=== PATIENT | male | born 1945 | race Caucasian/White ===

== ENCOUNTER → 2018-05-07 18:18 | Outpatient (CLI) | payer OTHER, SELFPAY ==
[2018-05-07 18:54] LABS: CPK Total, Creatine Kinase 282 U/L (39-308); Thyroid Stim Hormone (TSH) 1.67 uIU/mL (0.358-3.74)
[2018-05-09 08:25] LABS: Thyroid Peroxidase AB 68 IU/mL (0-34)
== END ==
PROVIDERS: Referring Provider Nurse Practitioner; Visit Provider Nurse Practitioner
DX: E03.9 Hypothyroidism, unspecified (principal); M79.18 Myalgia, other site
CPT/HCPCS: 82550; 84443; 86376

== ENCOUNTER → 2018-07-02 12:03 | Outpatient (CLI) | payer OTHER, SELFPAY ==
[2018-07-02 11:12] VITALS: BMI 29.7
--- NOTE | 2018-07-02 12:06 | RAD_ITS ---
STUDY: X-RAY - CERVICAL SPINE REASON FOR EXAM: Male, 73 years old. Left-sided pain. TECHNIQUE: 5 view(s) of the cervical spine were obtained. COMPARISON: None FINDINGS: Normal anterior atlantoaxial articulation. Normal odontoid process. There is straightening of the normal cervical lordosis. 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 There is multi-level degenerative disc disease with multilevel disc space narrowing. There is multi-level osseous foraminal stenosis. The soft tissue structures are unremarkable. There is no demonstrated fracture of the cervical spine. RAD/Cerv Spine 4 or 5 Views IMPRESSION: No acute abnormality. Degenerative changes as above. Electronically Signed: Justin Link MD at 12:29 EST , Service support ,
--- NOTE | 2018-07-02 12:25 | RAD_ITS ---
HISTORY: WORSENING LEFT SIDED PAIN, NKI COMPARISON: None FINDINGS: XR left shoulder 3 views No fracture, dislocation, or acute disease. The left glenohumeral relationship appears normal. Left AC joint is preserved. No soft tissue calcifications. RAD/Shoulder min 2 Views IMPRESSION: Negative left shoulder. No suspicious findings. at [id number] Reported and signed by: Justo Hanley MD Electronically Signed: Justo Hanley, at 4:17 EST Tel , Service support ,
--- OUTSIDE RECORDS SUMMARY | 2018-08-18 15:36 | XMS RPT_ITS ---
:1945 Author Organization OHIP Care Team Providers Name Role Phone MAYELIN STAHL Attending Unavailable WILBERT SKAGGS (AUDIEC) Attending Unavailable IRA COREY Referring Unavailable CARLYN GOODE Attending Unavailable IRA COREY Referring Unavailable WILBERT SKAGGS (WILBER-C) Referring Unavailable WILBERT SKAGGS (AUDIEC) Referring Unavailable WILBERT SKAGGS (PA-C) Referring Unavailable MAYELIN STAHL Referring Unavailable MAYELIN STAHL Attending Unavailable COREY, IRA L Referring Unavailable WILBERT SKAGGS (PA-C) Attending Unavailable COREY, IRA L Referring Unavailable FAVIO, ASHLEYESTER Referring Unavailable FAVIO, MAYELIN Admitting Unavailable FAVIO, MAYELIN Attending Unavailable FAVIO, ASHLEYESTER Referring Unavailable FAVIO, ASHLEYESTER Attending Unavailable COREY, IRA L Referring Unavailable Chandana Garcia Attending Unavailable Corey, Ira FOCUS PULLER-C Attending Unavailable Corey, Ira FOCUS PULLER-C Referring Unavailable Corey, Ira FOCUS PULLER-C Primary Care Unavailable Chandana Garcia Attending Unavailable Kristofer Patten Referring Unavailable Tatiana Briceño Attending Unavailable Chandana Garcia Attending Unavailable Corey, Ira FOCUS PULLER-C Referring Unavailable Corey, Ira FOCUS PULLER-C Attending Unavailable Kristofer Patten Primary Care Unavailable Corey, Ira FOCUS PULLER-C Referring Unavailable PROBLEMS PROBLEMS DATE TYPE CONDITION / CODE ATTENDING STATUS SOURCE 05/08/2018 Unknown E03.9 - Corey, Active [facility] Hypothyroidism, Ira FOCUS PULLER-C Community unspecified / Hospital E03.9(ICD-10) Repository 05/08/2018 Unknown M79.18 - Myalgia, Corey, Active [place] other site / Ira FOCUS PULLER-C Community M79.18(ICD-10) Hospital Repository 02/25/2018 Active Radiographic dye WILBERT SKAGGS Active [place] allergy status / (PA-C) [facility] Main Z91.041(ICD-10) [place] Repository 02/25/2018 Active Unspecified disorder NA Active [place] of circulatory system Clinic Main / I99.9(ICD-10) [place] Repository 02/05/2018 Active Aneurysm of other NA Active [place] specified arteries / Clinic Main I72.8(ICD-10) [place] Repository 02/05/2018 Active Atherosclerotic heart NA Active [place] disease of kiana [facility] Main coronary artery [place] without angina Repository pectoris / I25.10(ICD-10) 02/05/2018 Active Encounter for NA Active [place] preprocedural [facility] Main cardiovascular [place] examination / Repository Z01.810(ICD-10) 02/05/2018 Active Encounter for other NA Active [place] preprocedural [facility] Main examination / [place] Z01.818(ICD-10) Repository 01/28/2018 Active Unknown / WILBERT SKAGGS Active [place] UNK(Unknown) (PA-C) Clinic Main [place] Repository 01/21/2018 Active [place] of ureter / NA Active [place] N20.1(ICD-10) Clinic Other [place] Repository 01/21/2018 Active Unspecified abdominal NA Active [place] pain / R10.9(ICD-10) Clinic Other [place] Repository 09/11/2017 Unknown I25.10 - Chandana Garcia Active [facility] Atherosclerotic heart Community disease of [facility] coronary artery Repository without angina pectoris / I25.10(ICD-10) 09/11/2017 Unknown Z95.1 - Presence of Chandana Garcia Active [facility] aortocoronary bypass Community graft / Z95.1(ICD-10) Hospital Repository 09/11/2017 Unknown I20.9 - Angina Chandana Garcia Active [place] pectoris, unspecified Community / I20.9(ICD-10) Hospital Repository PROCEDURES PROCEDURES No Procedure Records FoundRESULTS RESULTS OFFICE VISIT Observed: 07/08/2018 Status: F Source: [place] 8:42 PM [facility] REPOSITORY [facility] [address] [place] [address] OFFICE VISIT Date of Service: 07/08/18 MR#: [id number] Acct: [id number] Name: JORGE GUILLEN Rep #: [id number] : 1945 Provider: MICHAEL Corey Age/Sex: 73/M Location: [facility] Status: Signed Intake Vital Signs07/08/18 Height 6 ft 07/08/18 Weight: 221 lb Intake Visit Reasons: neck muscle pain Allergies iodine Allergy (Verified 07/02/18 11:12) Rash contrast dye Allergy (Unknown, Uncoded 07/02/18 11:12) Unknown Medications Aspirin [Aspirin, Baby] 81 mg PO DAILY@0800 06/13/14 [History Confirmed 07/02/18] Multivitamins,Therapeutic [Multivitamin] 1 tab PO DAILY 06/13/14 [History Confirmed 07/02/18] ascorbic acid (vitamin C) 1,000 mg tablet 1 g PO BID tab 09/09/17 [History Confirmed 07/02/18] calcium citrate-vitamin D3 315 mg-200 unit tablet 1 tab PO BID tab 09/09/17 [History Confirmed 07/02/18] coenzyme Q10 100 mg capsule 100 mg PO QDAY 09/09/17 [History Confirmed 07/02/18] latanoprost 0.005 % eye drops 1 drp OPHTHALMIC QHS ml 09/09/17 [History Confirmed 07/02/18] nitroglycerin 0.4 mg sublingual tablet 0.4 mg SUBLINGUAL Q5M PRN 09/09/17 [History Confirmed 07/02/18] tadalafil 20 mg tablet 20 mg PO .COMPLEX 09/09/17 [History Confirmed 07/02/18] cholecalciferol (vitamin D3) 2,000 unit capsule 2,000 unit PO QDAY cap 09/11/17 [History Confirmed 07/02/18] isosorbide mononitrate ER 30 mg tablet,extended release 24 hr 60 mg PO BID tab 09/11/17 [History Confirmed 07/02/18] levothyroxine 100 mcg capsule 100 mcg PO QDAY cap 09/11/17 [History Confirmed 07/02/18] lutein 20 mg capsule 20 mg PO QDAY 09/11/17 [History Confirmed 07/02/18] omeprazole 20 mg tablet,delayed release 20 mg PO QDAY tab 09/11/17 [History Confirmed 07/02/18] rosuvastatin 10 mg tablet 10 mg PO QDAY 09/11/17 [History Confirmed 07/02/18] turmeric root extract 1,053 mg tablet 1,000 mg PO BID tab 09/11/17 [History Confirmed 07/02/18] atenolol 25 mg tablet 25 mg PO DAILY #90 tab 09/24/17 [Rx Confirmed 07/02/18] omega-3 fatty acids 1,000 mg capsule 1,000 mg PO BID cap 07/02/18 [History Confirmed 07/02/18] cyclobenzaprine 5 mg tablet 5 mg PO TID PRN #60 tab 07/08/18 [Rx Confirmed 07/08/18] doxycycline hyclate 100 mg tablet 100 mg PO BID #20 tab 07/08/18 [Rx Confirmed 07/08/18] PFSH Medical History Angina pectoris (Acute) Hyperlipidemia (Chronic) 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 Does not seem to be the same pain as the neck but the skin is tender more in the lymph nodes ROS Roman/Lymp Hematologic/Lymphatic: Positive for enlarged lymph nodes Exam Const Constitutional: Yes cooperative, Yes healthy appearing Orientation: Yes alert, awake and oriented x3 HENMT Head: Yes normocephalic Ear: Yes hearing grossly normal bilaterally Neck Neck: normal visual inspection Lymphadenopathy: Yes cervical (lateral are tender to touch on the ) Thyroid: thyroid normal Eyes General: Yes appearance normal, both eyes and all related structures Chest Chest palpation AND inspection: Yes normal inspection of the chest Resp Effort AND Inspection: Yes normal respiratory effort Auscultation: Yes clear to auscultation bilaterally Cardio Palpitation: Yes normal PMI Rate: Yes regular rate Rhythm: Yes regular rhythm GI Inspection: Yes normal to inspection Auscultation: Yes normal bowel sounds Musc Cervical Spine: Yes cervical ROM normal Thoracic/Lumbar Spine: Yes thoracic and lumbar spine normal to inspection Skin General: no rashes or lesions noted Lesions: Yes no lesions Extrem General: Yes normal to inspection Neuro General: Yes alert and oriented x3 Psych Appearance: Positive grossly normal Mood: Positive congruent mood Affect: Positive normal affect Assessment AND Plan Problems 1. Lymphadenopathy of head and neck R59.1 2. Neck pain M54.2 Patient Instructions Take the antibiotics till gone Use the cyclobenzaprine as needed up to 3 x a day my take 2 at a time if needed Medications New: Coding Level of Care Code Off vis,est,level 3 Diagnoses Lymphadenopathy of head and neck R59.1 Neck pain M54.2 07/08/182041 <Electronically signed by Ira MORALES> Date Ira MORALES CC: CARDIOLOGY VISIT Observed: 07/02/2018 Status: F Source: [place] REPORT 12:06 PM [facility] REPOSITORY [facility] [address] [place] [address] OFFICE VISIT Date of Service: 07/02/18 MR#: [id number] Acct: [id number] Name: JORGE GUILLEN Rep #: [id number] : 1945 Provider: Chandana Garcia MD Age/Sex: 73/M [place] [facility]: Signed HPI HPI Details: JORGE GUILLEN, is a 73 M who presents to the office today for outpatient cardiovascular follow-up. Overall from a cardiac standpoint he states he has been doing well since his last visit on 09/11/2017. He has had no symptoms of angina pectoris and no episodes of CHF or pulmonary edema. There has been no issues of near syncope or syncope. He states he has weaned himself off his isosorbide therapy without any adverse consequence. He has not had to use nitroglycerin sublingual. He notes he had his lipid labs checked. He believes the results were under reasonably good control. He will attempt to provide a copy of his lipid labs to the office for continuity of care purposes. He notes that during the past year he did have nephrolithiasis. As part of that evaluation he was found to have splenic aneurysm . He states that he underwent further evaluation and care for this at the [facility] Main campus. This included some form of percutaneous intervention. The details are unknown. Intake Vital Signs07/02/18 Height 6 ft 07/02/18 Weight: 219 lb 07/02/18 Body Mass Index (BMI) 29.7 07/02/18 Blood Pressure 126/68 H Intake Visit Reasons: 9 m fu Allergies iodine Allergy (Verified 07/02/18 11:12) Rash contrast dye Allergy (Unknown, Uncoded 07/02/18 11:12) Unknown Medications Aspirin [Aspirin, Baby] 81 mg PO DAILY@0800 06/13/14 [History Confirmed 07/02/18] Multivitamins,Therapeutic [Multivitamin] 1 tab PO DAILY 06/13/14 [History Confirmed 07/02/18] ascorbic acid (vitamin C) 1,000 mg tablet 1 g PO BID tab 09/09/17 [History Confirmed 07/02/18] calcium citrate-vitamin D3 315 mg-200 unit tablet 1 tab PO BID tab 09/09/17 [History Confirmed 07/02/18] coenzyme Q10 100 mg capsule 100 mg PO QDAY 09/09/17 [History Confirmed 07/02/18] latanoprost 0.005 % eye drops 1 drp OPHTHALMIC QHS ml 09/09/17 [History Confirmed 07/02/18] nitroglycerin 0.4 mg sublingual tablet 0.4 mg SUBLINGUAL Q5M PRN 09/09/17 [History Confirmed 07/02/18] tadalafil 20 mg tablet 20 mg PO .COMPLEX 09/09/17 [History Confirmed 07/02/18] cholecalciferol (vitamin D3) 2,000 unit capsule 2,000 unit PO QDAY cap 09/11/17 [History Confirmed 07/02/18] isosorbide mononitrate ER 30 mg tablet,extended release 24 hr 60 mg PO BID tab 09/11/17 [History Confirmed 07/02/18] levothyroxine 100 mcg capsule 100 mcg PO QDAY cap 09/11/17 [History Confirmed 07/02/18] lutein 20 mg capsule 20 mg PO QDAY 09/11/17 [History Confirmed 07/02/18] omeprazole 20 mg tablet,delayed release 20 mg PO QDAY tab 09/11/17 [History Confirmed 07/02/18] rosuvastatin 10 mg tablet 10 mg PO QDAY 09/11/17 [History Confirmed 07/02/18] turmeric root extract 1,053 mg tablet 1,000 mg PO BID tab 09/11/17 [History Confirmed 07/02/18] atenolol 25 mg tablet 25 mg PO DAILY #90 tab 09/24/17 [Rx Confirmed 07/02/18] omega-3 fatty acids 1,000 mg capsule 1,000 mg PO BID cap 07/02/18 [History Confirmed 07/02/18] [facility] Medical History Angina pectoris (Acute) Hyperlipidemia (Chronic) 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) Hypothyroidism (Acute) Kidney stone (Acute) Mononeuritis (Acute) Peptic ulcer disease (Acute) Abnormal stress test (Inactive) Surgical History 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) Splenic artery aneurysm (Acute) History of hernia repair (Chronic) H/O arthroscopy of left knee (Resolved) H/O repair of rotator cuff (Resolved) Family History Father Heart disease Social History Smoking Status: Never smoker alcohol intake: current ROS Const Const: Negative for fatigue, weakness, weight gain, weight loss, frequent falls or excessive sweating Eyes Eyes: Negative for change in vision, blurry vision or transient loss of vision ENT ENT: Negative for dizziness or balance problems Cardio Chest Pain: No Palpitations: No Edema: None Muscle aches with walking: None Resp Respiratory: Negative for SOB with activity or SOB at rest GI GI: Negative vomiting or vomiting blood/hematemesis : Negative for hematuria Musc Musc: Positive for muscle aches/ myalgia (bilat shoulders); negative for balance problems, muscle weakness or joint pain Skin Skin: Negative non-healing lesions or rash Neuro Neuro: Negative for weakness, blurry vision, dizziness, lightheadedness, frequent falls or orthostatic symptoms Roman Hematologic/Lymphatic: Negative for easy bleeding Endo Endo: Negative for fatigue or excessive sweating Psych Psych: Negative for anxiety or depression Allergy Allergy/Immunology: Negative for hives, Negative for rash Cardiology Exam Const Appearance: cooperative, healthy appearing, comfortable, no acute distress, well developed and well groomed Nutritional Appearance: average body habitus, well nourished and overweight Orientation: alert, awake and oriented x3 Head Head: normal to inspection, normocephalic and atraumatic Ears: hearing grossly normal bilaterally Nose: external nose normal Face and Sinus: face symmetric Mouth: oral mucosae normal Teeth and gingiva: dentition normal Eyes General: appearance normal, both eyes and all related structures Eyelids: eyelids normal Conjunctivae: conjunctivae normal Pupils: PERRL EOM: EOM intact bilaterally Neck Neck: normal visual inspection and full ROM Carotids: normal carotid upstroke Chest Chest inspection: normal inspection of the chest and symmetric chest movement Auscultation: Bilateral: Clear to Auscultation Cardio Palpation: normal PMI Rate: regular rate Rhythm: regular rhythm Heart sounds: S1 normal, S2 normal and positive S4 GI GI: normal to inspection, soft and bowel sounds present Neuro General: alert, awake and oriented x3 Skin Skin: no rashes or lesions noted Extremities Pulses: Normal: Right Radial Pulse, Left Radial Pulse Lower Extremity Edema: None: Bilateral Psych Psychological: normal affect Assessment AND Plan 1. Angina pectoris I20.9 Plan At the present time he appears to be without any ongoing symptoms of angina pectoris. He will continue his current medical regimen. He will report any concerns that require further evaluation and care 2. 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 Again he appears to be stable at this time without any acute issues or concerns. He will continue his current medical regimen. 3. Hyperlipidemia, unspecified hyperlipidemia type E78.5 Plan A copy of his most recent lipid labs would be appreciated for continuity of care Plan Detail Additional Comments In the interim a copy of his [facility] medical records will be requested for review for continuity of care purposes regarding his splenic aneurysm Thank you for allowing me to participate in the care of your patient. Please don't hesitate to call if any issues arise. This note was generated using a voice recognition system and there may be incorrect words, spelling or punctuation that were not noted when reviewing the office note prior to saving. Follow Up 1 Month (PFM) 07/02/18 (copy of [facility] anuerysm reports) Coding Level of Care Code Off vis,est,level 3 Diagnoses Angina pectoris I20.9 Postsurgical aortocoronary bypass status Z95.1 Hyperlipidemia, unspecified hyperlipidemia type E78.5 Hyperlipidemia type: unspecified Coding Level of Care Code Off vis,est,level 3 Diagnoses Angina pectoris I20.9 Postsurgical aortocoronary bypass status Z95.1 Hyperlipidemia, unspecified hyperlipidemia type E78.5 Hyperlipidemia type: unspecified 07/02/18 1206 <Electronically signed by Chandana Garcia MD> Date Chandana Garcia MD Cosigner Signature: Date (if applicable) CC: SHOULDER MIN 2 VIEWS Observed: 07/02/2018 Status: F Source: [place] 12:06 PM [facility] REPOSITORY [facility] Imaging Services [address] [place] [address] Shoulder min 2 Views MR#: [id number] Acct: [id number] Name: YOBANIJORGE BENNETT Rep #: [id number] : 1945 M 73 From: Justo Hanley MD PCP: Ira Corey NP Status: REG CLI Study: Shoulder min 2 Views Date of Exam: 07/02/18 Exam# [id number] Ordering Dr: Ira Corey HISTORY: WORSENING LEFT SIDED PAIN, NKI COMPARISON: None FINDINGS: XR left shoulder 3 views No fracture, dislocation, or acute disease. The left glenohumeral relationship appears normal. Left AC joint is preserved. No soft tissue calcifications. RAD/Shoulder min 2 Views IMPRESSION: Negative left shoulder. No suspicious findings. at 0419 Reported and signed by: Justo Hanley MD Electronically Signed: Justo Hanley, at 4:17 EST Tel , Service support , CC: FOCUS PULLER Ira Corey Vascular Ultrasound Technician: Signed CERV SPINE 4 OR 5 Observed: 07/02/2018 Status: F Source: [place] VIEWS 12:06 PM [facility] REPOSITORY [facility] Imaging Services [address] [place] [address] Cerv Spine 4 or 5 Views MR#: [id number] Acct: [id number] Name: DARLENESARANYAJORGE Susy Rep #: [id number] : 1945 M 73 From: Justin Link MD PCP: Ira Corey NP Status: REG CLI Study: Cerv Spine 4 or 5 Views Date of Exam: 07/02/18 Exam# [id number] Ordering Dr: Ira Corey STUDY: X-RAY - CERVICAL SPINE REASON FOR EXAM: Male, 73 years old. Left-sided pain. TECHNIQUE: 5 view(s) of the cervical spine were obtained. COMPARISON: None FINDINGS: Normal anterior atlantoaxial articulation. Normal odontoid process. There is straightening of the normal cervical lordosis. 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 There is multi-level degenerative disc disease with multilevel disc space narrowing. There is multi- level osseous foraminal stenosis. The soft tissue structures are unremarkable. There is no demonstrated fracture of the cervical spine. RAD/Cerv Spine 4 or 5 Views IMPRESSION: No acute abnormality. Degenerative changes as above. Electronically Signed: Justin Link MD at 12:29 EST , Service support , CC: MICHAEL Corey Vascular Ultrasound Technician: Signed OFFICE VISIT Observed: 05/07/2018 Status: F Source: [place] 2:55 PM [facility] REPOSITORY [facility] [address] [place] [address] OFFICE VISIT Date of Service: 05/07/18 MR#: [id number] Acct: [id number] Name: JORGE GUILLEN Rep #: [id number] : 1945 Provider: MICHAEL Corey Age/Sex: 72/M Location: [facility] Status: Signed Intake Vital Signs05/07/18 Height 6 ft 05/07/18 Weight: 217 lb Intake Visit Reasons: BW AND NECK ISSUES Accompanied by: self Is patient in pain?: Yes Allergies iodine Allergy (Verified 07/27/13 17:28) Rash contrast dye Allergy (Unknown, Uncoded 09/11/17 13:04) Unknown Medications Aspirin [Aspirin, Baby] 81 mg PO DAILY@0800 06/13/14 [History Confirmed 09/11/17] Multivitamins,Therapeutic [Multivitamin] 1 tab PO DAILY 06/13/14 [History Confirmed 09/11/17] ascorbic acid (vitamin C) 1,000 mg tablet 1 g PO BID tab 09/09/17 [History Confirmed 09/11/17] calcium citrate-vitamin D3 315 mg-200 unit tablet 1 tab PO BID tab 09/09/17 [History Confirmed 09/11/17] coenzyme Q10 100 mg capsule 100 mg PO QDAY 09/09/17 [History Confirmed 09/11/17] latanoprost 0.005 % eye drops 1 drp OPHTHALMIC QHS ml 09/09/17 [History Confirmed 09/11/17] nitroglycerin 0.4 mg sublingual tablet 0.4 mg SUBLINGUAL Q5M PRN 09/09/17 [History Confirmed 09/11/17] tadalafil 20 mg tablet 20 mg PO .COMPLEX 09/09/17 [History Confirmed 09/11/17] cholecalciferol (vitamin D3) 2,000 unit capsule 2,000 unit PO QDAY cap 09/11/17 [History Confirmed 09/11/17] isosorbide mononitrate ER 30 mg tablet,extended release 24 hr 60 mg PO BID tab 09/11/17 [History Confirmed 09/11/17] levothyroxine 100 mcg capsule 100 mcg PO QDAY cap 09/11/17 [History Confirmed 09/11/17] lutein 20 mg capsule 20 mg PO QDAY 09/11/17 [History Confirmed 09/11/17] omega-3 fatty acids 1,000 mg capsule 1,000 mg PO QDAY 09/11/17 [History Confirmed 09/11/17] omeprazole 20 mg tablet,delayed release 20 mg PO QDAY tab 09/11/17 [History Confirmed 09/11/17] rosuvastatin 10 mg tablet 10 mg PO QDAY 09/11/17 [History Confirmed 09/11/17] turmeric root extract 1,053 mg tablet 1,000 mg PO BID tab 09/11/17 [History Confirmed 09/11/17] atenolol 25 mg tablet 25 mg PO DAILY #90 tab 09/24/17 [Rx] [facility] Medical History Angina pectoris (Acute) Hyperlipidemia (Chronic) 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 L shoulder and his neck bother him like a muscle ache . Hx of elevated muscle enzyme. Will recheck his thyoid and CK and have x-rays of the L shoulder and neck ROS ENT ENT: Positive for neck pain Musc Musculoskeletal: Positive for neck pain and other (L shoulder pain like ache) Exam Const Constitutional: Yes cooperative, Yes healthy appearing Orientation: Yes alert, awake and oriented x3 HENMT Head: Yes normocephalic Ear: Yes hearing grossly normal bilaterally Neck Neck: normal visual inspection Thyroid: thyroid normal Eyes General: Yes appearance normal, both eyes and all related structures Chest Chest palpation AND inspection: Yes normal inspection of the chest Resp Effort AND Inspection: Yes normal respiratory effort Auscultation: Yes clear to auscultation bilaterally Cardio Palpitation: Yes normal PMI Rate: Yes regular rate Rhythm: Yes regular rhythm GI Inspection: Yes normal to inspection Auscultation: Yes normal bowel sounds Musc Cervical Spine: Yes cervical ROM normal Thoracic/Lumbar Spine: Yes thoracic and lumbar spine normal to inspection Skin General: no rashes or lesions noted Lesions: Yes no lesions Extrem General: Yes normal to inspection Neuro General: Yes alert and oriented x3 Psych Appearance: Positive grossly normal Mood: Positive congruent mood Affect: Positive normal affect Assessment AND Plan Problems 1. Chronic left shoulder pain M25.512; G89.29 2. Neck pain M54.2 3. Muscle ache of extremity M79.18 Patient Instructions Will call with the results of the labs drawn Orders Orders: Coding Level of Care Code Off vis,est,level 3 Diagnoses Chronic left shoulder pain M25.512; G89.29 Chronicity: chronic Neck pain M54.2 Muscle ache of extremity M79.18 05/07/18 4635 <Electronically signed by Ira Corey FOCUS PULLER-C> Date Ira Corey FOCUS PULLER-C CC: CPK TOTAL, CREATINE Collected: 05/07/2018 Status: F Source: [place] 2:55 PM [facility] REPOSITORY TYPE CODE TESTS RESULT OUT OF RANGE REFERENCE UNITS LAB L501.3620 39-308 U/L Normal CPK TOTAL 282 Performed By: #### L501.3620, L501.9520 #### [facility] [address] [place] [address]. [place], [address] #### L3300.6900 #### [facility] (refer to report for specific site) refer to report for address and phone number THYROID STIM HORMONE Collected: 05/07/2018 Status: F Source: [place] (TSH) 2:55 PM [facility] REPOSITORY TYPE CODE TESTS RESULT OUT OF RANGE REFERENCE UNITS LAB L501.9520 0.358-3.74 uIU/mL Normal TSH 1.67 Performed By: #### L501.3620, L501.9520 #### [facility] Hospital Laboratory [facility] [place], [address] #### [id number] #### [facility] (refer to report for specific site) refer to report for address and phone number THYROID PEROXIDASE AB Collected: 05/07/2018 Status: F Source: [place] 2:55 PM [facility] REPOSITORY TYPE CODE TESTS RESULT OUT OF RANGE REFERENCE UNITS LAB L3300.6900 0-34 IU/mL High TPO AB [id number] Result Comment: Performed at: - [facility] [address] [id number] [employer] Roboticist: Arthur Castillo PhD, Phone: [phone] Performed By: #### L501.3620, L501.9520 #### [facility] [address] [place] [address]. [place], [address] #### [id number] #### [facility] (refer to report for specific site) refer to report for address and phone number CNCO Observed: 05/02/2018 Status: COMPLETED Source: [place] 12:00 AM [facility] REPOSITORY Letter Text Veto Stahl MD, SAMMY Channel Marketing Coordinator Department of Vascular Surgery [address] [place] [address] / [address] [address] Office: [phone] Appointments: [phone] May 02, 2018 Ira Corey NP [address] [place] [address] NAME: Jorge Guillen [facility] NO.: [id number] : 1945 DATE OF SERVICE: 04/01/2018 Dear Vinod: Your patient, Mr. Guillen, was seen by me in the office for a post-op appointment. The details of his treatment plan are included in my office note, a copy of which is included for your interest and records. I appreciate the opportunity to participate in Mr. Guillen's evaluation and treatment. If I can provide further information, please do not hesitate to contact me. Sincerely yours, Veto Stahl MD (Signed electronically to expedite mailing) LK/tc Enclosure PROGRESS Observed: 04/01/2018 Status: COMPLETED Source: [place] 10:48 AM [facility] REPOSITORY HNO ID: [id number] Author: Veto Stahl Service: (none) Author Type: Physician Type: Progress Notes Filed: 04/01/2018 10:48 AM Note Text: This office note has been dictated. Veto Stahl MD CNOV Observed: 04/01/2018 Status: COMPLETED Source: [place] 9:45 AM [facility] REPOSITORY Office Visit (VASSMN) JORGE GUILLEN ([id number]) 1945 M Date Time Provider Department 04/01/18 9:45 AM VETO STAHL During your visit today, we recorded the following information about you: Temperature Pulse Respiration Blood pressure 97.4 degrees 52/minute 18/minute 136/73 Veto Stalh MD 04/01/2018 10:48 AM Signed This office note has been dictated. 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 FISH OIL-DHA-EPA 1,200 MG-144* Take by mouth twice daily. ROSUVASTATIN 10 MG TABLET Take 10 mg by mouth once drew* ATENOLOL 25 MG TABLET TAKE 1 TABLET BY MOUTH ONCE D* ISOSORBIDE MONONITRATE ER 60 * Take 1 tablet by mouth twice * Patient taking differently: Take 60 mg by mouth once drew* ASCORBIC ACID (VITAMIN C) 1,0* Take 1 tablet by mouth twice * LATANOPROST 0.005 % EYE DROPS Use 1 Drop in both eyes daily* NITROGLYCERIN 0.4 MG SUBLINGU* Dissolve 1 tablet under the t* TADALAFIL 20 MG TABLET Take 1 tablet by mouth as nee* COENZYME K03-MLPLIXZ E 100 MG* Take 1 tablet by mouth once d* CALCIUM CITRATE + 315 MG-200 * Take one(1) tablet two(2) aminah* MULTIVITAMIN TABLET Take one(1) tablet daily. * ASPIRIN 81 MG TABLET Take one (1) tablet daily . Problem List As Of Date 04/01/2018 Noted Resolved CORONARY ATHEROSCLER UNSPEC VESSEL [I25.10] INVALID FOR*08/23/2015 AORTOCORONARY BYPASS STATUS [Z95.1] INVALID FOR*08/23/2015 HYPERLIPIDEMIA NEC/NOS [E78.5] INVALID FOR*08/23/2015 Coronary artery disease involving kiana olmstead*INVALID FOR* S/P CABG x 3 (L-LAD, R-diag, S-OM) 2001 [Z95.1] INVALID FOR* Pure hypercholesterolemia [E78.00] INVALID FOR* Erectile dysfunction [N52.9] INVALID FOR* Diaphoresis [R61] INVALID FOR* Angina effort (HCC) [I20.8] INVALID FOR* Splenic artery aneurysm (HCC) [I72.8] INVALID FOR* More... Preop cardiovascular exam [Z01.810] INVALID FOR* More... Preop testing [Z01.818] INVALID FOR* More... Encounter Status:Closed by VETO STAHL MD on 04/01/18 PROGRESS Observed: 04/01/2018 Status: COMPLETED Source: [place] 12:00 AM [facility] REPOSITORY HNO ID: [id number] Author: Veto Stahl Service: Vascular Surgery Author Type: Physician Type: Progress Notes Filed: 04/25/2018 10:57 AM Note Text: NAME: JORGE GUILLEN [facility] NO: [id number] DATE OF SERVICE: 04/01/2018 Mr. Guillen is seen today. Status post splenic artery aneurysm repair. He is doing well. Denies any abdominal or back pain or access site problems. Preoperative CTA was compared to the postintervention ultrasound. The stent is patent. No filling of the aneurysm. Impression/Plan: He will follow up in 12 months with an ultrasound. Mayelin Stahl M.D. SPL/089 Audio #: [id number] Date Dictated: 04/01/2018 10:26:33 Date Typed: 04/04/2018 09:32:09 Date Revised: ALLIED HEALTH Observed: 03/03/2018 Status: COMPLETED Source: [place] 3:36 PM [facility] REPOSITORY HNO ID: [id number] Author: Chaplain Del Castillo (Chaplain) Service: Spiritual Care Author Type: Industrial Diamond Polisher Type: Allied Health Filed: 03/04/2018 7:04 AM Note Text: SPIRITUALCARE Spiritual Care Visit- Brief Note Name: Jorge Guillen Date: March 04, 2018 Notes: Introduced spiritual care and Healing Services modalities during pre-surgery rounding. Will provide support as needed. Industrial Diamond Polisher Signature: Chaplain Blake M.Div., [facility] To contact the [facility] Care Department: Please call [phone] or Page the On-Call Industrial Diamond Polisher at pager [phone] Thank you for the opportunity to be of service. This is an electronically created document. IF PRINTED, PLEASE DO NOT REMOVE FROM THE CHART OR MODIFY PRINTED COPY. NURSING PROG Observed: 03/03/2018 Status: COMPLETED Source: [place] 3:18 PM [facility] REPOSITORY HNO ID: [id number] Author: Nichole (Rn) MARISABEL Gonzalez Service: Nursing Author Type: Registered Nurse Type: Nursing Progress Note Filed: 03/03/2018 3:27 PM Note Text: Nursing Progress Note Patient Name: Jorge Guillen [address] Daily Note:1515 bedrest complete. Pt ambulated in the christy and to the restroom. Steady gait.No bleeding or hematoma PIV dc'd This note was completed by: Nichole Gonzalez RN ANES POST Observed: 03/03/2018 Status: COMPLETED Source: [place] 3:00 PM [facility] REPOSITORY HNO ID: [id number] Author: Gregory Murphy Service: Anesthesiology Author Type: Physician Type: Anesthesia PostOp Filed: 03/04/2018 6:35 PM Note Text: POST ANESTHESIA EVALUATION NOTE SERVICE DATE: 03/04/2018 SERVICE TIME: 1500 : 1945 Vitals: 03/03/18 0540 03/03/18 0912 03/03/18 1500 Temp: (!) 35.2 ?C (95.4 ?F) 36.4 ?C (97.5 ?F) 36.6 ?C (97.9 ?F) 03/03/18 1213 03/03/18 1314 03/03/18 1411 03/03/18 1455 BP: 113/66 135/68 128/71 131/68 03/03/18 1213 03/03/18 1314 03/03/18 1411 03/03/18 1455 Pulse: (!) 58 62 66 61 03/03/18 1314 03/03/18 1411 03/03/18 1455 03/03/18 1500 Resp: 16 16 16 16 03/03/18 1314 03/03/18 1411 03/03/18 1455 03/03/18 1500 SpO2: 95% 96% 95% 96% Validated Vital Signs: Yes POST ANES STATUS: No apparent anesthetic complications. The patient is appropriately hydrated with stable respiratory and cardiovascular status. Patient has safe and adequate airway control. The patient has appropriate pain relief and no significant post operative nausea or vomiting. The patient has achieved baseline mental status. Further assessment by Anesthesia Service: None Other Remarks: SIGNATURE: Gregory Murphy MD PATIENT NAME: Jorge Guillen DATE: March 04, 2018 TIME: 6:35 PM PAGER/CONTACT #: [phone] ALLIED HEALTH Observed: 03/03/2018 Status: COMPLETED Source: [place] 6:39 AM [facility] REPOSITORY [facility] ID: [id number] Author: Chaplain Del Castillo (Chaplain) Service: Spiritual Care Author Type: Industrial Diamond Polisher Type: Allied Health Filed: 03/03/2018 6:40 AM Note Text: SPIRITUALCARE Spiritual Care Visit- Brief Note Name: Jorge Guillen Date: March 03, 2018 Notes: Introduced spiritual care and Healing Services modalities during pre-surgery rounding. Will provide support as needed. Industrial Diamond Polisher Signature: Chaplain Blake M.Div., [facility] To contact the Spiritual Care Department: Please call [phone] or Page the On-Call Industrial Diamond Polisher at pager [phone] Thank you for the opportunity to be of service. This is an electronically created document. IF PRINTED, PLEASE DO NOT REMOVE FROM THE CHART OR MODIFY PRINTED COPY. CNCO Observed: 03/03/2018 Status: COMPLETED Source: [place] 12:00 AM [facility] REPOSITORY Letter Text Veto Stahl MD, SAMMY Channel Marketing Coordinator Department of Vascular Surgery [address] [place] [address] / [place] [id number] Office: [phone] Appointments: [phone] March 03, 2018 Ira Corey NP [address] [place] [address] NAME: Jorge Guillen [facility] NO.: [id number] : 1945 DATE OF SERVICE: 01/28/18 AND 02/25/2018 Dear Ms. Corey: Your patient, Mr. Guillen, was seen by me in the office for follow-up appointments. The details of his treatment plan are included in my office note, a copy of which is included for your interest and records. I appreciate the opportunity to participate in Mr. Guillen's evaluation and treatment. If I can provide further information, please do not hesitate to contact me. Sincerely yours, Veto Stahl MD (Signed electronically to expedite mailing) LK/tc Enclosure OPERATIVE NO Observed: 03/03/2018 Status: COMPLETED Source: [place] 12:00 AM [facility] REPOSITORY HNO ID: [id number] Author: Veto Stahl Service: Vascular Surgery Author Type: Physician Type: Operative Report Filed: 03/06/2018 4:44 PM Note Text: [place] [address] [place] OPERATIVE REPORT NAME: JORGE GUILLEN [facility] #: [id number] DATE: 03/03/2018 AGE: 72 SURGEON 1: Mayelin Stahl M.D. SURGEON 2: COMPONENT ASSEMBLER 1: Luz Elena Elizabeth M.D. COMPONENT ASSEMBLER 2: OPERATION: Right ultrasound-guided common femoral artery access, selective catheterization of splenic artery aortogram and splenic angiogram, and placement of an 8-mm x 10 cm Viabahn stent splenic artery. ANESTHESIA: Monitored anesthesia care. PREOPERATIVE DIAGNOSIS: Splenic aneurysm. POSTOPERATIVE DIAGNOSIS: Splenic aneurysm. OPERATIVE INDICATIONS: This is a 72-year-old male with incidentally found splenic artery aneurysm, now scheduled for elective repair. We discussed risks, benefits, and alternatives including bleeding, infection, neurovascular injury, or splenic infarct. All questions were answered. He agreed to proceed. OPERATIVE FINDINGS: The aorta is patent with normal takeoff of the celiac. The splenic artery is patent with aneurysm at the distal end of the proximal one-third. OPERATIVE PROCEDURE: The patient was brought to the operating room suite. Identification was confirmed. Informed consent was verified. After adequate sedation was achieved, he was prepared and draped in sterile fashion over the left arm, abdomen and groins. Initially, after time-out was performed, percutaneous access was obtained in right common femoral artery with a single pass with a micropuncture. A 5-Guamanian sheath was inserted. Aortogram was performed at the T12 level. We selected out the celiac artery and the splenic artery, advancing our catheter, guide wire, and subsequently placing a 45 cm 7-Guamanian sheath into the splenic artery where we performed images identifying level of the splenic artery aneurysm. We switched out to a 0.018/1000 wire and then we delivered our 8 mm x 10 cm length Viabahn stent, which was postdilated to 8-mm. Completion angiogram demonstrated brisk emptying of the splenic artery with no filling of the aneurysm sac. Sheath, catheters, and guidewires were removed. Manual pressure was held to effect hemostasis at 20 minutes. No hematoma and his peripheral perfusion was intact with palpable pulses. I was present for entire procedure. I performed the percutaneous access. Dr. Luz Elena Elizabeth performed selective catheterization and stent deployment under my direct supervision. Please refer to the brief operative note for the operative times. Incision/Procedure Start Time: 7:36 AM Incision Close/Procedure End Time: 08:40 AM CONTRAST: Nonionic, 40 mL. ESTIMATED BLOOD LOSS: Minimal. PACKS AND DRAINS: None. SPECIMENS: COMPLICATIONS: None. Mayelin Stahl M.D. LK:[id number] Revised isael 03/04/18 /[id number] cc: PROGRESS Observed: 02/25/2018 Status: COMPLETED Source: [place] 4:33 PM [facility] REPOSITORY HNO ID: [id number] Author: Elsie (Res) Jose Guadalupe Service: (none) Author Type: Resident Type: Progress Notes Filed: 02/25/2018 4:38 PM Note Text: [facility] PREOP EVALUATION CARDIOTHORACIC ANESTHESIA GENERAL SERVICE DATE: 02/25/2018 SERVICE TIME: 4:33 PM Diagnosis: No diagnosis found. Proposed Surgical Procedure: Splenic artery Angiogram Re-do: No ASA Class: 3 Surgeon: Favio Surgery Date: 03/03/2018 Last Wt 02/25/18 : 99.3 kg (219 lb) Last Ht 02/25/18 : 182.9 cm (6') Estimated body mass index is 29.7 kg/m? as calculated from the following: Height as of an earlier encounter on 02/25/18: 182.9 cm (6'). Weight as of an earlier encounter on 02/25/18: 99.3 kg (219 lb). Estimated body surface area is 2.25 meters squared as calculated from the following: Height as of an earlier encounter on 02/25/18: 182.9 cm (6'). Weight as of an earlier encounter on 02/25/18: 99.3 kg (219 lb). ACTIVE PROBLEM LIST Coronary Artery Disease Involving Nikolski Coronary Artery of Nikolski Heart Without Angina Pectoris S/P CABG x 3 (L-LAD, R-diag, S-OM) 2001 Pure Hypercholesterolemia Erectile Dysfunction Diaphoresis Angina Effort (Hcc) Splenic Artery Aneurysm (Hcc) Preop Cardiovascular Exam Preop Testing PAST MEDICAL HISTORY Diagnosis Date - Coronary atherosclerosis of unspecified type of vessel, kiana or graft Coronary Atherosclerosis - Frozen shoulder Right - Mixed hyperlipidemia Hyperlipidemia - Mononeuritis of unspecified site Neuropathy - Peptic ulcer, unspecified site, unspecified as acute or chronic, without mention of hemorrhage, perforation, or obstruction Peptic ulcer disease - Personal history of colonic polyps Colon polyps - Rotator cuff syndrome of shoulder and allied disorders Right Rotator cuff syndrome PAST SURGICAL HISTORY Procedure Laterality Date - CABG (3) VEIN GRAFTS AND ARTERIAL GRAFT(S) 2001 CABG, 3 grafts - COLONOSCOP W/ OR W/O [facility] SPEC 10/26, 06/03 Colonoscopy - HERNIA REPAIR HX Right 2001 R INGUINAL AND UMBILICAL HERNIA LAPAROSCOPIC REPAIR WITH MESH - KNEE SCOPE,DIAGNOSTIC 03/03 Arthroscopy, knee, L. - REPAIR ROTATOR CUFF,ACUTE Right 2001 Rotator cuff repair FAMILY HISTORY Problem Relation Age of Onset - Hypertension Mother age 92 - Aneurysm Father age 86 from CHF. Had SC at age 52 - Diabetes Father - Heart Attack Father Social History Substance Use Topics - Smoking status: Never Smoker - Smokeless tobacco: Never Used - Alcohol use 1.0 oz/week Comment: socially ALLERGIES Allergen Reactions - Contrast Dye [Other] Anaphylaxis REVIEW OF SYSTEMS: Neuro: None Respiratory: No history of current cough or dyspnea, or pneumonia in the past 6 weeks. No history of respiratory/pulmonary symptoms or problems Cardiovascular: Positive for: CAD; s/p CABG 2001 GI: No history of GI symptoms or problems. No history of esophageal varices, recent ascites, or ETOH greater than 2 drinks per day. Endocrine: No history of diabetes. Has not taken steroids within the past 30 days. No history of endocrinological symptoms or problems. Steroids taken before Contrast exposure Hematology: Chronic anti-coagulation / platelet meds (Aspirin) ANESTHETIC HISTORY: History of general anesthesia without complications. AIRWAY ASSESSMENT: Airway History: No abnormal airway history Airway Exam: General: Normal appearance Mallampati Score: CLASS II Temporo-Mandibular Displacement Test: Position A (lower teeth can be advanced beyond upper teeth) Interincisor Distance: 5 cm Thyromental Distance: 5 cm Neck Circumference: 40 cm Overbite: No Cervical Mobility: Normal Facial Hair: No Head/Neck Pathology: No ANTICIPATED DIFFICULT AIRWAY: NO Pre-Existing Diagnosis of Obstructive Sleep Apnea: No, STOP BANG SCORE: Criteria = Criteria: Hypertension Age over 50 (72 year old) Neck circumference > 15.75 inches Male gender Score = 4, Score = 4 PHYSICAL EXAM: CARDIAC: Regular rate and rhythm. LUNGS: Lungs clear to auscultation. Good air entry bilaterally. Lines, Drains, Airway: Patient has no lines, drains or airway LABS: Lab Results Past 6 Months Component Value Date HB 16.5 01/21/2018 HCT 47.0 01/21/2018 PLT 142 (L) 01/21/2018 WBC 9.12 01/21/2018 NA 140 01/21/2018 K 4.4 01/21/2018 CREAT 1.09 01/21/2018 CA 9.0 01/21/2018 Lab Results Past 6 Months Component Value Date GLUC 141 (H) 01/21/2018 K 4.4 01/21/2018 NA 140 01/21/2018 CHLOR 103 01/21/2018 CO2 26 01/21/2018 CREAT 1.09 01/21/2018 BUN 23 01/21/2018 ANION 11 01/21/2018 CA 9.0 01/21/2018 TPROT 6.7 01/21/2018 ALB 4.4 01/21/2018 TBILI 0.7 01/21/2018 ALKPHOS 42 01/21/2018 AST 35 01/21/2018 ALT 51 01/21/2018 ABO/RH(D) (no units) Date Value 02/25/2018 O POSITIVE Anticipated Blood Products Ordered: No blood product orders needed. Will the Patient Accept Blood: Yes IMAGING AND TESTS: CT SCAN: Pending ECG: Diagnosis:NORMAL SINUS RHYTHM NORMAL ECG ? Stress test: RESTING ECG: ? NORMAL SINUS RHYTHM. OBSERVATION: ? 1. THE TEST WAS TERMINATED DUE TO GENERAL FATIGUE. ? 2. ADEQUATE HEART RATE RESPONSE OF ?85% ?PREDICTED MAXIMAL HEART RATE, NORMAL HEART RATE RECOVERY @ 1 MINUTE POST EXERCISE, NORMAL CHRONOTROPIC RESPONSE INDEX (>0.62 ON BETA- DIXIE). ? 3. FUNCTIONAL CAPACITY IS ESTIMATED AT ?8 METS, STAGE ?3 ?STIVEN PROTOCOL. MAXIMAL RATE PRESSURE PRODUCT IS ?67189, ?AVERAGE FUNCTIONAL CAPACITY FOR AGE AND GENDER. ? 4. NORMAL BLOOD PRESSURE RESPONSE TO STRESS. ? 5. ABNORMAL ST SEGMENT DEPRESSION AFTER STRESS, BORDERLINE ST SEGMENT DEPRESSION DURING STRESS. ? 6. ABNORMAL VALENTE TREADMILL SCORE (<5 BUT >/= -10). ?INTERMEDIATE RISK. ? 7. TYPICAL ANGINAL DISCOMFORT DURING STRESS. ? 8. UNIFOCAL PVC'S DURING THE TEST, PAC'S DURING THE TEST. ? 9. THE PREVIOUS TEST IS NOT AVAILABLE FOR COMPARISON. CONCLUSION: ? ABNORMAL DUE TO: TYPICAL ANGINAL DISCOMFORT, ABNORMAL VALENTE TREADMILL SCORE. ADDITIONAL COMMENTS: ? ST DEPRESSIONS DURING STRESS WHICH WERE STILL PRESENT BUT RESOLVING DURING RECOVERY PHASE. DEVICES: None MEDICATIONS: Current Outpatient Prescriptions: [START ON 03/02/2018] predniSONE (DELTASONE) 50 mg tab Take one tablet by mouth13 hrs prior to scan, then 7 hrs prior to scan and then 1 hr prior to scan omeprazole (PRILOSEC) 20 mg capsule Take 20 mg by mouth once daily. levothyroxine (SYNTHROID) 100 mcg tablet TURMERIC ROOT EXTRACT ORAL Take by mouth once daily. Fish Oil-DHA-EPA 1,200-144-216 mg cap Take by mouth twice daily. rosuvastatin (CRESTOR) 10 mg tablet Take 10 mg by mouth once daily. atenolol (TENORMIN) 25 mg tablet TAKE 1 TABLET BY MOUTH ONCE DAILY. isosorbide mononitrate ER (IMDUR) 60 mg 24 hr tablet Take 1 tablet by mouth twice daily. (Patient taking differently: Take 60 mg by mouth once daily. ) Ascorbic Acid (VITAMIN C) 1,000 mg tablet Take 1 tablet by mouth twice daily. latanoprost (XALATAN) 0.005 % ophthalmic solution Use 1 Drop in both eyes daily at bedtime. nitroglycerin sublingual (NITROQUICK) 0.4 mg SL tablet Dissolve 1 tablet under the tongue as needed for Chest Pain. If no pain relief call 911. Tadalafil (CIALIS) 20 mg tablet Take 1 tablet by mouth as needed. 1-2 hours before sexual intercourse Coenzyme L82-Xrtdwuj E 100-150 mg-unit cap Take 1 tablet by mouth once daily. calcium citrate/vitamin d3(CALCIUM CITRATE + 315 MG-200 UNIT TAB) Take one(1) tablet two(2) times daily. multivitamin ORAL Tab Take one(1) tablet daily. ASPIRIN 81 MG TAB Take one (1) tablet daily . No current facility-administered medications for this visit. Is the patient currently on any anticoagulant medications: Yes: Anticoagulant medications the patient is currently on: Aspirin: Last dose: to be continued till DOS This was adequately stopped before surgery: No, primary service aware. PAIN AND ANXIETY EDUCATION AND MANAGEMENT: Patient has no concerns to address at this time. Will the Patient Require an Epidural? No Does the Patient have an Anticoagulation Bridge Plan? No Additional Comments: I have reviewed the Cardiothoracic Surgical Assessment and agree with its findings. During the course of the encounter the patient was prepared for anesthetic care. This conversation included anesthetic options, possible use of invasive monitoring, the risks, benefits, alternatives, and personnel that will be present for the anesthetic encounter. The patient agreed to proceed with the planned anesthetic. Instructed to take Atenolol, Aspirin, Synthroid, Imdur and omeprazole with a small sip of water on the morning of surgery. SIGNATURE: Elsie Shi MD PATIENT NAME: Jorge Guillen DATE: February 25, 2018 TIME: 4:33 PM PAGER/CONTACT #: [phone] PROGRESS Observed: 02/25/2018 Status: COMPLETED Source: [place] 3:37 PM [facility] REPOSITORY HNO ID: [id number] Author: Wilbert Skaggs Service: (none) Author Type: Physician Crane Engineer Type: Progress Notes Filed: 02/25/2018 3:38 PM Note Text: AMBULATORY PATIENT EDUCATION TOPIC: Survival Skills: Visceral angiogram with splenic artery intervention, transfemoral transbrachial with possible brachial artery repair READINESS TO LEARN COGNITIVE ABILITY: Alert and oriented MOTIVATION TO LEARN: Interested FAMILY SUPPORT: High - Very involved in pt care INSTRUCTION PROVIDED TO: Patient and family member PATIENT LEARNS BEST BY: Multiple Methods FACTORS AFFECTING LEARNING: None PHYSICAL LIMITATIONS AFFECTING LEARNING: None LEARNING RESPONSE DIAGNOSIS: Splenic artery aneurysm METHOD OF INSTRUCTION: Individual instruction Written instruction - handouts Verbal instruction PATIENT / FAMILY RESPONSE: Verbalizes understanding of: PRE-OPERATIVE INSTRUCTIONS-Correct action to take to follow pre-operative instructions FOLLOW-UP PLAN: Patient instructed to call with any further issues Contact information given. SUPPLEMENTAL MATERIAL: Patient instructions: vascular surgery preparation, Medication guidelines before vascular surgery REFERRAL (RECOMMENDATION): None Electronically Signed By: WILBERT Skaggs PA-C In Department: VASCULAR SURG DEPT CNOV Observed: 02/25/2018 Status: COMPLETED Source: [place] 3:30 PM [facility] REPOSITORY Office Visit (CARTMN) JORGE GUILLEN ([id number]) 1945 M Date Time Provider Department 02/25/18 3:30 PM ANESTHESIA CLEARANCE CARTMN During your visit today, we recorded the following information about you: Elsie Shi MD 02/25/2018 4:38 PM Signed [facility] PREOP EVALUATION CARDIOTHORACIC ANESTHESIA GENERAL SERVICE DATE: 02/25/2018 SERVICE TIME: 4:33 PM Diagnosis: No diagnosis found. Proposed Surgical Procedure: Splenic artery Angiogram Re-do: No ASA Class: 3 Surgeon: Favio Surgery Date: 03/03/2018 Last Wt 02/25/18 : 99.3 kg (219 lb) Last Ht 02/25/18 : 182.9 cm (6') Estimated body mass index is 29.7 kg/m? as calculated from the following: Height as of an earlier encounter on 02/25/18: 182.9 cm (6'). Weight as of an earlier encounter on 02/25/18: 99.3 kg (219 lb). Estimated body surface area is 2.25 meters squared as calculated from the following: Height as of an earlier encounter on 02/25/18: 182.9 cm (6'). Weight as of an earlier encounter on 02/25/18: 99.3 kg (219 lb). ACTIVE PROBLEM LIST Coronary Artery Disease Involving Nikolski Coronary Artery of [place] Heart Without Angina Pectoris S/P CABG x 3 (L-LAD, R-diag, S-OM) 2001 Pure Hypercholesterolemia Erectile Dysfunction Diaphoresis Angina Effort (Hcc) Splenic Artery Aneurysm (Hcc) Preop Cardiovascular Exam Preop Testing PAST MEDICAL HISTORY Diagnosis Date - Coronary atherosclerosis of unspecified type of vessel, kiana or graft Coronary Atherosclerosis - Frozen shoulder Right - Mixed hyperlipidemia Hyperlipidemia - Mononeuritis of unspecified site Neuropathy - Peptic ulcer, unspecified site, unspecified as acute or chronic, without mention of hemorrhage, perforation, or obstruction Peptic ulcer disease - Personal history of colonic polyps Colon polyps - Rotator cuff syndrome of shoulder and allied disorders Right Rotator cuff syndrome PAST SURGICAL HISTORY Procedure Laterality Date - CABG (3) VEIN GRAFTS AND ARTERIAL GRAFT(S) 2001 CABG, 3 grafts - COLONOSCOP W/ OR W/O [facility] SPEC 10/26, 06/03 Colonoscopy - HERNIA REPAIR HX Right 2001 R INGUINAL AND UMBILICAL HERNIA LAPAROSCOPIC REPAIR WITH MESH - KNEE SCOPE,DIAGNOSTIC 03/03 Arthroscopy, knee, L. - REPAIR ROTATOR CUFF,ACUTE Right 2002 Rotator cuff repair FAMILY HISTORY Problem Relation Age of Onset - Hypertension Mother age 92 - Aneurysm Father age 86 from CHF. Had SC at age 52 - Diabetes Father - Heart Attack Father Social History Substance Use Topics - Smoking status: Never Smoker - Smokeless tobacco: Never Used - Alcohol use 1.0 oz/week Comment: socially ALLERGIES Allergen Reactions - Contrast Dye [Other] Anaphylaxis REVIEW OF SYSTEMS: Neuro: None Respiratory: No history of current cough or dyspnea, or pneumonia in the past 6 weeks. No history of respiratory/pulmonary symptoms or problems Cardiovascular: Positive for: CAD; s/p CABG 2001 GI: No history of GI symptoms or problems. No history of esophageal varices, recent ascites, or ETOH greater than 2 drinks per day. Endocrine: No history of diabetes. Has not taken steroids within the past 30 days. No history of endocrinological symptoms or problems. Steroids taken before Contrast exposure Hematology: Chronic anti-coagulation / platelet meds (Aspirin) ANESTHETIC HISTORY: History of general anesthesia without complications. AIRWAY ASSESSMENT: Airway History: No abnormal airway history Airway Exam: General: Normal appearance Mallampati Score: CLASS II Temporo-Mandibular Displacement Test: Position A (lower teeth can be advanced beyond upper teeth) Interincisor Distance: 5 cm Thyromental Distance: 5 cm Neck Circumference: 40 cm Overbite: No Cervical Mobility: Normal Facial Hair: No Head/Neck Pathology: No ANTICIPATED DIFFICULT AIRWAY: NO Pre-Existing Diagnosis of Obstructive Sleep Apnea: No, STOP BANG SCORE: Criteria = Criteria: Hypertension Age over 50 (72 year old) Neck circumference > 15.75 inches Male gender Score = 4, Score = 4 PHYSICAL EXAM: CARDIAC: Regular rate and rhythm. LUNGS: Lungs clear to auscultation. Good air entry bilaterally. Lines, Drains, Airway: Patient has no lines, drains or airway LABS: Lab Results Past 6 Months Component Value Date HB 16.5 01/21/2018 HCT 47.0 01/21/2018 PLT 142 (L) 01/21/2018 WBC 9.12 01/21/2018 NA 140 01/21/2018 K 4.4 01/21/2018 CREAT 1.09 01/21/2018 CA 9.0 01/21/2018 Lab Results Past 6 Months Component Value Date GLUC 141 (H) 01/21/2018 K 4.4 01/21/2018 NA 140 01/21/2018 CHLOR 103 01/21/2018 CO2 26 01/21/2018 CREAT 1.09 01/21/2018 BUN 23 01/21/2018 ANION 11 01/21/2018 CA 9.0 01/21/2018 TPROT 6.7 01/21/2018 ALB 4.4 01/21/2018 TBILI 0.7 01/21/2018 ALKPHOS 42 01/21/2018 AST 35 01/21/2018 ALT 51 01/21/2018 ABO/RH(D) (no units) Date Value 02/25/2018 O POSITIVE Anticipated Blood Products Ordered: No blood product orders needed. Will the Patient Accept Blood: Yes IMAGING AND TESTS: CT SCAN: Pending ECG: Diagnosis:NORMAL SINUS RHYTHM NORMAL ECG ? Stress test: RESTING ECG: ? NORMAL SINUS RHYTHM. OBSERVATION: ? 1. THE TEST WAS TERMINATED DUE TO GENERAL FATIGUE. ? 2. ADEQUATE HEART RATE RESPONSE OF ?85% ?PREDICTED MAXIMAL HEART RATE, NORMAL HEART RATE RECOVERY @ 1 MINUTE POST EXERCISE, NORMAL CHRONOTROPIC RESPONSE INDEX (>0.62 ON BETA- DIXIE). ? 3. FUNCTIONAL CAPACITY IS ESTIMATED AT ?8 METS, STAGE ?3 ?STIVEN PROTOCOL. MAXIMAL RATE PRESSURE PRODUCT IS ?02953, ?AVERAGE FUNCTIONAL CAPACITY FOR AGE AND GENDER. ? 4. NORMAL BLOOD PRESSURE RESPONSE TO STRESS. ? 5. ABNORMAL ST SEGMENT DEPRESSION AFTER STRESS, BORDERLINE ST SEGMENT DEPRESSION DURING STRESS. ? 6. ABNORMAL VALENTE TREADMILL SCORE (<5 BUT >/= -10). ?INTERMEDIATE RISK. ? 7. TYPICAL ANGINAL DISCOMFORT DURING STRESS. ? 8. UNIFOCAL PVC'S DURING THE TEST, PAC'S DURING THE TEST. ? 9. THE PREVIOUS TEST IS NOT AVAILABLE FOR COMPARISON. CONCLUSION: ? ABNORMAL DUE TO: TYPICAL ANGINAL DISCOMFORT, ABNORMAL VALENTE TREADMILL SCORE. ADDITIONAL COMMENTS: ? ST DEPRESSIONS DURING STRESS WHICH WERE STILL PRESENT BUT RESOLVING DURING RECOVERY PHASE. DEVICES: None MEDICATIONS: Current Outpatient Prescriptions: [START ON 03/02/2018] predniSONE (DELTASONE) 50 mg tab Take one tablet by mouth13 hrs prior to scan, then 7 hrs prior to scan and then 1 hr prior to scan omeprazole (PRILOSEC) 20 mg capsule Take 20 mg by mouth once daily. levothyroxine (SYNTHROID) 100 mcg tablet TURMERIC ROOT EXTRACT ORAL Take by mouth once daily. Fish Oil-DHA-EPA 1,200-144-216 mg cap Take by mouth twice daily. rosuvastatin (CRESTOR) 10 mg tablet Take 10 mg by mouth once daily. atenolol (TENORMIN) 25 mg tablet TAKE 1 TABLET BY MOUTH ONCE DAILY. isosorbide mononitrate ER (IMDUR) 60 mg 24 hr tablet Take 1 tablet by mouth twice daily. (Patient taking differently: Take 60 mg by mouth once daily. ) Ascorbic Acid (VITAMIN C) 1,000 mg tablet Take 1 tablet by mouth twice daily. latanoprost (XALATAN) 0.005 % ophthalmic solution Use 1 Drop in both eyes daily at bedtime. nitroglycerin sublingual (NITROQUICK) 0.4 mg SL tablet Dissolve 1 tablet under the tongue as needed for Chest Pain. If no pain relief call 911. Tadalafil (CIALIS) 20 mg tablet Take 1 tablet by mouth as needed. 1-2 hours before sexual intercourse Coenzyme J95-Hnmrarg E 100-150 mg-unit cap Take 1 tablet by mouth once daily. calcium citrate/vitamin d3(CALCIUM CITRATE + 315 MG-200 UNIT TAB) Take one(1) tablet two(2) times daily. multivitamin ORAL Tab Take one(1) tablet daily. ASPIRIN 81 MG TAB Take one (1) tablet daily . No current facility-administered medications for this visit. Is the patient currently on any anticoagulant medications: Yes: Anticoagulant medications the patient is currently on: Aspirin: Last dose: to be continued till DOS This was adequately stopped before surgery: No, primary service aware. PAIN AND ANXIETY EDUCATION AND MANAGEMENT: Patient has no concerns to address at this time. Will the Patient Require an Epidural? No Does the Patient have an Anticoagulation Bridge Plan? No Additional Comments: I have reviewed the Cardiothoracic Surgical Assessment and agree with its findings. During the course of the encounter the patient was prepared for anesthetic care. This conversation included anesthetic options, possible use of invasive monitoring, the risks, benefits, alternatives, and personnel that will be present for the anesthetic encounter. The patient agreed to proceed with the planned anesthetic. Instructed to take Atenolol, Aspirin, Synthroid, Imdur and omeprazole with a small sip of water on the morning of surgery. SIGNATURE: Elsie Shi MD PATIENT NAME: Jorge Guillen DATE: February 25, 2018 TIME: 4:33 PM PAGER/CONTACT #: [phone] Referring Provider: VETO STAHL [[id number]] Allergies As of Date: 02/25/2018 Noted Allergy Reaction Contrast Dye [Other] 06/14/2003 10 - Anaphylaxis Date Reviewed: 02/25/2018 Reviewed by: Elsie Shi - Fully Assessed Primary Visit Diagnosis:Encounter for preoperative anesthesiology assessment for vascular surgery [Z01.818] Prescriptions as of 02/25/2018 Sig: PREDNISONE 50 MG TABLET Take one tablet by mouth13 hr* OMEPRAZOLE 20 MG CAPSULE,JESSIE* Take 20 mg by mouth once drew* LEVOTHYROXINE 100 MCG TABLET TURMERIC ROOT EXTRACT ORAL Take by mouth once daily. FISH OIL-DHA-EPA 1,200 MG-144* Take by mouth twice daily. ROSUVASTATIN 10 MG TABLET Take 10 mg by mouth once drew* ATENOLOL 25 MG TABLET TAKE 1 TABLET BY MOUTH ONCE D* ISOSORBIDE MONONITRATE ER 60 * Take 1 tablet by mouth twice * Patient taking differently: Take 60 mg by mouth once drew* ASCORBIC ACID (VITAMIN C) 1,0* Take 1 tablet by mouth twice * LATANOPROST 0.005 % EYE DROPS Use 1 Drop in both eyes daily* NITROGLYCERIN 0.4 MG SUBLINGU* Dissolve 1 tablet under the t* TADALAFIL 20 MG TABLET Take 1 tablet by mouth as nee* COENZYME E97-KNMCYDL E 100 MG* Take 1 tablet by mouth once d* CALCIUM CITRATE + 315 MG-200 * Take one(1) tablet two(2) aminah* MULTIVITAMIN TABLET Take one(1) tablet daily. * ASPIRIN 81 MG TABLET Take one (1) tablet daily . 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 Preop cardiovascular exam [Z01.810] INVALID FOR* More... Preop testing [Z01.818] INVALID FOR* More... Encounter Status:Closed by ELSIE SHI MD on 02/25/18 Chart Close Cosign Required by: Michelle Valencia[] PROGRESS Observed: 02/25/2018 Status: COMPLETED Source: [place] 2:41 PM [facility] REPOSITORY HNO ID: [id number] Author: Veto Stahl Service: (none) Author Type: Physician Type: Progress Notes Filed: 02/25/2018 2:48 PM Note Text: This office note has been dictated. Veto Stahl MD CNOV Observed: 02/25/2018 Status: COMPLETED Source: [place] 2:30 PM [facility] REPOSITORY Office Visit (VASSMN) JORGE GUILLEN ([id number]) 1945 M Date Time Provider Department 02/25/18 2:30 PM WILBERT SKAGGS (ANITHA) LONG During your visit today, we recorded the following information about you: Temperature Pulse Respiration Blood pressure 98.1 degrees 78/minute 18/minute 140/67 Weight Height 99.3 kg 1.829 m WILBERT Skaggs PA-C 02/25/2018 3:36 PM Signed VASCULAR SURGERY PREOPERATIVE HANDP SERVICE DATE: 02/24/2018 SERVICE TIME: 2:50 PM PRIMARY CARE PHYSICIAN: Ira Corey NP REFERRING PROVIDER: No referring provider defined for this encounter. Consult requested for an opinion regarding the evaluation and treatment of the above. My final impression and recommendations will be communicated back to the requesting physician by way of the shared medical record or letter via US mail. CHIEF COMPLAINT/HISTORY OF PRESENT ILLNESS: Chief Complaint: Splenic artery aneurysm History of Present Illness: Jorge Guillen is a 72 year old male presenting for preoperative HANDP. Scheduled for splenic artery angio/intervention by Dr. Stahl on 03/03/2018 Continue ASA Stress test 04/26/2017 CTA 02/25/2018 PAST MEDICAL/SURGICAL/FAMILY/SOCIAL HISTORY PAST MEDICAL HISTORY Diagnosis Date - Coronary atherosclerosis of unspecified type of vessel, kiana or graft Coronary Atherosclerosis - Mixed hyperlipidemia Hyperlipidemia - Mononeuritis of unspecified site Neuropathy - Peptic ulcer, unspecified site, unspecified as acute or chronic, without mention of hemorrhage, perforation, or obstruction Peptic ulcer disease - Personal history of colonic polyps Colon polyps - Rotator cuff syndrome of shoulder and allied disorders Rotator cuff syndrome PAST SURGICAL HISTORY Procedure Laterality Date - CABG (3) VEIN GRAFTS AND ARTERIAL GRAFT(S) 2001 CABG, 3 grafts - COLONOSCOPY W/ OR W/O [facility] SPEC 10/26, 06/03 Colonoscopy - HERNIA REPAIR HX Right 2001 R INGUINAL AND UMBILICAL HERNIA LAPAROSCOPIC REPAIR WITH MESH - KNEE SCOPE,DIAGNOSTIC 03/03 Arthroscopy, knee, L. - REPAIR ROTATOR CUFF,ACUTE Rotator cuff repair FAMILY HISTORY Problem Relation Age of Onset - Hypertension Mother age 92 - Aneurysm Father age 86 from CHF. Had SC at age 52 - Diabetes Father - Heart Attack Father Social History Marital status: Spouse name: Years of education: Number of children: Social History Main Topics Smoking status: Never Smoker Smokeless tobacco: Never Used Alcohol use: Yes 1.0 oz/week Comment: socially Drug use: No Sexual activity: Yes Partners with: Female MEDICATIONS/ALLERGIES Current Outpatient Prescriptions: omeprazole (PRILOSEC) 20 mg capsule Take 20 mg by mouth once daily. Disp: Rfl: levothyroxine (SYNTHROID) 100 mcg tablet Disp: Rfl: TURMERIC ROOT EXTRACT ORAL Take by mouth once daily. Disp: Rfl: Fish Oil-DHA-EPA 1,200-144-216 mg cap Take by mouth twice daily. Disp: Rfl: predniSONE (DELTASONE) 50 mg tab Take one tablet by mouth 13 hrs prior to scan, then 7 hrs prior to scan and then 1 hr prior to scan Disp: 3 tablet Rfl: 0 rosuvastatin (CRESTOR) 10 mg tablet Take 10 mg by mouth once daily. Disp: Rfl: atenolol (TENORMIN) 25 mg tablet TAKE 1 TABLET BY MOUTH ONCE DAILY. Disp: 90 tablet Rfl: 3 isosorbide mononitrate ER (IMDUR) 60 mg 24 hr tablet Take 1 tablet by mouth twice daily. (Patient taking differently: Take 60 mg by mouth once daily. ) Disp: 180 tablet Rfl: 3 Ascorbic Acid (VITAMIN C) 1,000 mg tablet Take 1 tablet by mouth twice daily. Disp: Rfl: latanoprost (XALATAN) 0.005 % ophthalmic solution Use 1 Drop in both eyes daily at bedtime. Disp: Rfl: nitroglycerin sublingual (NITROQUICK) 0.4 mg SL tablet Dissolve 1 tablet under the tongue as needed for Chest Pain. If no pain relief call 911. Disp: 1 Bottle of 25 Rfl: 3 Tadalafil (CIALIS) 20 mg tablet Take 1 tablet by mouth as needed. 1-2 hours before sexual intercourse Disp: 15 tablet Rfl: 2 Coenzyme X27-Dpztlzg E 100-150 mg-unit cap Take 1 tablet by mouth once daily. Disp: Rfl: calcium citrate/vitamin d3(CALCIUM CITRATE + 315 MG-200 UNIT TAB) Take one(1) tablet two(2) times daily. Disp: Rfl: 0 multivitamin ORAL Tab Take one(1) tablet daily. Disp: Rfl: 0 ASPIRIN 81 MG TAB Take one (1) tablet daily . Disp: Rfl: 0 No current facility-administered medications for this visit. ALLERGIES Allergen Reactions - Contrast Dye [Other] Anaphylaxis REVIEW OF SYSTEMS Constitutional: No weight loss, malaise or fevers. HEENT: Negative for frequent or significant headaches, No changes in hearing or vision, no nose bleeds or other nasal problems Respiratory: Negative for cough, wheezing, or shortness of breath Cardiovascular: Negative for chest pain, leg swelling or palpitations Gatrointestinal: Negative for abdominal discomfort, nausea, vomiting and problem swallowing and Positive for hx of PUD on omeprazole Genitourinary: No history of dysuria, frequency, or incontinence and Positive for recent R side kidney stone (not seen on CTA 02/25/2018) Musculoskeletal: Positive for T10-T11 degenerated disc, R rotator cuff injury - can't extend/abduct or rotate R UE Endocrine: hypothyroid Hematology/Lymphatic: Negative for prolonged bleeding, bruising easily or swollen nodes Neurologic: No history or headaches, syncope, paralysis, seizures or tremors and positive for Sciatica-right side, R UE neuropathy Integumentary: Negative for lesions, rash, and itching. PHYSICAL EXAM VITALS: BP 140/67 Pulse 78 Temp 36.7 ?C (98.1 ?F) (Temporal Artery) Resp 18 Ht 182.9 cm (6') Wt 99.3 kg (219 lb) SpO2 95% BMI 29.70 kg/m? General: Alert and oriented, No acute distress, Obese Integumentary: Fair skin, caitlyn face HEENT: No carotid bruits Cardiovascular: Normal S1 AND S2, no rubs, murmurs or gallops. No JVD., Pulse regular. Lungs: Normal breath sounds, no wheezes or crackles. Abdomen:Soft, non-tender, no rigidity., small umbilical hernia Extremities: No deformity, no edema or tenderness, no joint swelling or clubbing. Neurological: Normal cognition and motor skills. Vascular: Carotid Pulse Right: Normal - Left: Normal Radial Pulse Right: Normal - Left: Normal Femoral Pulse Right: Normal - Left: Normal Dorsalis Pedal Right: Normal - Left: Normal ASSESSMENT Splenic artery aneurysm PLAN/RECOMMENDATIONS Scheduled for splenic artery angio/intervention by Dr. Stahl on 03/03/2018 SIGNATURE: WILBERT Skaggs PA-C PATIENT NAME: Jorge Guillen DATE: February 24, 2018 TIME: 2:44 PM WILBERT Skaggs PA-C 02/25/2018 3:22 PM Addendum NPO after midnight Continue ASA Take omeprazole, rosuvastatin, atenolol, Imdur, levothyroxine with sips of water day of surgery. Take prednisone and Benadryl as directed Reviewed [place] and [place] instructions Referring Provider: IRA COREY [[id number]] Allergies As of Date: 02/25/2018 Noted Allergy Reaction Contrast Dye [Other] 06/14/2003 10 - Anaphylaxis Date Reviewed: 02/25/2018 Reviewed by: Liz Girard Ma - Fully Assessed Reason for Visit: Pre-Op Exam [87] Primary Visit Diagnosis:Splenic artery aneurysm (HCC) [I72.8] Other Visit Diagnosis:Allergy to intravenous contrast [Z91.041] Order(s):[START ON 03/02/2018] predniSONE (DELTASONE) 50 mg tabTake one tablet by mouth13 hrs prior to scan, then 7 hrs prior to scan and then 1 hr prior to scanDisp: 3 tabletRfl: 0 Prescriptions as of 02/25/2018 Sig: OMEPRAZOLE 20 MG CAPSULE,JESSIE* Take 20 mg by mouth once drew* LEVOTHYROXINE 100 MCG TABLET TURMERIC ROOT EXTRACT ORAL Take by mouth once daily. FISH OIL-DHA-EPA 1,200 MG-144* Take by mouth twice daily. ROSUVASTATIN 10 MG TABLET Take 10 mg by mouth once drew* ATENOLOL 25 MG TABLET TAKE 1 TABLET BY MOUTH ONCE D* ISOSORBIDE MONONITRATE ER 60 * Take 1 tablet by mouth twice * Patient taking differently: Take 60 mg by mouth once drew* ASCORBIC ACID (VITAMIN C) 1,0* Take 1 tablet by mouth twice * LATANOPROST 0.005 % EYE DROPS Use 1 Drop in both eyes daily* NITROGLYCERIN 0.4 MG SUBLINGU* Dissolve 1 tablet under the t* TADALAFIL 20 MG TABLET Take 1 tablet by mouth as nee* COENZYME C20-OMJHAXX E 100 MG* Take 1 tablet by mouth once d* CALCIUM CITRATE + 315 MG-200 * Take one(1) tablet two(2) aminah* MULTIVITAMIN TABLET Take one(1) tablet daily. * ASPIRIN 81 MG TABLET Take one (1) tablet daily . PREDNISONE 50 MG TABLET Take one tablet by mouth13 hr* Problem List As Of Date 02/25/2018 Noted Resolved CORONARY ATHEROSCLER UNSPEC VESSEL [I25.10] INVALID FOR*08/23/2015 AORTOCORONARY BYPASS STATUS [Z95.1] INVALID FOR*08/23/2015 HYPERLIPIDEMIA NEC/NOS [E78.5] INVALID FOR*08/23/2015 Coronary artery disease involving kiana olmstead*INVALID FOR* S/P CABG x 3 (L-LAD, R-diag, S-OM) 2001 [Z95.1] INVALID FOR* Pure hypercholesterolemia [E78.00] INVALID FOR* Erectile dysfunction [N52.9] INVALID FOR* Diaphoresis [R61] INVALID FOR* Angina effort (HCC) [I20.8] INVALID FOR* Splenic artery aneurysm (HCC) [I72.8] INVALID FOR* More... Preop cardiovascular exam [Z01.810] INVALID FOR* More... Preop testing [Z01.818] INVALID FOR* More... Other instructions from your clinician: NPO after midnight Continue ASA Take omeprazole, rosuvastatin, atenolol, Imdur, levothyroxine with sips of water day of surgery. Take prednisone and Benadryl as directed Reviewed [place] instructions Prescriptions ordered this encounter Disp Refills Start End PREDNISONE 50 MG TABLET 3 ta* 0 03/02/2018 02/25/2018 Sig: Take one tablet by mouth13 hrs prior to scan, then 7 hrs prior to scan and then 1 hr prior to scan Disc: Course of therapy completed DIPHENHYDRAMINE 25 MG CAPSULE 2 ca* 0 03/03/2018 02/25/2018 Sig: Take 50 mg by mouth 1 hour before procedure Disc: Course of therapy completed PREDNISONE 50 MG TABLET 3 ta* 0 03/02/2018 03/03/2018 Sig: Take one tablet by mouth13 hrs prior to scan, then 7 hrs prior to scan and then 1 hr prior to scan Medications Discontinued During This Encounter predniSONE (DELTASONE) 50 mg tab 3 ta* 0 01/28/2018 02/25/2018 Sig: Take one tablet by mouth13 hrs prior to scan, then 7 hrs prior to scan and then 1 hr prior to scan Disc: Course of therapy completed predniSONE (DELTASONE) 50 mg tab 3 ta* 0 03/02/2018 02/25/2018 Sig: Take one tablet by mouth13 hrs prior to scan, then 7 hrs prior to scan and then 1 hr prior to scan Disc: Course of therapy completed iv contrast (will be provided with r* 1 Ea* 0 02/25/2018 02/25/2018 Class: In Office Sig: CTA ABD/PEL - No IV access, insert saline lock prior to the sedation, infusion, injection for imaging exam. Discontinue saline lock post exam. If Pt. has a central line or IVAD, may access for administration according to line specific nursing protocol. Once exam is complete flush line and de-access according to line specific nursing protocol in the CT contrast administration guidelines link. Disc: Course of therapy completed diphenhydrAMINE (BENADRYL) 25 mg cap* 2 ca* 0 03/03/2018 02/25/2018 Sig: Take 50 mg by mouth 1 hour before procedure Disc: Course of therapy completed Encounter Status:Closed by COLEMAN VELAZQUEZ JP on 02/25/18 CTA ABD/PELV WO/W Observed: 02/25/2018 Status: F Source: [place] IVCON 2:19 PM [facility] REPOSITORY * * *Final Report* * * DATE OF EXAM: Feb 25 2018 2:19PM [facility] [place] 0467 - CTA ABD/PELV WO/W IVCON / PROCEDURE REASON: multiple diagnoses * * * * Physician Interpretation * * * * CT ANGIOGRAM OF THE ABDOMEN AND PELVIS HISTORY: This 72-year-old gentleman is being evaluated for a splenic artery aneurysm. TECHNIQUE: High-resolution contrast-enhanced helical CT of the abdomen and pelvis was performed, timed to the arterial phase. 3- D processing was performed by the physician on an independent work station, with MIP and volume-rendering techniques. Total of 100 ml of Omnipaque 350 was injected IV during the examination. The study was performed without oral contrast. The patient tolerated the injection without complications. Dose-Length Product (DLP): 712 mGy*cm. CT Dose Reduction Employed: Automated exposure control(AEC) and iterative recon RESULT: COMPARISON: No prior CTA studies are available for comparison. There is a routine noncontrast CT of the abdomen and pelvis dated 01/21/2018. VASCULAR FINDINGS: Images of the aorta demonstrate mild atherosclerotic change without significant focal stenosis or aneurysm. Celiac artery is widely patent and has the typical branching pattern. There is an eccentric, relatively spherical aneurysm projecting anteriorly off the mid segment of the splenic artery. The aneurysm measures 22.5 mm in its greatest diameter, and the mouth of the aneurysm measures 10 mm in its greatest dimension (best appreciated on sagittal reconstruction). There is only a small amount of calcification in the rim of the aneurysm and no mural thrombus is present within it. Superior mesenteric artery is widely patent. Inferior mesenteric artery is widely patent. There is a single right renal artery. Right renal artery has mild proximal calcification but is patent without stenosis. There are two left renal arteries. Left main renal artery has mild proximal ossification with no significant focal stenosis. There is a small left inferior accessory renal artery that is patent. The common iliac, external iliac, and internal iliac arteries are mildly elongated and tortuous but are patent bilaterally. The common femoral arteries and their bifurcations are patent bilaterally NONVASCULAR FINDINGS: The nonvascular findings are unchanged from the routine CT of 01/21/2018, except that the small calculus identified in the mid right ureter on the prior study is no longer present on today's study and there is no evidence for any dilatation of the right collecting system. The 1.4 cm hypodense cystic structure seen in the inferior pole of the right kidney does not enhance on this arterial phase study. IMPRESSION: 1. There is an eccentric, relatively spherical aneurysm projecting anteriorly off the mid segment of the splenic artery. The aneurysm measures 22.5 mm in the greatest diameter, and the mouth of the aneurysm measures 10 mm in its greatest dimension (best appreciated on sagittal reconstruction). There is only a small amount of calcification in the rim of the aneurysm and no mural thrombus is present within it. 2. The small calculus identified in the mid right ureter on the prior study is no longer present on today's study and there is no evidence for any dilatation of the right collecting system. The 1.4 cm hypodense cystic structure seen in the inferior pole of the right kidney does not enhance on this arterial phase study. Vascular Ultrasound Technician: GELY Transcribe Date/Time: Feb 25 2018 5:43P Dictated by : RAGINI LOPEZ MD This examination was interpreted and the report reviewed and electronically signed by: RAGINI LOPEZ MD on Feb 25 2018 6:25PM EST [id number] PROGRESS Observed: 02/25/2018 Status: COMPLETED Source: [place] 2:17 PM [facility] REPOSITORY HNO ID: [id number] Author: TIFFANY Mccann (Ct) Service: Radiology Author Type: Clinical Paper Sales Representative Type: Progress Notes Filed: 02/25/2018 2:18 PM Note Text: Radiology Service Progress Note PATIENT NAME: Jorge Guillen DATE OF SERVICE: February 25, 2018 TIME: 2:17 PM PATIENT IDENTITY VERIFICATION COMPLETED USING TWO (2) METHODS: Patient confirmed name verbally and ID band matches.. PATIENT GENDER DATA: Male PATIENT RELEVANT IMPLANT DATA REVIEWED: Yes RADIOLOGY DEPARTMENT: CT; Exam(s) Completed: CTA Abdomen Pelvis PERIPHERAL IV DATA: Site assessment: Clean,Dry and Intact, Site disposition Discontinued BY RN PER PREMED PROTOCOL SIGNED BY: TIFFANY Mccann February 25, 2018 2:17 PM PROGRESS Observed: 02/25/2018 Status: COMPLETED Source: [place] 2:14 PM [facility] REPOSITORY HNO ID: [id number] Author: Wilbert Skaggs Service: (none) Author Type: Physician Crane Engineer Type: Progress Notes Filed: 02/25/2018 3:36 PM Note Text: VASCULAR SURGERY PREOPERATIVE HANDP SERVICE DATE: 02/24/2018 SERVICE TIME: 2:50 PM PRIMARY CARE PHYSICIAN: Ira Corey NP REFERRING PROVIDER: No referring provider defined for this encounter. Consult requested for an opinion regarding the evaluation and treatment of the above. My final impression and recommendations will be communicated back to the requesting physician by way of the shared medical record or letter via US mail. CHIEF COMPLAINT/HISTORY OF PRESENT ILLNESS: Chief Complaint: Splenic artery aneurysm History of Present Illness: Jorge Guillen is a 72 year old male presenting for preoperative HANDP. Scheduled for splenic artery angio/intervention by Dr. Stahl on 03/03/2018 Continue ASA Stress test 04/26/2017 CTA 02/25/2018 PAST MEDICAL/SURGICAL/FAMILY/SOCIAL HISTORY PAST MEDICAL HISTORY Diagnosis Date - Coronary atherosclerosis of unspecified type of vessel, kiana or graft Coronary Atherosclerosis - Mixed hyperlipidemia Hyperlipidemia - Mononeuritis of unspecified site Neuropathy - Peptic ulcer, unspecified site, unspecified as acute or chronic, without mention of hemorrhage, perforation, or obstruction Peptic ulcer disease - Personal history of colonic polyps Colon polyps - Rotator cuff syndrome of shoulder and allied disorders Rotator cuff syndrome PAST SURGICAL HISTORY Procedure Laterality Date - CABG (3) VEIN GRAFTS AND ARTERIAL GRAFT(S) 2001 CABG, 3 grafts - COLONOSCOPY W/ OR W/O BRSH SPEC 10/26, 06/03 Colonoscopy - HERNIA REPAIR HX Right 2001 R INGUINAL AND UMBILICAL HERNIA LAPAROSCOPIC REPAIR WITH MESH - KNEE SCOPE,DIAGNOSTIC 03/03 Arthroscopy, knee, L. - REPAIR ROTATOR CUFF,ACUTE Rotator cuff repair FAMILY HISTORY Problem Relation Age of Onset - Hypertension Mother age 92 - Aneurysm Father age 86 from CHF. Had SC at age 52 - Diabetes Father - Heart Attack Father Social History Marital status: Spouse name: Years of education: Number of children: Social History Main Topics Smoking status: Never Smoker Smokeless tobacco: Never Used Alcohol use: Yes 1.0 oz/week Comment: socially Drug use: No Sexual activity: Yes Partners with: Female MEDICATIONS/ALLERGIES Current Outpatient Prescriptions: omeprazole (PRILOSEC) 20 mg capsule Take 20 mg by mouth once daily. Disp: Rfl: levothyroxine (SYNTHROID) 100 mcg tablet Disp: Rfl: TURMERIC ROOT EXTRACT ORAL Take by mouth once daily. Disp: Rfl: Fish Oil-DHA-EPA 1,200-144-216 mg cap Take by mouth twice daily. Disp: Rfl: predniSONE (DELTASONE) 50 mg tab Take one tablet by mouth 13 hrs prior to scan, then 7 hrs prior to scan and then 1 hr prior to scan Disp: 3 tablet Rfl: 0 rosuvastatin (CRESTOR) 10 mg tablet Take 10 mg by mouth once daily. Disp: Rfl: atenolol (TENORMIN) 25 mg tablet TAKE 1 TABLET BY MOUTH ONCE DAILY. Disp: 90 tablet Rfl: 3 isosorbide mononitrate ER (IMDUR) 60 mg 24 hr tablet Take 1 tablet by mouth twice daily. (Patient taking differently: Take 60 mg by mouth once daily. ) Disp: 180 tablet Rfl: 3 Ascorbic Acid (VITAMIN C) 1,000 mg tablet Take 1 tablet by mouth twice daily. Disp: Rfl: latanoprost (XALATAN) 0.005 % ophthalmic solution Use 1 Drop in both eyes daily at bedtime. Disp: Rfl: nitroglycerin sublingual (NITROQUICK) 0.4 mg SL tablet Dissolve 1 tablet under the tongue as needed for Chest Pain. If no pain relief call 911. Disp: 1 Bottle of 25 Rfl: 3 Tadalafil (CIALIS) 20 mg tablet Take 1 tablet by mouth as needed. 1-2 hours before sexual intercourse Disp: 15 tablet Rfl: 2 Coenzyme R12-Kmdwbzp E 100-150 mg-unit cap Take 1 tablet by mouth once daily. Disp: Rfl: calcium citrate/vitamin d3(CALCIUM CITRATE + 315 MG-200 UNIT TAB) Take one(1) tablet two(2) times daily. Disp: Rfl: 0 multivitamin ORAL Tab Take one(1) tablet daily. Disp: Rfl: 0 ASPIRIN 81 MG TAB Take one (1) tablet daily . Disp: Rfl: 0 No current facility-administered medications for this visit. ALLERGIES Allergen Reactions - Contrast Dye [Other] Anaphylaxis REVIEW OF SYSTEMS Constitutional: No weight loss, malaise or fevers. HEENT: Negative for frequent or significant headaches, No changes in hearing or vision, no nose bleeds or other nasal problems Respiratory: Negative for cough, wheezing, or shortness of breath Cardiovascular: Negative for chest pain, leg swelling or palpitations Gatrointestinal: Negative for abdominal discomfort, nausea, vomiting and problem swallowing and Positive for hx of PUD on omeprazole Genitourinary: No history of dysuria, frequency, or incontinence and Positive for recent R side kidney stone (not seen on CTA 02/25/2018) Musculoskeletal: Positive for T10-T11 degenerated disc, R rotator cuff injury - can't extend/abduct or rotate R UE Endocrine: hypothyroid Hematology/Lymphatic: Negative for prolonged bleeding, bruising easily or swollen nodes Neurologic: No history or headaches, syncope, paralysis, seizures or tremors and positive for Sciatica-right side, R UE neuropathy Integumentary: Negative for lesions, rash, and itching. PHYSICAL EXAM VITALS: BP 140/67 Pulse 78 Temp 36.7 ?C (98.1 ?F) (Temporal Artery) Resp 18 Ht 182.9 cm (6') Wt 99.3 kg (219 lb) SpO2 95% BMI 29.70 kg/m? General: Alert and oriented, No acute distress, Obese Integumentary: Fair skin, caitlyn face HEENT: No carotid bruits Cardiovascular: Normal S1 AND S2, no rubs, murmurs or gallops. No JVD., Pulse regular. Lungs: Normal breath sounds, no wheezes or crackles. Abdomen:Soft, non-tender, no rigidity., small umbilical hernia Extremities: No deformity, no edema or tenderness, no joint swelling or clubbing. Neurological: Normal cognition and motor skills. Vascular: Carotid Pulse Right: Normal - Left: Normal Radial Pulse Right: Normal - Left: Normal Femoral Pulse Right: Normal - Left: Normal Dorsalis Pedal Right: Normal - Left: Normal ASSESSMENT Splenic artery aneurysm PLAN/RECOMMENDATIONS Scheduled for splenic artery angio/intervention by Dr. Stahl on 03/03/2018 SIGNATURE: WILBERT Skaggs PA-C PATIENT NAME: Jorge Guillen DATE: February 24, 2018 TIME: 2:44 PM CNOV Observed: 02/25/2018 Status: COMPLETED Source: [place] 2:00 PM [facility] REPOSITORY Office Visit (LONG) MINDYJORGE ([id number]) 1945 M Date Time Provider Department 02/25/18 2:00 PM VETO STAHL During your visit today, we recorded the following information about you: Veto Stahl MD 02/25/2018 2:48 PM Signed This office note has been dictated. Veto Stahl MD Referring Provider: IRA COREY [[id number]] Allergies As of Date: 02/25/2018 Noted Allergy Reaction Contrast Dye [Other] 06/14/2003 10 - Anaphylaxis Date Reviewed: 02/25/2018 Reviewed by: Liz Girard Ma - Fully Assessed Reason for Visit: Pre-Op Exam [87] Primary Visit Diagnosis:Splenic artery aneurysm (HCC) [I72.8] Prescriptions as of 02/25/2018 Sig: OMEPRAZOLE 20 MG CAPSULE,JESSIE* Take 20 mg by mouth once drew* LEVOTHYROXINE 100 MCG TABLET TURMERIC ROOT EXTRACT ORAL Take by mouth once daily. FISH OIL-DHA-EPA 1,200 MG-144* Take by mouth twice daily. X PREDNISONE 50 MG TABLET Take one tablet by mouth13 hr* ROSUVASTATIN 10 MG TABLET Take 10 mg by mouth once drew* ATENOLOL 25 MG TABLET TAKE 1 TABLET BY MOUTH ONCE D* ISOSORBIDE MONONITRATE ER 60 * Take 1 tablet by mouth twice * Patient taking differently: Take 60 mg by mouth once drew* ASCORBIC ACID (VITAMIN C) 1,0* Take 1 tablet by mouth twice * LATANOPROST 0.005 % EYE DROPS Use 1 Drop in both eyes daily* NITROGLYCERIN 0.4 MG SUBLINGU* Dissolve 1 tablet under the t* TADALAFIL 20 MG TABLET Take 1 tablet by mouth as nee* COENZYME [id number]-[id number] E 100 MG* Take 1 tablet by mouth once d* CALCIUM CITRATE + 315 MG-200 * Take one(1) tablet two(2) aminah* MULTIVITAMIN TABLET Take one(1) tablet daily. * ASPIRIN 81 MG TABLET Take one (1) tablet daily . 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 Preop cardiovascular exam [Z01.810] INVALID FOR* More... Preop testing [Z01.818] INVALID FOR* More... Encounter Status:Closed by VETO STAHL MD on 02/25/18 PROGRESS Observed: 02/25/2018 Status: COMPLETED Source: [place] 1:11 PM [facility] REPOSITORY HNO ID: [id number] Author: Marti (Rn) MARISABEL Gaytan Service: Nursing Author Type: Registered Nurse Type: Progress Notes Filed: 02/25/2018 1:23 PM Note Text: Radiology Service Progress Note PATIENT NAME: Jorge Guillen DATE OF SERVICE: February 25, 2018 TIME: 1:11 PM PATIENT WEIGHT: 225 LBS PATIENT IDENTITY VERIFICATION COMPLETED USING TWO (2) METHODS: Patient confirmed name verbally and ID band matches.. PATIENT GENDER DATA: Male CONTRAST INDUCED NEPHROPATHY RISK FACTORS: Patient age > 60 years CREATININE: Creatinine Date Value Ref Range Status 01/21/2018 1.09 0.73 - 1.22 mg/dL Final eGFR-All Other Races Date Value Ref Range Status 01/21/2018 >60 . Final Comment: eGFR (Estimated GFR) Units of measure: mL/min/1.73 meters squared eGFR is derived from the reexpressed MDRD Study equation using the following parameters: serum creatinine, age, gender and race. The creatinine assay has been calibrated to be traceable to IDMS. An eGFR <60 mL/min/1.73m2 for >3 months is consistent with chronic kidney disease. Refer to KDOQI guidelines for clinical interpretation. In patients with unstable renal function, e.g. those with acute kidney injury, the eGFR may not accurately reflect actual GFR. eGFR- Date Value Ref Range Status 01/21/2018 >60 Final P.O.C.T. RESULTS: N/A February 25, 2018 TREATMENT: No Hydration needed. ALLERGIES: Reviewed and unchanged CONTRAST ALLERGY: YES patient premedicated with prednisone 50mg at 12:30am and again at 06:30am and the last dose was at 12:30pm , took Benadryl at 06:30am. Patient has premedicated before and has had no breakthrough reaction . IV SITE: Ambulatory: A peripheral IV was started in the Right antecubital site with a Angio cath: 20 gauge diffusic and A Saline lock was inserted per protocol IV SITE APPEARANCE: Clean,Dry and Intact SIGNED BY: Marti Gaytan RN February 25, 2018 1:11 PM CONFIRM BLOOD TYPE Collected: 02/25/2018 Status: F Source: [place] 11:16 AM [facility] REPOSITORY TYPE CODE TESTS RESULT OUT OF REFERENCE UNITS RANGE LAB %ABR O ABO/RH(D) POSITIVE Performed By: #### CONABO #### [facility] [address] [place], [place] [address] CBC AND DIFFERENTIAL Collected: 02/25/2018 Status: F Source: [place] 11:13 AM [facility] REPOSITORY TYPE CODE TESTS RESULT OUT OF REFERENCE UNITS RANGE LAB WBC 3.70-11.00 k/uL WBC 7.36 LAB RBC 4.20-6.00 m/uL RBC 5.63 LAB HGB 13.0-17.0 g/dL Hemoglobin 16.7 LAB HCT 39.0-51.0 % Hematocrit 49.5 LAB MCV 80.0-100.0 fL MCV 87.9 LAB MCH 26.0-34.0 pG MCH 29.7 LAB MCHC 30.5-36.0 g/dL MCHC 33.7 LAB RDWCV 11.5-15.0 % RDW-CV 13.1 LAB PLTCT 150-400 k/uL Platelet Count 172 LAB MPV 9.0-12.7 fL MPV 10.5 LAB ANEUT % Neut% 84.4 LAB AANEUT 1.45-7.50 k/uL Abs Neut 6.22 LAB ALYMP % Lymph% 13.9 LAB AALYMP 1.00-4.00 k/uL Abs Lymph 1.02 LAB AMONO % [place]% 1.4 LAB AAMONO <0.87 k/uL Abs [place] 0.10 LAB AEOS % Eosin% 0.0 LAB AAEOS <0.46 k/uL Abs Eosin <0.03 LAB ABASO % Baso% 0.3 LAB AABASO <0.11 k/uL Abs Baso <0.03 LAB AUNRBC 0 /100 WBC NRBCs 0.0 LAB ABNRBC <0.01 k/uL Absolute nRBC <0.01 LAB DTYP DTYPE Auto Diff Performed By: #### CBCDIF, BMP #### [facility] [address] [place], [place] [address] BASIC METABOLIC PANL Collected: 02/25/2018 Status: F Source: [place] 11:13 [facility] REPOSITORY TYPE CODE TESTS RESULT OUT OF REFERENCE UNITS RANGE LAB GLU 74-99 mg/dL High Glucose 140 Result Comment: The [place] Diabetes Association (ADA) provides guidance for cutoff values for fasting glucose and random glucose. The ADA defines fasting as no caloric intake for at least 8 hours. Fas ting plasma glucose results between 100 to 125 mg/dL indicate increased risk for diabetes (prediabetes). Fasting plasma glucose results greater than or equal to 126 mg/dL meet the criteria for diagnosis of diabetes. In the absence of unequivocal hyperglycemia, results should be confirmed by repeat testing. In a patient with classic symptoms of hyperglycemia or hyperglycemic crisis, random plasma glucose results greater than or equal to 200 mg/dL meet the criteria for diagnosis of diabetes. Reference: Standards of Medical Care in Diabetes 2016, [place] [employer] Association. Diabetes Care. 2016.39(Suppl 1). LAB BUN 9-24 mg/dL BUN 19 LAB CRET 0.73-1.22 mg/dL Creatinine 0.98 LAB NA 136-144 mmol/L Sodium 140 LAB K 3.7-5.1 mmol/L Potassium 4.7 LAB CL 97-105 mmol/L Chloride 100 LAB CO2 22-30 mmol/L CO2 26 LAB AGAP 9-18 mmol/L Anion Gap 14 LAB CA 8.5-10.2 mg/dL Calcium, Total 9.6 LAB GFRAA eGFR- Amer. >60 LAB GFRNAA . eGFR-All Other Races >60 Result Comment: eGFR (Estimated GFR) Units of measure: mL/min/1.73 meters squared eGFR is derived from the reexpressed MDRD Study equation using the following parameters: serum creatinine, age, gender and race. The creatinine assay has been calibrated to be traceable to IDMS. An eGFR <60 mL/min/1.73m2 for >3 months is consistent with chronic kidney disease. Refer to KDOQI guidelines for clinical interpretation. In patients with unstable renal function, e.g. those with acute kidney injury, the eGFR may not accurately reflect actual GFR. Performed By: #### CBCDIF, BMP #### [facility] [address] [place], [place] [address] TYPE AND SCR (30D) Collected: 02/25/2018 Status: F Source: [place] 11:10 AM [facility] REPOSITORY TYPE CODE TESTS RESULT OUT OF REFERENCE UNITS RANGE LAB %ABR O ABO/RH(D) POSITIVE LAB % Antibody NEG Screen Performed By: #### [id number] #### [facility] [address] [place], [place] [address] ECG COMPLETE W Observed: 02/25/2018 Status: F Source: [place] INTERPRETATION 10:54 AM [facility] REPOSITORY NAME : JORGE GUILLEN PID : [id number] : 1945 Gender : Male Race : ORD : [id number] Procedure Date : Feb 25 2018 10:54:37 Edit Date : Feb 27 2018 10:26:02 Diagnosis:NORMAL SINUS RHYTHM NORMAL ECG Confirmed by KATE MOLINA M.D. ([id number]) on 02/27/2018 10:24:37 AM Ventricular Rate : 66 BPM Atrial Rate : 66 BPM P-R Interval : 148 ms QRS Duration : 86 ms Q-T Interval : 362 ms QTC Calculation(Bezet) : 379 ms P Alpine : 44 degrees R Alpine : -9 degrees T Alpine : 55 degrees Test Reason : Location : 314 : J14 Overread By : KATE MOLINA M.D. Edited By : KATE MOLINA M.D. Referred By : WILBERT SKAGGS Acquired by : WON SANDS CNCNPATED Observed: 02/25/2018 Status: COMPLETED Source: [place] 12:00 AM [facility] REPOSITORY Education (LONG) DARLENEJORGE BEAVER ([id number]) 1945 M Date Time Provider Department 02/25/18 WILBERT SKAGGS) LONG Reason for Visit: Patient Education [91] Progress Notes: WILBERT Skaggs PA-C 02/25/2018 3:38 PM Signed AMBULATORY PATIENT EDUCATION TOPIC: Survival Skills: Visceral angiogram with splenic artery intervention, transfemoral transbrachial with possible brachial artery repair READINESS TO LEARN COGNITIVE ABILITY: Alert and oriented MOTIVATION TO LEARN: Interested FAMILY SUPPORT: High - Very involved in pt care INSTRUCTION PROVIDED TO: Patient and family member PATIENT LEARNS BEST BY: Multiple Methods FACTORS AFFECTING LEARNING: None PHYSICAL LIMITATIONS AFFECTING LEARNING: None LEARNING RESPONSE DIAGNOSIS: Splenic artery aneurysm METHOD OF INSTRUCTION: Individual instruction Written instruction - handouts Verbal instruction PATIENT / FAMILY RESPONSE: Verbalizes understanding of: PRE-OPERATIVE INSTRUCTIONS-Correct action to take to follow pre-operative instructions FOLLOW-UP PLAN: Patient instructed to call with any further issues Contact information given. SUPPLEMENTAL MATERIAL: Patient instructions: vascular surgery preparation, Medication guidelines before vascular surgery REFERRAL (RECOMMENDATION): None Electronically Signed By: WILBERT Skaggs PA-C In Department: VASCULAR SURG DEPT During your visit today, we recorded the following information about you: Allergies As of Date: 02/25/2018 Noted Allergy Reaction Contrast Dye [Other] 06/14/2003 10 - Anaphylaxis Date Reviewed: 02/25/2018 Reviewed by: Liz Girard Ma - Fully Assessed Prescriptions as of 02/25/2018 Sig: PREDNISONE 50 MG TABLET Take one tablet by mouth13 hr* OMEPRAZOLE 20 MG CAPSULE,JESSIE* Take 20 mg by mouth once drew* LEVOTHYROXINE 100 MCG TABLET TURMERIC ROOT EXTRACT ORAL Take by mouth once daily. FISH OIL-DHA-EPA 1,200 MG-144* Take by mouth twice daily. ROSUVASTATIN 10 MG TABLET Take 10 mg by mouth once drew* ATENOLOL 25 MG TABLET TAKE 1 TABLET BY MOUTH ONCE D* ISOSORBIDE MONONITRATE ER 60 * Take 1 tablet by mouth twice * Patient taking differently: Take 60 mg by mouth once drew* ASCORBIC ACID (VITAMIN C) 1,0* Take 1 tablet by mouth twice * LATANOPROST 0.005 % EYE DROPS Use 1 Drop in both eyes daily* NITROGLYCERIN 0.4 MG SUBLINGU* Dissolve 1 tablet under the t* TADALAFIL 20 MG TABLET Take 1 tablet by mouth as nee* COENZYME D81-[id number] E 100 MG* Take 1 tablet by mouth once d* CALCIUM CITRATE + 315 MG-200 * Take one(1) tablet two(2) aminah* MULTIVITAMIN TABLET Take one(1) tablet daily. * ASPIRIN 81 MG TABLET Take one (1) tablet daily . Encounter Status:Closed by COLEMAN VELAZQUEZ JP on 02/25/18 PROGRESS Observed: 02/25/2018 Status: COMPLETED Source: [place] 12:00 AM [facility] REPOSITORY HNO ID: [id number] Author: Veto Stahl Service: Vascular Surgery Author Type: Physician Type: Progress Notes Filed: 03/06/2018 4:52 PM Note Text: NAME: JORGE GUILLEN [facility] NO: [id number] DATE OF SERVICE: 02/25/2018 Mr. Guillen is seen today, doing well. CAT scan shows a 2 cm splenic artery aneurysm, asymptomatic. Physical Examination: His abdomen is soft, nontender and nondistended. Impression/Plan: He has a 2 cm splenic artery aneurysm. I reviewed the films with the patient. Treatment will be for a transfemoral/transbrachial approach with attempt at stent grafting to preserve the splenic artery. Failing this, we will consider embolization. I discussed with him the risk of splenic infarct with embolization and need to monitor him. The risks, benefits and alternatives including bleeding, infection, nerve or vessel injury, and nonoperative management were discussed. Given the size of 2 cm, his age and relative good health, I see it prudent to proceed. All questions were answered and he has agreed to proceed. We will schedule this at his earliest convenience. Mayelin Stahl M.D. SPL/089 Audio #: [id number] Date Dictated: 02/25/2018 14:28:54 Date Typed: 02/26/2018 11:02:53 Date Revised: PROGRESS Observed: 02/24/2018 Status: COMPLETED Source: [place] 2:44 PM [facility] REPOSITORY HNO ID: [id number] Author: Wilbert Skaggs Service: (none) Author Type: Physician Crane Engineer Type: Progress Notes Filed: 02/25/2018 2:14 PM Note Text: CNOV Observed: 02/07/2018 Status: COMPLETED Source: [place] 9:00 AM [facility] REPOSITORY Office Visit (UROLMD) JORGE GUILLEN ([id number]) 1945 M Date Time Provider Department 02/07/18 9:00 AM CARLYN GOODE During your visit today, we recorded the following information about you: Referring Provider: IRA COREY [[id number]] Allergies As of Date: 02/07/2018 Noted Allergy Reaction Contrast Dye [Other] 06/14/2003 10 - Anaphylaxis Date Reviewed: 02/07/2018 Reviewed by: Lindsey Russell Ma - Fully Assessed Reason for Visit: right ureteral stone with pain [Other] Cmt: was in ED 2 weeks ago, but has no problem for the past 3 days. Primary Visit Diagnosis:Hydronephrosis with renal and ureteral calculus obstruction [N13.2] Other Visit Diagnosis:BPH with urinary obstruction [N40.1, N13.8] Order(s):UA DIP, URINE (POC) [[id number]] Order #: [id number]. #:[id number] Prescriptions as of 02/07/2018 Sig: OMEPRAZOLE 20 MG CAPSULE,JESSIE* Take 20 mg by mouth once drew* LEVOTHYROXINE 100 MCG TABLET TURMERIC ROOT EXTRACT ORAL Take by mouth once daily. FISH OIL-DHA-EPA 1,200 MG-144* Take by mouth twice daily. PREDNISONE 50 MG TABLET Take one tablet by mouth13 hr* ROSUVASTATIN 10 MG TABLET Take 10 mg by mouth once drew* ATENOLOL 25 MG TABLET TAKE 1 TABLET BY MOUTH ONCE D* ISOSORBIDE MONONITRATE ER 60 * Take 1 tablet by mouth twice * Patient taking differently: Take 60 mg by mouth once drew* ASCORBIC ACID (VITAMIN C) 1,0* Take 1 tablet by mouth twice * LATANOPROST 0.005 % EYE DROPS Use 1 Drop in both eyes daily* NITROGLYCERIN 0.4 MG SUBLINGU* Dissolve 1 tablet under the t* TADALAFIL 20 MG TABLET Take 1 tablet by mouth as nee* COENZYME S89-ZEHJUEF E 100 MG* Take 1 tablet by mouth once d* CALCIUM CITRATE + 315 MG-200 * Take one(1) tablet two(2) aminah* MULTIVITAMIN TABLET Take one(1) tablet daily. * ASPIRIN 81 MG TABLET Take one (1) tablet daily . Problem List As Of Date 02/07/2018 Noted Resolved CORONARY ATHEROSCLER UNSPEC VESSEL [I25.10] INVALID FOR*08/23/2015 AORTOCORONARY BYPASS STATUS [Z95.1] INVALID FOR*08/23/2015 HYPERLIPIDEMIA NEC/NOS [E78.5] INVALID FOR*08/23/2015 Coronary artery disease involving kiana olmstead*INVALID FOR* S/P CABG x 3 (L-LAD, R-diag, S-OM) 2001 [Z95.1] INVALID FOR* Pure hypercholesterolemia [E78.00] INVALID FOR* Erectile dysfunction [N52.9] INVALID FOR* Diaphoresis [R61] INVALID FOR* Angina effort (HCC) [I20.8] INVALID FOR* Splenic artery aneurysm (HCC) [I72.8] INVALID FOR* More... Preop cardiovascular exam [Z01.810] INVALID FOR* More... Preop testing [Z01.818] INVALID FOR* More... Encounter Status:Closed by CARLYN GOODE MD, FACS, V on 02/07/18 PROGRESS Observed: 02/07/2018 Status: COMPLETED Source: [place] 12:00 AM [facility] REPOSITORY O ID: [id number] Author: Carlyn Goode V Service: Urology Author Type: Physician Type: Progress Notes Filed: 02/10/2018 10:52 AM Note Text: [facility] NOTE DEPARTMENT OF UROLOGY [place] NAME: JORGE GUILLEN [place] NO.: [id number] DATE OF SERVICE: 02/07/2018 Patient presents today as a 72-year-old male referred by Dr. Corey with a chief complaint of nephrolithiasis. Patient had recently presented to the emergency room on January 21 at [facility] and this is a followup appointment regarding that. Patient's past history includes a splenic artery aneurysm which is currently going to be evaluated with a CT scan on February 25, remote bypass surgery for his heart, and a PSA through his employer in 2017 that was in the 1.4 range but is not available for me to review. Patient presented to the emergency room with right-sided flank pain. A CT scan demonstrated a 3 mm upper ureteral calculus with mild obstruction. He was placed on oral Flomax. His pain has now subsequently resolved and his urinalysis just demonstrates trace red blood cells. Nothing to be overly concerned about at this point in time. We will not get a followup KUB as we will just wait for the CT scan to be obtained for a splenic artery aneurysm evaluation and he is currently asymptomatic. Erections are stable though not ideal. He is urinating well. Denies incontinence, dysuria, or hematuria. Genital examination is normal. Prostate is plus/minus and nontender. Eyes, ears, nose, and throat; cardiovascular, respiratory, integumentary, neurological, extremities, abdominal systems within normal limits. DIAGNOSES: 1. Right ureteral calculus, 3 mm, most likely passed spontaneously. 2. Erectile dysfunction, evolving. 3. Benign prostatic hypertrophy. 4. Splenic artery aneurysm. Follow up in 1 year. Total time 40 minutes. DICTATED BY: Carlyn Goode M.D. GC/Reinaldo JOB# [id number] HOSP Observed: 02/05/2018 Status: COMPLETED Source: [place] 12:00 AM [facility] REPOSITORY Patient:Jorge Guillen MRN: <[id number]> Height:6' 0(1.829 m) Weight:219 lb (99.338 kg) Outpatient Medications as of 03/03/18: predniSONE (DELTASONE) 50 mg tab omeprazole (PRILOSEC) 20 mg capsule levothyroxine (SYNTHROID) 100 mcg tablet TURMERIC ROOT EXTRACT ORAL Fish Oil-DHA-EPA 1,200-144-216 mg cap rosuvastatin (CRESTOR) 10 mg tablet atenolol (TENORMIN) 25 mg tablet isosorbide mononitrate ER (IMDUR) 60 mg 24 hr tablet Ascorbic Acid (VITAMIN C) 1,000 mg tablet latanoprost (XALATAN) 0.005 % ophthalmic solution nitroglycerin sublingual (NITROQUICK) 0.4 mg SL tablet Tadalafil (CIALIS) 20 mg tablet Coenzyme J56-Sjwnpzf E 100-150 mg-unit cap calcium citrate/vitamin d3(CALCIUM CITRATE + 315 MG-200 UNIT TAB) multivitamin ORAL Tab ASPIRIN 81 MG TAB Admission/Clinic Administered Medications as of 03/03/18: lidocaine 10 mg/mL (1 %) 1-2 mg injection (XYLOCAINE) lactated ringers infusion ceFAZolin iv piggyback 2 g in D5W (iso-osmotic) 100 mL (ANCEF) Problem List: Coronary artery disease involving kiana coronary artery of kiana heart without angina pectoris [I25.10] S/P CABG x 3 (L-LAD, R-diag, S-OM) 2001 [Z95.1] Pure hypercholesterolemia [E78.00] Erectile dysfunction [N52.9] Diaphoresis [R61] Angina effort (HCC) [I20.8] Splenic artery aneurysm (HCC) [I72.8] Preop cardiovascular exam [Z01.810] Preop testing [Z01.818] Allergies: Contrast Dye [Other] Date Verified: 03/03/18 Lab Values Lab Value Units Date High Low POTA* 4.7 mmol/L 02/25/2018 5.1 3.7 ROMAN* 49.5 % 02/25/2018 51.0 39.0 Progress Notes ([facility] MAIN): WILBERT Skaggs PA-C 02/25/2018 3:38 PM Signed AMBULATORY PATIENT EDUCATION TOPIC: Survival Skills: Visceral angiogram with splenic artery intervention, transfemoral transbrachial with possible brachial artery repair READINESS TO LEARN COGNITIVE ABILITY: Alert and oriented MOTIVATION TO LEARN: Interested FAMILY SUPPORT: High - Very involved in pt care INSTRUCTION PROVIDED TO: Patient and family member PATIENT LEARNS BEST BY: Multiple Methods FACTORS AFFECTING LEARNING: None PHYSICAL LIMITATIONS AFFECTING LEARNING: None LEARNING RESPONSE DIAGNOSIS: Splenic artery aneurysm METHOD OF INSTRUCTION: Individual instruction Written instruction - handouts Verbal instruction PATIENT / FAMILY RESPONSE: Verbalizes understanding of: PRE-OPERATIVE INSTRUCTIONS-Correct action to take to follow pre-operative instructions FOLLOW-UP PLAN: Patient instructed to call with any further issues Contact information given. SUPPLEMENTAL MATERIAL: Patient instructions: vascular surgery preparation, Medication guidelines before vascular surgery REFERRAL (RECOMMENDATION): None Electronically Signed By: WILBERT Skaggs PA-C In Department: VASCULAR SURG DEPT Progress Notes ([facility]): WILBERT Skaggs PA-C 02/25/2018 3:36 PM Signed VASCULAR SURGERY PREOPERATIVE HANDP SERVICE DATE: 02/24/2018 SERVICE TIME: 2:50 PM PRIMARY CARE PHYSICIAN: Ira Corey NP REFERRING PROVIDER: No referring provider defined for this encounter. Consult requested for an opinion regarding the evaluation and treatment of the above. My final impression and recommendations will be communicated back to the requesting physician by way of the shared medical record or letter via US mail. CHIEF COMPLAINT/HISTORY OF PRESENT ILLNESS: Chief Complaint: Splenic artery aneurysm History of Present Illness: Jorge Guillen is a 72 year old male presenting for preoperative HANDP. Scheduled for splenic artery angio/intervention by Dr. Stahl on 03/03/2018 Continue ASA Stress test 04/26/2017 CTA 02/25/2018 PAST MEDICAL/SURGICAL/FAMILY/SOCIAL HISTORY PAST MEDICAL HISTORY Diagnosis Date - Coronary atherosclerosis of unspecified type of vessel, kiana or graft Coronary Atherosclerosis - Mixed hyperlipidemia Hyperlipidemia - Mononeuritis of unspecified site Neuropathy - Peptic ulcer, unspecified site, unspecified as acute or chronic, without mention of hemorrhage, perforation, or obstruction Peptic ulcer disease - Personal history of colonic polyps Colon polyps - Rotator cuff syndrome of shoulder and allied disorders Rotator cuff syndrome PAST SURGICAL HISTORY Procedure Laterality Date - CABG (3) VEIN GRAFTS AND ARTERIAL GRAFT(S) 2001 CABG, 3 grafts - COLONOSCOPY W/ OR W/O [facility] SPEC 10/26, 06/03 Colonoscopy - HERNIA REPAIR HX Right 2001 R INGUINAL AND UMBILICAL HERNIA LAPAROSCOPIC REPAIR WITH MESH - KNEE SCOPE,DIAGNOSTIC 03/03 Arthroscopy, knee, L. - REPAIR ROTATOR CUFF,ACUTE Rotator cuff repair FAMILY HISTORY Problem Relation Age of Onset - Hypertension Mother age 92 - Aneurysm Father age 86 from CHF. Had SC at age 52 - Diabetes Father - Heart Attack Father Social History Marital status: Spouse name: Years of education: Number of children: Social History Main Topics Smoking status: Never Smoker Smokeless tobacco: Never Used Alcohol use: Yes 1.0 oz/week Comment: socially Drug use: No Sexual activity: Yes Partners with: Female MEDICATIONS/ALLERGIES Current Outpatient Prescriptions: omeprazole (PRILOSEC) 20 mg capsule Take 20 mg by mouth once daily. Disp: Rfl: levothyroxine (SYNTHROID) 100 mcg tablet Disp: Rfl: TURMERIC ROOT EXTRACT ORAL Take by mouth once daily. Disp: Rfl: Fish Oil-DHA-EPA 1,200-144-216 mg cap Take by mouth twice daily. Disp: Rfl: predniSONE (DELTASONE) 50 mg tab Take one tablet by mouth 13 hrs prior to scan, then 7 hrs prior to scan and then 1 hr prior to scan Disp: 3 tablet Rfl: 0 rosuvastatin (CRESTOR) 10 mg tablet Take 10 mg by mouth once daily. Disp: Rfl: atenolol (TENORMIN) 25 mg tablet TAKE 1 TABLET BY MOUTH ONCE DAILY. Disp: 90 tablet Rfl: 3 isosorbide mononitrate ER (IMDUR) 60 mg 24 hr tablet Take 1 tablet by mouth twice daily. (Patient taking differently: Take 60 mg by mouth once daily. ) Disp: 180 tablet Rfl: 3 Ascorbic Acid (VITAMIN C) 1,000 mg tablet Take 1 tablet by mouth twice daily. Disp: Rfl: latanoprost (XALATAN) 0.005 % ophthalmic solution Use 1 Drop in both eyes daily at bedtime. Disp: Rfl: nitroglycerin sublingual (NITROQUICK) 0.4 mg SL tablet Dissolve 1 tablet under the tongue as needed for Chest Pain. If no pain relief call 911. Disp: 1 Bottle of 25 Rfl: 3 Tadalafil (CIALIS) 20 mg tablet Take 1 tablet by mouth as needed. 1-2 hours before sexual intercourse Disp: 15 tablet Rfl: 2 Coenzyme E38-Sslltwx E 100-150 mg-unit cap Take 1 tablet by mouth once daily. Disp: Rfl: calcium citrate/vitamin d3(CALCIUM CITRATE + 315 MG-200 UNIT TAB) Take one(1) tablet two(2) times daily. Disp: Rfl: 0 multivitamin ORAL Tab Take one(1) tablet daily. Disp: Rfl: 0 ASPIRIN 81 MG TAB Take one (1) tablet daily . Disp: Rfl: 0 No current facility-administered medications for this visit. ALLERGIES Allergen Reactions - Contrast Dye [Other] Anaphylaxis REVIEW OF SYSTEMS Constitutional: No weight loss, malaise or fevers. HEENT: Negative for frequent or significant headaches, No changes in hearing or vision, no nose bleeds or other nasal problems Respiratory: Negative for cough, wheezing, or shortness of breath Cardiovascular: Negative for chest pain, leg swelling or palpitations Gatrointestinal: Negative for abdominal discomfort, nausea, vomiting and problem swallowing and Positive for hx of PUD on omeprazole Genitourinary: No history of dysuria, frequency, or incontinence and Positive for recent R side kidney stone (not seen on CTA 02/25/2018) Musculoskeletal: Positive for T10-T11 degenerated disc, R rotator cuff injury - can't extend/abduct or rotate R UE Endocrine: hypothyroid Hematology/Lymphatic: Negative for prolonged bleeding, bruising easily or swollen nodes Neurologic: No history or headaches, syncope, paralysis, seizures or tremors and positive for Sciatica-right side, R UE neuropathy Integumentary: Negative for lesions, rash, and itching. PHYSICAL EXAM VITALS: BP 140/67 Pulse 78 Temp 36.7 ?C (98.1 ?F) (Temporal Artery) Resp 18 Ht 182.9 cm (6') Wt 99.3 kg (219 lb) SpO2 95% BMI 29.70 kg/m? General: Alert and oriented, No acute distress, Obese Integumentary: Fair skin, caitlyn face HEENT: No carotid bruits Cardiovascular: Normal S1 AND S2, no rubs, murmurs or gallops. No JVD., Pulse regular. Lungs: Normal breath sounds, no wheezes or crackles. Abdomen:Soft, non-tender, no rigidity., small umbilical hernia Extremities: No deformity, no edema or tenderness, no joint swelling or clubbing. Neurological: Normal cognition and motor skills. Vascular: Carotid Pulse Right: Normal - Left: Normal Radial Pulse Right: Normal - Left: Normal Femoral Pulse Right: Normal - Left: Normal Dorsalis Pedal Right: Normal - Left: Normal ASSESSMENT Splenic artery aneurysm PLAN/RECOMMENDATIONS Scheduled for splenic artery angio/intervention by Dr. Stahl on 03/03/2018 SIGNATURE: WILBERT Skaggs PA-C PATIENT NAME: Jorge Guillen DATE: February 24, 2018 TIME: 2:44 PM WILBERT Skaggs PA-C 02/25/2018 3:22 PM Addendum NPO after midnight Continue ASA Take omeprazole, rosuvastatin, atenolol, Imdur, levothyroxine with sips of water day of surgery. Take prednisone and Benadryl as directed Reviewed Hibiclens and Listerine instructions Previous Version PROGRESS Observed: 01/28/2018 Status: COMPLETED Source: [place] 11:04 AM [facility] REPOSITORY HNO ID: [id number] Author: Wilbert Skaggs Service: (none) Author Type: Physician Crane Engineer Type: Progress Notes Filed: 01/28/2018 11:05 AM Note Text: See Dr. Stahl's note of 01/28/2018 PROGRESS Observed: 01/28/2018 Status: COMPLETED Source: [place] 9:33 AM [facility] REPOSITORY HNO ID: [id number] Author: Mayelin Stahl Service: (none) Author Type: Physician Type: Progress Notes Filed: 01/28/2018 9:33 AM Note Text: This office note has been dictated. Mayelin Stahl MD PROGRESS Observed: 01/28/2018 Status: COMPLETED Source: [place] 8:42 AM [facility] [place] REPOSITORY [facility] ID: [id number] Author: Wilbert Skaggs Service: (none) Author Type: Physician Crane Engineer Type: Progress Notes Filed: 01/28/2018 11:04 AM Note Text: VASCULAR SURGERY INITIAL CONSULT SERVICE DATE: 01/28/2018 SERVICE TIME: 8:42 AM PRIMARY CARE PHYSICIAN: Ira Corey NP REFERRING PROVIDER: SELF Consult requested for an opinion regarding the evaluation and treatment of the above. My final impression and recommendations will be communicated back to the requesting physician by way of the shared medical record or letter via US mail. CHIEF COMPLAINT/HISTORY OF PRESENT ILLNESS: Chief Complaint: splenic artery aneurysm History of Present Illness: Jorge Gulilen is a 72 year old male presenting with incidental finding of a splenic artery aneurysm during a work up for R flank pain secondary to a kidney stone. He is asymptomatic from his aneurysm. He hasn't passed his kidney stone, but is having much less pain. He will schedule a urology appointment for follow up.PMHx is remarkable for CABG x 3 in 2001 (age 57), umbilical and R inguinal laparoscopic repair with mesh in 2001, multiple interventions on his R shoulder after a rotator cuff tear. He is a [employer] vet, involved in an [employer] [place] study through the [employer]. Family Hx is remarkable for AAA in his father who had an SC at age 52 (heavy smoker, age 86 from CHF). Patient is a never smoker, no abdominal surgeries other than his hernia repair. His meds include BASA, statin, beta-dixie . PAST MEDICAL/SURGICAL/FAMILY/SOCIAL HISTORY PAST MEDICAL HISTORY Diagnosis Date - Coronary atherosclerosis of unspecified type of vessel, kiana or graft Coronary Atherosclerosis - Mixed hyperlipidemia Hyperlipidemia - Mononeuritis of unspecified site Neuropathy - Peptic ulcer, unspecified site, unspecified as acute or chronic, without mention of hemorrhage, perforation, or obstruction Peptic ulcer disease - Personal history of colonic polyps Colon polyps - Rotator cuff syndrome of shoulder and allied disorders Rotator cuff syndrome PAST SURGICAL HISTORY Procedure Laterality Date - CABG (3) VEIN GRAFTS AND ARTERIAL GRAFT(S) 2001 CABG, 3 grafts - COLONOSCOP W/ OR W/O [facility] SPEC 10/26, 06/03 Colonoscopy - HERNIA REPAIR HX Right 2001 R INGUINAL AND UMBILICAL HERNIA LAPAROSCOPIC REPAIR WITH MESH - KNEE SCOPE,DIAGNOSTIC 03/03 Arthroscopy, knee, L. - REPAIR ROTATOR CUFF,ACUTE Rotator cuff repair FAMILY HISTORY Problem Relation Age of Onset - Hypertension Mother age 92 - Aneurysm Father age 86 from CHF. Had SC at age 52 - Diabetes Father - Heart Attack Father Social History Marital status: Spouse name: Years of education: Number of children: Social History Main Topics Smoking status: Never Smoker Smokeless tobacco: Never Used Alcohol use: Yes 1.0 oz/week Comment: socially Drug use: No Sexual activity: Yes Partners with: Female MEDICATIONS/ALLERGIES Current Outpatient Prescriptions: omeprazole (PRILOSEC) 20 mg capsule Take 20 mg by mouth once daily. Disp: Rfl: levothyroxine (SYNTHROID) 100 mcg tablet Disp: Rfl: TURMERIC ROOT EXTRACT ORAL Take by mouth once daily. Disp: Rfl: Fish Oil-DHA-EPA 1,200-144-216 mg cap Take by mouth twice daily. Disp: Rfl: rosuvastatin (CRESTOR) 10 mg tablet Take 10 mg by mouth once daily. Disp: Rfl: atenolol (TENORMIN) 25 mg tablet TAKE 1 TABLET BY MOUTH ONCE DAILY. Disp: 90 tablet Rfl: 3 isosorbide mononitrate ER (IMDUR) 60 mg 24 hr tablet Take 1 tablet by mouth twice daily. (Patient taking differently: Take 60 mg by mouth once daily. ) Disp: 180 tablet Rfl: 3 Ascorbic Acid (VITAMIN C) 1,000 mg tablet Take 1 tablet by mouth twice daily. Disp: Rfl: latanoprost (XALATAN) 0.005 % ophthalmic solution Use 1 Drop in both eyes daily at bedtime. Disp: Rfl: Tadalafil (CIALIS) 20 mg tablet Take 1 tablet by mouth as needed. 1-2 hours before sexual intercourse Disp: 15 tablet Rfl: 2 Coenzyme H41-Ojbcmka E 100-150 mg-unit cap Take 1 tablet by mouth once daily. Disp: Rfl: calcium citrate/vitamin d3(CALCIUM CITRATE + 315 MG-200 UNIT TAB) Take one(1) tablet two(2) times daily. Disp: Rfl: 0 multivitamin ORAL Tab Take one(1) tablet daily. Disp: Rfl: 0 ASPIRIN 81 MG TAB Take one (1) tablet daily . Disp: Rfl: 0 nitroglycerin sublingual (NITROQUICK) 0.4 mg SL tablet Dissolve 1 tablet under the tongue as needed for Chest Pain. If no pain relief call 911. (Patient not taking: Reported on 01/28/2018 ) Disp: 1 Bottle of 25 Rfl: 3 No current facility-administered medications for this visit. ALLERGIES Allergen Reactions - Contrast Dye [Other] Anaphylaxis REVIEW OF SYSTEMS Constitutional: No weight loss, malaise or fevers. HEENT: Negative for frequent or significant headaches, No changes in hearing or vision, no nose bleeds or other nasal problems Respiratory: Negative for cough, wheezing, or shortness of breath Cardiovascular: Negative for chest pain, leg swelling or palpitations Gatrointestinal: Negative for abdominal discomfort, nausea, vomiting and problem swallowing Genitourinary: No history of dysuria, frequency, or incontinence Musculoskeletal: Positive for low back pain Herniated disc T10 and joint pain R rotator cuff Endocrine: Border line DM, hypothyroid Hematology/Lymphatic: Negative for prolonged bleeding, bruising easily or swollen nodes Neurologic: No history or headaches, syncope, paralysis, seizures or tremors and Positive for disc dz with radiculopathy (sciatica), Neuropathy bilat feet Integumentary: Negative for lesions, rash, and itching. PHYSICAL EXAM VITALS: BP 125/68 Pulse 59 Temp (Src) 97.1 (Temporal Artery) Resp 14 Ht 6' 0 (1.83m) Wt 225 lb (102.1kg) SpO2 97% BMI 30.51 kg/(m2). General: Alert and oriented, No acute distress, Obese Integumentary: Fair skin, caitlyn face HEENT: No carotid bruits Cardiovascular: Normal S1 AND S2, no rubs, murmurs or gallops. No JVD., Pulse regular. Lungs: Normal breath sounds, no wheezes or crackles. Abdomen: Soft, non-tender, no rigidity., No masses or organomegaly. Extremities: No deformity, no edema or tenderness, no joint swelling or clubbing. Neurological: Normal cognition and motor skills. Vascular: Carotid Pulse Right: Normal - Left: Normal Radial Pulse Right: Normal - Left: Normal Femoral Pulse Right: Normal - Left: Normal Popliteal Pulse Right: Normal - Left: Normal Dorsalis Pedal Right: Normal - Left: Normal ASSESSMENT Splenic artery aneurysm Diagnostic tests reviewed for today's visit: Most recent imaging PLAN/RECOMMENDATIONS Per Dr. Stahl SIGNATURE: Mayelin Stahl MD PATIENT NAME: Jorge Guillen DATE: January 28, 2018 TIME: 8:42 AM [facility] Observed: 01/28/2018 Status: COMPLETED Source: [place] 8:30 AM [facility] REPOSITORY Office Visit (LONG) YOBANIJORGE BENNETT ([id number]) 1945 M Date Time Provider Department 01/28/18 8:30 AM WILBERT SKAGGS) LONG During your visit today, we recorded the following information about you: WILBERT Skaggs PA-C 01/28/2018 11:[address] Stahl's note of 01/28/2018 Referring Provider: IRA COREY [[id number]] Allergies As of Date: 01/28/2018 Noted Allergy Reaction Contrast Dye [Other] 06/14/2003 10 - Anaphylaxis Date Reviewed: 01/28/2018 Reviewed by: Princess (Artie) ARTIE Pettit - Fully Assessed Primary Visit Diagnosis:Splenic artery aneurysm (HCC) [I72.8] Prescriptions as of 01/28/2018 Sig: OMEPRAZOLE 20 MG CAPSULE,JESSIE* Take 20 mg by mouth once drew* LEVOTHYROXINE 100 MCG TABLET TURMERIC ROOT EXTRACT ORAL Take by mouth once daily. FISH OIL-DHA-EPA 1,200 MG-144* Take by mouth twice daily. ROSUVASTATIN 10 MG TABLET Take 10 mg by mouth once drew* ATENOLOL 25 MG TABLET TAKE 1 TABLET BY MOUTH ONCE D* ISOSORBIDE MONONITRATE ER 60 * Take 1 tablet by mouth twice * Patient taking differently: Take 60 mg by mouth once drew* ASCORBIC ACID (VITAMIN C) 1,0* Take 1 tablet by mouth twice * LATANOPROST 0.005 % EYE DROPS Use 1 Drop in both eyes daily* NITROGLYCERIN 0.4 MG SUBLINGU* Dissolve 1 tablet under the t* Patient not taking: Reported on 01/28/2018 TADALAFIL 20 MG TABLET Take 1 tablet by mouth as nee* COENZYME Q22-PLAZPZF E 100 MG* Take 1 tablet by mouth once d* CALCIUM CITRATE + 315 MG-200 * Take one(1) tablet two(2) aminah* MULTIVITAMIN TABLET Take one(1) tablet daily. * ASPIRIN 81 MG TABLET Take one (1) tablet daily . Problem List As Of Date 01/28/2018 Noted Resolved CORONARY ATHEROSCLER UNSPEC VESSEL [I25.10] INVALID FOR*08/23/2015 AORTOCORONARY BYPASS STATUS [Z95.1] INVALID FOR*08/23/2015 HYPERLIPIDEMIA NEC/NOS [E78.5] INVALID FOR*08/23/2015 Coronary artery disease involving kiana olmstead*INVALID FOR* S/P CABG x 3 (L-LAD, R-diag, S-OM) 2001 [Z95.1] INVALID FOR* Pure hypercholesterolemia [E78.00] INVALID FOR* Erectile dysfunction [N52.9] INVALID FOR* Diaphoresis [R61] INVALID FOR* Angina effort (HCC) [I20.8] INVALID FOR* Encounter Status:Closed by COLEMAN VELAZQUEZ JP on 01/28/18 CNOV Observed: 01/28/2018 Status: COMPLETED Source: [place] 8:15 AM [facility] REPOSITORY Office Visit (VASSMN) JORGE GUILLEN ([id number]) 1945 M Date Time Provider Department 01/28/18 8:15 AM MAYELIN STAHL During your visit today, we recorded the following information about you: Temperature Pulse Respiration Blood pressure 97.1 degrees 59/minute 14/minute 125/68 Weight Height 102.1 kg 1.829 m WILBERT Skaggs PA-C 01/28/2018 11:04 AM Addendum VASCULAR SURGERY INITIAL CONSULT SERVICE DATE: 01/28/2018 SERVICE TIME: 8:42 AM PRIMARY CARE PHYSICIAN: Ira Corey NP REFERRING PROVIDER: SELF Consult requested for an opinion regarding the evaluation and treatment of the above. My final impression and recommendations will be communicated back to the requesting physician by way of the shared medical record or letter via US mail. CHIEF COMPLAINT/HISTORY OF PRESENT ILLNESS: Chief Complaint: splenic artery aneurysm History of Present Illness: Jorge Guillen is a 72 year old male presenting with incidental finding of a splenic artery aneurysm during a work up for R flank pain secondary to a kidney stone. He is asymptomatic from his aneurysm. He hasn't passed his kidney stone, but is having much less pain. He will schedule a urology appointment for follow up.PMHx is remarkable for CABG x 3 in 2001 (age 57), umbilical and R inguinal laparoscopic repair with mesh in 2001, multiple interventions on his R shoulder after a rotator cuff tear. He is a [employer] vet, involved in an [employer] [place] study through the [employer]. Family Hx is remarkable for AAA in his father who had an SC at age 52 (heavy smoker, age 86 from CHF). Patient is a never smoker, no abdominal surgeries other than his hernia repair. His meds include BASA, statin, beta-dixie . PAST MEDICAL/SURGICAL/FAMILY/SOCIAL HISTORY PAST MEDICAL HISTORY Diagnosis Date - Coronary atherosclerosis of unspecified type of vessel, kiana or graft Coronary Atherosclerosis - Mixed hyperlipidemia Hyperlipidemia - Mononeuritis of unspecified site Neuropathy - Peptic ulcer, unspecified site, unspecified as acute or chronic, without mention of hemorrhage, perforation, or obstruction Peptic ulcer disease - Personal history of colonic polyps Colon polyps - Rotator cuff syndrome of shoulder and allied disorders Rotator cuff syndrome PAST SURGICAL HISTORY Procedure Laterality Date - CABG (3) VEIN GRAFTS AND ARTERIAL GRAFT(S) 2001 CABG, 3 grafts - COLONOSCOP W/ OR W/O [facility] SPEC 10/26, 06/03 Colonoscopy - HERNIA REPAIR HX Right 2001 R INGUINAL AND UMBILICAL HERNIA LAPAROSCOPIC REPAIR WITH MESH - KNEE SCOPE,DIAGNOSTIC 03/03 Arthroscopy, knee, L. - REPAIR ROTATOR CUFF,ACUTE Rotator cuff repair FAMILY HISTORY Problem Relation Age of Onset - Hypertension Mother age 92 - Aneurysm Father age 86 from CHF. Had SC at age 52 - Diabetes Father - Heart Attack Father Social History Marital status: Spouse name: Years of education: Number of children: Social History Main Topics Smoking status: Never Smoker Smokeless tobacco: Never Used Alcohol use: Yes 1.0 oz/week Comment: socially Drug use: No Sexual activity: Yes Partners with: Female MEDICATIONS/ALLERGIES Current Outpatient Prescriptions: omeprazole (PRILOSEC) 20 mg capsule Take 20 mg by mouth once daily. Disp: Rfl: levothyroxine (SYNTHROID) 100 mcg tablet Disp: Rfl: TURMERIC ROOT EXTRACT ORAL Take by mouth once daily. Disp: Rfl: Fish Oil-DHA-EPA 1,200-144-216 mg cap Take by mouth twice daily. Disp: Rfl: rosuvastatin (CRESTOR) 10 mg tablet Take 10 mg by mouth once daily. Disp: Rfl: atenolol (TENORMIN) 25 mg tablet TAKE 1 TABLET BY MOUTH ONCE DAILY. Disp: 90 tablet Rfl: 3 isosorbide mononitrate ER (IMDUR) 60 mg 24 hr tablet Take 1 tablet by mouth twice daily. (Patient taking differently: Take 60 mg by mouth once daily. ) Disp: 180 tablet Rfl: 3 Ascorbic Acid (VITAMIN C) 1,000 mg tablet Take 1 tablet by mouth twice daily. Disp: Rfl: latanoprost (XALATAN) 0.005 % ophthalmic solution Use 1 Drop in both eyes daily at bedtime. Disp: Rfl: Tadalafil (CIALIS) 20 mg tablet Take 1 tablet by mouth as needed. 1-2 hours before sexual intercourse Disp: 15 tablet Rfl: 2 Coenzyme F06-Vqhszna E 100-150 mg-unit cap Take 1 tablet by mouth once daily. Disp: Rfl: calcium citrate/vitamin d3(CALCIUM CITRATE + 315 MG-200 UNIT TAB) Take one(1) tablet two(2) times daily. Disp: Rfl: 0 multivitamin ORAL Tab Take one(1) tablet daily. Disp: Rfl: 0 ASPIRIN 81 MG TAB Take one (1) tablet daily . Disp: Rfl: 0 nitroglycerin sublingual (NITROQUICK) 0.4 mg SL tablet Dissolve 1 tablet under the tongue as needed for Chest Pain. If no pain relief call 911. (Patient not taking: Reported on 01/28/2018 ) Disp: 1 Bottle of 25 Rfl: 3 No current facility-administered medications for this visit. ALLERGIES Allergen Reactions - Contrast Dye [Other] Anaphylaxis REVIEW OF SYSTEMS Constitutional: No weight loss, malaise or fevers. HEENT: Negative for frequent or significant headaches, No changes in hearing or vision, no nose bleeds or other nasal problems Respiratory: Negative for cough, wheezing, or shortness of breath Cardiovascular: Negative for chest pain, leg swelling or palpitations Gatrointestinal: Negative for abdominal discomfort, nausea, vomiting and problem swallowing Genitourinary: No history of dysuria, frequency, or incontinence Musculoskeletal: Positive for low back pain Herniated disc T10 and joint pain R rotator cuff Endocrine: Border line DM, hypothyroid Hematology/Lymphatic: Negative for prolonged bleeding, bruising easily or swollen nodes Neurologic: No history or headaches, syncope, paralysis, seizures or tremors and Positive for disc dz with radiculopathy (sciatica), Neuropathy bilat feet Integumentary: Negative for lesions, rash, and itching. PHYSICAL EXAM VITALS: BP 125/68 Pulse 59 Temp (Src) 97.1 (Temporal Artery) Resp 14 Ht 6' 0 (1.83m) Wt 225 lb (102.1kg) SpO2 97% BMI 30.51 kg/(m2). General: Alert and oriented, No acute distress, Obese Integumentary: Fair skin, caitlyn face HEENT: No carotid bruits Cardiovascular: Normal S1 AND S2, no rubs, murmurs or gallops. No JVD., Pulse regular. Lungs: Normal breath sounds, no wheezes or crackles. Abdomen: Soft, non-tender, no rigidity., No masses or organomegaly. Extremities: No deformity, no edema or tenderness, no joint swelling or clubbing. Neurological: Normal cognition and motor skills. Vascular: Carotid Pulse Right: Normal - Left: Normal Radial Pulse Right: Normal - Left: Normal Femoral Pulse Right: Normal - Left: Normal Popliteal Pulse Right: Normal - Left: Normal Dorsalis Pedal Right: Normal - Left: Normal ASSESSMENT Splenic artery aneurysm Diagnostic tests reviewed for today's visit: Most recent imaging PLAN/RECOMMENDATIONS Per Dr. Stahl SIGNATURE: Mayelin Stahl MD PATIENT NAME: Jorge Guillen DATE: January 28, 2018 TIME: 8:42 AM Mayelin Stahl MD 01/28/2018 9:33 AM Signed This office note has been dictated. Mayelin Stahl MD Referring Provider: SELF [[id number]] Allergies As of Date: 01/28/2018 Noted Allergy Reaction Contrast Dye [Other] 06/14/2003 10 - Anaphylaxis Date Reviewed: 01/28/2018 Reviewed by: Princess (Artie) ARTIE Pettit - Fully Assessed Reason for Visit: New Patient [172] Primary Visit Diagnosis:S/P CABG x 3 (L-LAD, R-diag, S-OM) 2001 [Z95.1] Other Visit Diagnosis:Splenic artery aneurysm (HCC) [I72.8] Order(s):predniSONE (DELTASONE) 50 mg tabTake one tablet by mouth13 hrs prior to scan, then 7 hrs prior to scan and then 1 hr prior to scanDisp: 3 tabletRfl: 0 diphenhydrAMINE 50 mg (BENADRYL)Disp: Rfl: Prescriptions as of 01/28/2018 Sig: OMEPRAZOLE 20 MG CAPSULE,JESSIE* Take 20 mg by mouth once drew* LEVOTHYROXINE 100 MCG TABLET TURMERIC ROOT EXTRACT ORAL Take by mouth once daily. FISH OIL-DHA-EPA 1,200 MG-144* Take by mouth twice daily. ROSUVASTATIN 10 MG TABLET Take 10 mg by mouth once drew* ATENOLOL 25 MG TABLET TAKE 1 TABLET BY MOUTH ONCE D* ISOSORBIDE MONONITRATE ER 60 * Take 1 tablet by mouth twice * Patient taking differently: Take 60 mg by mouth once drew* ASCORBIC ACID (VITAMIN C) 1,0* Take 1 tablet by mouth twice * LATANOPROST 0.005 % EYE DROPS Use 1 Drop in both eyes daily* TADALAFIL 20 MG TABLET Take 1 tablet by mouth as nee* COENZYME I34-CSGKGMA E 100 MG* Take 1 tablet by mouth once d* CALCIUM CITRATE + 315 MG-200 * Take one(1) tablet two(2) aminah* MULTIVITAMIN TABLET Take one(1) tablet daily. * ASPIRIN 81 MG TABLET Take one (1) tablet daily . PREDNISONE 50 MG TABLET Take one tablet by mouth13 hr* NITROGLYCERIN 0.4 MG SUBLINGU* Dissolve 1 tablet under the t* Patient not taking: Reported on 01/28/2018 Medication notes this encounter COENZYME [id number] E 100 MG-150 UNIT CAPSULE >> Princess Pettit LPN, LPN 01/28/2018 8:27 AM >> PRINCESS PETTIT Jan 28, 2018 8:27 AM Takes one time daily Problem List As Of Date 01/28/2018 Noted Resolved CORONARY ATHEROSCLER UNSPEC VESSEL [I25.10] INVALID FOR*08/23/2015 AORTOCORONARY BYPASS STATUS [Z95.1] INVALID FOR*08/23/2015 HYPERLIPIDEMIA NEC/NOS [E78.5] INVALID FOR*08/23/2015 Coronary artery disease involving kiana olmstead*INVALID FOR* S/P CABG x 3 (L-LAD, R-diag, S-OM) 2001 [Z95.1] INVALID FOR* Pure hypercholesterolemia [E78.00] INVALID FOR* Erectile dysfunction [N52.9] INVALID FOR* Diaphoresis [R61] INVALID FOR* Angina effort (HCC) [I20.8] INVALID FOR* Prescriptions ordered this encounter Disp Refills Start End PREDNISONE 50 MG TABLET 3 ta* 0 01/28/2018 Sig: Take one tablet by mouth13 hrs prior to scan, then 7 hrs prior to scan and then 1 hr prior to scan DIPHENHYDRAMINE 50 MG CAPSULE 01/28/2018 01/28/2018 Route: ORAL Medications Discontinued During This Encounter atorvastatin (LIPITOR) 40 mg tablet 90 t* 3 08/28/2016 01/28/2018 Route: ORAL Sig: Take 1 tablet by mouth once daily. Disc: Discontinued by another Health Care Provider esomeprazole (NEXIUM) 20 mg ORAL cap* 0 05/16/2011 01/28/2018 Class: Historical Med Route: ORAL Sig: Take 1 capsule by mouth once daily. Disc: Discontinued by another Health Care Provider pantoprazole DR (PROTONIX) 40 mg tab* 01/28/2018 Class: Historical Med Route: ORAL Sig: Take 1 tablet by mouth once daily. Disc: Discontinued by another Health Care Provider tamsulosin ER (FLOMAX) 0.4 mg cp24 7 ca* 0 01/21/2018 01/28/2018 Class: Print RX Route: ORAL Sig: Take 1 capsule by mouth daily at bedtime for 7 days. Disc: Course of therapy completed Encounter Status:Closed by VETO STAHL MD on 01/28/18 PROGRESS Observed: 01/28/2018 Status: COMPLETED Source: [place] 12:00 AM [facility] [place] REPOSITORY HNO ID: [id number] Author: Veto Stahl Service: Vascular Surgery Author Type: Physician Type: Progress Notes Filed: 02/09/2018 6:33 PM Note Text: NAME: JORGE GUILLEN [facility] NO: [id number] DATE OF SERVICE: 01/28/2018 Mr. Guillen is seen today in initial evaluation for splenic artery aneurysm incidentally found when he was undergoing a noncontrasted abdominal CAT scan for kidney stones. He continues to have intermittent pain from the kidney stones and states that he has not passed the stone. This is right upper quadrant discomfort. His noncontrasted CAT scan demonstrated a 2.4 cm mid splenic artery aneurysm mild calcification. Past Medical History: Remarkable for coronary artery disease with catheter- based intervention, cardiac catheterization with CABG in 2001. He has had no recent stress test. He denies any current history of chest pain or shortness of breath. He has hypercholesterolemia, hypertension. Denies any history of stroke, bleeding, clotting disorder. Past Surgical History: Periumbilical hernia repair. Review of Systems: Complete review of systems unremarkable aside from those complaints described above. Physical Examination: His lungs are clear to auscultation. His abdomen is soft. He has bilaterally palpable femoral, popliteal and pedal pulses with full popliteal artery pulses. Impression/Plan: In summary, splenic artery aneurysm, mid, on noncontrasted CAT. Need contrasted CAT scan to determine the exact therapy and the technical approach. He will premedicated for this. He will also need a popliteal artery ultrasound. Pending my review of these, we will make further recommendations. Mayelin Stahl M.D. SPL/089 Audio #: [id number] Date Dictated: 01/28/2018 09:15:55 Date Typed: 01/31/2018 10:45:59 Date Revised: ED NOTE Observed: 01/21/2018 Status: COMPLETED Source: [place] 5:37 PM [facility] OTHER [facility] REPOSITORY O ID: [id number] Author: Melinda Barajas (Pa) Service: Emergency Medicine Author Type: Physician Crane Engineer Type: ED Notes Filed: 01/23/2018 12:27 PM Note Text: Emergency Services: ED Call Back Questionnaire SERVICE DATE: 01/21/2018 Are you feeling better? Yes. Patient is doing well. He does not believe he has passed his kidney stone but his pain has been controllable. Recommended follow-up with urology. Any questions about discharge instructions and follow-up care? No Were you able to make a follow up appointment? No, referred to appointment hotline Do you have any further questions? No Is there anything that we could have done differently to improve your ED visit? No SIGNATURE: Melinda Barajas PA-C PATIENT NAME: Jorge Daisaranya DATE: January 23, 2018 TIME: 12:26 PM ED NOTE Observed: 01/21/2018 Status: COMPLETED Source: [place] 5:36 PM [facility] OTHER CAMPUS REPOSITORY HNO ID: [id number] Author: Vanessa WorkmanRn) Rachael, RN Service: (none) Author Type: Registered Nurse Type: ED Notes Filed: 01/21/2018 5:36 PM Note Text: Pt provided with strainer for urination. Discharge instructions d/w pt and at bedside. Stated understanding with no further questions for this nurse. Encouraged f/u with PCP and referring doctors given. Stated understanding. Prescription(S) were given X3. ED NOTE Observed: 01/21/2018 Status: COMPLETED Source: [place] 5:15 PM [facility] REPOSITORY HNO ID: [id number] Author: Vanessa Pearl) Rachael, MARISABEL Service: (none) Author Type: Registered Nurse Type: ED Notes Filed: 01/21/2018 5:15 PM Note Text: Melinda Velazquez back in at bedside with update and to discuss plan of care. Advised pt and family of results in ED, they agree and verbalize understanding. CT ABD/PEL WO IVCON Observed: 01/21/2018 Status: F Source: [place] 3:32 PM [facility] OTHER [place] REPOSITORY * * *Final Report* * * DATE OF EXAM: Jan 21 2018 3:32PM [facility] [place] [facility] - CT ABD/PEL WO IVCON / PROCEDURE REASON: Flank pain, stone disease suspected * * * * Physician Interpretation * * * * EXAMINATION: CT ABDOMEN AND PELVIS WITHOUT IV CONTRAST CLINICAL HISTORY: Flank pain TECHNIQUE: Non-IV contrast imaging of the abdomen and pelvis was performed using standard technique, scanning from just above the dome of the diaphragm to the symphysis pubis. Unenhanced imaging is limited for the evaluation of some intra-abdominal and pelvic pathology. MQ: [id number] Contrast: None CT Radiation dose: Integrated Dose-length product (DLP) for this visit = 758 mGy*cm. CT Dose Reduction Employed: Automated exposure control (AEC) COMPARISON: None. RESULT: Abdomen / Pelvis: Liver: There is diffuse low-attenuation of the hepatic parenchyma compatible with hepatic steatosis and limiting evaluation for hepatic lesion. Biliary: Cholelithiasis. Spleen: No splenomegaly. Pancreas: Unremarkable. Adrenals: No mass. Kidneys: There is a 3 mm calculus in the mid to proximal right ureter (2:106). No additional ureteral or renal calculus is identified. Right pelvocaliectasis. There is also a 1.4 cm hypodense cystic structure in the inferior pole the right kidney, not fully characterized on this noncontrast exam. GI Tract: No bowel dilation. Colonic diverticulosis without convincing findings of diverticulitis. The appendix is normal. Lymph Nodes: No lymphadenopathy. Mesentery/peritoneum: No ascites. Retroperitoneum: No mass. Vasculature: There is a 1.8 x 2.4 cm splenic artery aneurysm (2:63). Calcific atherosclerotic disease is present in the abdominal aorta which is nonaneurysmal. Pelvis: No mass or ascites. The urinary bladder is unremarkable. Bones/Soft Tissues: No acute osseous abnormality. Degenerative changes are present in the spine. Lower thorax: No focal consolidation or pleural effusion. IMPRESSION: 3 mm calculus in the proximal to mid right ureter with right pelvocaliectasis. Hypodense cystic structure in the right kidney is not well characterized by this noncontrast exam. Hepatic steatosis. Cholelithiasis. 2.4 cm splenic artery aneurysm. Colonic diverticulosis. Vascular Ultrasound Technician: PSCB Transcribe Date/Time: Jan 21 2018 3:34P Dictated by : LILIANA ANG MD This examination was interpreted and the report reviewed and electronically signed by: LILIANA ANG MD on Jan 21 2018 3:48PM EST [id number] ED NOTE Observed: 01/21/2018 Status: COMPLETED Source: [place] 3:27 PM [facility] OTHER CAMPUS REPOSITORY HNO ID: [id number] Author: Vanessa (Rn) MARISABEL Cano Service: (none) Author Type: Registered Nurse Type: ED Notes Filed: 01/21/2018 3:27 PM Note Text: Patient transported to [place] with Tech. CBC AND DIFFERENTIAL Collected: 01/21/2018 Status: F Source: [place] 3:20 PM [facility] OTHER CAMPUS REPOSITORY TYPE CODE TESTS RESULT OUT OF REFERENCE UNITS RANGE LAB WBC 3.70-11.00 k/uL WBC 9.12 LAB RBC 4.20-6.00 m/uL RBC 5.52 LAB HGB 13.0-17.0 g/dL Hemoglobin 16.5 LAB HCT 39.0-51.0 % Hematocrit 47.0 LAB MCV 80.0-100.0 fL MCV 85.1 LAB MCH 26.0-34.0 pG MCH 29.9 LAB MCHC 30.5-36.0 g/dL MCHC 35.1 LAB RDWCV 11.5-15.0 % RDW-CV 13.5 LAB PLTCT 150-400 k/uL Low Platelet Count 142 LAB MPV 9.0-12.7 fL MPV 10.3 LAB ANEUT % Neut% 78.7 LAB AANEUT 1.45-7.50 k/uL Abs Neut 7.18 LAB ALYMP % Lymph% 14.5 LAB AALYMP 1.00-4.00 k/uL Abs Lymph 1.32 LAB AMONO % [place]% 5.3 LAB AAMONO <0.87 k/uL Abs [place] 0.48 LAB AEOS % Eosin% 1.1 LAB AAEOS <0.46 k/uL Abs Eosin 0.10 LAB ABASO % Baso% 0.4 LAB AABASO <0.11 k/uL Abs Baso 0.04 Performed By: #### CBCDIF, CMP, LIPA #### [facility] [address] [place] [address] COMP METABOLIC PANEL Collected: 01/21/2018 Status: F Source: [place] 3:20 PM [facility] OTHER CAMPUS REPOSITORY TYPE CODE TESTS RESULT OUT OF REFERENCE UNITS RANGE LAB TP 6.3-8.0 g/dL Protein, Total 6.7 LAB ALB 3.9-4.9 g/dL Albumin 4.4 LAB CA 8.5-10.2 mg/dL Calcium, Total 9.0 LAB TBIL 0.2-1.3 mg/dL Bilirubin, Total 0.7 LAB ALKP 36-108 U/L Alkaline Phosphatase 42 LAB AST 14-40 U/L AST 35 LAB GLU 74-99 mg/dL Glucose High 141 Result Comment: The [place] Diabetes Association (ADA) provides guidance for cutoff values for fasting glucose and random glucose. The ADA defines fasting as no caloric intake for at least 8 hours. Fas ting plasma glucose results between 100 to 125 mg/dL indicate increased risk for diabetes (prediabetes). Fasting plasma glucose results greater than or equal to 126 mg/dL meet the criteria for diagnosis of diabetes. In the absence of unequivocal hyperglycemia, results should be confirmed by repeat testing. In a patient with classic symptoms of hyperglycemia or hyperglycemic crisis, random plasma glucose results greater than or equal to 200 mg/dL meet the criteria for diagnosis of diabetes. Reference: Standards of Medical Care in Diabetes 2016, [place] [employer] Association. Diabetes Care. 2016.39(Suppl 1). LAB BUN 9-24 mg/dL BUN 23 LAB CRET 0.73-1.22 mg/dL Creatinine 1.09 LAB NA 136-144 mmol/L Sodium 140 LAB K 3.7-5.1 mmol/L Potassium 4.4 LAB CL 97-105 mmol/L Chloride 103 LAB CO2 22-30 mmol/L CO2 26 LAB AGAP 9-18 mmol/L Anion Gap 11 LAB ALT 10-54 U/L ALT 51 LAB GFRAA eGFR- Amer. >60 LAB GFRNAA . eGFR-All Other Races >60 Result Comment: eGFR (Estimated GFR) Units of measure: mL/min/1.73 meters squared eGFR is derived from the reexpressed MDRD Study equation using the following parameters: serum creatinine, age, gender and race. The creatinine assay has been calibrated to be traceable to IDMS. An eGFR <60 mL/min/1.73m2 for >3 months is consistent with chronic kidney disease. Refer to KDOQI guidelines for clinical interpretation. In patients with unstable renal function, e.g. those with acute kidney injury, the eGFR may not accurately reflect actual GFR. Performed By: #### CBCDIF, CMP, LIPA #### [facility] [address] [place] [address] LIPASE Collected: 01/21/2018 Status: F Source: [place] 3:20 PM [facility] OTHER [place] REPOSITORY TYPE CODE TESTS RESULT OUT OF REFERENCE UNITS RANGE LAB LIPA 16-61 U/L Lipase 23 Performed By: #### CBCDIF, CMP, LIPA #### [facility] [address] [place], [place] [id number] URINALYSIS Collected: 01/21/2018 Status: F Source: [place] 3:20 PM [facility] OTHER [place] REPOSITORY TYPE CODE TESTS RESULT OUT OF RANGE REFERENCE UNITS LAB UCOL Yellow Color Yellow LAB [facility] Clear Clarity Abnormal Slightly Hazy Alert LAB UGLUC Negative mg/dL Glucose, Urine Negative LAB UBIL Negative Bilirubin, Urine Negative LAB UKET Negative Ketones, Urine Negative LAB USPG 1.001-1.029 High Specific [place], Ur >1.029 LAB UHGB Negative Abnormal Hemoglobin/Blood, Large Alert Ur LAB UPH 5.0-8.0 pH 5.5 LAB UPROT Negative mg/dL Protein, Abnormal Urine 100 Alert LAB UUROB 0.2-1.0 Urobilinogen 1.0 LAB UNITR Negative Nitrites Negative LAB ULKEST Negative Leukest Negative Performed By: #### UA, UAMIC #### [facility] [address] [facility] [phone] URINE MICROSCOPIC Collected: 01/21/2018 Status: F Source: [place] (FOR LAB USE ONLY) 3:20 PM CLINIC OTHER [place] REPOSITORY TYPE CODE TESTS RESULT OUT OF RANGE REFERENCE UNITS LAB UWBC 0-5 /HPF WBC 0-5 LAB URBC 0-3 /HPF Abnormal Alert RBC >50 LAB UCAST 0 /LPF Cast SEE COMMENT Result Comment: 0 LAB UBACT 0 /HPF Abnormal Bacteria Alert Few Performed By: #### UA, UAMIC #### [facility] [address] [facility] [phone] ED PROV NOTE Observed: 01/21/2018 Status: COMPLETED Source: [place] 3:00 PM [facility] OTHER [place] REPOSITORY HNO ID: [id number] Author: Melinda Barajas (Pa) Service: Emergency Medicine Author Type: Physician Crane Engineer Type: ED Provider Notes Filed: 01/21/2018 6:08 PM Note Text: ED Provider Note Patient Name: Jorge Guillen SERVICE DATE: 01/21/18 History Patient presents with: Flank Pain: right 72 year old male with past medical history of CAD, hyperlipidemia, peptic ulcer disease, and rotator cuff syndrome presents with right flank pain. This came on suddenly today. Radiate to groin. It was worse at noon. He became nauseous and felt clammy. No emesis. No diarrhea. His urine was darker. No dysuria, increased urinary urgency, or increased urinary frequency. He's never had symptoms like this in the past. He's had a history of hernia repair in the past but no other abdominal surgeries. No known history of kidney stones. No chest pain or shortness of breath. All other review systems unremarkable. PAST MEDICAL HISTORY Diagnosis Date - Coronary atherosclerosis of unspecified type of vessel, kiana or graft Coronary Atherosclerosis - Mixed hyperlipidemia Hyperlipidemia - Mononeuritis of unspecified site Neuropathy - Peptic ulcer, unspecified site, unspecified as acute or chronic, without mention of hemorrhage, perforation, or obstruction Peptic ulcer disease - Personal history of colonic polyps Colon polyps - Rotator cuff syndrome of shoulder and allied disorders Rotator cuff syndrome PAST SURGICAL HISTORY Procedure Laterality Date - CABG, ARTERY-VEIN, TWO CABG, 3 grafts - COLONOSCOP W/ OR W/O [facility] SPEC 10/26, 06/03 Colonoscopy - KNEE SCOPE,DIAGNOSTIC 03/03 Arthroscopy, knee, L. - REPAIR ROTATOR CUFF,ACUTE Rotator cuff repair No family history on file. Social History Social History Main Topics - Smoking status: Never Smoker - Smokeless tobacco: Never Used - Alcohol use 1.0 oz/week Comment: socially - Drug use: No - Sexual activity: Yes Partners: Female ALLERGIES Allergen Reactions - Contrast Dye [Other] Anaphylaxis Review of Systems Constitutional: Negative for chills, fatigue and fever. HENT: Negative for congestion, ear pain and sore throat. Eyes: Negative for pain and visual disturbance. Respiratory: Negative for cough, choking and shortness of breath. Cardiovascular: Negative for chest pain and palpitations. Gastrointestinal: Positive for nausea. Negative for abdominal pain, blood in stool, constipation, diarrhea and vomiting. Genitourinary: Positive for flank pain. Negative for dysuria, frequency and urgency. Musculoskeletal: Negative for back pain and neck pain. Skin: Negative for rash. Neurological: Negative for weakness and numbness. Physical Exam BP 141/77 Pulse 61 Temp (Src) 97.7 (Oral) Resp 18 Ht 6' 0 (1.83m) Wt 215 lb (97.5kg) SpO2 99% BMI 29.15 kg/(m2). Physical Exam Constitutional: He is oriented to person, place, and time. He appears well-developed and well-nourished. No distress. HENT: Head: Normocephalic and atraumatic. Mouth/Throat: Oropharynx is clear and moist. Eyes: Conjunctivae and EOM are normal. Pupils are equal, round, and reactive to light. Neck: Normal range of motion. Neck supple. Cardiovascular: Normal rate and regular rhythm. Pulmonary/Chest: Effort normal and breath sounds normal. No respiratory distress. He has no wheezes. He has no rales. Abdominal: Soft. Bowel sounds are normal. He exhibits no distension, no pulsatile midline mass and no mass. There is no tenderness. There is no rigidity, no rebound, no guarding and negative Rai's sign. No hernia. Musculoskeletal: Normal range of motion. He exhibits no edema or tenderness. Neurological: He is alert and oriented to person, place, and time. No cranial nerve deficit or sensory deficit. He exhibits normal muscle tone. Coordination normal. Skin: Skin is warm and dry. Capillary refill takes less than 2 seconds. No rash noted. He is not diaphoretic. Psychiatric: He has a normal mood and affect. Nursing note and vitals reviewed. Diagnostic Testing ED Labs Ordered and Reviewed - No data to display Procedures Medical Decision Making MDM Patient presents with right flank pain. On evaluation in ED symptoms had improved. He reports it was worse earlier. On exam he is nontoxic. No acute distress. Declined need for analgesics and symptoms did improve. I do recommend a workup in his history of present illness. I have concern for Kidney stone given the right flank pain that was sharp and radiated groin. His urine appeared darker. CT was ordered as well as labs. Patient was hydrated with 500 cc of IV fluid. CBC shows a platelet count 142 otherwise unremarkable. CMP revealed glucose 141. Urinalysis showed hemoglobin and protein. No white blood cells. Culture pending. Lipase within normal limits. CT Flank showed a 3 mm calculus in the proximal to mid right ureter with right pelvocaliectasis. Hyypodense cystic structure in the right kidney. Hepatic steatosis. Cholelithiasis sinuses. 2.4cm splenic artery aneurysm. Results reviewed with patient. Patient had incidental finding of 2.4 cm splenic artery aneurysm. I reviewed finding with both, ED physician, Dr. Louis and vascular surgeon, Dr. Washburn. Dr. Washburn suggested follow-up. No further evaluation is needed at this time. Patient's symptoms are on the right. He has a nonsurgical abdomen. He is feeling well. Vitals are stable. Given this I gave patient follow-up with either Dr. Washburn for on-call for vascular surgery came to us. Given finding of kidney stone in the proximal to mid ureter findings were discussed with patient. He was given prescriptions for Flomax, Keflex, and Capron. Referred to on-call urology. Return precautions were given. Patient was comfortable with plan. Discharged home stable condition. ED Course / Clinical Impression Clinical Impressions as of Jan 21 1755 Right ureteral stone Right flank pain Splenic artery aneurysm (HCC) Plan The patient was DISCHARGED: Counseled patient and spouse regarding lab results AND radiology results AND suspected diagnosis AND need for follow-up. Discharged home with verbal and written instructions. They were instructed to return as needed for persistent or worsening symptoms or any new concerns. Condition at time of disposition: stable SIGNATURE: ANITHA Fletcher (Pa) 01/21/18 1808 ED NOTE Observed: 01/21/2018 Status: COMPLETED Source: [place] 2:19 PM [facility] OTHER CAMPUS REPOSITORY HNO ID: [id number] Author: Wendy Dumont) Lee Moncada Service: Emergency Medicine Author Type: Sheet Manufacturing Supervisor and Paper Sales Representative Type: ED Notes Filed: 01/21/2018 2:21 PM Note Text: Pt comes to er c/o right flank pain since this morning. States pain has increased throughout the day, nothing makes pain better or worse. Pt denies changes in urination. Denies nausea, vomiting, or diarrhea. CARDIOLOGY VISIT Observed: 09/11/2017 Status: F Source: [place] REPORT 2:26 PM [facility] REPOSITORY [facility] [address] [place] [address]. [address] [place] [address] OFFICE VISIT Date of Service: 09/11/17 MR#: [id number] Acct: [id number] Name: JORGE GUILLEN Rep #: [id number] : 1945 Provider: Chandana Garcia MD Age/Sex: 72/M [place] [facility] [place]: Signed HPI HPI Details: JORGE GUILLEN, is a 72 M who presents to the office today for for outpatient cardiovascular consultation and establishment of outpatient cardiovascular care. He states that in 2001 he underwent evaluation for concerns of cardiovascular disease related symptoms. This led to a diagnostic cardiac catheterization. This subsequently led to, according to his recollection, 20 minutes later, undergoing open heart surgery with coronary artery bypass grafting surgery. This was performed at [facility]. This occurred on 07/01/2002. At that time he received a WEISS to the LAD, NELSON to the first diagonal branch, and an SVG to the lateral posterior lateral circumflex. He states he has not had to return to cardiac catheterization laboratory since that time. He has undergone a variety of noninvasive studies with transthoracic echocardiograms many of which have been performed through the [facility] as he states he is part of the agent orange program. He has also had exercise tolerance test/imaging studies performed. His last stress nuclear imaging study was performed through the [facility] system on 04/26/2017. According to the report it stated that he had abnormal ST segment depression noted during recovery. And also noted he reported his clinical symptoms during treadmill testing. His nuclear images were reported as normal. His left ventricular systolic function was reported as normal. He was treated medically with the addition of nitrates. He was told if this did not work then he would need to be considered for diagnostic cardiac catheterization. He states since his medication adjustment he has had no concerning chest discomfort. He has had no evidence of shortness of breath or dyspnea. There has been no orthopnea, PND, or peripheral pitting edema. There has been no near syncope or syncope. He has also had Holter monitors in the past. It appeared he had one in April 2016. At that time he was in sinus rhythm with an average heart rate of 63 bpm. He had a rare PACs and rare PVCs. He had one 6 beat narrow complex tachycardia. He had no pauses. There were no symptoms reported. He states overall he has been doing well. He has been up and active. He continues to work. He states he is considering fpc within approximately 1 year. He had an ECG today. He was noted to be in sinus rhythm. He had no acute ECG changes. Intake Vital Signs09/11/17 Height 6 ft 09/11/17 Weight: 223 lb 1 oz 09/11/17 Body Mass Index (BMI) 30.2 09/11/17 Blood Pressure 128/60 Intake Visit Reasons: CP/Ref. Freida Allergies iodine Allergy (Verified 07/27/13 17:28) Rash contrast dye Allergy (Unknown, Uncoded 09/11/17 13:04) Unknown Medications Aspirin [Aspirin, Baby] 81 mg PO DAILY@0800 06/13/14 [History Confirmed 09/11/17] Atenolol [Tenormin (beta dixie)] 25 mg PO DAILY 06/13/14 [History Confirmed 09/11/17] Multivitamins,Therapeutic [Multivitamin] 1 tab PO DAILY 06/13/14 [History Confirmed 09/11/17] ascorbic acid (vitamin C) 1,000 mg tablet 1 g PO BID tab 09/09/17 [History Confirmed 09/11/17] calcium citrate-vitamin D3 315 mg-200 unit tablet 1 tab PO BID tab 09/09/17 [History Confirmed 09/11/17] coenzyme Q10 100 mg capsule 100 mg PO QDAY 09/09/17 [History Confirmed 09/11/17] latanoprost 0.005 % eye drops 1 drp OPHTHALMIC QHS ml 09/09/17 [History Confirmed 09/11/17] nitroglycerin 0.4 mg sublingual tablet 0.4 mg SUBLINGUAL Q5M PRN 09/09/17 [History Confirmed 09/11/17] tadalafil 20 mg tablet 20 mg PO .COMPLEX 09/09/17 [History Confirmed 09/11/17] cholecalciferol (vitamin D3) 2,000 unit capsule 2,000 unit PO QDAY cap 09/11/17 [History Confirmed 09/11/17] isosorbide mononitrate ER 30 mg tablet,extended release 24 hr 60 mg PO BID tab 09/11/17 [History Confirmed 09/11/17] levothyroxine 100 mcg capsule 100 mcg PO QDAY cap 09/11/17 [History Confirmed 09/11/17] lutein 20 mg capsule 20 mg PO QDAY 09/11/17 [History Confirmed 09/11/17] omega-3 fatty acids 1,000 mg capsule 1,000 mg PO QDAY 09/11/17 [History Confirmed 09/11/17] omeprazole 20 mg tablet,delayed release 20 mg PO QDAY tab 09/11/17 [History Confirmed 09/11/17] rosuvastatin 10 mg tablet 10 mg PO QDAY 09/11/17 [History Confirmed 09/11/17] turmeric root extract 1,053 mg tablet 1,000 mg PO BID tab 09/11/17 [History Confirmed 09/11/17] [facility] Medical History Angina pectoris (Acute) Hyperlipidemia (Chronic) 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) Hypothyroidism (Acute) Mononeuritis (Acute) Peptic ulcer disease (Acute) Abnormal stress test (Inactive) Surgical History 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) History of hernia repair (Chronic) H/O arthroscopy of left knee (Resolved) H/O repair of rotator cuff (Resolved) Family History Father Heart disease Social History Smoking Status: Never smoker alcohol intake: current ROS Const Const: Positive for fatigue (HX hypothyroidism, synthroid recently increased); negative for weakness, weight gain, weight loss, frequent falls or excessive sweating Eyes Eyes: Negative for change in vision, blurry vision or transient loss of vision ENT ENT: Negative for dizziness, Negative for balance problems Cardio Chest Pain: Yes Character: other (poke) Location: right chest Duration: brief Exacerbation: rest Palpitations: Positive for No Edema: None Muscle aches with walking: None Additional Details: Patient states that he hasnt experienced angina since April 2017. Patient underwent stress test in April, and was started on Imdur. Resp Respiratory: Negative for SOB with activity or SOB at rest GI GI: Negative vomiting or vomiting blood/hematemesis : Negative for hematuria Musc Musc: Negative for balance problems, muscle aches/ myalgia, muscle weakness or joint pain Skin Skin: Negative non-healing lesions or rash Neuro Neuro: Negative for weakness, Negative for blurry vision, Negative for dizziness, Negative for lightheadedness, Negative for frequent falls, Negative for orthostatic symptoms, Positive for other (HX Sciatica, sees Dr. Mariano for pain management) Roman Hematologic/Lymphatic: Negative for easy bleeding Endo Endo: Positive for fatigue (HX hypothyroidism, synthroid recently increased); negative for excessive sweating Psych Psych: Negative for anxiety or depression Allergy Allergy/Immunology: Negative for hives, Negative for rash Cardiology Exam Const Appearance: cooperative, healthy appearing, comfortable, no acute distress, well developed and well groomed Nutritional Appearance: average body habitus, well nourished and overweight Orientation: alert, awake and oriented x3 Head Head: normal to inspection, normocephalic and atraumatic Ears: hearing grossly normal bilaterally Nose: external nose normal Face and Sinus: face symmetric Mouth: oral mucosae normal Teeth and gingiva: dentition normal Eyes General: appearance normal, both eyes and all related structures Eyelids: eyelids normal Conjunctivae: conjunctivae normal Pupils: PERRL EOM: EOM intact bilaterally Neck Neck: normal visual inspection and full ROM Carotids: normal carotid upstroke Chest Chest inspection: normal inspection of the chest and symmetric chest movement Auscultation: Bilateral: Clear to Auscultation Cardio Palpation: normal PMI Rate: regular rate Rhythm: regular rhythm Heart sounds: S1 normal, S2 normal and positive S4 GI GI: normal to inspection, soft, no hepatosplenomegaly and bowel sounds present Neuro General: alert, awake and oriented x3 Skin Skin: no rashes or lesions noted Extremities Pulses: Normal: Right Radial Pulse, Left Radial Pulse Lower Extremity Edema: None: Bilateral Psych Psychological: normal affect Assessment AND Plan 1. Angina pectoris I20.9 Plan At the present time he does not appear to have ongoing angina pectoris. He does want to continue medical management. He would like to decrease his isosorbide therapy. Thus he will change this from twice daily to daily. If he has recurrent symptoms he needs to notify his physicians regarding this for further evaluation and care. If not then perhaps he will continue this medical regimen and follow his clinical course. If he does have any concerning symptoms then he will need to be considered for future evaluation with diagnostic cardiac catheterization. Orders Orders: 2. CAD (coronary artery disease) I25.10 Plan He does have a history of CAD. His previous cardiac catheterization report is unavailable at this time for review. He will continue medical management as noted above. Orders Orders: 3. 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 He has been followed noninvasively. He will be reassessed as needed over time. Orders Orders: 4. Hyperlipidemia, unspecified hyperlipidemia type E78.5 Plan He continues lipid-lowering therapy. He states he is following up with his primary care physician for his lipid profile. Plan Detail Additional Comments He will be scheduled for future outpatient cardiovascular visit in approximately 6-9 months unless needed sooner. Thank you for allowing me to participate in the care of your patient. Please don't hesitate to call if any issues arise. This note was generated using a voice recognition system and there may be incorrect words, spelling or punctuation that were not noted when reviewing the office note prior to saving. Follow Up 9 Months (PFM) Coding Level of Care Code Off vis,new,level 4 Diagnoses Angina pectoris I20.9 CAD (coronary artery disease) I25.10 Coronary Disease-Associated Artery/Lesion type: kiana artery [place] vs. 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 Hyperlipidemia, unspecified hyperlipidemia type E78.5 Hyperlipidemia type: unspecified 09/11/17 1426 <Electronically signed by Chandana Garcia MD> Date Chandana Garcia MD Cosigner Signature: Date (if applicable) CC: MICHAEL Corey 12 LEAD EKG PERFORMED Observed: 09/11/2017 Status: F [place] [facility] 1:03 PM [facility] REPOSITORY [facility] [address] [place] [address] 12 Lead EKG performed by [facility] 09/11/17 1302 MR#: [id number] Acct: [id number] Name: JORGE GUILLEN Rep #: [id number] : 1945 72 From: Chandana Garcia MD Attending Dr: Chandana Garcia MD Status: DEP AMB Ordering Dr: Chandana Garcia MD Date: 09/11/17 [place] [facility] Sex: M C Admitted: [facility]12 Lead EKG performed by [facility] ECG Report Interpretation Sinus Rhythm Electronically signed on 09/11/2017 at 18:04 by Chandana Garcia 09/11/17 1809 Date Chandana Garcia MD CC: MICHAEL Corey Date Dictated: 09/11/171301 Date Transcribed: 09/11/171301 Vascular Ultrasound Technician: PM Signed ALLERGIES ALLERGIES DATE TYPE / CODE NAME / CODE REACTION SEVERITY SOURCE 07/02/2018 Drug iodine/C59209 Rash Unknown [place] Allergy/[id number]( 0852(RXNORM) [facility] Repository 07/02/2018 Miscellaneous contrast dye Unknown Unknown [place] Allergy/267159337( [facility] Repository 06/14/2003 Miscellaneous OTHER ANAPHYLAXIS [place] Allergy/908994937( [facility] SNOMED CT) [place] Repository ENCOUNTERS ENCOUNTERS ADMIT/DISCHARGE ACCOUNT ADMITTING ENCOUNTER LOCATION SOURCE NUMBER CLASS 07/02/2018 [id number] Ambulatory [facility] ing:RAD Repository 07/02/2018/07/02/20 [id number] Ambulatory BMSBuilding:B [place] [facility] Repository 05/07/2018 [id number] Ambulatory [facility] ing:LABSPEC Repository 04/01/2018/05/04/20 [id number] Ambulatory [address] Repository 04/01/2018/04/03/20 [id number] Ambulatory [address] Repository 03/03/2018/03/03/20 [id number] FAVIO Ambulatory [address] Repository 02/25/2018/02/26/20 [id number] Ambulatory [address] Repository 02/25/2018/02/27/20 [id number] Ambulatory [address] Repository 02/25/2018/03/07/20 [id number] Ambulatory [address] Repository 02/25/2018/02/26/20 [id number] Ambulatory [address] Repository 02/25/2018/02/26/20 [id number] Ambulatory [address] Repository 02/25/2018/02/26/20 [id number] Ambulatory [address] Repository 02/25/2018/08/07 [id number] Ambulatory [address] [place] Repository 02/07/2018/02/08/20 [id number] Ambulatory [address] Repository 01/28/2018/01/30/20 [id number] Ambulatory [address] Repository 01/28/2018/02/11/20 [id number] Ambulatory [address] [place] Repository 01/21/2018/01/22/20 [id number] Emergency [address] Other [place] Repository 10/03/2017 [id number] Ambulatory BMSBuilding:B [place] Repository 09/11/2017/09/11/19 [id number] Ambulatory BMSBuilding:B [place] [facility] Repository 09/09/2017 [id number] Ambulatory BMSBuilding:B [place] Repository PAYERS PAYERS ENCOUNTER GUARANTOR PAYER SUBSCRIBER SOURCE 07/02/2018 JORGE A Primary JORGE Murillo [id number] ESTUARDO Insurance:AETNAPolicy CLEKETANERDOB: [place], [place] Number: [id number] [facility] [address]Htw: 419 [id number] Repository [phone] () Date:9950-18-52DN [id number] [place] [address]KN: 07/02/2018 Secondary NOT GIVENUNK [place] Insurance:SELF PAY [facility] Number: Effective Repository Date:2018-07-02 07/02/2018 JORGE A Primary JORGE Murillo [id number] ESTUARDO Insurance:AETNAPolicy CLETZERDOB: [place], [place] Number: [id number] Hospital [address]Krc: (412) [id number] Repository [phone] () Date:3785-18-57KD [facility] [id number] [place] [address]ET: 07/02/2018 Secondary NOT GIVENUNK [place] Insurance:SELF PAY [facility] Number: Effective Repository Date:2018-07-02 05/07/2018 JORGE A Primary JORGE Murillo [id number] RUFF Insurance:AETNAPolicy CLETZERDOB: [facility], [place] Number: [id number] [facility] [address]Awd: (419) [id number] Repository [phone] (HP) Date:7032-42-92WP [address] [place] [address]FL: 05/07/2018 Secondary NOT GIVENUNK [place] Insurance:SELF PAY [facility] Number: Effective Repository Date:2018-05-07 10/03/2017 Jorge A Primary Jorge Murillo [id number] [place] Insurance:AETNAPolicy CletzerDOB: [facility] [place] Number: [id number] Hospital [address]Gqn: (419) [id number] Repository [phone] (HP) Date:6303-62-28YI [address] [place] [address]TS: 10/03/2017 Secondary NOT GIVENUNK [place] Insurance:SELF PAY [facility] Number: Effective Repository Date:2017-08-14 09/11/2017 JORGE A Primary JORGE Murillo [id number] RUFF Insurance:AETNAPolicy CLETZERDOB: [facility], [place] Number: [id number] Hospital [address]Occ: (419) [id number] Repository [phone] (HP) Date:7358-54-06DP [address] [address]UY: 09/11/2017 Secondary NOT GIVENUNK Ch[place] Insurance:SELF PAY [facility] Number: Effective Repository Date:2017-08-19 09/09/2017 Jorge A Primary Jorge Murillo [id number] [place] Insurance:AETNAPolicy CletzerDOB: [facility] [place] Number: [id number] Hospital [address]Yji: (419) [id number] Repository [phone] (HP) Date:5466-28-94OL [address] [address]GK: 09/09/2017 Secondary NOT GIVENUNK [place] Insurance:SELF PAY [facility] Number: Effective Repository Date:2017-09-09
== END ==
PROVIDERS: Family Provider Nurse Practitioner; PCP Nurse Practitioner; Referring Provider Nurse Practitioner; Visit Provider Nurse Practitioner
DX: M54.2 Cervicalgia (principal); M25.512 Pain in left shoulder
CPT/HCPCS: 72050; 73030

== ENCOUNTER → 2018-12-24 | Outpatient (CLI) | payer OTHER, SELFPAY ==
[2018-12-10 18:09] VITALS: BMI 30.4
[2018-12-24 23:24] LABS: Absolute Lymphocyte Count 2.63 X10^3/ul (0.83-4.51); Absolute Neutrophil Count 4.9 X10^3/uL (2.0-7.7); Basophil# 0.04 X10^3/uL; Basophil% 0.5 % (0-1); Eosinophil# 0.14 X10^3/uL; Eosinophils% 1.6 % (0-5); Hematocrit 49.9 % (40-54); Hemoglobin 17.2 g/dl (13.0-16.5); Lymphocyte # 2.63 X10^3/ul (4.0); Lymphocyte % 30.8 % (19-41); Mean Corp Hgb Conc 34.5 g/gl (32-36); Mean Corpuscular Hgb 30.7 pg (27.0-32.0); Mean Corpuscular Volume 88.9 fL (80-94); Mean Platelet Vol. 10.6 fl (6.2-12.0); Monocyte# 0.85 X10^3/uL; Neutrophil # 4.85 X10^3/uL (2.7-7.7); Neutrophil % 56.7 % (47-70); Platelet Count 143 K/mm3 (150-450); RBC Distribution Width CV 14.3 % (11.6-14.6); RBC Distribution Width SD 45.9 fl (35.1-43.9); Red Blood Count 5.61 M/mm3 (4.6-6.2); White Blood Count 8.5 K/mm3 (4.4-11.0)
[2018-12-24 23:25] LABS: POSITIVE COUNT NO; POSITIVE DIFFERENTIAL NO; POSITIVE MORPHOLOGY NO
[2018-12-24 23:57] LABS: PSA,Total- Diagnostic 3.57 ng/mL (0.0-4.0)
[2018-12-29 08:49] LABS: Testosterone Free 35.7 pg/mL (6.6-18.1)
== END | disposition home or self-care (01) ==
PROVIDERS: Family Provider Nurse Practitioner; PCP Nurse Practitioner; Referring Provider Nurse Practitioner; Visit Provider Nurse Practitioner
DX: E29.0 Testicular hyperfunction (principal); E29.1 Testicular hypofunction
CPT/HCPCS: 84153; 84402; 85025

== ENCOUNTER → 2019-12-03 20:21 | Outpatient (CLI) | payer OTHER, SELFPAY ==
[2019-12-03 18:02] VITALS: BMI 28.8
[2019-12-03 20:43] LABS: Absolute Neutrophil Count 4.6 X10^3/uL (2.0-7.7); Basophil# 0.05 X10^3/uL; Basophil% 0.6 % (0-1); Eosinophil# 0.16 X10^3/uL; Eosinophils% 1.9 % (0-5); Hematocrit 48.7 % (40-54); Hemoglobin 16.9 g/dL (13.0-16.5); Lymphocyte % 34.6 % (19-41); Mean Corp Hgb Conc 34.7 g/dL (32-36); Mean Corpuscular Hgb 31.1 pg (27.0-32.0); Mean Corpuscular Volume 89.5 fL (80-94); Mean Platelet Vol. 10.7 fl (6.2-12.0); Monocyte# 0.68 X10^3/uL; Monocyte% 8.1 % (0-10); NRBC Flagged by Analyzer 0 % (0-5); Neutrophil # 4.55 X10^3/uL (2.7-7.7); Neutrophil % 54.4 % (47-70); Platelet Count 156 K/mm3 (150-450); RBC Distribution Width CV 13.2 % (11.6-14.6); RBC Distribution Width SD 42.3 fl (35.1-43.9); Red Blood Count 5.44 M/mm3 (4.6-6.2); White Blood Count 8.4 K/mm3 (4.4-11.0)
[2019-12-03 21:06] LABS: ALB/GLOB Ratio 1.4 RATIO (0.9-2.4); AST(SGOT) 37 U/L (15-37); Alanine Aminotransfer ALT/SGPT 69 U/L (16-61); Albumin, Serum 4.4 g/dL (3.2-5.0); Alkaline Phosphatase 63 U/L (45-117); Anion Gap 4 (5-15); BUN 19 mg/dL (7-18); BUN/Creat Ratio 19.2 RATIO (10-20); Calcium,Total 9.3 mg/dL (8.5-10.1); Chloride 105 mmol/L (98-107); Cholesterol 139 mg/dL (200); Creatinine, Serum 0.99 mg/dL (0.70-1.30); EST Glomerular Filtration Rate 79 mL/min (>60); Est Glom Filt Rate - Afr Amer 95 mL/min (>60); Globulin 3.1 g/dL (2.2-4.2); Glucose 91 mg/dL (74-106); High Density Lipoprotein 26 mg/dL; PSA,Total - Annual Screen 2.05 ng/mL (0.00-4.00); Potassium 4.3 mmol/L (3.5-5.1); Protein, Total 7.5 g/dL (6.4-8.2); Sodium Level 140 mmol/L (136-145); Triglycerides 525 mg/dL
== END ==
PROVIDERS: Visit Provider Nurse Practitioner
DX: R35.0 Frequency of micturition (principal); E78.5 Hyperlipidemia, unspecified
CPT/HCPCS: 80053; 80061; 84153; 84443; 85025; G0103

== ENCOUNTER → 2020-01-07 20:20 | Outpatient (CLI) | payer OTHER, SELFPAY ==
[2020-01-07 18:52] VITALS: BMI 28.8
== END ==
PROVIDERS: Visit Provider Nurse Practitioner
DX: E03.9 Hypothyroidism, unspecified (principal)
CPT/HCPCS: 84443

== ENCOUNTER → 2021-01-17 23:01 | Outpatient (CLI) | payer OTHER, SELFPAY ==
[2020-12-02 20:04] VITALS: BMI 29.0
[2021-01-17 23:31] LABS: Thyroid Stim Hormone (TSH) 1.32 uIU/mL (0.358-3.74)
== END ==
PROVIDERS: Visit Provider Nurse Practitioner
DX: E03.9 Hypothyroidism, unspecified (principal)
CPT/HCPCS: 84443

== ENCOUNTER → 2021-04-24 22:09 | Outpatient (CLI) | payer OTHER, SELFPAY ==
[2021-04-24 22:33] LABS: Absolute Lymphocyte Count 2.49 X10^3/uL (0.83-4.51); Absolute Neutrophil Count 4.2 X10^3/uL (2.0-7.7); Basophil# 0.06 X10^3/uL; Basophil% 0.8 % (0-1); Eosinophil# 0.18 X10^3/uL; Eosinophils% 2.4 % (0-5); Hematocrit 48.2 % (40-54); Hemoglobin 15.9 g/dL (13.0-16.5); Lymphocyte # 2.49 X10^3/ul (0.83-4.51); Lymphocyte % 32.8 % (19-41); Mean Corpuscular Hgb 29.1 pg (27.0-32.0); Mean Corpuscular Volume 88.1 fL (80-94); Mean Platelet Vol. 10.4 fl (6.2-12.0); Monocyte% 7.9 % (0-10); NRBC Flagged by Analyzer 0 % (0-5); Neutrophil # 4.23 X10^3/uL (2.7-7.7); Neutrophil % 55.6 % (47-70); Platelet Count 192 K/mm3 (150-450); RBC Distribution Width CV 12.6 % (11.6-14.6); RBC Distribution Width SD 41.1 fl (35.1-43.9); Red Blood Count 5.47 M/mm3 (4.6-6.2); White Blood Count 7.6 K/mm3 (4.4-11.0)
[2021-04-24 22:35] LABS: POSITIVE COUNT NO; POSITIVE DIFFERENTIAL NO; POSITIVE MORPHOLOGY NO
[2021-04-24 22:53] LABS: ALB/GLOB Ratio 1.1 RATIO (0.9-2.4); AST(SGOT) 39 U/L (15-37); Alanine Aminotransfer ALT/SGPT 75 U/L (16-61); Albumin, Serum 3.9 g/dL (3.2-5.0); Alkaline Phosphatase 66 U/L (45-117); Anion Gap 9 (5-15); BUN 25 mg/dL (7-18); BUN/Creat Ratio 25.1 RATIO (10-20); CRP, High Sensitivity Cardiac 2.89 mg/L; Calcium,Total 9.4 mg/dL (8.5-10.1); Chloride 104 mmol/L (98-107); EST Glomerular Filtration Rate 78 mL/min (>60); Est Glom Filt Rate - Afr Amer 94 mL/min (>60); Globulin 3.4 g/dL (2.2-4.2); Glucose 99 mg/dL (74-106); Potassium 4.5 mmol/L (3.5-5.1); Protein, Total 7.3 g/dL (6.4-8.2); Sodium Level 140 mmol/L (136-145); Thyroid Stim Hormone (TSH) 1.85 uIU/mL (0.358-3.74)
== END ==
PROVIDERS: PCP Nurse Practitioner; Referring Provider Nurse Practitioner; Visit Provider Nurse Practitioner
DX: R53.83 Other fatigue (principal); R23.2 Flushing; R61 Generalized hyperhidrosis; E03.9 Hypothyroidism, unspecified; I20.9 Angina pectoris, unspecified
CPT/HCPCS: 80053; 84443; 85025; 86141

== ENCOUNTER 2021-09-01 11:04 | Outpatient (CLI) | payer OTHER, SELFPAY ==
--- NOTE | 2021-09-01 11:09 | VDLE_ITS ---
Reason For Study: Edema RIGHT LEFT CFV is compressible, spontaneous, phasic, CFV is compressible, spontaneous, phasic, competent and demonstrates normal competent, and demonstrates normal augmentation. augmentation. FV is compressible, spontaneous, phasic, FV is compressible, spontaneous, phasic, competent and demonstrates normal competent and demonstrates normal augmentation. augmentation. POP V is compressible, spontaneous, phasic, POP V is compressible, spontaneous, phasic, competent and demonstrates normal competent and demonstrates normal augmentation. augmentation. T/P Trunk is compressible. T/P Trunk is compressible. PTV is compressible. PTV is compressible. RT PerV is compressible. LT PerV is compressible. Acute deep vein thrombosis is noted in the SFJ is competent and measures 0.75 x 0.81 cm. right SoleusV. GSV proximal thigh measures 0.23 x 0.22 cm. SFJ is competent and measures 0.49 x 0.56 cm. GSV at knee measures 0.18 x 0.17 cm. GSV proximal thigh measures 0.17 x 0.17 cm. GSV above knee is competent. GSV at knee measures 0.13 x 0.13 cm. GSV harvested below knee. GSV is competent throughout. SSV at junction is competent and measures SSV proximal calf is INCOMPETENT for greater 0.30 x 0.35 cm. than 0.5 seconds and measures 0.69 x 0.78 cm. Procedure This is a venous duplex using B-mode, color flow and spectral Doppler. Exam performed in department. A preliminary report was called and/or faxed to [facility]. Left message on [phone], released patiet home to follow up on saturday with office. Patient is asymptomatic and instructed patient to go to the emergency room if they become symptomatic or becomes SOB. VL/Venous Duplex US - Cory Extrem Interpretation Summary Acute deep vein thrombosis is noted in the right soleus vein. The remainder of the right lower extremity deep venous system is patent and compressible. Deep veins of the left lower extremity are patent and compressible segmentally. There is no evidence of left lower extremi ty deep vein thrombosis. Valvular competence appears intact within the proximal deep venous systems bilaterally. Sapheno-femoral junctions are bilaterally competent . The right great saphenous vein appears segmentally competent. The left great saphenous vein is patent and competent ab ove the knee, and has been previously harvested below the knee. The right small saphenous vein is pat ent and incompetent. The left small saphenous vein is patent and competent. Ordering Physician: Beckie Brock Referring Physician: Beckie Brock Performed By: Vanessa Mayo RVT
== END 2021-09-01 23:59 | disposition home or self-care (01) ==
PROVIDERS: PCP Nurse Practitioner; Referring Provider Nurse Practitioner; Visit Provider Nurse Practitioner
DX: R60.9 Edema, unspecified (principal); I73.9 Peripheral vascular disease, unspecified; I82.461 Acute embolism and thrombosis of right calf muscular vein; G62.9 Polyneuropathy, unspecified
CPT/HCPCS: 93970

== ENCOUNTER 2021-09-01 15:44 | Emergency (ER) | payer OTHER, SELFPAY ==
[2021-09-01 15:45] VITALS: BP 134/77; PULSE 64; RESP 18; TEMP 36.4; O2SAT 98; BMI 28.0
--- NOTE | 2021-09-01 17:59 | EDS_ITS ---
HPI History of Present Illness Chief Complaint: Lower Extremity Injury Narrative Narrative: 76-year-old male presenting with concern for blood clot. He states he had vascular studies done because he has peripheral neuropathy and peripheral arterial disease and these were done today. These were done as an outpatient. He was told he had a blood clot in his leg below the calf. He does not know if it superficial or deep. He does not know what location is in. He does not have a focal area of any pain. He has no chest pain palpitations, shortness of breath. Patient was initially told by the injection molding technician of this and told him he could go to the ER if he wanted to. Initially he did not want to come to the ER however he is unable to get a hold of his primary care doctor so he came into the ER for a prescription for blood thinners. [facility] Medical History Abnormal stress test Angina pectoris Atherosclerotic heart disease of [place] coronary artery without angina pectoris BPH (benign prostatic hyperplasia) Hyperlipidemia Hypothyroidism Hypothyroidism Kidney stone Lymphadenopathy of head and neck Mononeuritis Muscle ache of extremity Muscular abdominal pain in right flank Neck pain Peptic ulcer disease Pneumonia Right flank pain Shoulder pain, left Home Medications aspirin 81 mg PO DAILY@0800 06/13/14 [History Last Taken Unknown] multivitamin with folic acid 1 tab PO DAILY 06/13/14 [History Last Taken Unknown] latanoprost 0.005 % eye drops 1 drp OPHTHALMIC QHS ml 09/09/17 [History Last Taken Unknown] cholecalciferol (vitamin D3) 50 mcg (2,000 unit) capsule 2,000 unit PO QDAY cap 09/11/17 [History Last Taken Unknown] lutein 20 mg capsule 20 mg PO QDAY 09/11/17 [History Last Taken Unknown] omeprazole 20 mg tablet,delayed release 20 mg PO QDAY tab 09/11/17 [History Last Taken Unknown] tadalafil 20 mg tablet 20 mg PO .COMPLEX #30 tab 08/06/18 [Rx Last Taken Unknown] coenzyme Q10 100 mg capsule 300 mg PO QDAY cap 07/08/19 [History Last Taken Unknown] turmeric root extract 1,053 mg tablet 1,500 mg PO DAILY tab 07/08/19 [History Last Taken Unknown] ascorbic acid (vitamin C) 1,000 mg tablet 1 g PO DAILY tab 07/06/20 [History Last Taken Unknown] psyllium husk 0.4 gram capsule 0.4 g PO BID cap 07/06/20 [History Last Taken Unknown] rosuvastatin 10 mg tablet 10 mg PO QDAY #90 tab 09/09/20 [Rx Last Taken Unknown] atenolol 25 mg tablet 25 mg PO DAILY #90 tab 11/30/20 [Rx Last Taken Unknown] nitroglycerin 0.4 mg sublingual tablet See Rx Instructions .ROUTE .COMPLEX #75 tab 12/26/20 [Rx Last Taken Unknown] levothyroxine 125 mcg tablet 125 mcg PO DAILY #90 tab 06/28/21 [Rx Last Taken Unknown] omega-3 fatty acids 1,000 mg capsule 1,000 mg PO DAILY 07/05/21 [History Last T aken Unknown] clarithromycin 500 mg tablet 500 mg PO BID #20 tab 08/11/21 [Rx Last Taken Unknown] prednisone 20 mg tablet 40 mg PO DAILY #20 tab 08/11/21 [Rx Last Taken Unknown] benzonatate 200 mg capsule 200 mg PO TID PRN #60 cap 08/16/21 [Rx Last Taken Unknown] apixaban [Eliquis DVT-PE Treat 30D Start] 5 mg PO BID #74 tab 09/01/21 [Rx Last Taken Unknown] Allergy/AdvReac Type Severity Reaction Status Date / Time iodine Allergy Rash Verified 09/01/21 15:47 contrast dye Allergy Unknown Unknown Uncoded 09/01/21 15:47 Family History Father Heart disease Surgical History H/O arthroscopy of left knee H/O repair of rotator cuff History of coronary artery bypass surgery (~07/01/02) History of hernia repair Splenic artery aneurysm Social History Smoking Status: Never smoker alcohol intake: current ROS ROS ED Constitutional Constitutional ED: Denies chills or fever(s) Eyes Eyes: Denies blurry vision or diplopia ENT ENT ED: Denies rhinorrhea or sore throat Cardiovascular Cardiovascular: Denies chest pain or palpitations Respiratory/Chest Respiratory/Chest: Denies cough or dyspnea Gastrointestinal Gastrointestinal: Denies abdominal pain, nausea or vomiting Genitourinary Genitourinary ED: Denies dysuria or hematuria Musculoskeletal Musculoskeletal: Reports other Details: Left calf pain ; Denies arthralgias or myalgias Integumentary Denies abscess or rash Neurologic Neurologic: Denies headache(s) or weakness EXAM Physical Exam Const Vital Signs: 09/01/21 15:45 Temperature 97.5 F L Temperature Source Temporal Pulse Rate 64 Respiratory Rate 18 Blood Pressure 134/77 H Blood Pressure Mean 96 Pulse Ox 98 Oxygen Delivery Method Room Air Positive well nourished General Appearance ED: NAD HEENT atraumatic Eyes PERRL Resp normal respiratory effort and clear to auscultation bilaterally Cardio regular rate and regular rhythm Extremity normal to inspection and full ROM Extremity Narrative: No cords palpated General Extremety ED: Negative for cyanosis or edema General Extremity: Negative for cyanosis or edema Neuro oriented x3 Sensorium / Orientation: alert Psych mental status grossly normal Skin Lesions: no lesions Rashes: no rashes MDM MDM MDM Narrative Medical decision making narrative: I obtained the DVT study from earlier today and there is an acute DVT in the soleus on the right. I attempted to call his nurse practitioner who manages his care but she is out of town. We did talk at length about follow-up ultrasound however the patient expressed concerns over the cost of the ultrasounds. He does not want to wait for his primary care provider to come back from out of town and is concerned about the blood clot and wants to be anticoagulated. Patient will give the first dose of Eliquis in the ED. All risks and benefits were discussed. Patient was given a starter pack. Discharged home in stable condition. Impression: 1. DVT Discharge Plan Triage Chief Complaint: Lower Extremity Injury ED Provider: Aki Reyes Dx/Rx/DC Orders Clinical Impression: DVT (deep venous thrombosis) Instructions: ED Deep Vein Thrombosis (DVT) Prescriptions: New Eliquis DVT-PE Treat 30D Start 5 mg (74 tabs) tablets,dose pack 5 mg PO BID Qty: 74 RF: 0 No Action omeprazole 20 mg tablet,delayed release (DR/EC) 20 mg PO QDAY RF: 0 lutein 20 mg capsule 20 mg PO QDAY RF: 0 cholecalciferol (vitamin D3) 2,000 unit capsule 2,000 unit PO QDAY RF: 0 turmeric root extract 1,053 mg tablet 1,500 mg PO DAILY RF: 0 latanoprost 0.005 % drops 1 drp OPHTHALMIC QHS RF: 0 coenzyme Q10 100 mg capsule 300 mg PO QDAY RF: 0 ascorbic acid (vitamin C) 1,000 mg tablet 1 g PO DAILY RF: 0 psyllium husk [Daily Fiber] 0.4 gram capsule 0.4 g PO BID RF: 0 omega-3 fatty acids [Fish Oil Concentrate] 1,000 mg capsule 1,000 mg PO DAILY RF: 0 levothyroxine 125 mcg tablet 125 mcg PO DAILY Qty: 90 RF: 3 clarithromycin 500 mg tablet 500 mg PO BID Qty: 20 RF: 0 prednisone 20 mg tablet 40 mg PO DAILY Qty: 20 RF: 0 aspirin 81 MG tablet,chewable 81 mg PO DAILY@0800 RF: 0 multivitamin with folic acid 1 TABLET tablet 1 tab PO DAILY RF: 0 tadalafil 20 mg tablet 20 mg PO .COMPLEX Qty: 30 RF: 3 rosuvastatin 10 mg tablet 10 mg PO QDAY Qty: 90 RF: 3 atenolol 25 mg tablet 25 mg PO DAILY Qty: 90 RF: 3 nitroglycerin 0.4 mg tablet, sublingual See Rx Instructions .ROUTE .COMPLEX Qty: 75 RF: 4 benzonatate 200 mg capsule 200 mg PO TID PRN (Reason: cough) Qty: 60 RF: 1 Primary Care Provider: Beckie Brock NP Referrals: Beckie Brock NP, [facility] [Primary Care Provider] - Disposition Disposition: Home, Self Care
[2021-09-01 19:18] VITALS: O2SAT 98
[2021-09-01] MEDS: APIXABAN 5 MG TABLET 10 MG PO (19:26)
[2021-09-01 19:27] VITALS: BP 122/74; RESP 17
== END 2021-09-01 19:27 | disposition home or self-care (01) ==
PROVIDERS: Emergency Provider Student in an Organized Health Care Education/Training Program; PCP Nurse Practitioner; Visit Provider Student in an Organized Health Care Education/Training Program
DX: I82.461 Acute embolism and thrombosis of right calf muscular vein (principal); I73.9 Peripheral vascular disease, unspecified; G62.9 Polyneuropathy, unspecified; E78.5 Hyperlipidemia, unspecified; I25.10 Atherosclerotic heart disease of native coronary artery without angina pectoris
CPT/HCPCS: 99284; A4216

== ENCOUNTER 2021-10-20 21:44 | Outpatient (CLI) | payer OTHER, SELFPAY ==
[2021-10-23 14:09] LABS: Anti-Centromere B Ab <0.2 AI (0.0-0.9); Anti-Chromatin <0.2 AI (0.0-0.9); Anti-Jo <0.2 AI (0.0-0.9); Anti-Scleroderma-70 AB <0.2 AI (0.0-0.9); RNP Ab <0.2 AI (0.0-0.9); SJOGREN'S Anti-SS-A test < 0.2 AI (0.0-0.9); SJOGREN'S Anti-SS-B test < 0.2 AI (0.0-0.9); Smith Ab <0.2 AI (0.0-0.9)
[2021-10-23 14:29] LABS: Anti-dsDNA Ab <1 IU/mL (0-9)
== END 2021-10-20 23:59 | disposition home or self-care (01) ==
PROVIDERS: PCP Nurse Practitioner; Visit Provider Nurse Practitioner
DX: M25.50 Pain in unspecified joint (principal)
CPT/HCPCS: 86225; 86235

== ENCOUNTER 2021-10-27 09:37 | Outpatient (CLI) | payer OTHER, SELFPAY ==
--- NOTE | 2021-10-27 09:43 | RAD_ITS ---
STUDY: X-RAY - LUMBAR SPINE REASON FOR EXAM: Male, 76 years old. Back pain increase neuropthy of the feet and unabale to walk TECHNIQUE: XR Spine Lumbar Comp W/ Bending Min 6 Views COMPARISON: None FINDINGS: Normal lumbar lordosis. There is no substantial scoliosis. There is a normal alignment of the vertebrae. There is multilevel endplate spondylosis of the lumbar vertebrae. There is multi-level degenerative disc disease with multi-level disc space narrowing. There are atherosclerotic vascular calcifications. The soft tissue structures are unremarkable. RAD/L/S Spine Comp/w Bending Views IMPRESSION: Degenerative changes of the spine, as detailed above. Electronically Signed: Lawson Lcaey MD at 18:58 EDT ,
== END 2021-10-27 23:59 | disposition home or self-care (01) ==
LOC: RAD 09:39
PROVIDERS: PCP Nurse Practitioner; Referring Provider Nurse Practitioner; Visit Provider Nurse Practitioner
DX: G57.93 Unspecified mononeuropathy of bilateral lower limbs (principal); M54.50 Low back pain, unspecified; G89.29 Other chronic pain
CPT/HCPCS: 72114

== ENCOUNTER → 2021-11-28 | Outpatient (CLI) | payer OTHER, SELFPAY ==
--- NOTE | 2021-11-28 08:06 | MRI_ITS ---
STUDY: MRI LUMBAR SPINE WITHOUT CONTRAST REASON FOR EXAM: Male, 76 years old. Spinal stenosis Low back and right leg pain TECHNIQUE: Standardized fat and water weighted pulse sequences were obtained in the sagittal and axial planes. COMPARISON: X-ray the lumbar spine dated OCTOBER 27, 2021. CT of abdomen and pelvis dated July 27, 2013 FINDINGS: Normal lumbar lordosis. There is no substantial scoliosis. Normal conus medullaris that terminates at the T12-L1: Mild to moderate disc space narrowing with a diffuse disc spur complex. Normal bilateral facet joints. Normal central canal and bilateral lateral recesses. Normal bilateral intervertebral neural foramina. L1-2: Diffuse disc desiccation and mild disc space narrowing with minimal annular bulging. Small posterior Schmorl''s node. Normal bilateral facet joints. Normal central canal and bilateral lateral recesses. Normal bilateral intervertebral neural foramina. L2-3: Moderate disc space narrowing with a diffuse disc spur complex combined with moderate facet joint and ligament of flava hypertrophy results in moderate central canal stenosis. Bilateral lateral recess stenosis without nerve root compression. Normal bilateral intervertebral neural foramina. L3-4: Mild to moderate disc space narrowing with a diffuse disc spur complex combined with mild to moderate facet joint and ligament of flava hypertrophy results and moderate central canal stenosis. Bilateral lateral recess stenosis is also present with nerve root compression. Normal bilateral intervertebral neural foramina. Small left foraminal disc protrusion. L4-5: Diffuse disc desiccation with mild posterior disc space narrowing and shallow midline disc protrusion. Normal bilateral facet joints. Normal central canal and bilateral lateral recesses. Normal bilateral intervertebral neural foramina. Benign fatty hemangioma of the L4 vertebral body. L5-S1: Moderate disc space narrowing with a diffuse disc osteophyte complex. Moderate size right anterior bridging osteophyte. Normal bilateral facet joints. Normal central canal and bilateral lateral recesses. Normal bilateral intervertebral neural foramina. Normal visualized sacral ala. Normal visualized paraspinous soft tissue structures. MRI/Spine Lumbar (Routine) IMPRESSION: 1. Multilevel degenerative changes, as described above. 2. Moderate central canal stenosis at L2-L3 and L3-L4 Electronically Signed: Jose Miguel Wadsworth MD at 14:13 EDT ,
== END | disposition home or self-care (01) ==
PROVIDERS: PCP Nurse Practitioner; Referring Provider Orthopaedic Surgery; Visit Provider Orthopaedic Surgery
DX: M48.061 Spinal stenosis, lumbar region without neurogenic claudication (principal)
CPT/HCPCS: 72148

== ENCOUNTER → 2022-06-11 | Outpatient (CLI) | payer OTHER, SELFPAY ==
--- NOTE | 2022-06-11 15:02 | NEURO ---
NCS and/or EMG Patient Report Ordering Doctor: Luz Elena Mariano DATE OF SERVICE: 06/11/22 Indication: Intermittent bilateral leg discomfort and paresthesias in both feet. Symptoms are exacerbated by prolonged standing and walking. Findings: Nerve conduction studies were performed in the right and left lower extremities. The right peroneal motor study recording the extensor digitorum brevis showed a normal amplitude, normal distal latency and mildly slowed conduction velocity. No conduction block or focal slowing was present across the fibular neck. The right tibial motor study recording the abductor hallucis brevis showed a normal amplitude, normal distal latency and normal conduction velocity. The right sural sensory response showed a normal amplitude and mildly slowed conduction velocity. The right superficial peroneal sensory response showed a normal amplitude and conduction velocity. The right medial plantar sensory response was absent. The left peroneal motor study recording the extensor digitorum brevis showed a normal amplitude, borderline distal latency and mildly slowed conduction velocity. No conduction block or focal slowing was present across the fibular neck. The left tibial motor study recording the abductor hallucis brevis showed a normal amplitude, normal distal latency and normal conduction velocity. The left sural sensory response showed a normal amplitude and mildly slowed conduction velocity. The left superficial peroneal sensory response showed a normal amplitude and and mildly slowed conduction velocity. The left medial plantar sensory response was absent. Needle EMG of the right lower extremity and lumbar paraspinal muscles was performed. Sparse fibrillations were seen in the vastus medialis. No denervation was in any other muscle. Motor units in the tibialis anterior, extensor hallucis longus, vastus medialis and tensor fascia stef. Needle EMG of the left lower extremity and lumbar paraspinal muscles was performed. Sparse fibrillations were seen in the vastus medialis. No denervation was in any other muscle. Motor units in the vastus medialis and adductor hal were slightly long duration and polyphasic. All other motor unit morphology, activation and recruitment patterns were normal. Impression: This is an abnormal study. There is electrophysiologic evidence of mild active and chronic L3/4 radiculopathies in the bilateral lower extremities. In addition, there is electrophysiologic evidence of mild chronic right L5 radiculopathy. Correlation with recent imaging is recommended. The generalized slowing of motor and sensory nerves in both lower extremities are suggestive, but not diagnostic, of a mild underlying peripheral neuropathy. If symptoms persist, a repeat study in 6 months could be considered. Rustam Benitez D.O. Multi Select Codes Neurology Neurology Interp Codes: 49650-11 Musc test done w/n test comp (interp) (Qty:2) and 05029-26 [facility] cnd test 9-10 studies (interp)
== END | disposition home or self-care (01) ==
LOC: PSN 12:46
PROVIDERS: PCP Nurse Practitioner; Visit Provider Anesthesiology Pain Medicine
DX: M79.604 Pain in right leg (principal); M79.605 Pain in left leg
CPT/HCPCS: 95886; 95911

== ENCOUNTER → 2022-09-03 | Outpatient (CLI) | payer OTHER, SELFPAY ==
[2022-09-03 22:56] LABS: Thyroid Stim Hormone (TSH) 2.73 uIU/mL (0.358-3.74)
== END | disposition home or self-care (01) ==
PROVIDERS: PCP Nurse Practitioner; Visit Provider Nurse Practitioner
DX: E03.9 Hypothyroidism, unspecified (principal)
CPT/HCPCS: 84443

== ENCOUNTER → 2022-10-02 | Outpatient (CLI) | payer OTHER, SELFPAY ==
--- NOTE | 2022-10-02 09:05 | ART_ITS ---
Reason For Study: PVD Procedure A bilateral lower extremity continuous wave Doppler with analog waveform analysis,segmental pressures,and ankle brachial indexes without exercise. Left Segmental Pressures Left brachial= 146mmHg. Left posterior tibial artery = 162mmHg. Left dorsalis pedis artery = 187mmHg. The left posterior tibial artery waveforms are triphasic. The left dorsalis pedis waveforms are triphasic. Right Segmental Pressures Right brachial= 155mmHg. Right posterior tibial artery = 168mmHg. Right dorsalis pedis artery = 163mmHg. The right posterior tibial artery waveforms are triphasic. The right dorsalis pedis waveforms are triphasic. Indices The right ankle brachial index by the posterior tibial artery is 1.08. The right ankle brachial index by the dorsalis pedis is 1.05. The left ankle brachial index by the posterior tibial artery is 1.05. The left ankle brachial index by the dorsalis pedis is 1.21. VL/Lower Ext Art Exam w/o Exercis Interpretation Summary Triphasic Doppler waveforms are noted at ankle level bilaterally. Pulse-volume recordings appear diminished at digital level bilaterally, but satisfactory at all other levels b ilaterally. Resting ankle-brachial indices are normal bilaterally. Arterial flow appears normal at ankle level bilaterally. Ordering Physician: ARRON MCCARTHY Referring Physician: Arron Mccarthy Dr. Performed By: Donn Velasco, RVT
== END | disposition home or self-care (01) ==
LOC: CVS 09:04
PROVIDERS: PCP Nurse Practitioner
DX: I73.9 Peripheral vascular disease, unspecified (principal)
CPT/HCPCS: 93923

== ENCOUNTER → 2022-11-08 | Outpatient (CLI) | payer OTHER, SELFPAY ==
[2022-11-08 21:36] LABS: Cholesterol 111 mg/dL (200); High Density Lipoprotein 30 mg/dL; Thyroid Stim Hormone (TSH) 0.48 uIU/mL (0.358-3.74); Triglycerides 273 mg/dL; Very Low Density Lipoprotein 55 mg/dL (5-40)
== END | disposition home or self-care (01) ==
PROVIDERS: PCP Nurse Practitioner; Visit Provider Nurse Practitioner
DX: E03.9 Hypothyroidism, unspecified (principal); E78.5 Hyperlipidemia, unspecified
CPT/HCPCS: 80061; 84443

== ENCOUNTER 2022-11-27 10:30 | Outpatient (RCR) | payer OTHER, SELFPAY ==
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
--- NOTE | 2022-11-27 12:18 | HP.PTDCSUM ---
It has been my pleasure to treat ERIC GUILLEN referred by Dr. Luz Elena Mariano MD, with the diagnosis of BACK PAIN for a total of 10 visit(s). Discharge Date: Please see the following information for a summary of their discharge status. Subjective: PATIENT REPORTS HE IS ABOUT THE SAME. HE REPORTS HE HAS GOT USE TO HIS PAIN AND WILL CONTINUE THE EX'S. PATIENT REPORTS HE REALLY JUST CAN'T BE ON HIS FEET MORE THAN AN HOUR WITHOUT GETTING A LOT OF PAIN. PATIENT IS EXPRESSING APPRECIATION FOR HIS EXPERIENCE HERE IN PT. LOW BACK Pain Intensity (Out of 10): 4 LE'S Pain Intensity (Out of 10): 3 % Improvement: 10 Objective/Function: PATIENT WAS SEEN TODAY FOR RE-ASSESSMENT OF PROGRESS TOWARD THE SET PT GOALS AND THE NEED FOR FURTHER PHYSICAL THERAPY VS READINESS FOR DISCHARGE. UPON EXAM TODAY THERE ARE NO SIGNIFICANT OBJECTIVE CHANGES SINCE INITIAL EVAL BUT HE IS INDEP WITH A HEP NOW THAT IS DOING AND HE FEELS IS HELPFUL. ENCOURAGED PATIENT TO CONTINUE HIS WALKING PROGRAM TOO. Goal 1:: DECREASE C/O BACK PAIN Goal Progress: Not Progressing Goal 2:: IMPROVE LIFTING, WALKING, SITTING, STANDING, SLEEP, SOCIAL LIFE, TRAVEL AND HOMEMAKING FUNCTION. Goal Progress: Not Progressing Goal 3:: INSTRUCT IN PROPHYLAXIS Goal Progress: INDEP WITH HEP Plan: D/C. PATIENT AGREEABLE. If there are questions or concerns regarding this patient's physical therapy, please feel free to call me at [phone]. Thank you for the referral of this patient. Sincerely, Marti Mae, PT, Cert MDT Balance/Gait/Functional tests - Balance/Special Test Scores Oswestry Low Back Score: 12
== END 2022-11-27 19:00 | disposition home or self-care (01) ==
LOC: PT 10:30
PROVIDERS: PCP Nurse Practitioner; Referring Provider Anesthesiology Pain Medicine; Visit Provider Anesthesiology Pain Medicine
DX: M54.9 Dorsalgia, unspecified (principal)
CPT/HCPCS: 97110; 97162; 97164; 97530

== ENCOUNTER → 2023-09-12 | Outpatient (CLI) | payer OTHER, SELFPAY ==
--- OUTSIDE RECORDS SUMMARY | 2023-09-12 22:55 | XMS RPT_ITS | CCD ---
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 explained to Mr. Hinds that he may return to normal activity with no lifting, pulling, pushing over 50 pounds, no core exercises and no lifting and twisting for a total of 4 weeks. I have encouraged him to contact me at any time with any questions or concerns that may arise. Follow up: seamus Alarcon MD 05/27/2023 1:12 PM [facility] documented as of this encounter (statuses as of 06/25/2023) [facility]09-14-2023 NoteHNO ID: [id number] Author: Jeaneth Alarcon MD Service: ? Author Type: Physician Type: Progress Notes Filed: 04/18/2023 11:19 AM Note Text: Assessment IMPRESSION AND PLAN: 77 year old wm with epigastric hernia, Risks, benefits and alternatives of proceeding with open hernia repair with/without mesh were discussed with risks to include but not limited to hemorrhage, infection, possibility of mesh complications,possibility of recurrence,possibility of intraabdominal organ injury.Patient expressed understanding and wishes to proceed HPI: Eric Hinds is a 77 year old male,He presents for the evaluation of of years (>20) of periumbilical lump, increasing in size, not painful, annoying, no obstructive sx PAST MEDICAL HISTORY Diagnosis Date Coronary atherosclerosis of unspecified type of vessel, port heiden or graft Coronary Atherosclerosis Frozen shoulder Right Mixed hyperlipidemia Hyperlipidemia Mononeuritis of unspecified site Neuropathy Peptic ulcer, unspecified site, unspecified as acute or chronic, without mention of hemorrhage, perforation, or obstruction Peptic ulcer disease Personal history of colonic polyps Colon polyps Rotator cuff syndrome of shoulder and allied disorders Right Rotator cuff syndrome PAST SURGICAL HISTORY Procedure Laterality Date ARTHROSCOPY KNEE DIAGNOSTIC W/WO SYNOVIAL BX SPX 03/03 Arthroscopy, knee, L. CABG (3) VEIN GRAFTS AND ARTERIAL GRAFT(S) 2001 CABG, 3 grafts COLONOSCOPY FLX DX W/COLLJ SPEC WHEN PFRMD 10/26, 06/03 Colonoscopy HERNIA REPAIR HX Right 2001 R INGUINAL AND UMBILICAL HERNIA LAPAROSCOPIC REPAIR WITH MESH OPEN REPAIR OF ROTATOR CUFF ACUTE Right 2001 Rotator cuff repair FAMILY HISTORY Problem Relation Age of Onset Hypertension Mother age 92 Aneurysm Father age 86 from CHF. Had MO at age 52 Diabetes Father Heart Attack Father CURRENT MEDICATIONS: Cholecalciferol, Vitamin D3, (VITAMIN D) 25 mcg (1,000 unit) cap Take 1,000 Units by mouth once daily. lutein 20 mg cap Take 20 mg by mouth. omeprazole (PRILOSEC) 20 mg capsule Take 20 mg by mouth once daily. levothyroxine (SYNTHROID) 100 mcg tablet TURMERIC ROOT EXTRACT ORAL Take by mouth once daily. Fish Oil-DHA-EPA 1,200-144-216 mg cap Take by mouth twice daily. rosuvastatin (CRESTOR) 10 mg tablet Take 10 mg by mouth once daily. atenolol (TENORMIN) 25 mg tablet TAKE 1 TABLET BY MOUTH ONCE DAILY. Ascorbic Acid 1,000 mg tablet Take 1 tablet by [...] needed. 1-2 hours before sexual intercourse Coenzyme F05-Mfnjtnv E 100-150 mg-unit cap Take 1 tablet by mouth once daily. multivitamin ORAL Tab Take one(1) tablet daily. ASPIRIN 81 MG TAB Take one (1) tablet daily . CURRENT ALLERGIES: ALLERGIES Allergen Reactions Contrast Dye [Other] Anaphylaxis Social History Tobacco Use Smoking status: Never Smokeless tobacco: Never Substance Use Topics Alcohol use: Yes Alcohol/week: 1.7 standard drinks of alcohol Comment: socially Drug use: No Ros: As above EXAM: BP 128/72 Pulse 63 Ht 182.9 cm (6' 0.01 ) Wt 93.8 kg (206 lb 11.2 oz) SpO2 98% BMI 28.03 kg/m? BP 128/72 Pulse 63 Ht 182.9 cm (6' 0.01 ) Wt 93.8 kg (206 lb 11.2 oz) SpO2 98% BMI 28.03 kg/m? Body mass index is 28.03 kg/m?. General appearance: Well appearing, alert, in no acute distress Head: Normocephalic, atraumatic Eyes: Anicteric sclera , Pupils are equally round and reactive Neck: No JVD, Trachea midline Lungs:Clear to auscultation, no wheezing or rhonchi Heart: RRR without murmur, gallop, or rubs. No ectopy Abdomen: Abdomen soft, non-tender. Non distended. No masses, organomegaly, reducible subcm supraumbilical/epigastric hernia Extremities:No clubbing, cyanosis, or edema. Neuro: Alert and oriented times three, No apparent distress RADIOLOGY: none Jeaneth Alarcon MD 04/04/2023 1:42 [facility]09-21-2022 History of Present illness Narrative * Mayelin Stahl MD - 04/11/2022 1:49 PM EDT Images from the original note were not included. [facility] [place] DEPARTMENT OF VASCULAR SURGERY OUTPATIENT VISIT DATE April 11, 2022 OUTPATIENT VISIT TYPE ESTABLISHED SERVICE DATE: 04/11/2022 SERVICE TIME: 1:49 PM PRIMARY CARE PHYSICIAN: Ira Corey APRN.HOUSEKEEPING DEPARTMENT WORKER HISTORY OF PRESENT ILLNESS: Mr. Hinds is a 76 year old male who presents today for a vascular surgery follow-up visit of a splenic artery aneurysm that was repaired in 2018 with [id number] Viabahn stent placement. He currently is doing well. Denies abdominal pain, unintended weight loss, and frequent. Patient returns today with mesenteric ultrasound. It shows patent splenic artery with stent in place, residual sac measuring 1.12x1.16cm from 2.77x2.93cm. PAST MEDICAL HISTORY Diagnosis Date Coronary atherosclerosis of unspecified type of vessel, port heiden or graft Coronary Atherosclerosis Frozen shoulder Right Mixed hyperlipidemia Hyperlipidemia Mononeuritis of unspecified site Neuropathy Peptic ulcer, unspecified site, unspecified as acute or chronic, without mention of hemorrhage, perforation, or obstruction Peptic ulcer disease Personal history of colonic polyps Colon polyps Rotator cuff syndrome of shoulder and allied disorders Right Rotator cuff syndrome PAST SURGICAL HISTORY Procedure Laterality Date ARTHROSCOPY KNEE DIAGNOSTIC W/WO SYNOVIAL BX SPX 03/03 Arthroscopy, knee, L. CABG (3) VEIN GRAFTS & ARTERIAL GRAFT(S) 2001 CABG, 3 grafts COLONOSCOPY FLX DX W/COLLJ SPEC WHEN PFRMD 10/26, 06/03 Colonoscopy HERNIA REPAIR HX Right 2001 R INGUINAL AND UMBILICAL HERNIA LAPAROSCOPIC REPAIR WITH MESH OPEN REPAIR OF ROTATOR CUFF ACUTE Right 2001 Rotator cuff repair SOCIAL HISTORY Social History Tobacco Use Smoking status: Never Smokeless tobacco: Never Substance Use Topics Alcohol use: Yes Alcohol/week: 1.7 standard drinks Comment: socially Drug use: No MEDICATIONS: omeprazole (PRILOSEC) 20 mg capsule Take 20 mg by mouth once daily. levothyroxine (SYNTHROID) 100 mcg tablet TURMERIC ROOT EXTRACT ORAL Take by mouth once daily. Fish Oil-DHA-EPA 1,200-144-216 mg cap Take by mouth twice daily. rosuvastatin (CRESTOR) 10 mg tablet Take 10 mg by mouth once daily. atenolol (TENORMIN) 25 mg tablet TAKE 1 TABLET BY MOUTH ONCE DAILY. Ascorbic Acid 1,000 mg tablet Take 1 tablet by mouth twice daily. latanoprost (XALATAN) 0.005 % ophthalmic solution Use 1 Drop in both eyes daily at bedtime. nitroglycerin sublingual (NITROQUICK) 0.4 mg SL tablet Dissolve 1 tablet under the tongue as neededfor Chest Pain. If no pain relief call 911. Tadalafil (CIALIS) 20 mg tablet Take 1 tablet by mouth as needed. 1-2 hours before sexual intercourse Coenzyme J91-Hjlkrqk E 100-150 mg-unit cap Take 1 tablet by mouth once daily. multivitamin ORAL Tab Take one(1) tablet daily. ASPIRIN 81 MG TAB Take one (1) tablet daily . calcium citrate/vitamin d3(CALCIUM CITRATE + 315 MG-200 UNIT TAB) Take one(1) tablet two(2) times daily. ALLERGIES: ALLERGIES Allergen Reactions Contrast Dye [Other] Anaphylaxis PHYSICAL EXAM: BP 142/84 Pulse 63 General: Alert and oriented Integumentary: Normal color, no rash, no lesions. HEENT: EOM, pupils equal, round and reactive. Cardiovascular: Pulse regular. Lungs: Normal breath sounds, no wheezes or crackles. Abdomen: Soft, non-tender, no rigidity. Extremities: No deformity, no edema or tenderness, no joint swelling or clubbing. Neurological: Normal cognition and motor skills. Vascular: Diagnostic tests reviewed for today's visit: Most recent imaging IMPRESSION: Mr. Hinds is a 76 year old male splenic artery aneurysm . PLAN and RECOMMENDATIONS: 3 year follow up US Medical Decision Making: Medical Decision Making Level: 1 - N/A SIGNATURE: Mayelin Stahl MD PATIENT NAME: Eric Hinds DATE: April 11, 2022 TIME: 1:49 PM [facility] STAFF PHYSICIAN NOTE OF PERSONAL INVOLVEMENT IN CARE IMPRESSION: Patient is a 76 year old male patient seen today. Doing well. Has status post splenic artery aneurysm treatment percutaneously on examination abdomen soft nondistended bilateral palpable femoral popliteal pedal pulses. Duplex ultrasound demonstrates an excluded splenic aneurysm no additional aneurysms. Plan for follow-up ultrasound in 3 years. Primary CAT scan demonstrated no evidence of additional splanchnic aneurysms. He may need another study in the future CAT scan PLAN: as above I have reviewed the documentation obtained and documented by the Fellow. I have personally performed a face to face assessment of the patient and have personally participated on the mullins components ofthe history, exam and medical decision making. I have discussed the case and management of the patient's care. (Outpatient): I personally spent 25 total minutes total time involved in the management and care ofthis patient. STAFF PHYSICIAN: Mayelin Stahl MD DATE OF SERVICE: April 11, 2022 TIME OF SERVICE: 2:22 PM [facility] Miscellaneous Notes* Telephone Encounter - Riky Meneses [employer] Rep - 11/22/2021 1:28 PM EDT Reason for call: Mr. Eric Hinds called, and he would like to schedule an appointment with DR. Mayelin Stahl, for a follow up. The patient would like to schedule for any Saturday, Saturday, in December 2021, and also as a mid morning appointment if possible please. Home and cell number: [phone] Diagnosis: Splenic artery aneurysm (HCC) Riky Tena. [facility] History of Past illness Narrative* Problem Noted Date Resolved Date CORONARY ATHEROSCLER UNSPEC VESSEL 04/25/2005 08/23/2015 AORTOCORONARY BYPASS STATUS 04/25/200508/2015 HYPERLIPIDEMIA NEC/NOS 04/25/2005 6 documented as of this encounter (statuses as of 11/22/2021) [facility] History of Past illness Narrative* Problem Noted Date Resolved Date CORONARY ATHEROSCLER UNSPEC VESSEL 04/25/2005 08/23/2015 AORTOCORONARY BYPASS STATUS 04/25/200508/2015 HYPERLIPIDEMIA NEC/NOS 04/25/2005 6 documented as of this encounter (statuses as of 04/11/2022) [facility] History of Past illness Narrative* Problem Noted Date Diagnosed Date Resolved Date CORONARY ATHEROSCLER UNSPEC VESSEL 04/25/2005 08/23/2015 AORTOCORONARY BYPASS STATUS 04/25/2005 08/23/2015 HYPERLIPIDEMIA NEC/NOS 04/25/200508/23 documented as of this encounter (statuses as of 04/01/2023) [facility] Diagnosis PAD (peripheral artery disease) (HCC)- Primary Peripheral vascular disease, unspecified [facility] Diagnosis Epigastric hernia- Primary Other ventral hernia without mention of obstruction or gangrene Epigastric hernia Other ventral hernia without mention of obstruction or gangrene [facility] Diagnosis Pre-op evaluation- Primary Preoperative examination, unspecified S/P CABG x 3 (L-LAD, R-diag, S-OM) 2001 Postsurgical aortocoronary bypass status Hypertension, unspecified type Pure hypercholesterolemia Acute deep vein thrombosis (DVT) of proximal vein of lower extremity, unspecified laterality (HCC) Splenic artery aneurysm (HCC) Aneurysm of splenic artery Gastroesophageal reflux disease without esophagitis Esophageal reflux Other specified hypothyroidism Hammer toe of left foot documented in this encounter [facility] Summary Purpose Family History No Family History Records FoundNo Family History Records FoundNo Family History Records FoundNo Family History Records Found Advance Directives No Advanced Directives Records FoundDocuments on File Type Date Recorded 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 Advance Directive(s) 02/25/2018 12:12 PM Advance Directive(s) 01/21/2018 2:41 PM Additional Source Comments (unrecognized sect ion and content) No Status Records FoundNo Status Records FoundNo Status Records FoundNo Status Records Found INFORMATION SOURCE (unrecogn ized section and content) DATE CREATED AUTHOR AUTHOR'S ORGANIZ ATION 05/24/2023 [facility] DATE CREATED AUTHOR AUTHOR'S ORGANIZ ATION 06/26/2023 [facility] DATE CREATED AUTHOR AUTHOR'S ORGANIZ ATION 06/29/2023 [facility] Source Comments (unrecognize d section and content) In the event this informatio n is protected by the Federal Confidentiality of Alcohol and Drug Abuse Patient Records regulations: The Federal rules restrict any use of the information to criminally investigate or prosecute any alcohol or drug abuse patient.[facility] the event this information is protected by the Federal Confidentiality of Alcohol and Drug Abuse Patient Records regulations: The Federal rules restrict any use of the information to criminally investigate or prosecute any alcohol or drug abuse patient.[facility] the event this information is protected by the Federal Confidentiality of Alcohol and Drug Abuse Patient Records regulations: The Federal rules restrict any use of the information to criminally investigate or prosecute any alcohol or drug abuse patient.[facility] the event this information is protected by the Federal Confidentiality of Alcohol and Drug Abuse Patient Records regulations: The Federal rules restrict any use of the information to criminally investigate or prosecute any alcohol or drug abuse patient.[facility] Reason for Visit (unrecogniz ed section and content) Reason Comments Established Patient Reason Comments Anesthesia Consult Care Teams (unrecognized sec tion and content) Insurance Service Representative Relationship Specialty Start Date End Date Ira Corey, DIRECTOR OF BUSINESS DEVELOPMENT.HOUSEKEEPING DEPARTMENT WORKER [address] [place], [place] [phone] PCP - General Family Medicine 01/21/18 Justo Ariza MD [address] [place] [address] Primary Staff Physician Cardiology 10/07/18 Chandana Garcia [address] [phone] Cardiology 04/11/22 Insurance Service Representative Relationship Specialty Start Date End Date Ira Corey DIRECTOR OF BUSINESS DEVELOPMENT.HOUSEKEEPING DEPARTMENT WORKER [address] [place], [place] [phone] PCP - General Family Medicine 01/21/18 Justo Ariza MD [address] [place] [address] Primary Staff Physician Cardiology 10/07/18 Chandana Garcia [address] [facility] [address] [place] [phone] Cardiology 04/11/22 Insurance Service Representative Relationship Specialty Start Date End Date Ira Corey, DIRECTOR OF BUSINESS DEVELOPMENT.HOUSEKEEPING DEPARTMENT WORKER [address] [place], [place] [phone] PCP - General Family Medicine 01/21/18 Justo Ariza MD [address] [place], [place] [phone] Primary Staff Physician Cardiology 10/07/18 Chandana Garcia MD [address] [facility] [address] [place], [place] [phone] Cardiology 04/11/22 FOR RECORDS PERTAINING TO PATIENTS WHO ARE OR HAVE BEEN ENROLLED IN A CHEMICAL DEPENDENCY/SUBSTANCEABUSE PROGRAM, SOME INFORMATION MAY BE OMITTED. This clinical summary was aggregated from multiple sources. Caution should be exercised in using it in the provision of clinical care. This summary normalizes information from multiple sources, and as a consequence, information in this document may materially change the coding, format and clinical context of patient data. In addition, data may be omitted in some cases. CLINICAL DECISIONS SHOULD BE BASED ON THE PRIMARY CLINICAL RECORDS. [facility] [employer] [facility]. provides no warranty or guarantee of the accuracy or completeness of information in this document.
[2023-09-12 23:17] LABS: Absolute Lymphocyte Count 2.22 X10^3/uL (0.83-4.51); Absolute Neutrophil Count 5.7 X10^3/uL (2.0-7.7); Basophil# 0.08 X10^3/uL; Basophil% 0.9 % (0-1); Eosinophil# 0.18 X10^3/uL; Hematocrit 48.2 % (40-54); Hemoglobin 15.9 g/dL (13.0-16.5); Lymphocyte # 2.22 X10^3/ul (0.83-4.51); Lymphocyte % 24.3 % (19-41); Mean Corpuscular Hgb 29.4 pg (27.0-32.0); Mean Corpuscular Volume 89.3 fL (80-94); Mean Platelet Vol. 10.6 fl (6.2-12.0); Monocyte# 0.88 X10^3/uL; Monocyte% 9.6 % (0-10); NRBC Flagged by Analyzer 0 % (0-5); Neutrophil # 5.71 X10^3/uL (2.7-7.7); Neutrophil % 62.7 % (47-70); Platelet Count 189 K/mm3 (150-450); RBC Distribution Width CV 13.2 % (11.6-14.6); RBC Distribution Width SD 42.8 fl (35.1-43.9); White Blood Count 9.1 K/mm3 (4.4-11.0)
[2023-09-12 23:34] LABS: ALB/GLOB Ratio 1.2 RATIO (0.9-2.4); AST(SGOT) 31 U/L (15-37); Alanine Aminotransfer ALT/SGPT 48 U/L (16-61); Alkaline Phosphatase 61 U/L (45-117); Anion Gap 5 (5-15); BUN 18 mg/dL (7-18); BUN/Creat Ratio 18.8 RATIO (10-20); Chloride 104 mmol/L (98-107); Cholesterol 114 mg/dL (200); Creatinine, Serum 0.96 mg/dL (0.70-1.30); EST Glomerular Filtration Rate 81 mL/min (>60); Est Glom Filt Rate - Afr Amer 98 mL/min (>60); Globulin 3.3 g/dL (2.2-4.2); Glucose 105 mg/dL (74-106); High Density Lipoprotein 29 mg/dL; PSA,Total - Annual Screen 4.85 ng/mL (0.00-4.00); Potassium 4.3 mmol/L (3.5-5.1); Protein, Total 7.3 g/dL (6.4-8.2); Sodium Level 139 mmol/L (136-145); Thyroid Stim Hormone (TSH) 1.24 uIU/mL (0.358-3.74); Triglycerides 256 mg/dL; Very Low Density Lipoprotein 51 mg/dL (5-40)
== END | disposition home or self-care (01) ==
PROVIDERS: PCP Nurse Practitioner; Visit Provider Nurse Practitioner
DX: I25.10 Atherosclerotic heart disease of native coronary artery without angina pectoris (principal); E78.5 Hyperlipidemia, unspecified; E03.9 Hypothyroidism, unspecified; R35.0 Frequency of micturition; Z95.1 Presence of aortocoronary bypass graft
CPT/HCPCS: 80053; 80061; 84153; 84443; 85025; G0103

== ENCOUNTER → 2024-03-03 | Outpatient (CLI) | payer OTHER, SELFPAY ==
--- NOTE | 2024-03-03 08:17 | MRI_ITS ---
STUDY: MRI LUMBAR SPINE WITHOUT CONTRAST REASON FOR EXAM: Male, 78 years old. Pain TECHNIQUE: Standardized fat and water weighted pulse sequences were obtained in the sagittal and axial planes. COMPARISON: 11/28/2021, x-ray 01/30/2024 FINDINGS: T12-L1: Enlarging bilobed disc protrusion with a right foraminal protrusion produces moderate spinal stenosis and moderate neural foraminal stenosis. Interval development of severe Modic type I endplate changes. Normal lumbar lordosis. Mild levoscoliosis centered at L1. Normal conus medullaris that terminates at the T12/L1. L1-2: Normal endplates. Normal disc height, hydration and morphology. Normal bilateral facet joints. Normal central canal and bilateral lateral recesses. Normal bilateral intervertebral neural foramina. L2-3: Mild bilateral facet hypertrophy and moderately minimal endplate hypertrophy. No change in a moderate broad disc protrusion asymmetric left which produces severe spinal stenosis with moderate bilateral neural foraminal stenosis L3-4: Mild bilateral facet hypertrophy and moderate ligament flavum hypertrophy. No change in the moderate broad disc osteophyte complex which produces severe spinal stenosis with moderate bilateral lateral recess stenosis and moderate bilateral neural foraminal stenosis. L4-5: Mild bilateral facet operatively with endplate hypertrophy. No change in the mild broad disc protrusion with mild central stenosis and mild bilateral neural foraminal stenosis. L5-S1: No change in the mild broad disc osteophyte complex produces mild spinal stenosis and mild bilateral neural foraminal stenosis. Normal visualized sacral ala. Normal visualized paraspinous soft tissue structures. MRI/Spine Lumbar (Routine) IMPRESSION: Worsening degenerative disc disease at T12/L1 as described above. Electronically Signed: Jonh Henson MD at 14:46 EDT ,
== END | disposition home or self-care (01) ==
PROVIDERS: PCP Nurse Practitioner; Referring Provider Orthopaedic Surgery Orthopaedic Surgery of the Spine; Visit Provider Orthopaedic Surgery Orthopaedic Surgery of the Spine
DX: M51.36 Other intervertebral disc degeneration, lumbar region (principal); M48.062 Spinal stenosis, lumbar region with neurogenic claudication
CPT/HCPCS: 72148

== ENCOUNTER 2024-08-05 15:00 | Outpatient (RCR) | payer OTHER, SELFPAY ==
--- NOTE | 2024-07-28 11:31 | HP.PTEVAL_ITS ---
Patient's Visit Information Visit Information Visit Information: ERIC GUILLEN is a 79 year old M referred to Physical Therapy by Dr. 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 Date of Evaluation: 07/28/24 Physical Therapist: Diego Mata DPT Visit Plan Frequency: 2x /Week Duration: 6 Weeks Plan: 1) manual to B lower lumbar erector spinae. Will have be done in seated or SL, Pt. un able to lie prone well. 2) Neutral spine core stability, RLE strengthening 3) Ease into lumbar ROM, this is very limited and painful. Pt. goes back and forth to [place]. Progress HEP daily/weekly to increase carry over. Pt. will have ~3 week priod where he is out of town. Progress HEP for this period. Subjective Subjective: Pt. 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 Pt. reports having increased low back pain, patient believes this stemmed from a back injury while he was in the [place]. Pt. reports his pain has been progressively worsening for the past 20 years or so, but recently even more so. Increases pain: prolonged positions, bending, twisting, lifting, prolonged walking. Decreases symptoms: ibuprofen. Mornings are stiff and painful. He has done PT, chiro, injections, previously without much success. He is having an injection later this week. Pt. is hopeful to reduce symptoms in order to get back to all recreational activities without limitations. Pain Lumbar spine: Pain Intensity (Out of 10): 4 Pain Intensity Range: 3 and 8 Objective Objective: POSTURE: Pt. has fairly normal posture in stance. No major sway back posture, normal iliac crest heights noted PALPATION: Pt. has some lower lumbar soreness L3-S1 region. Pt. has tenderness along bilateral paraspinals of lumbar spine. NEURO: Pt. has some marked chagnes in sensation with less at medial R calf, R distal medial LE. Rest is the same. ROM: LUMBAR SPINE: Flexion: mod loss increase NW, EXT mas loss increase NW, SB mod/max loss bilat increase NW, rotation mod loss bilat increase NW. Pt. has tightness in B HS. pt. has fairly normal B hip ROM, but does have increased lumbar spine with R hip flexion motions. MMT: RLE: knee: ext 25.7#, flexion 22.7#, ankle DF 39.2#, PF 35.9#; hip: flexion: 17.8#, abd 12.9# LLE: knee: ext 50.1#, flexion 39.3#; ankle DF 42.9#, PF 43.7#; hip: flexion 23.3#, abd 19.8#. GAIT: Pt. has fairly normal gait pattern, but marked loss of B arm swing indicating rigid posture, STAIRS: Step to pattern loading LLE only with use of BUEs. Pt. reports no increase in symptoms. Balance/Special Test Scores Oswestry Low Back Score: 25 Goals Goal 1:: LTG: Pt. to be I with HEP. Goal Time Frame: 4-6 Weeks Goal 2:: STG: Pt. to have decreased pain/stiffness in AMs to 2/10 allowing for increased quality of life. Goal Time Frame: 2-4 Weeks Goal 3:: LTG: Pt. to have increased RLE strength increased to symmetrical between BLEs. Goal Time Frame: 4-6 Weeks Goal 4:: LTG: Pt. to be able to drive for 2+ hours without increase in symptoms. Goal Time Frame: 4-6 Weeks Goal 5:: LTG: Pt. to have increased lumbar ROM by 25% in all directions without increase in symptoms. Goal Time Frame: 4-6 Weeks Rehabilitation Potential Physical Therapy Diagnosis: Pt. 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 Pt. has marked lumbar ROM loss, R sided weakness, increased pain with most mobility. Pt. would benefit from PT to address the above issues progressing back to all recreational activities without limitations. Rehabilitation Potential: Good Anticipated Interventions Patient/Client Instruction: Educate patient on: Condition, Plan of Care, Risk Factors and Benefits of Fitness Program For the Purpose of:: To facilitate caregiver knowledge, To improve self management, To prevent re-injury, To improve ability to perform tasks related to life management and To improve tolerance to ADL's Therapeutic Exercise to Include: Strength training, Power training, Endurance training, Flexibilty training, Gait and locomotor training, Passive ROM, Active ROM and Dynamic Lumbar Stabilization For the Purpose of:: To decrease pain, To increase ROM, To improve nutrient delivery to tissue, To increase oxygenation perfusion, To improve muscle performance and motor function, To improve ability to perform ADL's, To improve ability of physical actions for home/community/work/leisure, To improve gait and locomotor functions, To improve health of tissue and To decrease soft tissue restriction Manual Therapy Techniques to Include: Soft tissue mobilization For the Purpose of:: To decrease pain, To decrease swelling/inflammation and To increase ROM Cryotherapy (ice pack, ice massage): Yes Thermo therapy (hot pack): Yes Ultrasound (thermal/non thermal): Yes For the Purpose of:: To decrease pain, To decrease swelling/inflammation and To increase ROM Text: Thank you for the opportunity to evaluate your patient. For Medicare and Medicare HMO plans, please review the plan of care and approve it. It will need to be FAXED BACK to us at [phone] for Medicare purposes. For Medicare only, by signing this I certify the plan of care. Please let me know if there are questions or concerns regarding this plan of care. Physician Signature: Date:
== END 2024-08-05 19:00 | disposition home or self-care (01) ==
LOC: PT 15:00
PROVIDERS: PCP Nurse Practitioner; Visit Provider Orthopaedic Surgery Orthopaedic Surgery of the Spine
DX: M48.062 Spinal stenosis, lumbar region with neurogenic claudication (principal); M54.16 Radiculopathy, lumbar region
CPT/HCPCS: 97035; 97110; 97140; 97161

== ENCOUNTER → 2024-08-31 | Outpatient (CLI) | payer OTHER, SELFPAY ==
[2024-08-31 23:59] LABS: Absolute Lymphocyte Count 2.39 X10^3/uL (0.83-4.51); Absolute Neutrophil Count 5.2 X10^3/uL (2.0-7.7); Basophil# 0.08 X10^3/uL; Basophil% 0.9 % (0-1); Eosinophils% 2.3 % (0-5); Hematocrit 45.5 % (40-54); Hemoglobin 15.6 g/dL (13.0-16.5); Lymphocyte # 2.39 X10^3/ul (0.83-4.51); Lymphocyte % 27.5 % (19-41); Mean Corp Hgb Conc 34.3 g/dL (32-36); Mean Corpuscular Hgb 29.5 pg (27.0-32.0); Mean Corpuscular Volume 86.2 fL (80-94); Mean Platelet Vol. 10.4 fl (6.2-12.0); Monocyte# 0.72 X10^3/uL; Monocyte% 8.3 % (0-10); NRBC Flagged by Analyzer 0 % (0-5); Neutrophil # 5.22 X10^3/uL (2.7-7.7); Neutrophil % 60.1 % (47-70); Platelet Count 242 K/mm3 (150-450); RBC Distribution Width CV 13.4 % (11.6-14.6); RBC Distribution Width SD 41.8 fl (35.1-43.9); Red Blood Count 5.28 M/mm3 (4.6-6.2); White Blood Count 8.7 K/mm3 (4.4-11.0)
[2024-09-01 00:27] LABS: ALB/GLOB Ratio 1.1 RATIO (0.9-2.4); AST(SGOT) 32 U/L (15-37); Alanine Aminotransfer ALT/SGPT 40 U/L (16-61); Albumin, Serum 3.9 g/dL (3.2-5.0); Alkaline Phosphatase 68 U/L (45-117); Anion Gap 7 (5-15); BUN 17 mg/dL (7-18); BUN/Creat Ratio 18.8 RATIO (10-20); Calcium,Total 9.1 mg/dL (8.5-10.1); Chloride 104 mmol/L (98-107); Cholesterol 126 mg/dL (200); EST Glomerular Filtration Rate 87 mL/min (>60); Est Glom Filt Rate - Afr Amer 105 mL/min (>60); Globulin 3.4 g/dL (2.2-4.2); Glucose 113 mg/dL (74-106); High Density Lipoprotein 31 mg/dL; PSA,Total- Diagnostic 5.98 ng/mL (0.0-4.0); Potassium 4.3 mmol/L (3.5-5.1); Protein, Total 7.3 g/dL (6.4-8.2); Sodium Level 138 mmol/L (136-145); Triglycerides 290 mg/dL; Very Low Density Lipoprotein 58 mg/dL (5-40)
== END | disposition home or self-care (01) ==
PROVIDERS: PCP Nurse Practitioner; Visit Provider Nurse Practitioner
DX: E03.9 Hypothyroidism, unspecified (principal); R35.0 Frequency of micturition; R97.20 Elevated prostate specific antigen [PSA]; R74.8 Abnormal levels of other serum enzymes; E78.5 Hyperlipidemia, unspecified; R53.83 Other fatigue
CPT/HCPCS: 80053; 80061; 84153; 84443; 85025

== ENCOUNTER → 2024-12-29 | Outpatient (CLI) | payer OTHER, SELFPAY ==
[2024-12-29 23:29] LABS: CORTISOL PM 5.22 ug/dL (2.68-10.50)
== END | disposition home or self-care (01) ==
PROVIDERS: PCP Nurse Practitioner; Visit Provider Nurse Practitioner
DX: R61 Generalized hyperhidrosis (principal); R97.20 Elevated prostate specific antigen [PSA]; E03.9 Hypothyroidism, unspecified; R53.83 Other fatigue
CPT/HCPCS: 82533; 84153; 84403; 84443

== ENCOUNTER → 2025-02-04 | Outpatient (CLI) | payer OTHER, SELFPAY ==
--- OUTSIDE RECORDS SUMMARY | 2025-02-04 06:30 | XMS RPT_ITS | CCD ---
Author Organization [facility] Care Team Providers Care Furniture Crater Name Role Phone Dr. Chandana Garcia Attending Provider Vinod MARINE WATER TENDER, MARINE WATER TENDER-C Ira Primary Care Provider Vinod MARINE WATER TENDER, MARINE WATER TENDER-C Ira Referring Provider [phone] Vinod GRAIN SACKER.[facility], Ira L Primary Care Provide r Justo Ariza MD Unavailable Vinod MARINE WATER TENDER, MARINE WATER TENDER-C Ira Primary Care Provider Vinod MARINE WATER TENDER, MARINE WATER TENDER-C Ira Referring Provider Dr. Justin Pereira Attending Provider [phone] Vinod GRAIN SACKER.JAILER/TRAINING OFFICER, Ira L Primary Care Provide r Justo Ariza MD Unavailable Chandana Garcia Unavailable Vinod MARINE WATER TENDER, MARINE WATER TENDER-C Ira Primary Care Provider Dr. Luz Elena Mariano Referring Provider Dr. Luz Elena Mariano Other Provider Dr. Deonte Benitez Attending Provider Vinod RODRIGUEZ, MARINE WATER TENDER-C Ira Referring Provider [phone] Dr. Chandana Garcia Attending Provider [phone] Vinod MARINE WATER TENDER, MARINE WATER TENDER-C Ira Primary Care Provider Corey MARINE WATER TENDER, MARINE WATER TENDER-C Ira Referring Provider Dr. Chandana Garcia Attending Provider Corey GRAIN SACKER.JAILER/TRAINING OFFICER, Ira L Primary Care Provide r To VU, Justo Jain Unavailable Chandana Garcia Unavailable To VU, Justo Jain Unavailable Chandana Garcia MD Unavailable [phone] COREY, IRA L Primary Care Unavailable LAVERNE ALARCON Attending Unavailable COREY, IRA L Primary Care Unavailable GRANDINETERRI JALEEL Referring Unavailable COREY, IRA L Primary Care Unavailable LAVERNE ALARCON Referring Unavailable COREY, IRA L Primary Care Unavailable LAVERNE ALARCON Attending Unavailable COREY, IRA L Primary Care Unavailable COREY, IRA L Primary Care Unavailable SHARI JALEEL Referring Unavailable LAVERNE ALARCON Attending Unavailable LAVERNE ALARCON Admitting Unavailable COREY, IRA L Primary Care Unavailable COREY, IRA L Primary Care Unavailable GRANDINETTI, JALEEL Attending Unavailable GRANDINETTI, JALEEL Admitting Unavailable Corey MARINE WATER TENDER-C, Ira Primary Care Provider [phone] Corey MARINE WATER TENDER-C, Ira Attending Provider [phone] Corey MARINE WATER TENDER-C, Ira Referring Provider Arely MARINE WATER TENDER-CKristofer Attending Provider RICARDO OCHOA MD Referring Unavailable Brian Doran Attending Unavailable Corey MARINE WATER TENDER, Ira Primary Care Unavailable Corey MARINE WATER TENDER, Ira Primary Care Unavailable Ovidio Oneil Attending Unavailable Corey MARINE WATER TENDER, Ira Referring Unavailable Corey MARINE WATER TENDER, Ira Primary Care Unavailable Corey MARINE WATER TENDER, Ira Referring Unavailable Geraldo Chowdhury Attending Unavailable Kristofer Mcgee NP Attending Unavailable Corey MARINE WATER TENDER, Ira Referring Unavailable Corey MARINE WATER TENDER, Ira Primary Care Unavailable Geraldo Chowdhury Attending Unavailable Geraldo Chowdhury Referring Unavailable Corey MARINE WATER TENDER, Ira Primary Care Unavailable Corey MARINE WATER TENDER, Ira Attending Unavailable Corey MARINE WATER TENDER, Ira Primary Care Unavailable Corey MARINE WATER TENDER, Ira Attending Unavailable Corey MARINE WATER TENDER, Ira Primary Care Unavailable Corey MARINE WATER TENDER, Ira Primary Care Unavailable Ira Corey NP Attending Unavailable Kristofer Mcgee NP Attending Unavailable Arely MARINE WATER TENDER, Kristofer Barboza Referring Unavailable Vinod RODRIGUEZ, Ira Primary Care Unavailable Allergies Allergy Classification Reported Allergen(s) Allergy Type Date of Onset Reaction(s) Facility (5 sources) Contrast media Allergy to substance 09-01-19 Unknown [facility] (10 sources) Iodine Drug Allergy 09-01-19 Rash [facility] Comment on above: OK with premedicatio n (4 sources) Contrast Dye [Other] Propensity to adverse reactions 06-14-20 03 Anaphylaxis [facility] Work Phone: (5 sources) Triiodobenzoic Acids Allergy to substance 11-07-19 23 NEEDS FOLLOW-UP, PT UNSURE OF REACTION [facility] Comment on above: Has used contract dy e without reaction (2 sources) OTHER; Translations: [OTHER] Propensity to adverse reactions (disorder) 06-14-20 [facility] (1 source) Iodine Drug Allergy 01-08-20 [facility] Repository (1 source) Iodinated Contrast Media Drug allergy (disorder) 01-08-20 [facility] Repository Medications Current Medications Medication Drug Class(es) Dates Sig (Normalized) Sig (Original) ascorbic acid 1000 mg oral tablet (20 sources) Vitamin C Start: 07-06-2020 take 1 g by mouth once daily Ascorbic Acid (Vitamin C) 1,000 mg tablet Active 1 g PO DAILY July 06, 2020 5:26pm Start: 07-06-2020 take 1 g by mouth once daily A scorbic Acid (Vitamin C) Active 1 GM PO DAILY July 06, 2020 4:26pm Start: 09-09-2017 End: 07-06-2020 take 1 g by mouth twice daily Ascorbic Acid (Vitamin C ) 1,000 mg tablet Discontinued 1 g PO TWICE A DAY September 09, 2017 1:00am July 06, 2020 5:27pm Start: 09-09-2017 End: 07-06-2020 take 1 g by mouth twice daily Ascorbic Acid (Vitamin C ) Discontinued 1 GM PO TWICE A DAY September 09, 2017 12:00am July 06, 2020 4:27pm Comment on above: Take 1 tablet by maryanne twice daily. aspirin 81 mg chewable tablet (14 sources) Platelet Aggregation Inhibitor, Nonsteroidal Anti-inflammatory Drug Start: 06-13-2014 take 1 tablet by mouth once daily Aspirin 81 MG tablet,chewable Active 81 mg PO DAILY@0800 June 13, 2014 1:00am Start: 04-25-2005 ASPIRIN 81 MG TAB Take one (1) tablet daily . 0 04/25/2005 Active Comment on above: Take one (1) tablet daily . Biotin (12 sources) Start: 05-07-2024 Biotin 5,000 m cg tablet,chewable Active ug PO TWICE A DAY May 07, 2024 12:00am Start: 07-08-2019 End: 07-06-2020 take 2 tablets by mouth once daily Biotin 5,000 mcg tablet,disintegrating Discontinued 60104 ug PO DAILY July 08, 2019 1:00am July 06, 2020 5:26pm Start: 07-08-2019 End: 07-06-2020 take 67939 ug by mouth once daily Biotin Discontinued 92963 MCG PO DAILY July 08, 2019 12:00am July 06, 2020 4:26pm cholecalciferol 0.05 mg oral capsule (12 sources) Vitamin D Start: 09-11-2017 take 1 capsule by mouth once daily Cholecalciferol (Vitamin D3) 2,000 unit capsule Active 2000 U PO daily September 11, 2017 1:00am Cholecalciferol, Vitamin D3, (VITAMIN D) 25 mcg (1,000 unit) cap Take 1,000 Units by mouth once daily. 0 Active Comment on above: Take 1,000 Units by mouth once daily. latanoprost 0.05 mg/ml ophthalmic solution (14 sources) Prostaglandin Analog Start: 09-09-2017 Latanoprost 0.005 % drops Active 1 NMA OPHTHALMIC AT BEDTIME September 09, 2017 1:00am Start: 09-09-2017 Latanoprost Ac tive 1 DRP OPHTHALMIC AT BEDTIME September 09, 2017 12:00am take 1 drop(s) into the eye(s) once daily at bedtime latanoprost (XALATAN) 0.005 % ophthalmic solution Use 1 Drop in both eyes daily at bedtime. 0 Active Comment on above: Use 1 Drop in both e yes daily at bedtime. lutein 20 mg oral capsule (12 sources) Start: 8 take 1 capsule by mouth once daily Lutein 20 mg capsule Active 20 mg PO daily September 11, 2017 1:00am Comment on above: Take 20 mg by mouth. Multivitamin With Folic Acid (8 sources) Start: 4 take 1 tablet by mouth once daily Multivitamin With Folic Acid Active 1 TABLET PO DAILY June 13, 2014 6:30pm Start: 06-13-2014 take 1 tablet by maryanne th once daily Multivitamin With Folic Acid Active 1 TABLET PO DAILY June 13, 2014 1:00am Start: 06-13-2014 take 1 tablet by maryanne th once daily Multivitamin With Folic Acid Active 1 TABLET PO DAILY June 13, 2014 12:00am Multivitamin With Folic Acid 1 TABLET tablet (2 sources) Start: 06-13-2014 take 1 tablet by mouth once daily Multivitamin With Folic Acid 1 TABLET tablet Active 1 {tbl} PO DAILY June 13, 2014 1:00am York-3 Fatty Acids (Fish Oil Concentrate) 1,000 mg capsule (20 sources) Start: 07-05-2021 take 1 capsule by mouth once daily York-3 Fatty Acids (Fish Oil Concentrate) 1,000 mg capsule Active 1000 MG PO DAILY July 05, 2021 4:19pm Start: 07-05-2021 End: 09-03-2022 take 1 capsule by mouth once daily York-3 Fatty Acids (Fish Oil Concentrate) 1,000 mg capsule Discontinued 1000 mg PO DAILY July 05, 2021 1:00am September 03, 2022 6:54pm Start: 07-05-2021 End: 09-03-2022 take 1 capsule by mouth once daily York-3 Fatty Acids (Fish Oil Concentrate) 1,000 mg capsule Discontinued 1000 MG PO DAILY July 05, 2021 1:00am September 03, 2022 6:54pm Start: 07-05-2021 End: 09-03-2022 take 1 capsule by mouth once daily York-3 Fatty Acids (Fish Oil Concentrate) 1,000 mg capsule Discontinued 1000 MG PO DAILY July 05, 2021 12:00am September 03, 2022 5:54pm Start: 07-05-2021 take 1 capsule by mo uth once daily York-3 Fatty Acids (Fish Oil Concentrate) 1,000 mg capsule Active 1000 MG PO DAILY July 05, 2021 12:00am Start: 07-02-2018 End: 07-08-2019 take 1 capsule by mouth twice daily York-3 Fatty Acids (Fish Oil Concentrate) 1,000 mg capsule Discontinued 1000 mg PO TWICE A DAY July 02, 2018 12:11pm July 08, 2019 5:17pm Start: 07-02-2018 End: 07-08-2019 take 1 capsule by mouth twice daily York-3 Fatty Acids (Fish Oil Concentrate) 1,000 mg capsule Discontinued 1000 MG PO TWICE A DAY July 02, 2018 11:11am July 08, 2019 4:17pm Start: 07-02-2018 End: 07-08-2019 take 1 capsule by mouth twice daily York-3 Fatty Acids (Fish Oil Concentrate) 1,000 mg capsule Discontinued 1000 MG PO TWICE A DAY July 02, 2018 12:11pm July 08, 2019 5:17pm Start: 09-11-2017 End: 07-02-2018 take 1 capsule by mouth once daily York-3 Fatty Acids (Fish Oil Concentrate) 1,000 mg capsule Discontinued 1000 MG PO daily September 11, 2017 2:09pm July 02, 2018 12:12pm Start: 09-11-2017 End: 07-02-2018 take 1 capsule by mouth once daily York-3 Fatty Acids (Fish Oil Concentrate) 1,000 mg capsule Discontinued 1000 mg PO daily September 11, 2017 1:00am July 02, 2018 12:12pm Start: 09-11-2017 End: 07-02-2018 take 1 capsule by mouth once daily York-3 Fatty Acids (Fish Oil Concentrate) 1,000 mg capsule Discontinued 1000 MG PO daily September 11, 2017 1:00am July 02, 2018 12:12pm Start: 09-11-2017 End: 07-02-2018 take 1 capsule by mouth once daily York-3 Fatty Acids (Fish Oil Concentrate) 1,000 mg capsule Discontinued 1000 MG PO daily September 11, 2017 12:00am July 02, 2018 11:12am psyllium 400 mg oral capsule (10 sources) Start: 07-06-2020 Psyllium Husk (Daily Fiber) 0.4 gram capsule Active 0.4 g PO TWICE A DAY July 06, 2020 1:00am Turmeric Root Extract (16 sources) Start: 07-08-2019 take 1500 mg by mouth once daily Turmeric Root Extract Active 1500 MG PO DAILY July 08, 2019 4:14pm Start: 07-08-2019 take 1500 mg by mout h once daily Turmeric Root Extract Active 1500 MG PO DAILY July 08, 2019 5:14pm Start: 09-11-2017 End: 07-08-2019 take 1000 mg by mouth twice daily Turmeric Root Extract Discontinued 1000 MG PO TWICE A DAY September 11, 2017 2:08pm July 08, 2019 5:17pm Start: 09-11-2017 End: 07-08-2019 take 1000 mg by mouth twice daily Turmeric Root Extract Discontinued 1000 MG PO TWICE A DAY September 11, 2017 1:00am July 08, 2019 5:17pm Start: 09-11-2017 End: 07-08-2019 take 1000 mg by mouth twice daily Turmeric Root Extract Discontinued 1000 MG PO TWICE A DAY September 11, 2017 12:00am July 08, 2019 4:17pm Turmeric Root Extract 1,053 mg tablet (4 sources) Start: 07-08-2019 take 1 tablet by mouth once daily Turmeric Root Extract 1,053 mg tablet Active 1500 mg PO DAILY July 08, 2019 5:14pm Start: 09-11-2017 End: 07-08-2019 take 1 tablet by mouth twice daily Turmeric Root Extract 1,053 mg tablet Discontinued 1000 mg PO TWICE A DAY September 11, 2017 1:00am July 08, 2019 5:17pm ubidecarenone 100 mg oral capsule (20 sources) Start: 07-08-2019 take 10 capsules by mouth once daily Coenzyme Q10 100 mg capsule Active 300 mg PO daily July 08, 2019 5:14pm Start: 09-09-2017 End: 07-08-2019 take 10 capsules by mouth once daily Coenzyme Q10 100 mg capsule Discontinued 100 mg PO daily September 09, 2017 1:00am July 08, 2019 5:17pm Completed/Discontinued Medications Medication Drug Class(es) Dates Sig (Normalized) Sig (Original) Acetaminophen / HYDROcodone (2 sources) Opioid Agonist Start: 08-31-2024 End: 09-10-2024 take 1 mL by mouth every four to six hours as needed for pain Hydrocodone-Acetam inophen 10-325 mg/15 mL solution Discontinued 5 mL PO EVERY 4-6 HOURS as needed for pain 240 10 August 31, 2024 September 09, 2024 1:00am September 10, 2024 1:09am apixaban 5 mg oral tablet (10 sources) Factor Xa Inhibitor Start: 09-01-2021 End: 09-04-2021 take 2 tablets by mouth twice daily, then take 1 tablet by mouth twice daily Apixaban (Eliquis Dvt-Pe Treat 30d Start) 5 mg (74 tabs) tablets,dose pack Discontinued 5 mg PO TWICE A DAY 74 September 01, 2021 1:00am September 04, 2021 12:24pm 10 mg p.o. twice daily x1 week then 5 mg p.o. twice daily atenolol 25 mg oral tablet (20 sources) beta-Adrenergic Klarissa Start: 06-13-2014 End: 01-07-2025 take 1 tablet by mouth once daily Atenolol 25 mg tablet Discontinued 25 mg PO DAILY September 04, 2022 12:40pm September 13, 2023 1:48pm Comment on above: TAKE 1 TABLET BY MARYANNE TH ONCE DAILY. atorvastatin 40 mg oral tablet (20 sources) HMG-CoA Reductase Inhibitor Start: 09-09-2017 End: 09-11-2017 take 1 tablet by mouth once daily Atorvastatin 40 mg tablet Discontinued 40 mg PO daily September 09, 2017 1:00am September 11, 2017 2:05pm Start: 06-13-2014 End: 09-09-2017 take 1 tablet by mouth at bedtime Atorvastatin 20 MG tablet Discontinued 20 mg PO AT BEDTIME June 13, 2014 1:00am September 09, 2017 9:31am azithromycin 250 mg oral tablet (2 sources) Macrolide Antimicrobial Start: 08-31-2024 End: 09-05-2024 take 2 tablets by mouth once daily, then take 1 tablet by mouth once daily at mealtime Azithromycin 250 mg tablet Discontinued 250 mg PO daily 6 5 August 31, 2024 1:00am September 04, 2024 1:00am September 05, 2024 1:18am 2 po qd for 1 day then 1 po qd for 4 days with food or after eating baclofen 10 mg oral tablet (10 sources) gamma-Aminobutyric Acid-ergic Agonist Start: 12-02-2020 End: 07-05-2021 take 1 tablet by mouth three times daily Baclofen 10 mg tablet Discontinued 10 mg PO THREE TIMES A DAY December 02, 2020 12:00am July 05, 2021 4:18pm benzonatate 200 mg oral capsule (10 sources) Non-narcotic Antitussive Start: 08-16-2021 End: 11-15-2021 take 1 capsule by mouth three times daily as needed for cough Benzonatate 200 mg capsule Discontinued 200 mg PO THREE TIMES A DAY as needed for cough 60 August 16, 2021 1:00am November 15, 2021 10:05am calcium carbonate 1500 mg oral tablet (2 sources) Start: 05-07-2024 End: 01-07-2025 take 1 tablet by mouth once daily Calcium Carbonate 600 mg calcium (1,500 mg) tablet Discontinued 600 mg PO daily May 07, 2024 12:00am January 07, 2025 9:03am calcium citrate 1500 mg / cholecalciferol 200 unt oral tablet (12 sources) Vitamin D Start: 09-09-2017 End: 12-03-2019 Calcium Citrate-Vitamin D3 (Calcium Citrate + D) 315-200 mg-unit tablet Discontinued 1 {tbl} PO TWICE A DAY September 09, 2017 1:00am December 03, 2019 6:08pm Start: 05-05-2008 End: 04-11-2022 calcium citrate/vitamin d3(C ALCIUM CITRATE + 315 MG-200 UNIT TAB) Take one(1) tablet two(2) times daily. 0 05/05/2008 04/11/2022 Discontinued Comment on above: Take one(1) tablet t wo(2) times daily. cilostazol 100 mg oral tablet (2 sources) Phosphodiesterase 3 Inhibitor Start: End: take 1 tablet by mouth twice daily Cilostazol 100 mg tablet Discontinued 100 mg PO TWICE A DAY 180 April 08, 2024 12:00am May 07, 2024 10:03am ciprofloxacin 500 mg oral tablet (3 sources) Quinolone Antimicrobial Start: 024 End: take 1 tablet by mouth twice daily Ciprofloxacin Hcl 500 mg tablet Discontinued 500 mg PO TWICE A DAY 60 September 13, 2023 1:00am October 03, 2023 3:03pm clarithromycin 500 mg oral tablet (16 sources) Macrolide Antimicrobial Start: 023 End: take 1 tablet by mouth twice daily Clarithromycin 500 mg tablet Discontinued 500 mg PO TWICE A DAY September 03, 2022 6:50pm November 08, 2022 7:32pm Start: 08-11-2021 End: 09-04-2021 take 1 tablet by mouth twice daily Clarithromycin 500 mg tablet Discontinued 500 mg PO TWICE A DAY August 11, 2021 1:00am September 04, 2021 12:24pm cyclobenzaprine hydrochloride 10 mg oral tablet (13 sources) Muscle Relaxant Start: 09-12-2023 End: 01-30-2024 take 1 tablet by mouth three times daily as needed for muscle spasms Cyclobenzaprine 10 mg tablet Discontinued 10 mg PO THREE TIMES A DAY as needed for muscle spasm 270 90 September 12, 2023 1:00am January 30, 2024 10:21am Start: 07-08-2018 End: 12-03-2019 take 1 tablet by mouth three times daily as needed for muscle spasms Cyclobenzaprine 5 mg tablet Discontinued 5 mg PO THREE TIMES A DAY as needed for muscle spasm 60 July 08, 2018 1:00am December 03, 2019 6:08pm doxycycline hyclate 100 mg oral tablet (10 sources) Tetracycline-class Drug Start: 07-08-2018 End: 07-08-2019 take 1 tablet by mouth twice daily Doxycycline Hyclate 100 mg tablet Discontinued 100 mg PO TWICE A DAY July 08, 2018 1:00am July 08, 2019 5:17pm Fish Oil-DHA-EPA 1,200-144-216 mg cap (3 sources) Fish Oil-DHA-EPA 1,200-144-216 mg cap Take by mouth twice daily. 0 Active Comment on above: Take by mouth twice daily. 24 hr isosorbide mononitrate 30 mg extended release oral tablet (20 sources) Nitrate Vasodilator Start: 09-11-2017 End: 08-06-2018 Isosorbide Mononitrate 30 mg tablet extended release 24 hr Discontinued 60 mg PO TWICE A DAY September 11, 2017 2:04pm August 06, 2018 10:16am Start: 09-09-2017 End: 09-11-2017 take 1 tablet by mouth twice daily, then take 1 tablet by mouth every twenty-four hours Isosorbide Mononitrate 30 mg tablet extended release 24 hr Discontinued 30 mg PO TWICE A DAY September 09, 2017 1:00am September 11, 2017 2:09pm levothyroxine sodium 0.137 mg oral tablet (20 sources) l-Thyroxine Start: 09-04-2022 End: 09-01-2024 take 1 tablet by mouth once daily Levothyroxine 137 mcg tablet Discontinued 137 ug PO DAILY September 13, 2023 1:47pm September 01, 2024 1:53pm Start: 12-04-2019 End: 09-04-2022 take 1 tablet by mouth once daily Levothyroxine 125 mcg tablet Discontinued 125 ug PO DAILY June 30, 2021 1:00am July 05, 2021 4:18pm Start: 09-30-2018 End: 12-04-2019 take 1 tablet by mouth once daily Levothyroxine 112 mcg tablet Discontinued 112 ug PO DAILY November 27, 2019 12:00am December 03, 2019 6:09pm Start: 12-07-2017 levothyroxine (SYNTHROID) 100 mcg tablet Take 137 mcg by mouth daily before breakfast. 0 12/07/2017 Active Start: 12-07-2017 levothyroxine (SYNTHROID) 100 mcg tablet Start: 09-11-2017 End: 09-30-2018 take 1 capsule by mouth once daily Levothyroxine 100 mcg capsule Discontinued 100 ug PO daily September 11, 2017 1:00am September 30, 2018 4:04pm Comment on above: Take 137 mcg by mout h daily before breakfast. meloxicam 15 mg oral tablet (13 sources) Nonsteroidal Anti-inflammatory Drug Start: 2 End: 4 take 1 tablet by mouth once daily as needed Meloxicam 15 mg tablet Discontinued 15 mg PO daily as needed August 08, 2022 3:27pm January 30, 2024 10:22am multivitamin ORAL Tab (4 sources) Start: 7 take 1 tablet by mouth once daily multivitamin ORAL Tab Take one(1) tablet daily. 0 04/30/2007 Active Comment on above: Take one(1) tablet d aily. Naltrexone (2 sources) Opioid Antagonist Start: 5 End: 5 Naltrexone 1.5 mg capsule Discontinued mg PO September 01, 2024 1:00am January 07, 2025 9:03am Start: 09-01-2024 Naltrexone 1.5 mg capsule Active mg PO September 01, 2024 1:00am nitroglycerin 0.4 mg sublingual tablet (20 sources) Nitrate Vasodilator Start: 09-09-2017 End: 03-18-2023 Nitroglycerin 0.4 mg tablet, sublingual Discontinued 0 .ROUTE .COMPLEX 75 December 26, 2020 1:24pm March 18, 2023 9:10pm DISSOLVE 1 TAB EVERY 5 MINUTES NEEDED FOR CHEST PAIN Start: 04-25-2017 End: 12-26-2020 Nitroglycerin 0.4 mg tablet, sublingual Discontinued 0.4 mg SL Q5M as needed for chest pain October 19, 2019 2:54pm December 03, 2019 6:16pm Comment on above: Dissolve 1 tablet un elva the tongue as needed for Chest Pain. If no pain relief call 911. omeprazole 20 mg delayed release oral tablet (14 sources) Proton Pump Inhibitor Start: 09-11-2017 End: 04-08-2024 take 1 tablet by mouth once daily Omeprazole 20 mg tablet,delayed release (DR/EC) Discontinued 20 mg PO daily September 11, 2017 1:00am April 08, 2024 5:00pm take 1 capsule by mouth once roc ly omeprazole (PRILOSEC) 20 mg capsule Take 20 mg by mouth once daily. 0 Active Comment on above: Take 20 mg by mouth once daily. pantoprazole 40 mg delayed release oral tablet (10 sources) Proton Pump Inhibitor Start: 8 End: 8 take 1 tablet by mouth once daily Pantoprazole 40 mg tablet,delayed release (DR/EC) Discontinued 40 mg PO daily September 09, 2017 1:00am September 11, 2017 2:06pm predniSONE 20 mg oral tablet (12 sources) Start: 5 End: take 2 tablets by mouth once daily Prednisone 20 mg tablet Discontinued 40 mg PO DAILY August 31, 2024 1:00am January 07, 2025 9:03am Start: 08-11-2021 End: 09-04-2021 take 2 tablets by mouth once daily Prednisone 20 mg tablet Discontinued 40 mg PO DAILY August 11, 2021 1:00am September 04, 2021 12:24pm Start: 08-11-2021 End: 09-04-2021 take 40 mg by mouth once daily Prednisone Discontinued 40 MG PO DAILY August 11, 2021 12:00am September 04, 2021 11:24am rivaroxaban 20 mg oral tablet (10 sources) Factor Xa Inhibitor Start: 09-04-2021 End: 12-06-2021 take 1 tablet by mouth once daily at dinner Rivaroxaban (Xarelto) 20 mg tablet Discontinued 20 mg PO DAILY September 04, 2021 1:00am December 06, 2021 1:30pm must administer with evening meal rosuvastatin calcium 10 mg oral tablet (20 sources) HMG-CoA Reductase Inhibitor Start: 09-11-2017 End: 08-31-2024 take 1 tablet by mouth once daily Rosuvastatin 10 mg tablet Discontinued 10 mg PO daily September 09, 2020 8:30pm October 20, 2021 4:02pm Comment on above: Take 10 mg by mouth once daily. tadalafil 20 mg oral tablet (20 sources) Phosphodiesterase 5 Inhibitor Start: 08-25-2015 End: 08-06-2018 Tadalafil 20 mg tablet Discontinued 20 mg PO .COMPLEX August 04, 2018 10:31pm August 06, 2018 5:06pm 20 mg PO 1 tablet by mouth as needed 1-2hours before sexual activity Comment on above: Take 1 tablet by mouth as needed. 1-2 ho urs before sexual intercourse testosterone cypionate 200 mg/ml injectable solution (20 sources) Androgen Start: 03-11-2019 End: 03-11-2019 inject 200 mg by intramuscular injection once testosterone cypionate 200 mg/mL intramuscular kit Discontinued 100 MG IM ONCE March 11, 2019 6:00pm March 11, 2019 6:20pm Start: 02-18-2019 End: 02-18-2019 inject 200 mg by intramuscular injection once testosterone cypionate 200 mg/mL intramuscular kit Discontinued 100 MG IM ONCE February 18, 2019 5:30pm February 18, 2019 6:03pm Start: 01-28-2019 End: 01-28-2019 inject 200 mg by intramuscular injection once testosterone cypionate 200 mg/mL intramuscular kit Discontinued 100 MG IM ONCE January 28, 2019 3:00pm January 28, 2019 5:50pm Start: 01-07-2019 End: 01-07-2019 inject 200 mg by intramuscular injection once testosterone cypionate 200 mg/mL intramuscular kit Discontinued 100 MG IM ONCE January 07, 2019 3:00pm January 07, 2019 4:54pm Start: 12-17-2018 End: 12-17-2018 inject 200 mg by intramuscular injection once testosterone cypionate 200 mg/mL intramuscular kit Discontinued 100 MG IM ONCE December 17, 2018 5:30pm December 17, 2018 4:54pm Start: 12-17-2018 End: 12-17-2018 inject 200 mg by intramuscular injection once testosterone cypionate 200 mg/mL intramuscular kit Discontinued 100 MG IM ONCE December 17, 2018 5:30pm December 17, 2018 4:54pm Start: 12-17-2018 End: 12-17-2018 inject 200 mg by intramuscular injection once testosterone cypionate 200 mg/mL intramuscular kit Discontinued 100 MG IM ONCE December 17, 2018 5:30pm December 17, 2018 4:54pm Start: 12-10-2018 End: 12-10-2018 inject 200 mg by intramuscular injection once testosterone cypionate 200 mg/mL intramuscular kit Discontinued 100 MG IM ONCE December 10, 2018 5:30pm December 10, 2018 6:09pm Start: 12-03-2018 End: 12-03-2018 inject 200 mg by intramuscular injection once testosterone cypionate 200 mg/mL intramuscular kit Discontinued 100 MG IM ONCE December 03, 2018 5:00pm December 03, 2018 7:18pm TURMERIC ROOT EXTRACT ORAL (4 sources) TURMERIC ROOT EX TRACT ORAL Take by mouth once daily. 0 Active Comment on above: Take by mouth once d aily. ubidecarenone 100 mg / vitamin e 150 unt oral capsule (4 sources) Start: 02-04-2013 take 1 tablet by mouth once daily Coenzyme R99-Uhmxmti E 100-150 mg-unit cap Take 1 tablet by mouth once daily. 0 02/04/2013 Active Comment on above: Take 1 tablet by maryanne once daily. Vitamin B Complex-Folic Acid (Super B Maxi Complex) 0.4 mg tablet (2 sources) Start: 03-06-2024 End: 01-07-2025 take 1 tablet by mouth once daily Vitamin B Complex-Folic Acid (Super B Maxi Complex) 0.4 mg tablet Discontinued 1 {tbl} PO DAILY March 06, 2024 12:00am January 07, 2025 9:04am Start: 03-06-2024 take 1 tablet by maryanne once daily Vitamin B Complex-Folic Acid (Super B Maxi Complex) 0.4 mg tablet Active 1 {tbl} PO DAILY March 06, 2024 12:00am Problems Active Problems Problem Classification Problem Date Documented Da te Episodic/Chronic Abdominal hernia (2 sources) Epigastric hernia; Translations: [Ventral hernia without obstruction or gangrene] Onset: 3 04-01-2023 Episodic Abdominal pain (10 sources) Right flank pain; Translations: [Unspecified abdominal pain] 12-02-2020 Episodic Acquired foot deformities (1 source) Other hammer toe(s) (acquired), left foot; Translations: [Hammertoe of left foot] Onset: 3 Chronic Aortic; peripheral; and visceral artery aneurysms (6 sources) Aneurysm of splenic artery; Translations: [Aneurysm of other specified arteries] Onset: 8 02-05-2018 Chronic Cancer of prostate (2 sources) Malignant tumor of prostate; Translations: [Malignant neoplasm of prostate] 12-29-2024 Chronic Comment on above: MRI Pirads 4 Cardiac dysrhythmias (5 sources) Bradycardia; Translations: [Bradycardia, unspecified] Onset: 5 05-07-2024 Episodic Chronic obstructive pulmonary disease and bronchiectasis (10 sources) Bronchitis; Translations: [Bronchitis, not specified as acute or chronic] 08-07-2022 Episodic Coronary atherosclerosis and other heart disease (20 sources) Coronary atherosclerosis; Translations: [Atherosclerotic heart disease of mi'kmaq coronary artery without angina pectoris] Onset: 6 Chronic Comment on above: CABG x3- WEISS to LAD , NELSON to 1st diagonal, and SVG to posterolateral CX 07/01/02 patient denies any recurrence of his upper back discomfort with exertion. The patient's had no real change in his exercise tolerance. I went over with him the reasoning behind avoiding surveillance yearly stress testing. We discussed developing a routine aerobic exercise program to monitor his cardiovascular status in his home environment. Coronary atherosclerosis and other heart disease (7 sources) Presence of aortocoronary bypass graft; Translations: [Aortocoronary bypass status] Onset: 2 Episodic Disorders of lipid metabolism (20 sources) Hyperlipidemia; Translations: [Hyperlipidemia, unspecified] Onset: 6 Chronic Comment on above: Other than is diffic ult to control triglycerides his lipids are at goal. Esophageal disorders (3 sources) Gastroesophageal reflux disease without esophagitis; Translations: [Gastro-esophageal reflux disease without esophagitis] Onset: 3 06-24-2023 Chronic Essential hypertension (3 sources) Hypertensive disorder; Translations: [Essential (primary) hypertension] Onset: 3 06-24-2023 Chronic Genitourinary symptoms and ill-defined conditions (3 sources) Increased frequency of urination; Translations: [Frequency of micturition] 09-12-2023 Episodic Malaise and fatigue (10 sources) Fatigue; Translations: [Other fatigue] 01-18-2021 Episodic Other and unspecified benign neoplasm (3 sources) Lipoma of abdominal wall; Translations: [Benign lipomatous neoplasm of skin and subcutaneous tissue of trunk] 02-27-2023 Episodic Other connective tissue disease (7 sources) Pain in left lower limb; Translations: [Pain in left leg] 01-09-2022 Episodic Other liver diseases (2 sources) Increased creatine kinase level; Translations: [Abnormal levels of other serum enzymes] 04-08-2024 Episodic Other lower respiratory disease (2 sources) Cough; Translations: [Cough] 09-01-2024 Episodic Other male genital disorders (4 sources) Male erectile dysfunction, unspecified; Translations: [Impotence of organic origin] Onset: 6 08-23-2015 Chronic Other nervous system disorders (7 sources) Neuropathy of lower limb; Translations: [Unspecified mononeuropathy of bilateral lower limbs] 08-15-2021 Chronic Other nervous system disorders (3 sources) Bilateral peripheral neuropathy of lower limbs; Translations: [Unspecified mononeuropathy of bilateral lower limbs] 08-15-2021 Chronic Other non-traumatic joint disorders (10 sources) Joint pain; Translations: [Pain in unspecified joint] 10-20-2021 Episodic Other non-traumatic joint disorders (7 sources) Pain in lower limb; Translations: [Pain in unspecified knee] 01-09-2022 Episodic Other screening for suspected conditions (not mental disorders or infectious disease) (12 sources) Cardiovascular stress test abnormal; Translations: [Abnormal result of other cardiovascular function study] 09-11-2017 Episodic Other skin disorders (6 sources) Excessive sweating; Translations: [Generalized hyperhidrosis] Onset: 6 03-28-2016 Episodic Other skin disorders (1 source) Generalized hyperhidrosis; Translations: [Generalized hyperhidrosis] Onset: 5 Episodic Other upper respiratory infections (6 sources) Maxillary sinusitis; Translations: [Chronic maxillary sinusitis] 09-03-2022 Chronic Otitis media and related conditions (16 sources) Otitis media; Translations: [Otitis media, unspecified, left ear] 09-03-2022 Episodic Peripheral and visceral atherosclerosis (11 sources) Peripheral vascular disease, unspecified; Translations: [Peripheral arterial disease] Chronic Phlebitis; thrombophlebitis and thromboembolism (20 sources) Deep venous thrombosis; Translations: [Acute embolism and thrombosis of unspecified deep veins of unspecified lower extremity] Onset: 3 09-09-2021 Episodic Residual codes; unclassified (10 sources) Flushing; Translations: [Flushing] 08-07-2022 Episodic Residual codes; unclassified (10 sources) Abnormal flushing and sweating; Translations: [Flushing] 08-07-2022 Episodic Spondylosis; intervertebral disc disorders; other back problems (3 sources) Degeneration of lumbar intervertebral disc; Translations: [Other intervertebral disc degeneration of lumbar region] Onset: 4 01-30-2024 Chronic Thyroid disorders (16 sources) Hypothyroidism; Translations: [Hypothyroidism, unspecified] Onset: 3 07-03-2019 Chronic Past or Other Problems Problem Classification Problem Date Documented Da te Episodic/Chronic Other liver diseases (1 source) Abnormal levels of other serum enzymes; Translations: [Abnormal levels of other serum enzymes] Onset: 05-07-2024 Episodic Spondylosis; intervertebral disc disorders; other back problems (20 sources) Chronic low back pain; Translations: [Chronic low back pain] Onset: 08-05-2024 Episodic Comment on above: L2-L3 and L3-L4 Results Test Name Value Interpretation Reference Range Facility SURGICAL PATH REPORTon 01-11 SURGICAL PATH REPORT [facility] Department of Pathology [address] [place] [address] Name: JORGE GUILLEN : 1945 [facility] [id number] Number: Gender Male Locatio ASC : n: Admit 79 years Attending RICARDO OCHOA MD Age: Provider: Ordering RICARDO OCHOA MD Provider: Alexandriai Surgical Pathology Report ng: ACCESSION: COLLECTED DATE/TIME: RECEIVED DATE/TIME: PATHOLOGIST: [id number] 01/05/2025 12:36 EDT 01/05/2025 13:22 EDT ANGELI MCGRATH MD Final Diagnosis Report Type: C-1100 A. PROSTATE TISSUE, REGION OF INTEREST #1, CORE NEEDLE BIOPSY: --ADENOCARCINOMA, DELORES PATTERN 3 + 3 = 6, GRADE GROUP 1, INVOLVING 1 OF 3 CORES, AND APPROXIMATELY 10% OF THE SPECIMEN. SEE NOTE. Note: Immunostains for basal cell-specific markers PIN4 confirm the absence of basal cells in the malignant acini. B. PROSTATE TISSUE, LEFT LATERAL BASE, NEEDLE CORE BIOPSY: --PROSTATE TISSUE, NO EVIDENCE OF MALIGNANCY, SEE NOTE Note: Immunohistochemical stain for basal cell specific markers PIN 4 highlights basal cells, supporting above diagnosis. C. PROSTATE, LEFT LATERAL MID, NEEDLE CORE BIOPSY: --PROSTATE TISSUE, NO EVIDENCE OF MALIGNANCY D. PROSTATE TISSUE, LEFT LATERAL APEX, NEEDLE CORE BIOPSY: --ADENOCARCINOMA, DELORES PATTERN 3 + 3 = 6, GRADE GROUP 1, INVOLVING 1 OF 1 CORE, AND APPROXIMATELY 40% OF THE SPECIMEN. SEE NOTE. Note: Immunostains for basal cell-specific markers PIN4 confirm the absence of basal cells in the malignant acini. E. PROSTATE TISSUE, LEFT MEDIAL BASE, NEEDLE CORE BIOPSY: --PROSTATE TISSUE, NO EVIDENCE OF MALIGNANCY ____ Print 01/11/2025 09:46 EDT Number: Date/Time: [facility] Department of Pathology [address] [place] [address] Name: JORGE GUILLEN : 1945 [facility] [id number] Number: Gender Male Locatio SW ASC : n: Admit 79 years Attending RICARDO OCHOA MD Age: Provider: Ordering RICARDO OCHOA MD Provider: Consulti Surgical Pathology Report ng: ACCESSION: COLLECTED DATE/TIME: RECEIVED DATE/TIME: PATHOLOGIST: [id number] 01/05/2025 12:36 EDT 01/05/2025 13:22 EDT ANGELI MCGRATH MD Final Diagnosis F. PROSTATE TISSUE, LEFT MEDIAL MID, NEEDLE CORE BIOPSY: --PROSTATE TISSUE, NO EVIDENCE OF MALIGNANCY G. PROSTATE TISSUE, LEFT MEDIAL APEX, NEEDLE CORE BIOPSY: --PROSTATE TISSUE, NO EVIDENCE OF MALIGNANCY H. PROSTATE TISSUE, RIGHT LATERAL BASE, NEEDLE CORE BIOPSY: --PROSTATE TISSUE, NO EVIDENCE OF MALIGNANCY I. PROSTATE TISSUE, RIGHT LATERAL MID, NEEDLE CORE BIOPSY: --PROSTATE TISSUE, NO EVIDENCE OF MALIGNANCY J. PROSTATE, RIGHT LATERAL APEX, NEEDLE CORE BIOPSY: --PROSTATE TISSUE WITH FOCAL HIGH-GRADE PROSTATIC INTRAEPITHELIAL NEOPLASM K. PROSTATE TISSUE, RIGHT MEDIAL BASE, NEEDLE CORE BIOPSY: --PROSTATE TISSUE, NO EVIDENCE OF MALIGNANCY L. PROSTATE TISSUE, RIGHT MEDIAL MID, NEEDLE CORE BIOPSY: --PROSTATE TISSUE, NO EVIDENCE OF MALIGNANCY M. PROSTATE TISSUE, RIGHT MEDIAL APEX, NEEDLE CORE BIOPSY: --PROSTATE TISSUE, NO EVIDENCE OF MALIGNANCY ANGELI MCGRATH PATHOLOGIST (Electronic Signature) Date Verified 01/11/2025 SS ____ Print 01/11/2025 09:46 EDT Number: Date/Time: [facility] Department of Pathology [address] [place] [id number] [phone] Name: JORGE GUILLEN : 1945 [facility] [id number] Number: Gender Male Locatio ASC : n: Admit 79 years Attending RICARDO OCHOA MD Age: Provider: RICARDO Machado MD Provider: Willem Surgical Pathology Report ng: ACCESSION: COLLECTED DATE/TIME: RECEIVED DATE/TIME: PATHOLOGIST: [id number] 01/05/2025 12:36 EDT 01/05/2025 13:22 EDT ANGELI MCGRATH MD Clinical Data PREOP DIAGNOSIS: ELEVATED PSA POSTOP DIAGNOSIS: SAME PROCEDURE: URONAV FUSION BIOPSY SPECIMEN: A REGION OF INTEREST #1 B LEFT LATERAL BASE C LEFT LATERAL MID D LEFT LATERAL APEX E LEFT MEDIAL BASE F LEFT MEDIAL MID G LEFT MEDIAL APEX H RIGHT LATERAL BASE I RIGHT LATERAL MID J RIGHT LATERAL APEX K RIGHT MEDIAL BASE L RIGHT MEDIAL MID M RIGHT MEDIAL APEX Gross Description A. Labeled LATA #1. Received in formalin are 3 similar cylindrical segments of kahn-white soft tissue. These measure 0.9-1.1 cm in length. Each has a cross diameter of 0.1 cm. The specimen is entirely submitted in one cassette. B. Labeled LLB. Received in formalin is a single cylindrical segment of kahn-white soft tissue measuring 1.5 cm in length with a cross diameter of 0.1 cm. The specimen is entirely submitted in one casset (more content not included)... Normal [facility] Comment on above: Performed By: #### [id number] #### [facility] Laboratory Services [address] [place] [address] Stopper Setter: Deepak Chavez MD Cardiology Visit Reporton Cardiology Visit Report [facility] [address] [place], [place] [address] OFFICE VISIT Date of Service: 01/07/25 MR#: [id number] Acct: [id number] Name: JORGE GUILLEN Rep #: [id number] : 1945 Provider: ANDREW martell Age/Sex: 79/M Location: [facility] Status: Signed HPI HPI History of Present Illness Details: This is a 79-year-old white male who presents today for outpatient cardiovascular follow-up for newly identified bradycardia. The patient's prior anginal equivalent prior to his bypass graft surgery in 2001 at [facility] was upper back discomfort that occurred with activity and resolves with rest. He denies chest, arm, jaw, or neck discomfort. He denies upper back pain between shoulder blades. He denies palpitations. He denies bilateral lower extremity edema. He denies claudication. He states shortness of breath with activity such as walking more than 100 feet. He denies shortness of breath walking to our office. He denies shortness of breath at rest, orthopnea, or PND. He denies chronic cough. He denies significant, sudden weight gain. He denies lightheadedness, dizziness, near- syncope, or syncope. He denies blood in urine, blood in stool, or epistaxis. He denies fever with chills. He denies myalgia. He denies fatigue. His exercise level has remained stable, but limited due to back pain. Intake Vital Signs 05/07/24 09:58 12/29/24 16:03 01/07/25 08:58 Height 6 ft 6 ft 6 ft Weight: 205 lb BMI 27.8 BP 117/77 Blood Pressure Location Lt brachial Position Sitting Respiration 16 Pulse 57 L Pulse Source NIBP Intake Visit Reasons: 6 M FU Beef Specialist Required: No Is patient in pain?: No Allergies Iodinated Contrast Media Allergy (Verified 01/07/25 09:02) PT UNSURE OF REACTION iodine Allergy (Verified 01/07/25 09:02) Rash Medications ???Medication ???Instructions ???Recorded ???Confirmed ???Type aspirin 81 mg chewable tablet 81 mg PO DAILY@0800 06/13/1401/07 History multivitamin with folic acid 400 1 tab PO DAILY 06/13/14 01/07/25 H istory mcg tablet latanoprost 0.005 % eye drops 1 drp ophthalmic (eye) QHS 8 01/07/25 History cholecalciferol (vitamin D3) 50 2,000 unit PO QDAY 09/11/17 History mcg (2,000 unit) capsule lutein 20 mg capsule 20 mg PO QDAY 09/11/17 01/07/25 Hi story tadalafil 20 mg tablet 20 mg PO .COMPLEX #30 tabs 9 01/07/25 Rx coenzyme Q10 100 mg capsule 300 mg PO QDAY 07/08/19 01/07/25 H istory turmeric root extract 1,053 mg 1,500 mg PO DAILY 07/08/19 5 History tablet ascorbic acid (vitamin C) 1,000 mg 1 g PO DAILY 07/06/20 01/07/25 H istory tablet psyllium husk 0.4 gram capsule 0.4 g PO BID 07/06/20 01/07/25 His tory (Daily Fiber) nitroglycerin 0.4 mg sublingual See Rx Instructions .Route 3 01/07/25 Rx tablet .COMPLEX #75 tabs biotin 5,000 mcg chewable tablet mcg PO BID 05/07/24 01/07/25 Histo ry rosuvastatin 10 mg tablet 10 mg PO QDAY #90 tabs 08/31/24 Rx levothyroxine 137 mcg tablet 137 mcg PO DAILY #90 tabs 09/01/24 01/07/25 Rx atenolol 25 mg tablet 25 mg PO DAILY #90 tabs 01/07/25 0 01/07/25 Rx Have you fallen in the past year?: Yes (Trip and fall) Nurse's Note: Needs refill on atenolol. [facility] Medical History Prostate cancer Bronchitis Right leg DVT Left otitis media Flushing reaction Abnormal flushing and sweating Pneumonia Right flank pain Muscular abdominal pain in right flank Hypothyroidism BPH (benign prostatic hyperplasia) Lymphadenopathy of head and neck Kidney stone Muscle ache of extremity Shoulder pain, left Neck pain Hypothyroidism Abnormal stress test Angina pectoris Peptic ulcer disease Mononeuritis Hyperlipidemia Atherosclerotic heart disease of mi'kmaq coronary artery without angina pectoris Surgical History History of foot surgery History of coronary artery bypass surgery ( 07/01/02) Splenic artery aneurysm History of hernia repair H/O repair of rotator cuff H/O arthroscopy of left knee Family History Father Heart disease Social History Smoking Status: Never smoker alcohol intake: current alcohol intake frequency: a few times a week Alcohol type: wine substance use type: does not use caffeine: Yes Type: coffee Number of servings: 1 ROS Const Const: Positive for other (Cold sweats easily ); Negative for fatigue or weakness Eyes Eyes: Negative for change in vision ENT ENT: Negative for dizziness or balance problems Cardio Chest Pain: No Palpitations: No Edema: None Muscle aches with walking: (more content not included)... Normal [facility] Discharge Educationon 2024 Discharge Education Patient Education Material Normal [facility] Inpatient Patient Summaryon 01-05-2025 Inpatient Patient Summary [facility] Discharge Instructions [address] [place] [address] (Patient Copy) Name: JORGE GUILLEN : 1945 Diagnosis: Allergies: contrast media (iodine-based) Registration Date: 01/05/25 Current Date Time: 01/05/2025 13:03:34 Address: [address] [place] [address] Phone: [phone] Primary Care Provider: Name: Phone: Thank you for choosing [facility] for your care. You are very important to us. Our goal is to demonstrate our high quality medical care and provide you with a very good patient experience. You may receive a survey about our service. Please take the time to complete the survey and return it so we can continue to enhance our service. Thank you again for allowing [facility] to care for your medical needs. If you have any questions about your care or follow up information please contact your doctor. Follow-up Instructions The following Appointments have been made for you: Please Note: the first letters listed in the order is the location code, followed by the appointment date, and scheduled provider Future Appointments No Future Appointments Scheduled Provider Follow Ups: With: Address: When: RICARDO OCHOA, Urology [address] [facility] [place] [address] Business (1) Within 1 to 2 weeks If you have had an intravenous catheter (IV) during your stay, keep the dressing dry and do not remove it from the site for at least 24 hours or as instructed by your provider to prevent problems. Medication Information Only Take The Medicines On This List. Keep This List and Bring It To Your Next Appointment. Medicines To Take At Home: Medicine Name (Generic Name) Amount to Take How to Take it How Often to Take it Additional Instructions Next Dose Due ascorbic acid 1000 mg oral tablet (ascorbic acid) 1,000 mg By Mouth DAILY aspirin 81 mg oral capsule (aspirin) 81 mg By Mouth DAILY atenolol 25 mg oral tablet (atenolol) 25 mg By Mouth DAILY biotin 5000 mcg oral capsule (biotin) 1 caps By Mouth TWICE A DAY cholecalciferol 50 mcg (2000 intl units) oral capsule (cholecalciferol) 50 mcg By Mouth DAILY latanoprost 0.005% ophthalmic solution (latanoprost ophthalmic) 1 drops Both Eyes AT BEDTIME levoFLOXacin 750 mg oral tablet (levofloxacin = levaquin) 750 mg By Mouth ONCE levothyroxine 137 mcg (0.137 mg) oral tablet (levothyroxine) 137 mcg By Mouth DAILY BEFORE BREAKFAST lutein 20 mg oral capsule (lutein) 20 mg By Mouth DAILY multivitamin (multivitamin) 1 tabs By Mouth DAILY nitroglycerin 0.4 mg sublingual tablet (nitroglycerin) 0.4 mg Sublingual EVERY FIVE MINUTES Take as needed for chest pain psyllium (psyllium) 0.4 g By Mouth TWICE A DAY rosuvastatin 10 mg oral tablet (rosuvastatin) 10 mg By Mouth DAILY Tadalafil (Eqv-Cialis) 20 mg oral tablet (tadalafil) 20 mg By Mouth DAILY Take as needed for Erectile Dysfunction Turmeric (turmeric) 1,500 mg By Mouth DAILY Coenzyme Q10 (ubiquinone) 300 mg By Mouth DAILY Understanding your home medicine is important to keeping you healthy. If you are taking medications that are not on the preceding list, please call your doctor to see if you are to continue taking that medication. It is important that you do not skip or make up doses. If you are ordered an antibiotic, finish taking all the medicine unless your doctor tells you otherwise. Call your doctor if you have any questions or problems. Take the medicine list with you to all follow up appointments. Patient education materials, if any, will display below Prescription leaflets, if any, will display below Guidelines for a Healthy Lifestyle: ACTIVITY Follow your doctors instructions regarding staying active Balance rest and activity. Continue to do the activities you enjoy if okay with your doctor. Both activity and rest are important to the health of your heart. Avoid people with colds / flu. SMOKING Do not smoke or use other nicotine products. Nicotine is in all tobacco products. Nicotine causes damage to the heart, brain, and lungs. It is never too late to quit. Even if you have smoked for years, you can benefit from quitting or smoking less. If you or a loved one is interested in more information on smoking cessation, contact [facility] [phone] DIET Eat a variety of nutritious foods from all the food groups. To get the nutrients you need, choose foods like vegetables, fruits, whole-grain products and fat-free or low-fat dairy products most often. Your food choices each day affect your health. Here are some tips for a healthy diet for most people. ? Go Lean with Protein---Meats and Dairy products ? Choose a variety of Fruits and Vegetables daily ? Choose whole grains ? Limit Processed and packaged prepared foods To schedule an outpati (more content not included)... Normal [facility] Operative Reporton Operative Report JORGE GUILLEN :1945 Registration Date:01/05/2025 Date of Operation 01/05/2025 13:00 Indication for Surgery PSA of 5.98 MRI shows 1 lesion of interest PI-RADS 4 *Preoperative Diagnosis Elevated PSA 5.98 MRI reveals 1 lesion of interest PI-RADS 4 *Postoperative Diagnosis Same Operative Procedure Uronavigated fusion biopsy of prostate Surgeon(s) RICARDO OCHOA MD (Surgeon Primary) Indication for Teleservices Representative Given the inherent complexity of this surgery, a second surgeon or a surgically skilled Physician Shuttleless Loom Weaver was necessary for the successful completion of this entire operative procedure. The insurance claims assistant was essential for safe and proper positioning of the patient, initial tissue dissection, complex manipulation and retraction of soft tissue, achieving hemostasis, maintaining exposure, and complex multilayer wound closure. Anesthesia MAC JOSIE VILCHIS MD (Players [employer] Representative) LILA GEIGER CRNA (Provider) *Specimen(s) Prostate tissue *Complications None Description of Procedure Patient received IV and oral antibiotics preoperatively after adequate MAC anesthesia was placed in the left lateral decubitus position ultrasound probe was used to perform a transrectal ultrasound the prostate in the transverse and longitudinal modes 3 core biopsies were taken from the 1 lesion of interest in 12 systemic core biopsies were taken in the usual fashion there are no complications patient left the operating room in good condition. Normal [facility] L509.3001on 12-31-2024 Testosterone [Mass/Vol] 318.00 ng/dL Normal 300-720 [facility] Comment on above: Performed By: #### L 509.3001 #### [facility] Laboratory [address] [place], [address] Laboratory - Chemistry and C hemistry - challengeOrdered By: Ira Corey on 12-30-2024 Testosterone [Mass/Vol] 318.00 ng/dL 300-720 [facility] [id number] 12-29-2024 CORTISOL 5.22 ug/dL Normal 2.68-10.50 [facility] Comment on above: Performed By: #### L [id number], L509.6002, L501.9940 ####[facility] [address] [place], [address] PSA,Total- [employer] 12-20 PSA, DIAGNOSTIC 4.50 ng/mL High 0.00-4.00 [facility] Comment on above: Result Comment: This test was performed using the [employer] tPSA method. Measured values of a patient??sample can vary depending on the testing procedure used. PSA values determined on patient samples by different testing procedures cannot be used interchangeably. If there is a change in PSA assays while monitoring therapy, sequential testing should be performed to confirm baseline values. Performed By: #### L 501.9520, L509.6002, L501.9940 ####[facility] [address] [place], [address] Serum or plasma cortisol jose m surement (mass/volume)Ordered By: Ira Corey on 12-29-2024 Cortisol [Mass/Vol] 5.22 ug/dL 2.68-10.50 [facility] TSH DL <= 0.005 mIU/L QnOrde red By: rIa Corey on 12-29-2024 TSH Qn 2.260 uIU/mL 0.300-4.200 [facility] Thyroid Stim Hormone (TSH)on 12-29-2024 TSH 2.260 uIU/mL Normal 0.300-4.200 [facility] Comment on above: Performed By: #### L 501.9520, L509.6002, L501.9940 ####[facility] [id number] [place], [address] UAon 12-29-2024 U MICRO Indicated Normal [facility] Comment on above: Performed By: #### 1 23555 #### [facility] Services [address] [place] [address] Stopper Setter: Deepak Chavez MD Appearance, U Clear Normal Clear [facility] Comment on above: Performed By: #### 1 90058 #### [facility] Services [address] [address] Stopper Setter: Deepak Chavez MD Bilirubin, U Negative Normal Negative [facility] Comment on above: Result Comment: Bili hernandez, U: Initial positive urine bilirubin results are not confirmed. Interfering substances may include elevated urobilinogen. Trace = 0.5-1.0 mg/dL Small = 2.0-4.0 mg/dL Moderate = 6.0-8.0 mg/dL Large = 10 mg/dl and greater Performed By: #### 1 32421 #### [facility] Services [address] [place] [address] [id number] Stopper Setter: Deepak Chavez MD Blood, U Negative Normal Negative [facility] Comment on above: Result Comment: Bloo d, U: Trace = 0.03-0.05 mg/dL Small = 0.06-0.1 mg/dL Moderate = 0.2-0.5 mg/dL Large = 1.0 mg/dL and greater Performed By: #### 1 68670 #### [facility] Services [address] [place] [address] Stopper Setter: Deepak Chavez MD Color, U Yellow Normal Yellow [facility] Comment on above: Performed By: #### 1 14772 #### [facility] Services [address] [address]138 Stopper Setter: Deepak Chavez MD Glucose Qual, U Negative Normal Negative [facility] Comment on above: Performed By: #### 1 55116 #### [facility] Services [address] [place] [address]148 Stopper Setter: Deepak Chavez MD Ketones, U Negative Normal Negative [facility] Comment on above: Performed By: #### 1 51198 #### [facility] Services [address] [place] [address] Stopper Setter: Deepak Chavez MD Leukocyte Esterase, U Negative Normal Negative [facility] Comment on above: Result Comment: Leuk ocyte Esterase, U: Trace = 25 Davon/uL Small = 75 Davon/uL Moderate = 250 Davon/uL Large = 500 Davon/uL and greater Performed By: #### 1 75311 #### [facility] Services [address] [place] [address]77 Stopper Setter: Deeapk Chavez MD Nitrite, U Negative Normal Negative [facility] Comment on above: Performed By: #### 1 06134 #### [facility] Services [address] [place] [address] 29140 Stopper Setter: Deepak Chavez MD pH, U 6.5 Normal 4.5-8.0 [facility] Comment on above: Performed By: #### 1 41953 #### [facility] Services [address] [place] [address] 47[address] Stopper Setter: Deepak Chavez MD Protein, U 20 mg/dl Abnormal Negative [facility] Comment on above: Performed By: #### 1 62830 #### [facility] Services [address] [place] [address] 879[address] Stopper Setter: Deepak Chavez MD RBC/HPF, U 2 #/HPF Normal 0-3 [facility] Comment on above: Performed By: #### 1 63390 #### [facility] Services [address] [place] [address] Stopper Setter: Deepak Chavez MD Specific Blair, U 1.023 Normal 1.001-1.035 [facility] Comment on above: Performed By: #### 1 44881 #### [facility] Services [address] [place] [address] 28368 Stopper Setter: Deepak Chavez MD Urobilinogen Qual, U 2 mg/dl Abnormal < 2 mg/dl [facility] Comment on above: Result Comment: Urob ilinogen, U: EU/dl and mg/dl are equivalent units. Performed By: #### 1 32818 #### [facility] Services [address] [place] [address] 111[address] Stopper Setter: Deepak Chavez MD WBC/HPF, U <1 Normal 0-5 [facility] Comment on above: Performed By: #### 1 63689 #### [facility] Laboratory [place] [id number] Stopper Setter: Deepak Chavez MD MR PROSTATE W and WO CONTon 12-15-2024 MR PROSTATE W and WO CONT MR PROSTATE WITHOUT THEN WITH IV CONTRAST CLINICAL STATEMENT: R97.20;OTHER REASON. TECHNOLOGIST NOTES: WHAT SYMPTOMS ARE YOU EXPERIENCING?; 9cc VUEWAY. Sporaqtic PSA levels, up and down, over 2 yr period. No complaints, per pt. Technique: MRI of the prostate with and without contrast including 3-D postprocessing on an independent [employer] workstation with active physician supervision and interpretation. Precontrast T1 and T2 weighted images were obtained from the superior iliac crest to the inferior pubic ramus. Subsequently, 3 planes of high resolution T2 weighted imaging, diffusion weighted imaging, and dynamic contrast enhanced imaging was performed. This test is designed to evaluate for clinically significant prostate cancer defined as [place] 7 or greater including either [place] 4 + 3, or [place] 3 + 4 with a significant [place] 4 component. Patients with [place] 7 (3 + 4) cancer without significant [place] 4 component, and [place] 6 or less prostate cancer are not expected to have significant abnormal imaging findings. Findings: There are diffusely scattered peripheral zone linear regions of T2 hypointensity and diffuse scattered regions of linear associated restricted diffusion, inflammatory changes. RIGHT PERIPHERAL ZONE: Right base: No evidence of clinically significant neoplasm. Right mid: No evidence of clinically significant neoplasm. Right apex: LATA 1: Within the right posterior lateral peripheral zone of the gland apex is 1.2 x 0.5 x 0.6 cm region of T2 hypointensity and restricted diffusion, with early contrast enhancement, PIRADS 4. (7:22). LEFT PERIPHERAL ZONE: Left base: No evidence of clinically significant neoplasm. Left mid: No evidence of clinically significant neoplasm. Left apex: No evidence of clinically significant neoplasm. Central gland: Multiple circumscribed heterogenous nodules are seen within the central gland most compatible with BPH change (PI-RADS 2 - clinically significant cancer is unlikely to be present). Seminal vesicles: Unremarkable. Adjacent structures/Neurovascular Bundle: Unremarkable. Lymph nodes: No lymphadenopathy. Bones: No suspicious osseus lesion. Prostate volume: The prostate measures 4.7 x 3.4 x 3.5 cm. This corresponds to a volume of 30.3 mL. Other: Colonic diverticulosis. Impression: 1. A 1.2 cm PI-RADS 4 lesion in the right posterior lateral peripheral zone of the gland apex Electronically signed by: Nasreen Olmos MD 12/15/2024 09:46 AM EDT RP Technologist: SARI LEVIN Dictated By: NASREEN OLMOS MD Signed By: NASREEN OLMOS MD Signed Out: 12/15/24 09:46:50 Normal [facility] Comprehensive Metabolic Prof ilon 09-01-2024 Albumin [Mass/Vol] 3.9 g/dL Normal 3.2-5.0 [facility] Comment on above: Performed By: #### L 500.4100, L500.4050, L501.9520, L501.9940, L100.0100 #### [facility] [address] [place], [address] Albumin/Globulin [Mass ratio] 1.1 {ratio} Normal 0.9-2.4 [facility] Comment on above: Performed By: #### L 500.4100, L500.4050, L501.9520, L501.9940, L100.0100 #### [facility] Laboratory [address] [place], [address] ALK P 68 U/L Normal 45-117 [facility] Comment on above: Performed By: #### L 500.4100, L500.4050, L501.9520, L501.9940, L100.0100 #### [facility] Laboratory [address] [place], [address] ALT [Catalytic activity/Vol] 40 U/L Normal 16-61 [facility] Comment on above: Performed By: #### L 500.4100, L500.4050, L501.9520, L501.9940, L100.0100 #### [facility] [address] [place], [address] AST [Catalytic activity/Vol] 32 U/L Normal 15-37 [facility] Comment on above: Performed By: #### L 500.4100, L500.4050, L501.9520, L501.9940, L100.0100 #### [facility] [address] [place], [address] Bilirubin [Mass/Vol] 0.50 mg/dL Normal 0.20-1.00 [facility] Comment on above: Result Comment: For patients on eltrombopag therapy, use of Dimension [place] TBIL is not recommended. Performed By: #### L 500.4100, L500.4050, L501.9520, L501.9940, L100.0100 #### [facility] [address] [place], [address] BUN/CRE 18.8 RATIO Normal 10-20 [facility] Comment on above: Performed By: #### L 500.4100, L500.4050, L501.9520, L501.9940, L100.0100 #### [facility] [address] [place], [address] CA,Total 9.1 mg/dL Normal 8.5-10.1 [facility] Comment on above: Performed By: #### L 500.4100, L500.4050, L501.9520, L501.9940, L100.0100 #### [facility] [address] [place], [address] Chloride [Moles/Vol] 104 mmol/L Normal 98-107 [facility] Comment on above: Performed By: #### L 500.4100, L500.4050, L501.9520, L501.9940, L100.0100 #### [facility] [address] [place], [address] CO2 [Moles/Vol] 27.0 mmol/L Normal 21.0-32.0 [facility] Comment on above: Performed By: #### L 500.4100, L500.4050, L501.9520, L501.9940, L100.0100 #### [facility] [address] [place], [address] Creatinine [Mass/Vol] 0.90 mg/dL Normal 0.70-1.30 [facility] Comment on above: Result Comment: The validity of the calculated GFR GFRAA in patients over 70 years has not been determined. Clinical correlation is essential. Performed By: #### L 500.4100, L500.4050, L501.9520, L501.9940, L100.0100 #### [facility] [address] [place], [address] EST GFR - AA 105 mL/min Normal >60 [facility] Comment on above: Result Comment: Afri can [place] GFR Calc Performed By: #### L 500.4100, L500.4050, L501.9520, L501.9940, L100.0100 #### [facility] [address] [place], [address] GAP 7 Normal 5-15 [facility] Comment on above: Performed By: #### L 500.4100, L500.4050, L501.9520, L501.9940, L100.0100 #### [facility] [address] [place], [address] GFR/1.73 sq M.predicted among non-blacks MDRD (S/P/Bld) [Vol rate/Area] 87 mL/min/{1.73_m2} Normal >60 [facility] Comment on above: Result Comment: Non- GFR Calc Performed By: #### L 500.4100, L500.4050, L501.9520, L501.9940, L100.0100 #### [facility] [address] [place], [address] Globulin (S) [Mass/Vol] 3.4 g/dL Normal 2.2-4.2 [facility] Comment on above: Performed By: #### L 500.4100, L500.4050, L501.9520, L501.9940, L100.0100 #### [facility] [address] [place], [address] Glucose [Mass/Vol] 113 mg/dL High 74-106 [facility] Comment on above: Result Comment: Fast ing Glucose result from 100 to 125 mg/dL suggests IMPAIRED HOMEOSTASIS per A.D.A. criteria. Performed By: #### L 500.4100, L500.4050, L501.9520, L501.9940, L100.0100 #### [facility] [address] [place], [address] Potassium [Moles/Vol] 4.3 mmol/L Normal 3.5-5.1 [facility] Comment on above: Performed By: #### L 500.4100, L500.4050, L501.9520, L501.9940, L100.0100 #### [facility] [address] [place], [address] Sodium [Moles/Vol] 138 mmol/L Normal 136-145 [facility] Comment on above: Performed By: #### L 500.4100, L500.4050, L501.9520, L501.9940, L100.0100 #### [facility] [address] [place], [address] T PROT 7.3 g/dL Normal 6.4-8.2 [facility] Comment on above: Performed By: #### L 500.4100, L500.4050, L501.9520, L501.9940, L100.0100 #### [facility] [address] [place], [address] Urea nitrogen [Mass/Vol] 17 mg/dL Normal 7-18 [facility] Comment on above: Performed By: #### L 500.4100, L500.4050, L501.9520, L501.9940, L100.0100 #### [facility] [address] [place], [address] Lipid Profileon 09-01-2024 Cholesterol [Mass/Vol] 126 mg/dL Normal [address] [facility] Comment on above: Result Comment: <200 mg/dL Desirable 200-240 mg/dL Borderline >240 mg/dL High Risk Performed By: #### L 500.4100, L500.4050, L501.9520, L501.9940, L100.0100 #### [facility] [address] [place], [address] Cholesterol in HDL [Mass/Vol] 31 mg/dL Low [facility] Comment on above: Result Comment: The drugs N-Acetylcysteine and Metamizole may falsely depress this assay. Reference Range HDL <40 mg/dL Low HDL Cholesterol HDL >or= 60 mg/dL High HDL Cholesterol Performed By: #### L 500.4100, L500.4050, L501.9520, L501.9940, L100.0100 #### [facility] [address] [place], [address] Cholesterol in LDL [Mass/Vol] 37 mg/dL Normal 0-130 [facility] Comment on above: Performed By: #### L 500.4100, L500.4050, L501.9520, L501.9940, L100.0100 #### [facility] [address] [place], [address] Cholesterol in VLDL [Mass/Vol] 58 mg/dL High 5-40 [facility] Comment on above: Performed By: #### L 500.4100, L500.4050, L501.9520, L501.9940, L100.0100 #### [facility] [address] [place], [address] Triglyceride [Mass/Vol] 290 mg/dL High [facility] Comment on above: Result Comment: The drugs N-Acetylcysteine and Metamizole may falsely depress this assay. Serum Triglycerides Reference Interval Normal <150 mg/dL Borderline high 150 - 199 mg/dL High 200 - 499 mg/dL Very High > or = 500 mg/dL Performed By: #### L 500.4100, L500.4050, L501.9520, L501.9940, L100.0100 #### [facility] [address] [place], [address] PSA,Total- Diagnosticon 08-22 PSA, DIAGNOSTIC 5.98 ng/mL High 0.0-4.0 [facility] Comment on above: Result Comment: This test was performed using the TPSA assay method for the [employer] chemistry system. Values obtained with different assay methods cannot be used interchangably. When changing PSA assays in the course of monitoring a patient, additional sequential testing should be carried out to confirm baseline values. Performed By: #### L 500.4100, L500.4050, L501.9520, L501.9940, L100.0100 #### [facility] [address] [place], [address] Thyroid Stim Hormone (TSH)on 09-01-2024 TSH 2.450 uIU/mL Normal 0.358-3.740 [facility] Comment on above: Performed By: #### L 500.4100, L500.4050, L501.9520, L501.9940, L100.0100 #### [facility] [address] [place], [address] CBC W/Diff, Automatedon 08-22 Absolute Lymph 2.39 X10 3/uL Normal 0.83-4.51 [facility] Comment on above: Performed By: #### L 500.4100, L500.4050, L501.9520, L501.9940, L100.0100 #### [facility] [address] [place], [address] Absolute Neut 5.2 X10 3/uL Normal 2.0-7.7 [facility] Comment on above: Performed By: #### L 500.4100, L500.4050, L501.9520, L501.9940, L100.0100 #### [facility] [address] [place], [address] Basophils/100 WBC (Bld) 0.9 % Normal 0-1 [facility] Comment on above: Performed By: #### L 500.4100, L500.4050, L501.9520, L501.9940, L100.0100 #### [facility] [address] [place], [address] Eosinophils/100 WBC (Bld) 2.3 % Normal 0-5 [facility] Comment on above: Performed By: #### L 500.4100, L500.4050, L501.9520, L501.9940, L100.0100 #### [facility] [address] [place], [address] Erythrocyte distribution width (RBC) [Ratio] 13.4 % Normal 11.6-14.6 [facility] Comment on above: Performed By: #### L 500.4100, L500.4050, L501.9520, L501.9940, L100.0100 #### [facility] [address] [place], [address] Hematocrit (Bld) [Volume fraction] 45.5 % Normal 40-54 [facility] Comment on above: Performed By: #### L 500.4100, L500.4050, L501.9520, L501.9940, L100.0100 #### [facility] [address] [place], [address] Hemoglobin (Bld) [Mass/Vol] 15.6 g/dL Normal 13.0-16.5 [facility] Comment on above: Performed By: #### L 500.4100, L500.4050, L501.9520, L501.9940, L100.0100 #### [facility] [address] [place], [address] IG% 0.900 Normal 0.0-0.9 [facility] Comment on above: Result Comment: IG% - Immature Granulocytes (promyelocytes, myelocytes and metamyelocytes) > 1% indicates that a LEFT SHIFT is Present. Performed By: #### L 500.4100, L500.4050, L501.9520, L501.9940, L100.0100 #### [facility] [address] [place], [address] Lymphocytes/100 WBC (Bld) 27.5 % Normal 19-41 [facility] Comment on above: Performed By: #### L 500.4100, L500.4050, L501.9520, L501.9940, L100.0100 #### [facility] [address] [place], [address] MCH (RBC) [Entitic mass] 29.5 pg Normal 27.0-32.0 [facility] Comment on above: Performed By: #### L 500.4100, L500.4050, L501.9520, L501.9940, L100.0100 #### [facility] [address] [place], [address] MCHC (RBC) [Mass/Vol] 34.3 g/dL Normal 32-36 [facility] Comment on above: Performed By: #### L 500.4100, L500.4050, L501.9520, L501.9940, L100.0100 #### [facility] [address] [place], [address] MCV (RBC) [Entitic vol] 86.2 fL Normal 80-94 [facility] Comment on above: Performed By: #### L 500.4100, L500.4050, L501.9520, L501.9940, L100.0100 #### [facility] [address] [place], [address] Monocytes/100 WBC (Bld) 8.3 % Normal 0-10 [facility] Comment on above: Performed By: #### L 500.4100, L500.4050, L501.9520, L501.9940, L100.0100 #### [facility] [address] [place], [address] Neutrophils/100 WBC (Bld) 60.1 % Normal 47-70 [facility] Comment on above: Performed By: #### L 500.4100, L500.4050, L501.9520, L501.9940, L100.0100 #### [facility] [address] [place], [address] Nucleated RBC (Bld) [#/Vol] 0 10*3/uL Normal 0-5 [facility] Comment on above: Performed By: #### L 500.4100, L500.4050, L501.9520, L501.9940, L100.0100 #### [facility] [address] [place], [address] Platelet mean volume (Bld) [Entitic vol] 10.4 fL Normal 6.2-12.0 [facility] Comment on above: Performed By: #### L 500.4100, L500.4050, L501.9520, L501.9940, L100.0100 #### [facility] [address] [place], [address] Platelets (Bld) [#/Vol] 242 10*3/uL Normal 150-450 [facility] Comment on above: Performed By: #### L 500.4100, L500.4050, L501.9520, L501.9940, L100.0100 #### [facility] [address] [place], [address] RBC (Bld) [#/Vol] 5.28 10*6/uL Normal 4.6-6.2 [facility] Comment on above: Performed By: #### L 500.4100, L500.4050, L501.9520, L501.9940, L100.0100 #### [facility] [address] [place], [address] RDW SD 41.8 fl Normal 35.1-43.9 [facility] Comment on above: Performed By: #### L 500.4100, L500.4050, L501.9520, L501.9940, L100.0100 #### [facility] [address] [place], [address] WBC (Bld) [#/Vol] 8.7 10*3/uL Normal 4.4-11.0 [facility] Comment on above: Performed By: #### L 500.4100, L500.4050, L501.9520, L501.9940, L100.0100 #### [facility] [address] [place], [address] Inital Evaluation (1) - PTon 07-28-2024 Inital Evaluation (1) - PT [facility] Physical Therapy [address] [place] [address] / REHABILITATION SERVICES INITIAL EVALUATION MR#: [id number] Acct: [id number] Name: JORGE GUILLEN Rep #: [id number] : 1945 79 From: Diego Mata DPT Referring Dr.: Dr. Brian Doran MD Status: R EG RCR Insurance: [employer] SELF PAY INSURANCE Patient's Visit Information Visit Information Visit Information: JORGE GUILLEN is a 79 year old M referred to Physical Therapy by Dr. 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 Date of Evaluation: 07/28/24 Physical Therapist: Diego Mata DPT Visit Plan Frequency: 2x /Week Duration: 6 Weeks Plan: 1) manual to B lower lumbar erector spinae. Will have be done in seated or SL, Pt. un able to lie prone well. 2) Neutral spine core stability, RLE strengthening 3) Ease into lumbar ROM, this is very limited and painful. Pt. goes back and forth to [place]. Progress HEP daily/weekly to increase carry over. Pt. will have 3 week priod where he is out of town. Progress HEP for this period. Subjective Subjective: Pt. 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 Pt. reports having increased low back pain, patient believes this stemmed from a back injury while he was in the [place]. Pt. reports his pain has been progressively worsening for the past 20 years or so, but recently even more so. Increases pain: prolonged positions, bending, twisting, lifting, prolonged walking. Decreases symptoms: ibuprofen. Mornings are stiff and painful. He has done PT, chiro, injections, previously without much success. He is having an injection later this week. Pt. is hopeful to reduce symptoms in order to get back to all recreational activities without limitations. Pain Lumbar spine: Pain Intensity (Out of 10): 4 Pain Intensity Range: 3 and 8 Objective Objective: POSTURE: Pt. has fairly normal posture in stance. No major sway back posture, normal iliac crest heights noted PALPATION: Pt. has some lower lumbar soreness L3-S1 region. Pt. has tenderness along bilateral paraspinals of lumbar spine. NEURO: Pt. has some marked chagnes in sensation with less at medial R calf, R distal medial LE. Rest is the same. ROM: LUMBAR SPINE: Flexion: mod loss increase NW, EXT mas loss increase NW, SB mod/max loss bilat increase NW, rotation mod loss bilat increase NW. Pt. has tightness in B HS. pt. has fairly normal B hip ROM, but does have increased lumbar spine with R hip flexion motions. MMT: RLE: knee: ext 25.7#, flexion 22.7#, ankle DF 39.2#, PF 35.9#; hip: flexion: 17.8#, abd 12.9# LLE: knee: ext 50.1#, flexion 39.3#; ankle DF 42.9#, PF 43.7#; hip: flexion 23.3#, abd 19.8#. GAIT: Pt. has fairly normal gait pattern, but marked loss of B arm swing indicating rigid posture, STAIRS: Step to pattern loading LLE only with use of BUEs. Pt. reports no increase in symptoms. Balance/Special Test Scores Oswestry Low Back Score: 25 Goals Goal 1:: LTG: Pt. to be I with HEP. Goal Time Frame: 4-6 Weeks Goal 2:: STG: Pt. to have decreased pain/stiffness in AMs to 2/10 allowing for increased quality of life. Goal Time Frame: 2-4 Weeks Goal 3:: LTG: Pt. to have increased RLE strength increased to symmetrical between BLEs. Goal Time Frame: 4-6 Weeks Goal 4:: LTG: Pt. to be able to drive for 2+ hours without increase in symptoms. Goal Time Frame: 4-6 Weeks Goal 5:: LTG: Pt. to have increased lumbar ROM by 25% in all directions without increase in symptoms. Goal Time Frame: 4-6 Weeks Rehabilitation Potential Physical Therapy Diagnosis: Pt. 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 Pt. has marked lumbar ROM loss, R sided weakness, increased pain with most mobility. Pt. would benefit from PT to address the above issues progressing back to all recreational activities without limitations. Rehabilitation Potential: Good Anticipated Interventions Patient/Client Instruction: Educate patient on: Condition, Plan of Care, Risk Factors and Benefits of Fitness Program For the Purpose of:: To facilitate caregiver knowledge, To improve self management, To prevent re- injury, To improve ability to perform tasks related to life management and To improve tolerance to ADL's Therapeutic Exercise to Include: Strength training, Power training, Endurance training, Flexibilty training, Gait and locomotor training, Passive ROM, Active ROM and Dynamic Lumbar Stabilization For the Purpose of:: To decrease pain, To increase ROM, To improve nutrient delivery to tissue, To increase oxygenation perfusion, To improve muscle performance and motor function, (more content not included)... Normal [facility] Cardiology Visit Reporton Cardiology Visit Report [facility] [address] [place] [address] OFFICE VISIT Date of Service: 05/07/24 MR#: [id number] Acct: [id number] Name: JORGE GUILLEN Rep #: [id number] : 1945 Provider: Dr. Ovidio dexter MD Age/Sex: 78/M Location: [facility] [place] Status: Signed HPI [facility] History of Present Illness Details: This is a 78-year-old white male who presents today for outpatient cardiovascular follow-up for newly identified bradycardia. The patient has an Apple Watch which identified his heart rate is 41 beats minute when he was sitting doing nothing. He was not lightheaded or dizzy his did check his pulse and she could easily feel his pulse but did not count it. The patient also had an episode where his watch identified a high heart rate of 118 when he was seated not exercising and had not been recently exercising. Neither time did the watch identify atrial fibrillation and in fact when the heart rate was 118 it said no atrial fibrillation identified. The patient brought his phone with him and showed me 3 different recordings all of normal sinus rhythm in the 60-70 bpm range. However he was not able to capture an EKG on his watch at the time of the either the bradycardia or tachycardia noted above. The patient is exercising on a routine basis he rides a bike 2 miles at a time and he and his walk. They go to an exercise facility in [place]. The patient's prior anginal equivalent prior to his bypass graft surgery in 2001 at [facility] was upper back discomfort that occurred with activity and resolves with rest. He has had no recurrence of this. The patient specifically denies any lightheadedness dizziness syncope or near syncope. Patient's only complaint is primarily of orthopedic issues with his lower back and some neuropathic type changes in his lower extremities specifically his feet. Intake Vital Signs 04/08/24 16:35 05/07/24 09:58 Height 6 ft 6 ft Weight: 205 lb BMI 27.8 BP 123/81 H Blood Pressure Location Lt brachial Position Sitting Respiration 18 Pulse 64 Pulse Source Monitor Pulse Oximetry (%) 94 Oxygen Delivery Method room air Intake Visit Reasons: Bradycardia Beef Specialist Required: No Accompanied by: Is patient in pain?: No Allergies Iodinated Contrast Media Allergy (Verified 05/07/24 09:58) PT UNSURE OF REACTION iodine Allergy (Verified 05/07/24 09:58) Rash Medications ???Medication ???Instructions ???Recorded ???Confirmed ???Type aspirin 81 mg chewable tablet 81 mg PO DAILY@0800 06/13/14 05/07/24 History multivitamin with folic acid 400 1 tab PO DAILY 06/13/14 05/07/24 History mcg tablet latanoprost 0.005 % eye drops 1 drp ophthalmic (eye) QHS 09/09/17 05/07/24 History cholecalciferol (vitamin D3) 50 2,000 unit PO QDAY 09/11/17 05/07/24 History mcg (2,000 unit) capsule lutein 20 mg capsule 20 mg PO QDAY 09/11/17 05/07/24 History tadalafil 20 mg tablet 20 mg PO .COMPLEX #30 tabs 08/06/18 05/07/24 Rx coenzyme Q10 100 mg capsule 300 mg PO QDAY 07/08/19 05/07/24 History turmeric root extract 1,053 mg 1,500 mg PO DAILY 07/08/19 05/07/24 History tablet ascorbic acid (vitamin C) 1,000 mg 1 g PO DAILY 07/06/20 05/07/24 History tablet psyllium husk 0.4 gram capsule 0.4 g PO BID 07/06/20 05/07/24 History (Daily Fiber) nitroglycerin 0.4 mg sublingual See Rx Instructions .Route 03/18/23 05/07/24 Rx tablet .COMPLEX #75 tabs rosuvastatin 10 mg tablet 10 mg PO QDAY #90 tabs 09/12/23 05/07/24 Rx atenolol 25 mg tablet 25 mg PO DAILY #90 tabs 09/13/23 05/07/24 Rx levothyroxine 137 mcg tablet 137 mcg PO DAILY #90 tabs 09/13/23 05/07/24 Rx vitamin B complex-folic acid 0.4 1 tab PO DAILY 03/06/24 05/07/24 History mg tablet (Super B Maxi Complex) biotin 5,000 mcg chewable tablet mcg PO BID 05/07/24 05/07/24 History calcium carbonate 600 mg PO QDAY 05/07/24 05/07/24 History Have you fallen in the past year?: No PFSH Medical History Right leg DVT Left otitis media Bronchitis Flushing reaction Abnormal flushing and sweating Pneumonia Right flank pain Muscular abdominal pain in right flank Hypothyroidism BPH (benign prostatic hyperplasia) Lymphadenopathy of head and neck Kidney stone Muscle ache of extremity Shoulder pain, left Neck pain Hypothyroidism Abnormal stress test Angina pectoris Peptic ulcer disease Mononeuritis Hyperlipidemia 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 Normal [facility] Orthopedic Visit Reporton Orthopedic Visit Report [facility] [address] [place] [address] OFFICE VISIT Date of Service: 03/06/24 MR#: [id number] Acct: [id number] Name: JORGE GUILLEN Rep #: [id number] : 1945 Provider: Dr. Geraldo Chowdhury MD Age/Sex: 78/M Location: [facility] [place] Status: Signed Intake Vital Signs 01/30/24 10:17 Height 6 ft Weight: 206 lb BMI 27.9 Intake Visit Reasons: LUMBAR SPINE Chief Complaint: MRI Lumbar FU Accompanied by: Self Is patient in pain?: Yes (Low back) Pain scale (1-10): 4 Allergies Iodinated Contrast Media Allergy (Verified 03/06/24 11:46) PT UNSURE OF REACTION iodine Allergy (Verified 03/06/24 11:45) Rash Medications ???Medication ???Instructions ???Recorded ???Confirmed ???Type aspirin 81 mg chewable tablet 81 mg PO DAILY@0800 06/13/14 01/30/24 History multivitamin with folic acid 400 1 tab PO DAILY 06/13/14 01/30/24 History mcg tablet latanoprost 0.005 % eye drops 1 drp ophthalmic (eye) QHS 09/09/17 01/30/24 History cholecalciferol (vitamin D3) 50 2,000 unit PO QDAY 09/11/17 01/30/24 History mcg (2,000 unit) capsule lutein 20 mg capsule 20 mg PO QDAY 09/11/17 01/30/24 History omeprazole 20 mg tablet,delayed 20 mg PO QDAY 09/11/17 01/30/24 History release tadalafil 20 mg tablet 20 mg PO .COMPLEX #30 tabs 08/06/18 01/30/24 Rx coenzyme Q10 100 mg capsule 300 mg PO QDAY 07/08/19 01/30/24 History turmeric root extract 1,053 mg 1,500 mg PO DAILY 07/08/19 01/30/24 History tablet ascorbic acid (vitamin C) 1,000 mg 1 g PO DAILY 07/06/20 01/30/24 History tablet psyllium husk 0.4 gram capsule 0.4 g PO BID 07/06/20 01/30/24 History (Daily Fiber) nitroglycerin 0.4 mg sublingual See Rx Instructions .Route 03/18/23 01/30/24 Rx tablet .COMPLEX #75 tabs rosuvastatin 10 mg tablet 10 mg PO QDAY #90 tabs 09/12/23 01/30/24 Rx atenolol 25 mg tablet 25 mg PO DAILY #90 tabs 09/13/23 01/30/24 Rx levothyroxine 137 mcg tablet 137 mcg PO DAILY #90 tabs 09/13/23 01/30/24 Rx vitamin B complex-folic acid 0.4 1 tab PO DAILY 03/06/24 03/06/24 History mg tablet (Super B Maxi Complex) Have you fallen in the past year?: No PFSH Medical History Right leg DVT Left otitis media Bronchitis Flushing reaction Abnormal flushing and sweating Pneumonia Right flank pain Muscular abdominal pain in right flank Hypothyroidism BPH (benign prostatic hyperplasia) Lymphadenopathy of head and neck Kidney stone Muscle ache of extremity Shoulder pain, left Neck pain Hypothyroidism Abnormal stress test Angina pectoris Peptic ulcer disease Mononeuritis Hyperlipidemia 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 Geraldo Chowdhury MD 03/06/24 1143. Part of today???s visit was documented by [ ], acting as scribe. JORGE GUILLEN is a 78 year old M here today for lumbar pain. Patient states his back has bothered him since [id number]. Patient had a injury to his back. Patient was in the when he has a injury to his back. Patient does have a history for Sciatic issues. Patient does have pain that radiates down his legs stops to the knee. Patient states its mostly the right leg. Patient states the bottom of his feet are numb. Patient sates the pain does come across his back but the right side most then left. Patient has seen Chiropractors, Patient has been in Pain Management with Dr Mariano and he has had injections. Patient states the injection didn't help him. Patient has also seen [facility] and they did injection and they didn't help either. Patient has had a nerve conductin test done. Patient takes Ibuprofen. Patient has done 6 weeks at [facility] point and 5-6 weeks at [facility]. Patient states Physical therapy didn't help. Patient has tried ice and heat and the heat keeps it from tightening up. Patient states if he sits for a long time his back tightens up. Patient states laying down helps but in the morning getting out of bed his back is very tight. Jorge has had low back pain for many years and attributes it to some service related injuries while he was in [place] in 1960s. He has tri (more content not included)... Normal [facility] Spine Lumbar (Routine)on Spine Lumbar (Routine) [facility] [address] [place], [place] [address] Spine Lumbar (Routine) MR#: [id number] Acct: [id number] Name: JORGE GUILLEN Rep #: [id number] : 1945 M 78 From: Jonh Henson MD PCP: rIa Corey, [employer] Status: REG CLI Study: Spine Lumbar (Routine) Date of Exam: 03/03/24 Exam# [id number] Ordering Dr: Geraldo Chowdhury MD [id number] STUDY: MRI LUMBAR SPINE WITHOUT CONTRAST REASON FOR EXAM: Male, 78 years old. Pain TECHNIQUE: Standardized fat and water weighted pulse sequences were obtained in the sagittal and axial planes. COMPARISON: 11/28/2021, x-ray 01/30/2024 FINDINGS: T12-L1: Enlarging bilobed disc protrusion with a right foraminal protrusion produces moderate spinal stenosis and moderate neural foraminal stenosis. Interval development of severe Modic type I endplate changes. Normal lumbar lordosis. Mild levoscoliosis centered at L1. Normal conus medullaris that terminates at the T12/L1. L1-2: Normal endplates. Normal disc height, hydration and morphology. Normal bilateral facet joints. Normal central canal and bilateral lateral recesses. Normal bilateral intervertebral neural foramina. L2-3: Mild bilateral facet hypertrophy and moderately minimal endplate hypertrophy. No change in a moderate broad disc protrusion asymmetric left which produces severe spinal stenosis with moderate bilateral neural foraminal stenosis L3-4: Mild bilateral facet hypertrophy and moderate ligament flavum hypertrophy. No change in the moderate broad disc osteophyte complex which produces severe spinal stenosis with moderate bilateral lateral recess stenosis and moderate bilateral neural foraminal stenosis. L4-5: Mild bilateral facet operatively with endplate hypertrophy. No change in the mild broad disc protrusion with mild central stenosis and mild bilateral neural foraminal stenosis. L5-S1: No change in the mild broad disc osteophyte complex produces mild spinal stenosis and mild bilateral neural foraminal stenosis. Normal visualized sacral ala. Normal visualized paraspinous soft tissue structures. MRI/Spine Lumbar (Routine) IMPRESSION: Worsening degenerative disc disease at T12/L1 as described above. Electronically Signed: Jonh Henson MD at 14:46 EDT , CC: ANDREW Corey; Dr. Geraldo Chowdhury MD Geospatial Analyst: Signed Normal [facility] Absolute lymphocyte countOrd ered By: Ira Corey on 09-12-2023 Lymphocytes Auto (Unsp spec) [#/Vol] 2.22 10*3/uL 0.83-4.51 [facility] Automated lymphocyte count a s percentage of total leukocytesOrdered By: Ira Corey on 09-12-2023 Lymphocytes/100 WBC Auto (Unsp spec) 24.3 % 19-41 [facility] Basophil percentageOrdered B y: Ira Corey on 09-12-2023 Basophils/100 WBC (Bld) 0.9 % 0-1 [facility] Bilirubin [Mass/Vol] 0.40 mg/dL 0.20-1.00 [facility] Comment on above: For patients on eltr ombopag therapy, use of Dimension [place] TBIL is not recommended. Chloride [Moles/Vol] 104 mmol/L 98-107 [facility] Cholesterol [Mass/Vol] 114 mg/dL <[address] [facility] Comment on above: <200 mg/dL Desirable 200-240 mg/dL Borderline >240 mg/dL High Risk Eosinophils/100 WBC (Bld) 2.0 % 0-5 [facility] Glucose [Mass/Vol] 105 mg/dL 74-106 [facility] Comment on above: Fasting Glucose resu lt from 100 to 125 mg/dL suggests IMPAIRED HOMEOSTASIS per A.D.A. criteria. Hemoglobin (Bld) [Mass/Vol] 15.9 g/dL 13.0-16.5 [facility] Monocytes/100 WBC (Bld) 9.6 % 0-10 [facility] Neutrophils (Bld) [#/Vol] 5.7 10*3/uL 2.0-7.7 [facility] Neutrophils/100 WBC (Bld) 62.7 % 47-70 [facility] Potassium [Moles/Vol] 4.3 mmol/L 3.5-5.1 [facility] Protein [Mass/Vol] 7.3 g/dL 6.4-8.2 [facility] Sodium [Moles/Vol] 139 mmol/L 136-145 [facility] Triglyceride [Mass/Vol] 256 mg/dL <199 [facility] Comment on above: The drugs N-Acetylcy steine and Metamizole may falsely depress this assay.Serum Triglycerides Reference Interval Normal <150 mg/dL Borderline high 150 - 199 mg/dL High 200 - 499 mg/dL Very High > or = 500 mg/dL WBC (Bld) [#/Vol] 9.1 10*3/uL 4.4-11.0 [facility] Determination of erythrocyte mean corpuscular volume (MCV)Ordered By: Ira Corey on 09-12-2023 MCV (RBC) [Entitic vol] 89.3 fL 80-94 [facility] Erythrocyte distribution wid th ratioOrdered By: Irasusy Corey on 09-12-2023 Erythrocyte distribution width (RBC) [Ratio] 13.2 % 11.6-14.6 [facility] Erythrocyte distribution wid th standard deviationOrdered By: Ira Corey on 09-12-2023 Erythrocyte distribution width (RBC) [Entitic vol] 42.8 fL 35.1-43.9 [facility] Hematocrit Auto (Bld) [Volum e fraction]Ordered By: Ira Corey on 09-12-2023 Hematocrit (Bld) [Volume fraction] 48.2 % 40-54 [facility] Immature granulocytes/100 WB C Auto (Bld)Ordered By: Ira Corey on 09-12-2023 Immature granulocytes/100 WBC (Bld) 0.500 % 0.0-0.9 [facility] Comment on above: IG% - Immature Granu locytes (promyelocytes, myelocytes and metamyelocytes) > 1% indicates that a LEFT SHIFT is Present. Laboratory - Chemistry and C hemistry - challengeOrdered By: Ira Corey on 09-12-2023 Albumin/Globulin [Mass ratio] 1.2 {ratio} 0.9-2.4 [facility] ALP [Catalytic activity/Vol] 61 U/L 45-117 [facility] ALT [Catalytic activity/Vol] 48 U/L 16-61 [facility] Cholesterol in HDL [Mass/Vol] 29 mg/dL >40 [facility] Comment on above: The drugs N-Acetylcy steine and Metamizole may falsely depress this assay. Reference Range HDL <40 mg/dL Low HDL Cholesterol HDL >or= 60 mg/dL High HDL Cholesterol Cholesterol in LDL [Mass/Vol] 34 mg/dL 0-130 [facility] CO2 [Moles/Vol] 30.0 mmol/L 21.0-32.0 [facility] Globulin (S) [Mass/Vol] 3.3 g/dL 2.2-4.2 [facility] Urea nitrogen/Creatinine [Mass ratio] 18.8 mg/mg 10-20 [facility] Laboratory - Hematology and Cell countsOrdered By: Ira Corey on 09-12-2023 MCH (RBC) [Entitic mass] 29.4 pg 27.0-32.0 [facility] MCHC (RBC) [Mass/Vol] 33.0 g/dL 32-36 [facility] Nucleated RBC/100 WBC (Bld) [Ratio] 0 % 0-5 [facility] Platelet mean volume (Bld) [Entitic vol] 10.6 fL 6.2-12.0 [facility] Platelets (Bld) [#/Vol] 189 10*3/uL 150-450 [facility] No Panel InformationOrdered By: Ira Corey on 09-12-2023 Estimated GFR (MDRD) Amer 98 mL/min >60 [facility] Comment on above: GFR Calc Estimated GFR (MDRD) Non-Af Amer 81 mL/min >60 [facility] Comment on above: Non- GFR Calc Prostate Specific Antigen Screen 4.85 ng/mL 0.00-4.00 [facility] Comment on above: This test was perfor med using the TPSA assay method for [employer] chemistry system. Values obtained with differentassay methods cannot be used interchangably.When changing PSA assays in the course of monitoring apatient, additional sequential testing should be carriedout to confirm baseline values. VLDL Cholesterol 51 mg/dL 5-40 [facility] RBC Auto (Bld) [#/Vol]Ordere d By: Ira Corey on 09-12-2023 RBC (Bld) [#/Vol] 5.40 10*6/uL 4.6-6.2 [facility] Serum or plasma calcium anaya urement (mass/volume)Ordered By: Ira Corey on 09-12-2023 Calcium [Mass/Vol] 9.0 mg/dL 8.5-10.1 [facility] Serum or plasma creatinine m easurement (mass/volume)Ordered By: Ira Corey on 09-12-2023 Creatinine [Mass/Vol] 0.96 mg/dL 0.70-1.30 [facility] Comment on above: The validity of the calculated GFR & GFRAA in patients over 70 years has not been determined. Clinical correlation is essential. Serum or plasma thyroid stim ulating hormone (TSH) measurement (units/volume)Ordered By: Ira Corey on 09-12-2023 TSH Qn 1.24 uIU/mL 0.358-3.74 [facility] Serum or plasma urea nitroge n measurement (mass/volume)Ordered By: Ira Corey on 09-12-2023 Urea nitrogen [Mass/Vol] 18 mg/dL 7-18 [facility] Thin prep Papanicolaou smear with manual screeningOrdered By: Ira Corey on 09-12-2023 Thin prep Papanicolaou smear with manual screening 4.0 g/dL 3.2-5.0 [facility] Thin prep Papanicolaou smear with manual screening 31 U/L 15-37 [facility] Thin prep Papanicolaou smear with manual screening 5 5-15 [facility] ANES POSTPROC EVALon 023 ANES POSTPROC EVAL HNO ID: [id number] Author: Tessa Connor MD Service: Anesthesiology Author Type: Anesthesiologist Type: Anesthesia Postprocedure Evaluation Filed: 06/27/2023 4:42 PM Note Text: POST ANESTHESIA EVALUATION NOTE : 1945 Procedure Summary Date: 06/27/23 Room / Location: [facility] OR01 / [facility] OR Anesthesia Start: 1241 Anesthesia Stop: 1326 Procedure: RECONSTRUCTION TOE HAMMER (Left: Toe fifth ) Diagnosis: Hammer toe of left foot (Hammer toe of left foot [M20.42]) Surgeons: Jaleel Barragan DPM Responsible Provider: Tessa Connor MD Anesthesia Type: MAC ASA Status: 3 Anesthesia Type: MAC Last Vitals Vitals Value Taken Time BP 115/65 06/27/23 1400 Temp 36.5 ?C (97.7 ?F) 06/27/23 1320 HR SpO2 65 06/27/23 1400 Resp 20 06/27/23 1400 SpO2 96 % 06/27/23 1400 Post Anesthesia Patient Status Patient Evaluation: PACU. PACU/ICU Patient Condition: stable. Anticipated Disposition: phase 2 then home. Neurological Status: aware and responsive. Pulmonary Status: breathing comfortably on room air Airway Control: returned to baseline unsupported. Cardiovascular Status: stable. Pain Management: clinically adequate - multimodal analgesia pain management approach Postoperative Hydration: acceptable. Intraoperative Events: no significant anesthesia events Post Operative Nausea/Vomiting Status: no significant post operative nausea or vomiting Recommendation: continue current plan of care. Anesthesia Observations No Documentation SIGNATURE: Tessa Connor MD PATIENT NAME: Jorge Guillen DATE: June 27, 2023 TIME: 4:42 PM CSN: [id number] [facility] ANES PRE-OPon 06-27-2023 ANES PRE-OP HNO ID: [id number] Author: Pk Foley MD Service: ? Author Type: Anesthesiologist Type: Anesthesia Preprocedure Evaluation Filed: 06/27/2023 12:00 PM Note Text: ANESTHESIOLOGY DAY OF SURGERY NOTE : 1945 Procedure Information Date/Time: 06/27/23 1200 Procedure: RECONSTRUCTION TOE HAMMER (Left) Location: [facility] OR01 / [facility] OR Surgeons: Jaleel Barragan DPM Estimated body mass index is 27.12 kg/m? as calculated from the following: Height as of this encounter: 182.9 cm (6'). Weight as of this encounter: 90.7 kg (200 lb). Most recent hematocrit and potassium results: Hematocrit 49.5 02/25/2018 Potassium 4.7 02/25/2018 Relevant Problems ANESTHESIA (-) Sleep apnea CARDIO (+) Acute deep vein thrombosis (DVT) of proximal vein of lower extremity (HCC) (+) Angina effort (Resolved) (+) Coronary artery disease involving mi'kmaq coronary artery of mi'kmaq heart without angina pectoris (+) HTN (hypertension) (+) S/P CABG x 3 (L-LAD, R-diag, S-OM) 2001 (+) Splenic artery aneurysm (HCC) (-) Angina at rest (-) Angina of effort ENDO (+) Other specified hypothyroidism GI (+) Gastroesophageal reflux disease without esophagitis PULMONARY (-) Asthma (-) Sleep apnea I - PHYSICAL EVALUATION AIRWAY Patient intubated: No. Tracheostomy tube not present Mallampati: III. TM distance: >3 FB. Neck ROM: full ROM without neurological symptoms. Mouth opening: adequate. Short neck: yes. Thick neck: yes DENTAL Dental findings: teeth intact. Additional exam findings: yes. CARDIOVASCULAR Rhythm: regular Rate: normal PULMONARY Breath sounds clear to auscultation. II - ANESTHESIA PLAN ASA Score: 3 Anesthetic Plan: MAC The patient is not a current smoker. NPO Status: adequate Beta [place] Monitoring Plan Monitoring plan: standard ASA. Post Procedure Analgesic Plan Postoperative analgesic plan: multimodal analgesia. Informed Consent Anesthetic risks, benefits, alternatives, personnel and consent discussed: yes. Patient / Responsible Constitution Party agrees to proceed: yes Patient / Surrogate agrees to blood products: Yes DNR status not reviewed with patient and/or family prior to surgery. Significant changes in the patient condition since the History and Physical, not otherwise documented in primary service progress note: no. Potential Anesthesia issues that may suggest increased risk of complications or contraindication to planned procedure: none. Vitals Value Taken Time BP 157/80 06/27/23 1104 Pulse 73 06/27/23 1104 Resp 16 06/27/23 1104 Temp 36.7 ?C (98.1 ?F) 06/27/23 1104 SpO2 98 % 06/27/23 1104 Facility-Administered Medications as of 06/27/2023 Medication Dose Route Frequency - lidocaine (PF) 10 mg/mL (1 %) 1-2 mg injection (XYLOCAINE) 0.1-0.2 mL INTRADERMAL PRN - lactated ringers iv infusion 5-30 mL/hr INTRAVENOUS CONTINUOUS - NaCl 0.9% iv flush bag 20 mL INTRAVENOUS PRN - ceFAZolin iv piggyback 2 g in D5W (iso-osmotic) 100 mL (ANCEF) 2 g INTRAVENOUS Pre-Op Once - [COMPLETED] acetaminophen 650 mg tab(s) (TYLENOL) 650 mg ORAL Pre-Op Once Outpatient Medications as of 06/27/2023 Medication Sig - Cholecalciferol, Vitamin D3, (VITAMIN D) 25 mcg (1,000 unit) cap Take 1,000 Units by mouth once daily. - lutein 20 mg cap Take 20 mg by mouth. - omeprazole (PRILOSEC) 20 mg capsule Take 20 mg by mouth once daily. - levothyroxine (SYNTHROID) 100 mcg tablet Take 137 mcg by mouth daily before breakfast. - TURMERIC ROOT EXTRACT ORAL Take by mouth once daily. - rosuvastatin (CRESTOR) 10 mg tablet Take 10 mg by mouth once daily. - atenolol (TENORMIN) 25 mg tablet TAKE 1 TABLET BY MOUTH ONCE DAILY. - Ascorbic Acid 1,000 mg tablet Take 1 tablet by mouth twice daily. - latanoprost (XALATAN) 0.005 % ophthalmic solution Use 1 Drop in both eyes daily at bedtime. - nitroglycerin sublingual (NITROQUICK) 0.4 mg SL tablet Dissolve 1 tablet under the tongue as needed for Chest Pain. If no pain relief call 911. - Tadalafil (CIALIS) 20 mg tablet Take 1 tablet by mouth as needed. 1-2 hours before sexual intercourse - Coenzyme M37-Tjklmdo E 100-150 mg-unit cap Take 1 tablet by mouth once daily. - multivitamin ORAL Tab Take one(1) tablet daily. - ASPIRIN 81 MG TAB Take one (1) tablet daily . I have interviewed and examined the patient. I have reviewed the medical record and/or the pre-anesthesia evaluation, pertinent labs, and test results. This contains updated information obtained within 48 hours of Surgery/Procedure. SIGNATURE: Pk Foley MD PATIENT NAME: Jorge Guillen DATE: June 27, 2023 TIME: 11:59 AM CSN: [id number] [facility] BRIEF OP NOTon 06-27-2023 BRIEF OP NOT HNO ID: [id number] Author: Jaleel Barragan DPM Service: Podiatry Author Type: Physician Type: Brief Op Note Filed: 06/27/2023 1:29 PM Note Text: BRIEF OPERATIVE / PROCEDURE NOTE LOG ID: [id number] SURGERY/PROCEDURE DATE: 06/27/2023 INCISION/PROCEDURE START TIME: 1:02 PM INCISION CLOSE/PROCEDURE END TIME: 1:13 PM SURGEON(S)/PROCEDURALIST (S) AND SALES AND MARKETING ASSOCIATE(S): Surgeon(s) and Role: * Jaleel Barragan DPM - Primary Registered Nurse Copywriting Intern: Laverne Nicole RN SURGERY/PROCEDURE(S): Derotational arthroplasty LEFT 5th toe, flexor tenotomy LEFT 5th toe ANESTHESIA: General FINDINGS: NA ESTIMATED BLOOD LOSS: 0 ml SPECIMENS: None COMPLICATIONS: None CLOSURE TECHNIQUE: Primary PRE-OP/PRE-PROCEDURE DIAGNOSIS: Hammertoe LEFT foot, pain in LET foot POST-OP/POST-PROCEDURE DIAGNOSIS: Same as Preop SIGNATURE: Jaleel Barragan DPM PATIENT NAME: Jorge Guillen DATE: June 27, 2023 TIME: 1:28 PM Normal [facility] OPERATIVE NOon 06-27-2023 OPERATIVE NO HNO ID: [id number] Author: Jaleel Barragan DPM Service: Podiatry Author Type: Physician Type: Operative Report Filed: 06/28/2023 10:59 AM Note Text: - Operative Report JORGE GUILLEN : 1945 AGE: 78. SEX: M PATIENT TYPE: A HOSP TRIPP: IMCHAELLE LOCATION: [facility] [place] ATTENDING PHYSICIAN: RAMOS NUMBER: [id number] DATE OF SURGERY/PROCEDURE: 06/27/2023 INCISION/PROCEDURE START TIME: 1:02 p.m. INCISION CLOSE/PROCEDURE END TIME: 1:13 p.m. PREOPERATIVE DIAGNOSIS: Hammertoe of the left foot, pain in the left foot. POSTOPERATIVE DIAGNOSIS: Hammertoe of the left foot, pain in the left foot. SURGEON: Jaleel Barragan DPM SALES AND MARKETING ASSOCIATE: Matthew Ann SURGERY/PROCEDURE: Derotational arthroplasty left 5th toe, flexor tenotomy left 5th toe. ANESTHESIA: MAC with local, 10 mL of 0.25% Marcaine plain. FINDINGS: None. ESTIMATED BLOOD LOSS: 0. SPECIMENS: None. COMPLICATIONS: None. CLOSURE TECHNIQUE: Primary. INDICATIONS FOR PROCEDURE: This patient was seen in the clinical setting of [facility] [place] with pain and deformity of the left 5th toe. After x- ray evaluation, he was determined to have a hammertoe with adductovarus rotation of the 5th toe. After conservative measures failed to alleviate the patient's pain including wearing toe spacers and wider shoe gear, he elected to undergo surgical procedure to correct the deformity of the toe. All risks and benefits of the procedure were discussed with the patient in full detail. Risks of the procedure included postoperative pain, numbness, swelling, chance of postoperative infection, chance of return of the deformity, he acknowledged understanding of the risks of procedure and consented at that time, no guarantees were given or implied as to the outcome of the procedure. DESCRIPTION OF PROCEDURE: Under mild sedation, the patient was brought in the operating room, placed on the table in the supine position. A tourniquet was placed around the patient's left ankle and inflated at this time and after monitored anesthesia care was obtained, the left 5th toe was anesthetized with 10 mL of 0.25% Marcaine plain. The foot was then scrubbed, prepped, and draped in usual sterile manner. Attention was then directed to the left foot where an Esmarch bandage was used to exsanguinate the foot of all blood and tourniquet was then inflated to 250 mmHg. Tourniquet began leaking intraoperatively and we switched to a manual stockinette tourniquet. At this point in time, a semi-elliptical incision was drawn directly over the proximal interphalangeal joint using fluoroscopy as a guide. The semi-elliptical skin wedge was taken using a 15 blade. This wedge of skin was removed from surgical field. The dissection was carried through to the PIPJ of the left 5th toe where a 15 blade was used to make an incision through the joint capsule releasing the medial, lateral, collateral ligaments, fully exposing the head of the proximal phalanx in the surgical field. A sagittal bone saw was then used to remove the head of the proximal phalanx in the surgical field. The surgical site was then flushed with copious amounts of normal sterile saline and the long flexor tendon overlying the PIPJ was reapproximated using 4-0 Vicryl. The skin incision was reapproximated using 4-0 nylon in interrupted technique. While closing the skin, the toe was derotated into straightened position for complete the surgery. At this point in time, surgical site was cleansed with a wet and dry Ray-Adrian. Attention was then directed to the plantar aspect of the toe with a slight contracture at the PIPJ. An 18-gauge needle was used to make a stab incision on the plantar aspect of the PIPJ severing the long flexor tendon, straightening the toe out into a rectus position. This incision was then dressed with Steri-Strips. Dorsal incision at the PIPJ was dressed with Xeroform, sterile 4x4s, Kerlix, and Brian. The patient was transported to PACU with vital signs stable and vascular status intact to the digits of the left foot. POSTOPERATIVE INSTRUCTIONS: As follows. 1. Ice and elevate the left foot. 2. The patient may weightbear as tolerated in surgical shoe. 3. Take oral pain medication as prescribed. 4. Follow up in office in 1 week. Jaleel Barragan DPM LG:[id number] /[id number] [facility] XR FLUOROSCOPYon 06-27-2023 XR FLUOROSCOPY * * *Final Report* * * DATE OF EXAM: Jun 27 2023 3:19PM MDR [id number] - XR FLUOROSCOPY / PROCEDURE REASON: RECONSTRUCTION LEFT HAMMER TOE * * * * Physician Interpretation * * * * EXAMINATION: XR FLUOROSCOPY CLINICAL INFORMATION: 78 years old Male with RECONSTRUCTION LEFT HAMMER TOE COMPARISON: None Fluoroscopic Radiation Summary: Plane A, Air Kerma: 4.3 mGy Dose Area Product (DAP): Fluoro time: 0:23 min:sec RESULT: Initial fluoroscopic intraoperative image of the LEFT foot demonstrates localizing instrument projecting over the 5th PIP joint. The 2nd image demonstrates 5th toe PIP resection arthroplasty. IMPRESSION: Intraoperative examination for surgical planning and documentation. Geospatial Analyst: PSCB Transcribe Date/Time: Jun 27 2023 4:27P Dictated by : SHARITA VALDIVIA DO This examination was interpreted and the report reviewed and electronically signed by: SHARITA VALDIVIA DO on Jun 27 2023 4:30PM EST [id number] [facility] HISTORY PHYSICALon HISTORY PHYSICAL HNO ID: [id number] Author: Regina Humphreys APRN.JAILER/TRAINING OFFICER Service: ? Author Type: Nurse Practitioner Type: HANDP Filed: 06/24/2023 2:50 PM Note Text: PREANESTHESIA CONSULT CLINIC TELEHEALTH VISIT This is a virtual visit using Virtual Visit (Audio/Visual)I have discussed the nature of this visit with the patient which will occur via Distance Health (Phone, Virtual Visit) and he agrees to proceed with this interaction. It required patient-provider interaction for the medical decision making as documented below. I have communicated my name and active licensure. The patient's identity and physical location were verified at the time of this visit. Either the patient or their legal contact representative has been informed of the risks and benefits of and alternatives to treatment through a remote evaluation and consents to proceed with the evaluation remotely. Patient has been identified by name and date of : Yes This is a virtual visit using MyChart Zoom Video Visit. It require patient-provider interaction [...] ACTIVE PROBLEM LIST Coronary Artery Disease Involving [place] Coronary Artery of [place] Heart Without Angina Pectoris S/P CABG x 3 (L-LAD, R-diag, S-OM) 2001 Pure Hypercholesterolemia Erectile Dysfunction Diaphoresis Angina Effort Splenic Artery Aneurysm (Hcc) Preop Cardiovascular Exam Preop Testing Gastroesophageal Reflux Disease Without Esophagitis Htn (Hypertension) Other Specified Hypothyroidism Acute Deep Vein Thrombosis (Dvt) of Proximal Vein of Lower Extremity (Hcc) PAST MEDICAL HISTORY Diagnosis Date Coronary atherosclerosis of unspecified type of vessel, mi'kmaq or graft Coronary Atherosclerosis Frozen shoulder Right [...] CUFF ACUTE Right 2001 Rotator cuff repair PAST SURGICAL HISTORY OF 04/18/2023 epigastric hernia repair- Dr. Alarcon REPAIR EPIGASTRIC HERNIA,REDUC FAMILY HISTORY Problem Relation Age of Onset Hypertension Mother age 92 Aneurysm Father age 86 from CHF. Had [place] at age 52 Diabetes Father Heart Attack [...] needed. 1-2 hours before sexual intercourse Coenzyme F33-Ymaqskv E 100-150 mg-unit cap Take 1 tablet by mouth once daily. multivitamin ORAL Tab Take one(1) tablet daily. No current facility-administered medications for this visit. COVID VACCINATION STATUS: Fully vaccinated REVIEW OF SYSTEMS: Pain Assessment: General: No weight loss, malaise or fevers. Neuro: No history of TIA's, s (more content not included)... Normal [facility] CNOVon 05-27-2023 [facility] Office Visit ([facility] ) -------- JORGE GUILLEN ([id number]) 1945 M Date Time Provider Department 05/27/23 10:00 AM LAVERNE ALARCON During your visit today, we recorded the following information about you: Laverne Alarcon MD 05/27/2023 1:14 PM Signed POST OP Patient presents with: Post-Op Visit: [...] needed. 1-2 hours before sexual intercourse Coenzyme U62-Rdznvgf E 100-150 mg-unit cap Take 1 tablet [...] course: expected I have explained to Mr. Guillen that he may return to normal activity with no lifting, pulling, pushing over 50 pounds, no core exercises and no lifting and twisting for a total of 4 weeks. I have encouraged him to contact me at any time with any questions or concerns that may arise. Follow up: seamus Alarcon MD 05/27/2023 1:12 PM Allergies As of Date: 05/27/2023 Noted Allergy Reaction Contrast Dye [Other] 06/14/2003 10 - Anaphylaxis Date Reviewed: 05/27/2023 Reviewed by: Dhara Baumann Ma - Fully Assessed Reason for Visit: Post-Op Visit [1236] Cmt: 04/18 epigastric hernia Primary Visit Diagnosis:Epigastric hernia [K43.9] Prescriptions as of 05/27/2023 - Cholecalciferol, Vitamin D3, (VITAMIN D) 25 mcg (1,000 unit) cap Take 1,000 Units by mouth once daily. - lutein 20 mg cap Take 20 mg by mouth. - omeprazole (PRILOSEC) 20 mg capsule Take 20 mg by mouth once daily. - levothyroxine (SYNTHROID) 100 mcg tablet Take 137 mcg by mouth daily before breakfast. - TURMERIC ROOT EXTRACT ORAL Take by mouth once daily. - rosuvastatin (CRESTOR) 10 mg tablet Take 10 mg by mouth once daily. - atenolol (TENORMIN) 25 mg tablet TAKE 1 TABLET BY MOUTH ONCE DAILY. - Ascorbic Acid 1,000 mg tablet Take 1 tablet by mouth twice daily. - latanoprost (XALATAN) 0.005 % ophthalmic solution Use 1 Drop in both eyes daily at bedtime. - nitroglycerin sublingual (NITROQUICK) 0.4 mg SL tablet Dissolve 1 tablet under the tongue as needed for Chest Pain. If no pain relief call 911. - Tadalafil (CIALIS) 20 mg tablet Take 1 tablet by mouth as needed. 1-2 hours before sexual intercourse - Coenzyme V68-Erheiky E 100-150 mg-unit cap Take 1 tablet by mouth once daily. - multivitamin ORAL Tab Take one(1) tablet daily. - ASPIRIN 81 MG TAB Take one (1) tablet daily . Problem List As Of Date 05/27/2023 Noted Resolved CORONARY ATHEROSCLER UNSPEC VESSEL [I25.10] 04/25/2005 08/23/2015 AORTOCORONARY BYPASS STATUS [Z95.1] 04/25/2005 08/23/2015 HYPERLIPIDEMIA NEC/NOS [E78.5] 04/25/2005 08/23/2015 Coronary artery disease involving mi'kmaq olmstead*08/23/2015 S/P CABG x 3 (L-LAD, R-diag, S-OM) 2001 [Z95.1] 08/23/2015 Pure hypercholesterolemia [E78.00] 08/23/2015 Erectile dysfunction [N52.9] 08/23/2015 Diaphoresis [R61] 03/28/2016 Angina effort (HCC) [I20.89] 04/24/2017 Splenic artery aneurysm (HCC) [I72.8] 02/05/2018 Preop cardiovascular exam [Z01.810] 02/05/2018 Preop testing [Z01.818] 02/05/2018 Gastroesophageal reflux disease without esophag*04/17/2023 HTN (hypertension) [I10] 04/17/2023 Other specified hypothyroidism [E03.8] 04/17/2023 Epigastric hernia [K43.9] 04/18/2023 05/27/2023 Acute deep vein thrombosis (DVT) of proximal ve*05/23/2023 Disposition: Return if symptoms worsen or fail to improve. Follow-up and Disposition History for Encounter Date Provider Department Center 05/27/2023 [id number] ALARCON [facility] Encou (more content not included)... Normal [facility] Ben 05-23-2023 MARIE Telephone (AVPANE) -------- JORGE GUILLEN ([id number]) 1945 M Date Time Provider Department 05/23/23 SHANTA ARMAS During your visit today, we recorded the following information about you: Shanta Armas PA-C 05/23/2023 8:16 AM Signed Patient was scheduled for virtual PACC appt 05/23/2023 at 8:00 am . Patient did not check in for visit. I called the patient at 8:05 am to see if they needed any assistance logging in and left voicemail. I did provide our PACC outsole scheduler phone number to assist in rescheduling this apt. ([phone]) I waited till 8:15 am to allow them to check in before sending this message. This message routed to PACC schedulers to contact patient to reschedule PACC appt. Shanta Armas PA-C Allergies As of Date: 05/23/2023 Noted Allergy Reaction Contrast Dye [Other] 06/14/2003 10 - Anaphylaxis Date Reviewed: 05/16/2023 Reviewed by: Jaleel Barragan DPM - Fully Assessed Reason for Visit: No Show [1558] Cmt: Virtual PACC apt for 05/23/2023 at 8:00 am Prescriptions as of 05/23/2023 - Cholecalciferol, Vitamin D3, (VITAMIN D) 25 mcg (1,000 unit) cap Take 1,000 Units by mouth once daily. - lutein 20 mg cap Take 20 mg by mouth. - omeprazole (PRILOSEC) 20 mg capsule Take 20 mg by mouth once daily. - levothyroxine (SYNTHROID) 100 mcg tablet Take 137 mcg by mouth daily before breakfast. - TURMERIC ROOT EXTRACT ORAL Take by mouth once daily. - rosuvastatin (CRESTOR) 10 mg tablet Take 10 mg by mouth once daily. - atenolol (TENORMIN) 25 mg tablet TAKE 1 TABLET BY MOUTH ONCE DAILY. - Ascorbic Acid 1,000 mg tablet Take 1 tablet by mouth twice daily. - latanoprost (XALATAN) 0.005 % ophthalmic solution Use 1 Drop in both eyes daily at bedtime. - nitroglycerin sublingual (NITROQUICK) 0.4 mg SL tablet Dissolve 1 tablet under the tongue as needed for Chest Pain. If no pain relief call 911. - Tadalafil (CIALIS) 20 mg tablet Take 1 tablet by mouth as needed. 1-2 hours before sexual intercourse - Coenzyme B49-Wpsciwg E 100-150 mg-unit cap Take 1 tablet by mouth once daily. - multivitamin ORAL Tab Take one(1) tablet daily. - ASPIRIN 81 MG TAB Take one (1) tablet daily . Problem List As Of Date 05/23/2023 Noted Resolved CORONARY ATHEROSCLER UNSPEC VESSEL [I25.10] 04/25/2005 08/23/2015 AORTOCORONARY BYPASS STATUS [Z95.1] 04/25/2005 08/23/2015 HYPERLIPIDEMIA NEC/NOS [E78.5] 04/25/2005 08/23/2015 Coronary artery disease involving mi'kmaq olmstead*08/23/2015 S/P CABG x 3 (L-LAD, R-diag, S-OM) 2001 [Z95.1] 08/23/2015 Pure hypercholesterolemia [E78.00] 08/23/2015 Erectile dysfunction [N52.9] 08/23/2015 Diaphoresis [R61] 03/28/2016 Angina effort (HCC) [I20.89] 04/24/2017 Splenic artery aneurysm (HCC) [I72.8] 02/05/2018 Preop cardiovascular exam [Z01.810] 02/05/2018 Preop testing [Z01.818] 02/05/2018 Gastroesophageal reflux disease without esophag*04/17/2023 HTN (hypertension) [I10] 04/17/2023 Other specified hypothyroidism [E03.8] 04/17/2023 Epigastric hernia [K43.9] 04/18/2023 Encounter Status:Closed by SHANTA ARMAS on 05/23/23 [facility] HISTORY PHYSICALon HISTORY PHYSICAL HNO ID: [id number] Author: Tamy Flowers APRN.JAILER/TRAINING OFFICER Service: ? Author Type: Nurse Practitioner Type: HANDP Filed: 05/23/2023 1:58 PM Note Text: PREANESTHESIA CONSULT CLINIC TELEHEALTH VISIT Patient has been identified by name and date of : Yes This is a virtual visit using ValetAnywhereom Video Visit. It require patient-provider interaction for the medical decision making as documented below. Reason for contact: PACC visit Accompanied by: Self This is a virtual visit using Virtual Visit (Audio/Visual)I have discussed the nature of this visit with the patient which will occur via Distance Health (Phone, Virtual Visit) and he agrees to proceed with this interaction. It required patient-provider interaction for the medical decision making as documented below. I have communicated my name and active licensure. The patient's identity and physical location were verified at the time of this visit. Either the patient or their legal contact representative has been informed of the risks and benefits of and alternatives to treatment through a remote evaluation and consents to proceed with the evaluation remotely. Scheduled Surgery: RECONSTRUCTION TOE HAMMER (left) Subjective CHIEF COMPLAINT: Patient presents with: Pre-Op Visit HPI: This is a 78 year old male who presents with a left hammer toe. Patient denies any pain at this time. ACTIVE PROBLEM LIST Coronary Artery Disease Involving [place] Coronary Artery of [place] Heart Without Angina Pectoris S/P CABG x 3 (L-LAD, R-diag, S-OM) 2001 Pure Hypercholesterolemia Erectile Dysfunction Diaphoresis Angina Effort Splenic Artery Aneurysm (Hcc) Preop Cardiovascular Exam Preop Testing Gastroesophageal Reflux Disease Without Esophagitis Htn (Hypertension) Other Specified Hypothyroidism Epigastric Hernia Acute Deep Vein Thrombosis (Dvt) of Proximal Vein of Lower Extremity (Hcc) PAST MEDICAL HISTORY Diagnosis Date Coronary atherosclerosis of unspecified type of vessel, mi'kmaq or graft Coronary Atherosclerosis Frozen shoulder Right [...] CUFF ACUTE Right 2002 Rotator cuff repair REPAIR EPIGASTRIC HERNIA,REDUC FAMILY HISTORY Problem Relation Age of Onset Hypertension Mother age 92 Aneurysm Father age 86 from CHF. Had [place] at age 52 Diabetes Father Heart Attack Father Social History Tobacco Use Smoking status: Never Smokeless tobacco: Never Substance Use Topics Alcohol use: Yes Alcohol/week: 1.7 standard drinks of alcohol Types: 2 Standard drinks or equivalent per week Comment: one glass of wine per week Drug use: No ALLERGIES Allergen Reactions Contrast Dye [Other] Anaphylaxis MEDICATIONS: Current Outpatient Medications Medication Sig Cholecalciferol, Vitamin D3, (VITAMIN D) 25 mcg [...] needed. 1-2 hours before sexual intercourse Coenzyme I77-Ysjtjib E 100-150 mg-unit cap Take 1 tablet by mouth once daily. multivitamin ORAL Tab Take one(1) tablet daily. ASPIRIN 81 MG TAB Take one (1) tablet daily . No current facility-administered medications for this visit. COVID VACCINATION STATUS: Fully vaccinated REVIEW OF SYSTEMS: Pain Assessment: General: No weight loss, malaise or fevers. Neuro: No history of TIA's, stroke, TANK TESTER tumor, impaired sensorium, hemiplegia, paraplegia or quadraplegi (more content not included)... Normal [facility] ANES POSTPROC EVALon 023 ANES POSTPROC EVAL HNO ID: [id number] Author: Jorge Rodgers DO Service: Anesthesiology Author Type: Physician Type: Anesthesia Postprocedure Evaluation Filed: 04/18/2023 2:10 PM Note Text: POST ANESTHESIA EVALUATION NOTE : 1945 Procedure Summary Date: 04/18/23 Room / Location: [facility] OR03 / [facility] OR Anesthesia Start: 1244 Anesthesia Stop: 1320 Procedure: HERNIORRHAPHY EPIGASTRIC REDUCIBLE INITIAL 3cm-10cm (Abdomen) Diagnosis: Epigastric hernia (Epigastric hernia [K43.9]) Surgeons: Laverne Alarcon MD Responsible Provider: Jorge Rodgers DO Anesthesia Type: MAC ASA Status: 3 Anesthesia Type: MAC Last Vitals Vitals Value Taken Time BP 126/74 04/18/23 1345 Temp 36.4 ?C (97.5 ?F) 04/18/23 1317 Pulse 56 04/18/23 1354 Resp 20 04/18/23 1354 SpO2 94 % 04/18/23 1354 Vitals shown include unvalidated device data. Post Anesthesia Patient Status Patient Evaluation: PACU. PACU/ICU Patient Condition: stable. Anticipated Disposition: phase 2 then home. Neurological Status: aware and responsive. Pulmonary Status: breathing comfortably on room air Airway Control: returned to baseline unsupported. Cardiovascular Status: stable. Pain Management: clinically adequate - multimodal analgesia pain management approach Postoperative Hydration: acceptable. Intraoperative Events: no significant anesthesia events Post Operative Nausea/Vomiting Status: no significant post operative nausea or vomiting Recommendation: continue current plan of care and further care per PACU/ICU/floor team. Anesthesia Observations No Documentation SIGNATURE: Jorge Rodgers DO PATIENT NAME: Jorge Guillen DATE: April 18, 2023 TIME: 2:10 PM CSN: [id number] [facility] ANES PRE-OPon 04-18-2023 ANES PRE-OP HNO ID: [id number] Author: Jorge Rodgers DO Service: Anesthesiology Author Type: Physician Type: Anesthesia Preprocedure Evaluation Filed: 04/18/2023 12:06 PM Note Text: ANESTHESIOLOGY DAY OF SURGERY NOTE : 1945 Procedure Information Date/Time: 04/18/23 1046 Procedure: HERNIORRHAPHY EPIGASTRIC REDUCIBLE INITIAL 3cm-10cm (Abdomen) - Epigastric hernia Location: [facility] OR03 / [facility] OR Surgeons: Laverne Alarcon MD Estimated body mass index is 26.99 kg/m? as calculated from the following: Height as of this encounter: 182.9 cm (6'). Weight as of this encounter: 90.3 kg (199 lb). Most recent hematocrit and potassium results: Hematocrit 49.5 02/25/2018 Potassium 4.7 02/25/2018 Relevant Problems CARDIO (+) Angina effort (+) Coronary artery disease involving mi'kmaq coronary artery of mi'kmaq heart without angina pectoris (+) HTN (hypertension) (+) S/P CABG x 3 (L-LAD, R-diag, S-OM) 2001 (+) Splenic artery aneurysm (HCC) ENDO (+) Other specified hypothyroidism GI (+) Gastroesophageal reflux disease without esophagitis I - PHYSICAL EVALUATION AIRWAY Patient intubated: No. Tracheostomy tube not present Mallampati: II. TM distance: >3 FB. Neck ROM: full ROM without neurological symptoms. Mouth opening: adequate. Short neck: no. Thick neck: no DENTAL Dental findings: teeth intact. II - ANESTHESIA PLAN ASA Score: 3 Anesthetic Plan: MAC NPO Status: adequate Beta Klarissa Monitoring Plan Monitoring plan: standard ASA. Post Procedure Analgesic Plan Postoperative analgesic plan: parenteral or oral opioids, multimodal analgesia and per surgical service. Informed Consent Anesthetic risks, benefits, alternatives, personnel and consent discussed: yes. Patient / Responsible Constitution Party agrees to proceed: yes Patient / Surrogate agrees to blood products: Yes DNR status not reviewed with patient and/or family prior to surgery. Significant changes in the patient condition since the History and Physical, not otherwise documented in primary service progress note: no. Potential Anesthesia issues that may suggest increased risk of complications or contraindication to planned procedure: none. Vitals Value Taken Time BP 152/74 04/18/23 0945 Pulse Resp 16 04/18/23 0945 Temp 36.6 ?C (97.9 ?F) 04/18/23 0945 SpO2 98 % 04/18/23 0945 Facility-Administered Medications as of 04/18/2023 Medication Dose Route Frequency - acetaminophen 1,000 mg tab(s) (TYLENOL) 1,000 mg ORAL Pre-Op Once - lactated ringers iv infusion 30 mL/hr INTRAVENOUS CONTINUOUS - promethazine 12.5 mg tab(s) (PHENERGAN) 12.5 mg ORAL Pre-Op Once Outpatient Medications as of 04/18/2023 Medication Sig - omeprazole (PRILOSEC) 20 mg capsule Take 20 mg by mouth once daily. - levothyroxine (SYNTHROID) 100 mcg tablet Take 137 mcg by mouth daily before breakfast. - TURMERIC ROOT EXTRACT ORAL Take by mouth once daily. - rosuvastatin (CRESTOR) 10 mg tablet Take 10 mg by mouth once daily. - atenolol (TENORMIN) 25 mg tablet TAKE 1 TABLET BY MOUTH ONCE DAILY. - Ascorbic Acid 1,000 mg tablet Take 1 tablet by mouth twice daily. - latanoprost (XALATAN) 0.005 % ophthalmic solution Use 1 Drop in both eyes daily at bedtime. - Coenzyme T06-Fvdalhx E 100-150 mg-unit cap Take 1 tablet by mouth once daily. - multivitamin ORAL Tab Take one(1) tablet daily. - ASPIRIN 81 MG TAB Take one (1) tablet daily . - nitroglycerin sublingual (NITROQUICK) 0.4 mg SL tablet Dissolve 1 tablet under the tongue as needed for Chest Pain. If no pain relief call 911. - Tadalafil (CIALIS) 20 mg tablet Take 1 tablet by mouth as needed. 1-2 hours before sexual intercourse I have interviewed and examined the patient. I have reviewed the medical record and/or the pre-anesthesia evaluation, pertinent labs, and test results. This contains updated information obtained within 48 hours of Surgery/Procedure. SIGNATURE: Jorge Rodgers DO PATIENT NAME: Jorge Guillen DATE: April 18, 2023 TIME: 12:05 PM CSN: [id number] [facility] OPERATIVE NOon 04-18-2023 OPERATIVE NO HNO ID: [id number] Author: Reynaldo Rivas DO Service: General Surgery Author Type: Resident Type: Operative Report Filed: 04/18/2023 1:15 PM Note Text: -------- Attestation signed by Laverne Alarcon MD at 04/18/2023 4:24 PM PARTICIPATION IN SURGERY/PROCEDURE: Resident performed the procedure, under direct supervision and the remainder of the procedure was performed by the primary surgeon/proceduralist with assistance. -------- OPERATIVE NOTE LOG ID: [id number] Surgery/Procedure Date: 04/18/2023 Incision/Procedure Start Time: 12:58 PM Incision Close/Procedure End Time: 1:08 PM Surgeon(s)/Proceduralist (s) and Shuttleless Loom Weaver(s): Surgeon(s) and Role: * Laverne Alarcon MD - Primary Reynaldo Rivas DO - Assisting Pre-Op/Pre-Procedure Diagnosis: Symptomatic ventral hernia Post-Op/Post-Procedure Diagnosis: Same as preop Procedure(s): Epigastric hernia repair Anesthesia: Monitored Anesthesia Care Indication: Jorge Guillen is a 77 year old MALE who presented to office c/o of symptomatic ventral hernia. Discussed with patient about ventral hernia repair and surgical option including risks, benefits, and alternative. Patient voiced understanding and wishes to proceed with the surgical option. Full consent was obtained. Findin.5cm x 0.5cm ventral hernia containing preperitoneal fat Procedure description: The patient was brought to the operating room and identified by name, medical record number, and date of . A sign in huddle was done and the patient placed supine in the operating table. Monitored Anesthesia Care was then administered. The abdomen was prepped and draped in the usual sterile fashion. A surgical time out was then performed. 5 cm incision was made just over the ventral hernia. Subcutaneous tissue was dissected until fascia. Small fascial defect of 0.5 cm x 0.5 cm was found containing preperitoneal fat. Fascia was cleared from the preperitoneal fat and it was completely reduced. Using 1-0 PDS, fascia was approximated in figure of 8 fashion. Deep subcutaneous and dermis was approximated with 3-0 Vicryl The skin was approximated using 5-0 Vicryl. Exofin skin glue dressing were applied. Sponge count and instrument count was correct . the patient was extubated and taken to the recovery area in a stable condition. Estimated Blood Loss: 2 mls Specimens: * No specimens in log * Complications: None PARTICIPATION IN SURGERY/PROCEDURE: Resident opened and closed, under direct supervision and the remainder of the procedure was performed by the primary surgeon/proceduralist with assistance. SIGNATURE: Reynaldo Rivas DO PATIENT NAME: Jorge Guillen DATE: April 18, 2023 TIME: 1:11 PM PAGER/CONTACT #: [phone] [facility] HISTORY PHYSICALon 3 HISTORY PHYSICAL HNO ID: [id number] Author: Keisha King APRN.JAILER/TRAINING OFFICER Service: ? Author Type: Nurse Practitioner Type: HANDP Filed: 04/18/2023 9:35 AM Note Text: PREANESTHESIA CONSULT CLINIC TELEHEALTH VISIT Patient has been identified by name and date of : Yes This is a virtual visit using [employer] Video Visit. It require patient-provider interaction for the medical decision making as documented below. Reason for contact: PACC visit Accompanied by: Self Scheduled Surgery: HERNIORRHAPHY EPIGASTRIC REDUCIBLE INITIAL 3cm-10cm Subjective CHIEF COMPLAINT: No chief complaint on file. HPI: This is a 77 year old male who presents with h/o epigastric hernia. ACTIVE PROBLEM LIST Coronary Artery Disease Involving [place] Coronary Artery of [place] Heart Without Angina Pectoris S/P CABG x 3 (L-LAD, R-diag, S-OM) 2001 Pure Hypercholesterolemia Erectile Dysfunction Diaphoresis Angina Effort Splenic Artery Aneurysm (Hcc) Preop Cardiovascular Exam Preop Testing Gastroesophageal Reflux Disease Without Esophagitis Htn (Hypertension) Other Specified Hypothyroidism PAST MEDICAL HISTORY Diagnosis Date Coronary atherosclerosis of unspecified type of vessel, mi'kmaq or graft Coronary Atherosclerosis Frozen shoulder Right [...] 10/26, 06/03 Colonoscopy HERNIA REPAIR HX Right 2002 R INGUINAL AND UMBILICAL HERNIA LAPAROSCOPIC REPAIR WITH MESH OPEN REPAIR OF ROTATOR CUFF ACUTE Right 2002 Rotator cuff repair FAMILY HISTORY Problem Relation Age of Onset Hypertension Mother age 92 Aneurysm Father age 86 from CHF. Had [place] at age 52 Diabetes Father Heart Attack Father Social History Tobacco Use Smoking status: Never Smokeless tobacco: Never Substance Use Topics Alcohol use: Yes Alcohol/week: 1.7 standard drinks of alcohol Comment: socially Drug use: No ALLERGIES Allergen Reactions Contrast Dye [Other] Anaphylaxis MEDICATIONS: No current outpatient medications on file. No current facility-administered medications for this visit. COVID VACCINATION STATUS: Fully vaccinated REVIEW OF SYSTEMS: Pain Assessment: General: No weight loss, malaise or fevers. Neuro: No history of TIA's, stroke, TANK TESTER tumor, impaired sensorium, hemiplegia, paraplegia or quadraplegia. No neurological symptoms or problems. Respiratory: No history of current cough or dyspnea, or pneumonia in the past 6 weeks. No history of respiratory/pulmonary symptoms or problems. Cardiovascular: Positive for: HLD, Hypertension GI: Positive for GERD : No history of dysuria, frequency or incontinence,, stones or chronic kidney disease Endocrine: Hypothyroidism Hematology: Chronic anti-coagulation / platelet meds (Aspirin) Oncology: No history of CA metastasis, chemo within 30 days, or radiotherapy within 90 days. Has not lost 10% of body wt in 6 months. No history of oncological symptoms or problems. Psych: No history of psychiatric symptoms or problems. Musculoskeletal: Negative for joint pain or swelling, back pain or muscle pain. Skin: Negative for lesions, rash and itching. Objective PHYSICAL EXAM: Pulse 73 Ht 6' 0 (1.83m) Wt 199 lb (90.3kg) BMI 26.98 kg/(m2). VIDEO EXAM: (if completed, performed via video enabled technology) GENERAL: alert and appropriate, in no distress, well-hydrated, well nourished, and happy, smiling, interactive SKIN: no rash noted HEAD: normocephalic, no abnormality or lesion noted OROPHARYNX: moist mucus membranes NECK: full ROM, no cervical LNs noted RESPIRATORY: breathing non-labored CHEST: equal chest rise with normal respiratory effort HEART: pt palpated radial pulse and counted outloud for 10 sec, reg rate and rhythm noted Diagnostic tests reviewed for today's visit: Lab Value Units Date High Low HB No results within date range. HCT No results within date range. WBC No results within date range. PLT No results within date range. NA No results within date range. K No results within date range. GLUC No results within date range. BUN No results within date range. CREAT No results within date range. PTSEC No results within date range. INR No results within date range. APTT No results within date range. ALT No results within date range. AST No results withi (more content not included)... Normal [facility] CNOVon 04-01-2023 CNOV Office Visit (JUANJO ) -------- DARLENEJORGE BEAVER ([id number]) 1945 M Date Time Provider Department 04/01/23 8:45 AM LAVERNE ALARCON During your visit today, we recorded the following information about you: Pulse Blood pressure Weight Height 63/minute 128/72 93.8 kg 1.829 m Laverne Alarcon MD 04/18/2023 11:19 AM Signed Assessment IMPRESSION AND PLAN: 77 year old wm with epigastric hernia, Risks, benefits and alternatives of proceeding with open hernia repair with/without mesh were discussed with risks to include but not limited to hemorrhage, infection, possibility of mesh complications,possibilit y of recurrence,possibility of intraabdominal organ injury.Patient expressed understanding and wishes to proceed HPI: Jorge Guillen is a 77 year old male,He presents for the evaluation of of years (>20) of periumbilical lump, increasing in size, not painful, annoying, no obstructive sx PAST MEDICAL HISTORY Diagnosis Date Coronary atherosclerosis of unspecified type of vessel, mi'kmaq or graft Coronary Atherosclerosis Frozen shoulder Right [...] Aneurysm Father age 86 from CHF. Had [place] at age 52 Diabetes Father Heart Attack [...] needed. 1-2 hours before sexual intercourse Coenzyme Z69-Kuylptg E 100-150 mg-unit cap Take 1 tablet [...] 128/72 Pulse 63 Ht 182.9 cm (6' 0.01) Wt 93.8 kg (206 lb 11.2 oz) SpO2 98% BMI 28.03 kg/m? BP 128/72 Pulse 63 Ht 182.9 cm (6' 0.01) Wt 93.8 kg (206 lb 11.2 oz) [...] Non distended. No masses, organomegaly, reducible subcm supraumbilical/epigastri c hernia Extremities:No clubbing, cyanosis, or edema. Neuro: Alert and oriented times three, No apparent distress RADIOLOGY: none Laverne Alarcon MD 04/04/2023 1:42 PM Allergies As of Date: 04/01/2023 Noted Allergy Reaction Contrast Dye [Other] 06/14/2003 10 - Anaphylaxis Date Reviewed: 04/01/2023 Reviewed by: Laverne Alarcon MD - Fully Assessed Reason for Visit: Consult [173] Cmt: Non-painful lump to mid abd Visit Diagnosis:Epigastric hernia [K43.9] Prescriptions as of 04/18/2023 - Cholecalciferol, Vitamin D3, (VITAMIN D) 25 mcg (1,000 unit) cap Take 1,000 Units by mouth once daily. - lutein 20 mg cap Take 20 mg by mouth. (more content not included)... Normal [facility] Strange Basophil percentageOrdered B y: Ira Corey on 11-08-2022 Cholesterol [Mass/Vol] 111 mg/dL <[address] [facility] Comment on above: <200 mg/dL Desirable 200-240 mg/dL Borderline >240 mg/dL High Risk Triglyceride [Mass/Vol] 273 mg/dL <199 [facility] Comment on above: The drugs N-Acetylcy steine and Metamizole may falsely depress this assay.Serum Triglycerides Reference Interval Normal <150 mg/dL Borderline high 150 - 199 mg/dL High 200 - 499 mg/dL Very High > or = 500 mg/dL No Panel InformationOrdered By: Ira Corey on 11-08-2022 Thyroid Stimulating Hormone (TSH) 0.48 uIU/mL 0.358-3.74 [facility] Serum or plasma cholesterol in HDL measurement (mass/volume)Ordered By: Ira Corey on 11-08-2022 Cholesterol in HDL [Mass/Vol] 30 mg/dL >40 [facility] Comment on above: The drugs N-Acetylcy steine and Metamizole may falsely depress this assay. Reference Range HDL <40 mg/dL Low HDL Cholesterol HDL >or= 60 mg/dL High HDL Cholesterol Serum or plasma cholesterol in VLDL measurement (mass/volume)Ordered By: Ira Corey on 11-08-2022 Cholesterol in VLDL [Mass/Vol] 55 mg/dL 5-40 [facility] Serum or plasma low density lipoprotein (LDL) cholesterol measurement (mass/volume)Ordered By: Ira Corey on 11-08-2022 Cholesterol in LDL [Mass/Vol] 26 mg/dL 0-130 [facility] No Panel InformationOrdered By: Ira Corey on 09-03-2022 Thyroid Stimulating Hormone (TSH) 2.73 uIU/mL 0.358-3.74 [facility] Basophil percentageon 2021 Basophil percentage < 0.2 [facility] Work Phone: No Panel Informationon 10-20 Centromere B Antibody <0.2 [facility] Work Phone: BAG GRADER Antibody <0.2 [facility] Work Phone: Serum DNA double strand anti body assay (units/volume)on 10-20-2021 DNA double strand Ab Qn (S) [IU]/mL [facility] Work Phone: Comment on above: Negative <5 Equivoca l 5 - 9 Positive >9 Serum Fabi-1 antibody assay (u nits/volume)on 10-20-2021 Fabi-1 extractable nuclear Ab Qn (S) <0.2 [facility] Work Phone: Serum Scl-70 extractable nuc lear antibody assay (units/volume)on 10-20-2021 SCL-70 extractable nuclear Ab Qn (S) <0.2 [facility] Work Phone: Serum Bauer extractable nucl ear antibody detectionon 10-20-2021 Bauer extractable nuclear Ab Ql (S) <0.2 AI [facility] Work Phone: Vital Signs Date Time Vital Sign Value Performing Clinician Faci lity 01-07-2025 08:58-0400 Body height 182.88 cm Ira Corey MARINE WATER TENDER-C Work Phone: [facility] 01-07-2025 08:58-0400 Body mass index (BMI) [Ratio] 27.8 kg/m2 Irasusy BorjaCorey [employer] WATER TENDER-C Work Phone: [facility] 01-07-2025 08:58-0400 Body weight 92.98 kg Ira Corey [employer] WATER TENDER-C Work Phone: [facility] 01-07-2025 08:58-0400 Diastolic blood pressure 77 mm[Hg] Irasusy Corey [employer] WATER TENDER-C Work Phone: [facility] 01-07-2025 08:58-0400 Heart rate 57 /min Irasusy BorjaCorey [employer] W[employer] TENDER-C Work Phone: [facility] 01-07-2025 08:58-0400 Respiratory rate 16 /min Irasusy Corey [employer] W[employer] TENDER-C Work Phone: [facility] 01-07-2025 08:58-0400 Systolic blood pressure 117 mm[Hg] Ira Corey [employer] WATER TENDER-C Work Phone: [facility] 12-29-2024 16:03-0400 Body height 182.88 cm Ira Corey [employer] WATER TENDER-C Work Phone: [facility] 12-29-2024 16:03-0400 Body mass index (BMI) [Ratio] 28.5 kg/m2 Ira Corey [employer]INE WATER TENDER-C Work Phone: [facility] 12-29-2024 16:03-0400 Body temperature 97 [degF] Ira Corey [employer] WATER TENDER-C Work Phone: [facility] 12-29-2024 16:03-0400 Body weight 95.25 kg Irasusy BrojaCorey [employer] WATER TENDER-C Work Phone: [facility] 12-29-2024 16:03-0400 Diastolic blood pressure 70 mm[Hg] Ira Corey [employer] WATER TENDER-C Work Phone: [facility] 12-29-2024 16:03-0400 Heart rate 50 /min Ira Corey [employer]INE WATER TENDER-C Work Phone: [facility] 12-29-2024 16:03-0400 Respiratory rate 18 /min Ira Corey [employer] WATER TENDER-C Work Phone: [facility] 12-29-2024 16:03-0400 SaO2% (BldA) [Mass fraction] 98 % Ira Corey [employer] WATER TENDER-C Work Phone: [facility] 12-29-2024 16:03-0400 Systolic blood pressure 143 mm[Hg] Ira Corey [employer] WATER TENDER-C Work Phone: [facility] 09-12-2023 18:05-0500 Body height 182.88 cm [facility] 09-12-2023 18:05-0500 Body mass index (BMI) [Ratio] 28.3 kg/m2 [facility] 09-12-2023 18:05-0500 Body temperature 97.5 [degF] [facility] 09-12-2023 18:05-0500 Body weight 94.8 kg [facility] 09-12-2023 18:05-0500 Diastolic blood pressure 70 mm[Hg] [facility] 09-12-2023 18:05-0500 Heart rate 82 /min [facility] 09-12-2023 18:05-0500 Respiratory rate 18 /min [facility] 09-12-2023 18:05-0500 SaO2% (BldA) [Mass fraction] 97 % [facility] 09-12-2023 18:05-0500 Systolic blood pressure 138 mm[Hg] [facility] 06-24-2023 14:40-0500 Body height 182.9 cm [facility] 06-24-2023 14:40-0500 Body weight 90.72 kg [facility] 06-24-2023 14:40-0500 Heart rate 67 /min [facility] 11-08-2022 19:23-0400 Body height 182.88 cm [employer] WATER TENDER-Reno Corey MARINE WATER TENDER Work Phone: [facility] 11-08-2022 19:23-0400 Body mass index (BMI) [Ratio] 28.2 kg/m2 [employer]C Ira Corey MARINE WATER TENDER Work Phone: [facility] 11-08-2022 19:23-0400 Body temperature 97.9 [degF] [employer]-C Ira Corey MARINE WATER TENDER Work Phone: [facility] 11-08-2022 19:23-0400 Body weight 94.34 kg [employer] T[employer]-C Ira Corey MARINE WATER TENDER Work Phone: [facility] 11-08-2022 19:23-0400 Diastolic blood pressure 60 mm[Hg] [employer] W[employer] T[employer]ER-C Ira Corey MARINE WATER TENDER Work Phone: [facility] 11-08-2022 19:23-0400 Heart rate 64 /min [employer] W[employer] T[employer]C Ira Corey MARINE WATER TENDER Work Phone: [facility] 11-08-2022 19:23-0400 Respiratory rate 18 /min [employer] W[employer] T[employer]ER-C Ira Corey MARINE WATER TENDER Work Phone: [facility] 11-08-2022 19:23-0400 SaO2% (BldA) [Mass fraction] 94 % [employer] W[employer] TENDER-Reno Corey MARINE WATER TENDER Work Phone: [facility] 11-08-2022 19:23-0400 Systolic blood pressure 142 mm[Hg] MAR[employer] W[employer] TENDER-C Ira Corey MARINE WATER TENDER Work Phone: [facility] 09-03-2022 17:45-0500 Body height 182.88 cm MARINE WATER TENDER-Reno Corey MARINE WATER TENDER Work Phone: [facility] 09-03-2022 17:45-0500 Body mass index (BMI) [Ratio] 27.2 kg/m2 [employer] W[employer] TENDER-C Ira Corey MARINE WATER TENDER Work Phone: [facility] 09-03-2022 17:45-0500 Body temperature 97.3 [degF] [employer] W[employer] TENDER-C Ira Corey MARINE WATER TENDER Work Phone: [facility] 09-03-2022 17:45-0500 Body weight 91.17 kg [employer] W[employer] TENDER-C Ira Corey MARINE WATER TENDER Work Phone: [facility] 09-03-2022 17:45-0500 Diastolic blood pressure 60 mm[Hg] MARINE WATER TENDER-C Ira Corey MARINE WATER TENDER Work Phone: [facility] 09-03-2022 17:45-0500 Heart rate 57 /min [employer] W[employer] TENDER-C Ira Corey MARINE WATER TENDER Work Phone: [facility] 09-03-2022 17:45-0500 Respiratory rate 18 /min [employer] W[employer] T[employer]ER-C Ira Corey MARINE WATER TENDER Work Phone: [facility] 09-03-2022 17:45-0500 SaO2% (BldA) [Mass fraction] 96 % [employer] W[employer] T[employer]ER-C Ira Corey MARINE WATER TENDER Work Phone: [facility] 09-03-2022 17:45-0500 Systolic blood pressure 128 mm[Hg] [employer] W[employer] TENDER-C Ira Corey MARINE WATER TENDER Work Phone: [phone] [place] [address] 08-08-2022 14:25-0500 Body mass index (BMI) [Ratio] 28 kg/m2 [employer] W[employer] T[employer]ER-C Ira Corey MARINE WATER TENDER Work Phone: [phone] [place] [address] 08-08-2022 14:25-0500 Body weight 93.66 kg [employer] W[employer] T[employer]ER-C Ira Corey MARINE WATER TENDER Work Phone: [facility] 08-08-2022 14:25-0500 Diastolic blood pressure 70 mm[Hg] [employer] W[employer] TENDER-C Ira Corey MARINE WATER TENDER Work Phone: [phone] [place] [address] 08-08-2022 14:25-0500 Heart rate 56 /min MAR[employer] WATER TENDER-Reno Corey MARINE WATER TENDER Work Phone: [facility] 08-08-2022 14:25-0500 Respiratory rate 16 /min [employer] WATER TENDER-Reno Corey MARINE WATER TENDER Work Phone: [facility] 08-08-2022 14:25-0500 Systolic blood pressure 128 mm[Hg] MARINE WATER TENDER-Reno Corey MARINE WATER TENDER Work Phone: [facility] 04-11-2022 13:37-0400 Diastolic blood pressure 84 mm[Hg] Mayelin Stahl MD Work Phone: [facility] 04-11-2022 13:37-0400 Heart rate 63 /min Mayelin Stahl MD Work Phone: [facility] 04-11-2022 13:37-0400 Systolic blood pressure 142 mm[Hg] Mayelin Stahl MD Work Phone: [facility] 11-15-2021 10:04-0400 Body weight 97.97 kg MAR[employer] WATER TENDER-Reno Corey MARINE WATER TENDER Work Phone: [facility] Work Phone: 10-20-2021 15:42-0400 Body height 182.[address] Chandana Garcia Work Phone: [facility] Work Phone: 10-20-2021 15:42-0400 Body mass index (BMI) [Ratio] 28.6 kg/m2 Dr. Chandana Garcia Work Phone: [facility] Work Phone: 10-20-2021 15:42-0400 Body temperature 97.3 [degF] Dr. Chandana Garcia Work Phone: [facility] Work Phone: 10-20-2021 15:42-0400 Body weight 95.[address] Chandana Garcia Work Phone: [facility] Work Phone: 10-20-2021 15:42-0400 Diastolic blood pressure 70 mm[Hg] Dr. Chandana Garcia Work Phone: [facility] Work Phone: 10-20-2021 15:42-0400 Heart rate 66 /min Dr. Chandana Garcia Work Phone: [facility] Work Phone: 10-20-2021 15:42-0400 Respiratory rate 18 /min Dr. Chandana Garcia Work Phone: [facility] Work Phone: 10-20-2021 15:42-0400 SaO2% (BldA) [Mass fraction] 97 % Dr. Chandana Garcia Work Phone: [facility] Work Phone: 10-20-2021 15:42-0400 Systolic blood pressure 122 mm[Hg] Dr. Chandana Garcia Work Phone: [facility] Work Phone: 09-01-2021 18:27-0500 Diastolic blood pressure 74 mm[Hg] Dr. Chandana Garcia Work Phone: [facility] Work Phone: 09-01-2021 18:27-0500 Respiratory rate 17 /min Dr. Chandana Garcia Work Phone: [facility] Work Phone: 09-01-2021 18:27-0500 Systolic blood pressure 122 mm[Hg] Dr. Chandana Garcia Work Phone: [facility] Work Phone: 09-01-2021 18:18-0500 SaO2% (BldA) [Mass fraction] 98 % Dr. Chandana Garcia Work Phone: [facility] Work Phone: 09-01-2021 14:45-0500 Body mass index (BMI) [Ratio] 28 kg/m2 Dr. Chandana Garcia Work Phone: [facility] Work Phone: 09-01-2021 14:45-0500 Body temperature 97.5 [degF] Dr. Chandana Garcia Work Phone: [facility] Work Phone: 09-01-2021 14:45-0500 Body weight 93.[address] Chandana Garcia Work Phone: [facility] Work Phone: 09-01-2021 14:45-0500 Heart rate 64 /min Dr. Chandana Garcia Work Phone: [facility] Work Phone: 08-11-2021 17:15-0500 Body mass index (BMI) [Ratio] 29.2 kg/m2 Dr. Chandana Garcia Work Phone: [facility] Work Phone: 08-11-2021 17:15-0500 Body temperature 97.9 [degF] Dr. Chandana Garcia Work Phone: [facility] Work Phone: 08-11-2021 17:15-0500 Body weight 97.[address] Chandana Garcia Work Phone: [facility] Work Phone: 08-11-2021 17:15-0500 Diastolic blood pressure 70 mm[Hg] Dr. Chandana Garcia Work Phone: [facility] Work Phone: 08-11-2021 17:15-0500 Heart rate 70 /min Dr. Chandana Garcia Work Phone: [facility] Work Phone: 08-11-2021 17:15-0500 Respiratory rate 18 /min Dr. Chandana Garcia Work Phone: [facility] Work Phone: 08-11-2021 17:15-0500 SaO2% (BldA) [Mass fraction] 98 % Dr. Chandana Garcia Work Phone: [facility] Work Phone: 08-11-2021 17:15-0500 Systolic blood pressure 128 mm[Hg] Dr. Chandana Garcia Work Phone: [facility] Work Phone: 07-05-2021 14:14-0500 Body weight 97.[address] Chandana Garcia Work Phone: [facility] Work Phone: 07-05-2021 14:14-0500 Diastolic blood pressure 64 mm[Hg] Dr. Chandana Garcia Work Phone: [facility] Work Phone: 07-05-2021 14:14-0500 Heart rate 68 /min Dr. Chandana Garcia Work Phone: [facility] Work Phone: 07-05-2021 14:14-0500 Respiratory rate 16 /min Dr. Chandana Garcia Work Phone: [facility] Work Phone: 07-05-2021 14:14-0500 Systolic blood pressure 114 mm[Hg] Dr. Chandana Garcia Work Phone: [facility] Work Phone: 07-06-2020 15:25-0500 Body mass index (BMI) [Ratio] 28 kg/m2 Dr. Chandana Garcia Work Phone: [facility] Work Phone: Encounters Encounter Date Encounter Type Care Provider Facility Start: 02-04-2025 ambulatory Kristofer Mcgee NP Facility :[facility] Start: 01-07-2025 End: 01-07-2025 Patient encounter procedure Kristofer Mcgee MARINE WATER TENDER-C -[facility] Work Phone: Start: 01-07-2025 End: 01-07-2025 ambulatory Ira Corey MARINE WATER TENDER-C Work Phone: [facility] Work Phone: Start: 01-05-2025 End: 01-05-2025 ambulatory RICARDO OCHOA MD Facility:[id number] Start: 12-29-2024 End: 12-29-2024 ambulatory Ira Corey MARINE WATER TENDER-C Work Phone: [facility] Work Phone: Start: 12-29-2024 End: 12-29-2024 Patient encounter procedure Ira Corey MARINE WATER TENDER-C -[facility] Work Phone: Start: 12-29-2024 End: 12-29-2024 ambulatory RICARDO OCHOA MD Facility:[id number] Start: 12-29-2024 End: 12-29-2024 ambulatory Ira Corey NP Facility:[facility] Start: 12-04-2024 End: 12-04-2024 ambulatory RICARDO OCHOA MD Facility:[id number] Start: 08-31-2024 End: 08-31-2024 ambulatory Ira Corey MARINE WATER TENDER Facility:[facility] Start: 08-05-2024 ambulatory Brian Doran Facility :[facility] Start: 05-07-2024 End: 05-07-2024 ambulatory Ira Corey MARINE WATER TENDER Facility:[facility] Start: 05-07-2024 ambulatory Ira Corey MARINE WATER TENDER Faci lity:[facility] Start: 03-06-2024 End: 03-06-2024 ambulatory Ira Corey MARINE WATER TENDER Facility:[facility] Start: 03-03-2024 End: 03-03-2024 ambulatory Geraldo Chowdhury Facility:[facility] Start: 09-12-2023 End: 09-12-2023 ambulatory [facility] Work Phone: Start: 09-12-2023 End: 09-12-2023 Patient encounter procedure [facility]-Laboratory, Specimen Work Phone: Start: 06-27-2023 End: 06-27-2023 ambulatory IRA COREY Facility:[facility] Start: 06-24-2023 End: 06-24-2023 ambulatory IRASusy COREY Facility:[facility] Start: 06-24-2023 End: 06-24-2023 Office outpatient visit 15 minutes [facility] Pre Anesthesia Comment on above: Pre-op evaluation (P rimary Dx); S/P CABG x 3 (L-LAD, R-diag, S-OM) 2001; Hypertension, unspecified type; Pure hypercholesterolemia; Acute deep vein thrombosis (DVT) of proximal vein of lower extremity, unspecified laterality (HCC); Splenic artery aneurysm (HCC); Gastroesophageal reflux disease without esophagitis; Other specified hypothyroidism Start: 06-24-2023 End: 06-24-2023 Preprocedural examination done [facility] Work Phone: Start: 05-27-2023 End: 05-27-2023 ambulatory IRA L COREY Facility:[facility] Start: 05-23-2023 End: 05-23-2023 ambulatory IRA Godfrey COREY Facility:[facility] Start: 05-23-2023 Encounter for other preprocedural examination IRA COREY [facility] Start: 04-18-2023 End: 04-18-2023 ambulatory LAVERNE ALARCON Facility:[facility] Start: 04-16-2023 End: 04-16-2023 Evaluation and management of inpatient LAVERNE ALARCON Facility:[facility] Start: 04-12-2023 End: 04-12-2023 ambulatory IRA COREY Facility:[facility] Start: 04-01-2023 End: 04-01-2023 Orders Only Laverne Alarcon MD Work Phone: General Surgery Comment on above: Epigastric hernia (P rimary Dx) Start: 11-27-2022 End: 11-27-2022 ambulatory MARINE WATER TENDER-Reno Corey MARINE WATER TENDER Work Phone: [facility] Work Phone: Start: 11-27-2022 End: 11-27-2022 Discharged Recurring MARINE WATER TENDER-Reno Corey MARINE WATER TENDER Work Phone: [facility]-Physical Therapy Start: 11-13-2022 Registered Recurring MARINE WATER TENDER-Reno Corey MARINE WATER TENDER Work Phone: [facility]-Physical Therapy Start: 11-08-2022 End: 11-08-2022 ambulatory MARINE WATER TENDER-Reno Corey MARINE WATER TENDER Work Phone: [facility] Work Phone: Start: 11-08-2022 End: 11-08-2022 Patient encounter procedure MARINE WATER TENDER-Reno Corey MARINE WATER TENDER Work Phone: [facility]-Laboratory, Specimen Start: 10-02-2022 End: 10-02-2022 Patient encounter procedure MARINE WATER TENDER-Reno Corey MARINE WATER TENDER Work Phone: [facility]-Cardiovascul ar Services Start: 09-03-2022 End: 09-03-2022 ambulatory MARINE WATER TENDER-Reno Corey MARINE WATER TENDER Work Phone: [facility] Work Phone: Start: 09-03-2022 End: 09-03-2022 Patient encounter procedure MARINE WATER TENDER-Reno Corey MARINE WATER TENDER Work Phone: [facility]-Laboratory, Specimen Start: 08-08-2022 End: 08-08-2022 Patient encounter procedure MARINE WATER TENDER-Reno Corey MARINE WATER TENDER Work Phone: [facility] Start: 06-11-2022 Non-patient / Non-visit MARINE WATER TENDER-C Lisa Corey MARINE WATER TENDER Work Phone: [facility] Start: 06-11-2022 End: 06-11-2022 ambulatory MARINE WATER TENDER-Reno Corey MARINE WATER TENDER Work Phone: [facility] Work Phone: Start: 06-11-2022 End: 06-11-2022 Patient encounter procedure MARINE WATER TENDER-Reno Corey MARINE WATER TENDER Work Phone: [facility]-Pulmonary Services/Neurology Start: 04-11-2022 End: 04-11-2022 Patient encounter procedure Mayelin Stahl MD Work Phone: Vascular Surg Dept Comment on above: PAD (peripheral mari ry disease) (HCC) (Primary Dx) Start: 11-28-2021 End: 11-28-2021 Patient encounter procedure MARINE WATER TENDER-C Ira Corey MARINE WATER TENDER [facility] Start: 11-22-2021 Telephone encounter Ira mariano GRAIN SACKER.JAILER/TRAINING OFFICER Work Phone: NOC Comment on above: Appointment Start: 11-15-2021 End: 11-15-2021 Patient encounter procedure MARINE WATER TENDER-Reno Corey MARINE WATER TENDER Work Phone: [facility] Start: 10-27-2021 End: 10-27-[address] Chandana Garcia Work Phone: [facility]-Radiology, [facility] Start: 10-20-2021 End: 10-20-[address] Chandana Garcia Work Phone: [facility]-Laboratory, Specimen Start: 09-01-2021 End: 09-01-2021 Emergency department patient visit Dr. Chandana Garcia Work Phone: [facility]-Emergency Department Start: 09-01-2021 End: 09-01-[address] Chandana Garcia Work Phone: [facility]-Cardiovascul ar Services Start: 07-05-2021 End: 07-05-[address] Chandana Garcia Work Phone: [facility] Start: 02-05-2018 Patient encounter status Ira Corey GRAIN SACKER.JAILER/TRAINING OFFICER Work Phone: [facility] Work Phone: Procedures Date Procedure Procedure Detail Performing Clinician Start: 12-29-2024 Assay of prostate sp ecific antigen total Ira Corey NP-C Work Phone: Comment on above: This test was perfor med using the [employer] tPSA method. Measured values of a patient sample can vary depending on the testing procedure used. PSA values determined on patient samples by different testing procedures cannot be used interchangeably. If there is a change in PSA assays while monitoring therapy, sequential testing should be performed to confirm baseline values. Start: 11-28-2021 MRI of lumbar spine MARINE WATER TENDER- C Ira Corey MARINE WATER TENDER Work Phone: Start: 10-27-2021 Radiologic examinati on of lumbosacral spine, complete, with bending views Start: 07-28-2019 Follow-up visit Start: 08-23-2015 History of coronary artery bypass grafting S/P CABG x 3 (L-LAD, R-diag, S-OM) 2001 Ira Corey GRAIN SACKER.JAILER/TRAINING OFFICER Work Phone: Start: 06-21-2002 History of coronary artery bypass grafting History of coronary artery bypass surgery Kristofer Mcgee MARINE WATER TENDER-C Comment on above: CABG x3- WEISS to LAD , NELSON to 1st diagonal, and SVG to posterolateral CX 07/01/02 History of coronary artery bypass grafting S/P CABG x 3 (L-LAD, R-diag, S-OM) 2001 [facility] Plan of Treatment Date Care Activity Detail Author Start: 06-13-2024 Urine microalbumin profile DTaP,Tdap,Td Vaccine (5 - Td or Tdap) [facility] Start: 04-01-2024 BP Controlled (<130/80) BP Controlled (<130/80) [facility] Start: 03-22-2023 Covid-19 Vaccine ( season) Covid-19 Vaccine ( season) [facility] Start: 03-22-2023 Influenza vaccination INFLUENZA (#1) [facility] Start: 07-22-2022 ADVANCE DIRECTIVE DISCUSSION ADVANCE DIRECTIVE DISCUSSION [facility] Start: 07-22-2022 DEPRESSION ASSESSMENT DEPRESSION ASSESSMENT [facility] Start: 03-22-2022 Influenza vaccination [facility] Start: 01-10-2022 COVID-19 VACCINE (5 - Pfizer series) COVID-19 VACCINE (5 - Pfizer series) [facility] Start: 10-27-2021 Radiologic examination of lumbosacral spine, complete, with bending views L/S Spine Comp/w Bending Views [facility] Work Phone: Start: 07-22-2021 ADVANCE DIRECTIVE DISCUSSION ADVANCE DIRECTIVE DISCUSSION [facility] Start: 02-25-2021 DIABETES SCREEN DIABETES SCREEN [facility] Start: 02-25-2021 Diabetes Screening Diabetes Screening [facility] Start: 11-09-2014 LIPID SCREEN LIPID SCREEN [facility] Start: 2011 PNEUMOCOCCAL: 65+ (1 - PCV) PNEUMOCOCCAL: 65+ (1 - PCV) [facility] Start: 2011 PNEUMOVAX AGE 65 AND OVER WITH 5YR LOOKBACK (#1) PNEUMOVAX AGE 65 AND OVER WITH 5YR LOOKBACK (#1) [facility] Start: 11-09-2010 Hepatitis B surface antibody level LDL CHOLESTEROL [facility] Start: 2006 RSV Vaccine (1 - 1-dose 60+ series) RSV Vaccine (1 - 1-dose 60+ series) [facility] Start: 1996 SHINGRIX VACCINE (1 of 2) SHINGRIX VACCINE (1 of 2) [facility] Start: 1991 COLOGUARD (FIT-DNA) COLOGUARD (FIT-DNA) [facility] Start: 1991 Colonoscopy COLONOSCOPY [facility] Start: 1991 COLORECTAL CANCER SCREENING COLORECTAL CANCER SCREENING [facility] Start: [address] COLONOGRAPHY [facility] Start: 1991 FECAL OCCULT BLOOD FECAL OCCULT BLOOD [facility] Start: 1991 SIGMOIDOSCOPY SIGMOIDOSCOPY [facility] Start: 1965 Urine microalbumin profile DTAP,TDAP,TD (1 - Tdap) [facility] Start: 1964 ANNUAL PCP TEAM CHRONIC DISEASE VISIT ANNUAL PCP TEAM CHRONIC DISEASE VISIT [facility] Start: 1964 HEPATITIS C SCREENING HEPATITIS C SCREENING [facility] Start: 1958 Adult depression screening assessment DEPRESSION SCREENING [facility] Start: 1951 COVID-19 VACCINE (1) COVID-19 VACCINE (1) [facility] NM Heart Views W str ess and W radionuclide IV [facility] Patient Education ED Deep Vein T hrombosis (DVT) [facility] Work Phone: Patient referral [facility] Work Phone: [facility] Immunizations Immunization Date Immunization Notes Care Provider Amina malagon 06-13-2014 tetanus and diphther ia toxoids, adsorbed, preservative free, for adult use (2 Lf of tetanus toxoid and 2 Lf of diphtheria toxoid) Dr. Chandana Garcia Work Phone: [facility] 05-05-2008 influenza virus vaccine, unspecified formulation Ira Corey APRN.CNP Work Phone: [facility] Payers Date Payer Category Payer Self-pay [id number] 2023 Private Health Insurance [id number] 2020 Private Health Insurance [id number] 2011 Private Health Insurance [id number] 2011 Private Health Insurance [employer]ET[employer] A ETNA CHOICE POS II [id number] 2011-Present [phone] [address] [place] [address] POS [id number] 1946 Unknown [id number] 1945 Unknown [id number] 1945 Unknown [id number] Private Health Insurance [id number] Private Health Insurance CIGNA [id number] Unknown [id number] Unknown [id number] Unknown [id number] Unknown [id number] Unknown [id number] Unknown [id number] .462 Unknown [id number] Unknown [id number] Unknown [id number] Social History Date Type Detail Facility Start: 09-01-2021 End: 02-27-2023 Tobacco smoking status [facility] Unknown if ever smoked [facility] Start: 1945 Sex Assigned At Male W [facility] Start: 02-04-2013 End: 01-07-2025 Tobacco smoking status IDIS Never smoked tobacco [facility] Start: 02-04-2013 End: 04-11-2022 Tobacco use and exposure Smokeless tobacco non-user [facility] Start: 04-14-2019 End: 05-27-2023 Alcohol intake Current drinker of alcohol (finding) [facility] Start: 04-14-2019 End: 04-01-2023 Alcohol intake [facility] Start: 01-21-2018 History SDOH Alcohol Comment socially [facility] Start: 1945 Sex Assigned At Not on file [facility] Start: 04-01-2022 End: 04-11-2022 Exposure to SARS-CoV-2 (event) Not sure [facility] Start: 01-21-2018 End: 04-01-2023 Tobacco use panel [facility] Retired 08/20/2019 P HQ Score 0 [facility] Start: 05-23-2023 Alcohol Comment one glass of w ine per week [facility] Medical Equipment Procedure Code Equipment Code Equipment Origin al Text Equipment Identifier Dates Stent Viabahn 8m m 7fr Heparin 10cm 120cm Endoprosthesis Delivery System - [id number] Start: 03-03-2018 Comment on above: Description: splenic artery [place] Viabahn Endoprosthesis FDA Start: 07-22-2018 [place] Viabahn Endoprosthesis FDA Start: 07-22-2018 [place] Viabahn Endoprosthesis FDA Start: 07-22-2018 [place] Viabahn Endoprosthesis FDA Start: 07-22-2018 [place] Viabahn Endoprosthesis FDA Start: 07-22-2018 [place] Viabahn Endoprosthesis FDA Start: 07-22-2018 [place] Viabahn Endoprosthesis FDA Start: 07-22-2018 [place] Viabahn Endoprosthesis FDA Start: 07-22-2018 Clinical Notes 06-21-2002 to 12-29-2024 Note Date & Type Note Facility 12-29-2024 Evaluation note Diagnosis Onset Date Resolution Elevated PSA acute December 29 025 3:53pm Hypothyroidism acute December 29, 2024 3:53pm Prostate cancer acute December 3:53pm Sweats, sweating, excessive acute December 29, 2024 3:53pm [facility] Work Phone: 1(520) 117-542406-10-2025 Evaluation note* Diagnosis Onset Date Resolution Status Admit Date Elevated PSA acute December 29 025 3:53pm Hypothyroidism acute December 29, 2024 3:53pm Prostate cancer acute December 3:53pm Sweats, sweating, excessive acute December 29, 2024 3:53pm Bradycardia acute January 07 8:52am History of coronary artery bypass surgery June, chronic January 07, 2025 8:52am Hyperlipidemia chronic January 07, 2025 8:52am [facility] Work Phone: 1(238) 427-855306-10-2025 JORGE Benjamin :1945 [facility]:[id number] Registration Date:12/29/2024 Chief Complaint Elevated PSA History of Present Illness Disclaimer: The content of this note was generated by an artificial intelligence (AI) language model version 25.03.1.0 Patient presents for presurgical evaluation for basic anesthesia protocol for upcoming UroNav fusion biopsy. Patient is a 71-year-old male here for preadmission testing prior procedure with Dr. Ochoa. He has a history of hypertension, CAD, splenic artery aneurysm, and history of DVT, presenting for a preoperative examination due to elevated PSA. The patient reports an increasing PSA level over the past three years. The most recent PSA level was approximately 5.98. He denies any urinary symptoms such as urgency, frequency, nocturia, dribbling, or hesitancy. He has not had a prostate biopsy in the past. Referred to urology by his PCP. MRI of the prostate from 12/15/2024 shows a 1.2 cm PI-RADS 4 lesion in the right posterior lateral peripheral zone of the gland apex Had a televisit with Dr. Ochoa on 12/16/2024. Dr. Ochoa is recommending a UroNav fusion biopsy. Patient would like to proceed. Patient denies any known personal or family history of anesthesia problems including malignant hyperthermia or pseudocholinesterase deficiency. Review of Systems Constitutional symptoms: Denies any fever, chills, sweats Eye symptoms: Denies any blurry vision or diplopia, discharge, no visual disturbances pt wears glasses + color blind ENMT symptoms: Denies any tinnitus, decreased hearing, ear pain, nasal congestion, sore throat, sinus pressure patient does not have dentures Respiratory symptoms: Denies any shortness of breath, cough, or wheezing Cardiovascular symptoms: Denies any chest pain, palpitations, lightheadedness, dizziness, denies LEedema, + CABG 2001 Gastrointestinal symptoms: Denies any abdominal pain, nausea, vomiting, diarrhea, constipation, heartburn Genitourinary symptoms: negative except for HPI Musculoskeletal symptoms: Denies any muscle ache or joint pain Psychiatric symptoms: positive for anxiety and depression Endocrine symptoms: Denies any weight gain weight loss, heat or cold intolerance, constipation or diarrhea Hematologic/Lymphatic symptoms: denies anemia, easily bruising or bleeding, denies any history of blood transfusion. history of DVT/PE right leg 2020. Allergy/Immunologic symptoms: Denies any sores, rashes, breakdown, lesions Neurologic symptoms: Denies any paralysis, tremors, seizures, numbness, tingling, headaches Additional review of systems information: All other systems reviewed and otherwise negative, Systems negative except as stated in the H&P. . Physical Exam Vitals & Measurements HR: 51 (Peripheral) RR: 16 BP: 159/ 83 SpO2: 97% WT: 95kg WT: 95 kg (Dosing) BMI: 28.68 Vitals: reviewed General: Alert and oriented, no acute distress, appears well-nourished, maintains eye contact, Head and Neck: Normocephalic, neck supple, nontender, no lymphadenopathy, no thyromegaly, no carotid bruit Eye: Pupils are equal round reactive to light, EOMs intact ENT: No sinus pressure, mucous membranes moist, no posterior pharyngeal erythema, no erythema or exudate noted Respiratory: Respirations are even and unlabored, clear to auscultate Cardiovascular: Regular rate and rhythm, no murmur noted GI: Abdomen soft, nontender, bowel sounds present : No CVA tenderness noted Musculoskeletal: Equal strength upper and lower extremities Integumentary: Warm dry and intact Neurologic: Alert and oriented, speech clear and coherent Psychiatric: Cooperative, normal judgment, appropriate mood, affect, and behavior Assessment/Plan This Visit Diagnosis 1. Preoperative examination Z01.818 2. Elevated PSA R97.20 3. Hypertension I10 Managed on atenolol 4. CAD (coronary artery disease) I25.10 Managed on aspirin and nitro and atenolol CABG x3 [address] Ovidio Oneil through [facility] 5. History of DVT (deep vein thrombosis) Z86.718 Right lower leg 2020 6. Splenic artery aneurysm I72.8 Stent placed [facility] 2020(?) 7. PTSD (post-traumatic stress disorder) F43.10 [employer] Preop diagnosis: elevated PSA Patient is scheduled for surgery with Dr. Ochoa for UroNav fusion biopsy on 01/05/2025 RCRI of MACE?0.9% _ EDUCATION Preoperative Medication Education Patient advised to take green medications as prescribed including day of surgery with a small sip of water. Patient advised to take black medications as prescribed, hold day of surgery. Patient advised to consult prescriber/surgeon regarding when to STOP purple medications. Patient advised to STOP all vitamins, dietary supplements, and herbals 7 days before surgery. Patient advised to STOP all NSAIDS (ibuprofen, Advil, Aleve, Motrin, Celebrex, Mobic, Voltaren, etc.) 7 days befor (more content not included)...[facility]12-04-2023 Instructions* Patient Instructions* Regina Humphreys APRN.JAILER/TRAINING OFFICER - 06/24/2023 2:47 PM EST PATIENT PREOPERATIVE INSTRUCTIONS Jaleel Barragan DPM has scheduled you for your procedure at this surgery center: [facility]: [phone] -- [address] [place] [address]. Please read below carefully for your personalized [...] or other anticoagulants without consulting with your well driller or prescribing physician. - Stop Vitamin [...] Procedures: - YOU MUST HAVE A RESPONSIBLE SKIN DIVING TEACHER TAKE YOU HOME. A CERTIFIED PHYSICIAN'S ASSISTANT OR DIRECTOR HARDWARE CANNOT BE MADE A RESPONSIBLE SKIN DIVING TEACHER. - We recommend that a responsible person stays with you overnight to take care of you. - You cannot stay in a hotel alone after outpatient surgery. You will not be permitted to have yoursurgery, if you do not have someone to [...] Advance Directive, please fax a copy to [phone] or email to for it to be added to your chart. If you do not have an Advance Directive, you can find the appropriate form and more information at [email or web address]. We recommend that youcomplete the Advance Directive form found on the website and bring it with you the day of your surgery. It can be witnessed and scanned into your chart that day. Regina Humphreys APRN.CNP documented in this [facility] History and physical note * Regina Humphreys APRN.CNP - 06/24/2023 2:30 PM EST PREANESTHESIA CONSULT CLINIC TELEHEALTH VISIT This is a virtual visit using Virtual Visit (Audio/Visual)I have discussed the nature of this visit with the patient which will occur via Distance Health (Phone, Virtual Visit) and he agrees to proceed with this interaction. It required patient-provider interaction for the medical decision makingas documented below. I have communicated my name and active licensure. The patient's identity and physical location wereverified at the time of this visit. Either the patient or their legal contact representative has been informed of the risks and benefits of and alternatives to treatment through a remote evaluation and consents to proceed with the evaluation remotely. Patient has been identified by name and date of : Yes This is a virtual visit using [employer] Zoom Video Visit. It require patient- provider interaction forthe medical decision making as documented below. Reason for contact: PACC visit Accompanied by: Self Scheduled Surgery: RECONSTRUCTION TOE HAMMER - Left Subjective CHIEF COMPLAINT: Patient presents with: Anesthesia Consult HPI: This is a 78 year old male who presents with diagnosis of hammer toe of left foot scheduled for surgical intervention. ACTIVE PROBLEM LIST Coronary Artery Disease Involving [place] Coronary Artery of [place] Heart Without Angina Pectoris S/P CABG x 3 (L-LAD, R-diag, S-OM) 2001 Pure Hypercholesterolemia Erectile Dysfunction Diaphoresis Angina Effort Splenic Artery Aneurysm (Hcc) Preop Cardiovascular Exam Preop Testing Gastroesophageal Reflux Disease Without Esophagitis Htn (Hypertension) Other Specified Hypothyroidism Acute Deep Vein Thrombosis (Dvt) of Proximal Vein of Lower Extremity (Hcc) PAST MEDICAL HISTORY Diagnosis Date Coronary atherosclerosis of unspecified type of vessel, mi'kmaq or graft Coronary Atherosclerosis Frozen shoulder Right [...] CUFF ACUTE Right 2001 Rotator cuff repair PAST SURGICAL HISTORY OF 04/18/2023 epigastric hernia repair- Dr. Alarcon REPAIR EPIGASTRIC HERNIA,REDUC FAMILY HISTORY Problem Relation Age of Onset Hypertension Mother age 92 Aneurysm Father age 86 from CHF. Had [place] at age 52 Diabetes Father Heart Attack [...] needed. 1-2 hours before sexual intercourse Coenzyme K99-Staumyz E 100-150 mg-unit cap Take 1 tablet by mouth once daily. multivitamin ORAL Tab Take one(1) tablet daily. No current facility-administered medications for this visit. COVID VACCINATION STATUS: Fully vaccinated REVIEW OF SYSTEMS: Pain Assessment: General: No weight loss, malaise or fevers. Neuro: No history of TIA's, stroke, TANK TESTER tumor, impaired sensorium, hemiplegia, paraplegia or quadraplegia. [...] or clotting disorder. Pt is not taking anti- coagulation or platelet medications. No history of hematological [...] stress test above. Managed and monitored by well driller. Stable on daily ASA 81mg. Splenic [...] above. SIGNATURE: Regina Humphreys APRN.CNP PATIENT NAME: Jorge Guillen DATE: June 24, 2023 TIME: 2:49 PM PAGER/CONTACT #: documented in this encounterW[facility]11-06-2023 NoteHNO ID: [id number] Author: Laverne Alarcon MD Service: ? Author Type: Physician [...] needed. 1-2 hours before sexual intercourse Coenzyme A61-Ejmlmei E 100-150 mg-unit cap Take 1 tablet [...] course: expected I have explained to Mr. Guillen that he may return to normal activity with no lifting, pulling, pushing over 50 pounds, no core exercises and no lifting and twisting for a total of 4 weeks. I have encouraged him to contact me at any time with any questions or concerns that may arise. Follow up: seamus Alarcon MD 05/27/2023 1:12 [facility]09-28-2023 History of Past illness Narrative* Problem Noted Date Diagnosed Date Resolved Date Epigastric hernia 04/18/2023 05/27/2023 CORONARY ATHEROSCLER UNSPEC VESSEL 04/25/2005 08/23/2015 AORTOCORONARY BYPASS STATUS 04/25/2005 08/23/2015 HYPERLIPIDEMIA NEC/NOS 04/25/200508/23 documented as of this encounter (statuses as of 06/25/2023) [facility] NoteHNO ID: [id number] Author: Laverne Alarcon MD Service: ? Author Type: Physician [...] expressed understanding and wishes to proceed HPI: Jorge Guillen is a 77 year old male,He presents for the evaluation of of years (>20) of periumbilical lump, increasing in size, not painful, annoying, no obstructive sx PAST MEDICAL HISTORY Diagnosis Date Coronary atherosclerosis of unspecified type of vessel, mi'kmaq or graft Coronary Atherosclerosis Frozen shoulder Right [...] Aneurysm Father age 86 from CHF. Had [place] at age 52 Diabetes Father Heart Attack [...] needed. 1-2 hours before sexual intercourse Coenzyme A20-Zdtgeqg E 100-150 mg-unit cap Take 1 tablet [...] 128/72 Pulse 63 Ht 182.9 cm (6' 0.01) Wt 93.8 kg (206 lb 11.2 oz) SpO2 98% BMI 28.03 kg/m? BP 128/72 Pulse 63 Ht 182.9 cm (6' 0.01) Wt 93.8 kg (206 lb 11.2 oz) [...] times three, No apparent distress RADIOLOGY: none Laverne Alarcon MD 04/04/2023 1:42 [facility]05-09-2023 Discharge summary Author Marti Mae [facility] November 27, 2022 12:18pm Note Date/Time November 27, 2022 12:18p [facility] [address] [place] [address] / REHABILITATION SERVICES DISCHARGE SUMMARY MR#: [id number] Acct: [id number] Name: JORGE GUILLEN Rep #: [id number] : 1945 77 From: Marti Mae PT, Cert. MDT Referring Dr.: Dr. Luz Elena Mariano MD Status: REG RCR Insurance: [employer] SELF PAY INSURANCE It has been my pleasure to treat JORGE GUILLEN referred by Dr. Luz Elena Mariano MD, with the diagnosis of BACK PAIN for a total of 10 visit(s). Discharge Date: Please see the following information for a summary of their discharge status. Subjective: PATIENT REPORTS HE IS ABOUT THE SAME. HE REPORTS HE HAS GOT USE TO HIS PAIN AND WILL CONTINUE THE EX'S. PATIENT REPORTS HE REALLY JUST CAN'T BE ON HIS FEET MORE THAN AN HOUR WITHOUT GETTING A LOT OF PAIN. PATIENT IS EXPRESSINGAPPRECIATION FOR HIS EXPERIENCE HERE IN PT. LOW BACK Pain Intensity (Out of 10): 4 LE'S Pain Intensity (Out of 10): 3 % Improvement: 10 Objective/Function: PATIENT WAS SEEN TODAY FOR RE-ASSESSMENT OF PROGRESS TOWARD THE SET PT GOALS AND THE NEED FOR FURTHER PHYSICAL THERAPY VS READINESS FOR DISCHARGE. UPON EXAM TODAY THERE ARE NO SIGNIFICANT OBJECTIVE CHANGES SINCE INITIAL EVAL BUT HE IS INDEP WITH A HEP NOW THAT IS DOING AND HE FEELS IS HELPFUL. ENCOURAGED PATIENT TO CONTINUE HIS WALKING PROGRAM TOO. Goal 1:: DECREASE C/O BACK PAIN Goal Progress: Not Progressing Goal 2:: IMPROVE LIFTING, WALKING, SITTING, STANDING, SLEEP, SOCIAL LIFE, TRAVELAND HOMEMAKING FUNCTION. Goal Progress: Not Progressing Goal 3:: INSTRUCT IN PROPHYLAXIS Goal Progress: INDEP WITH HEP Plan: D/C. PATIENT AGREEABLE. If there are questions or concerns regarding this patient's physical therapy, please feel free to call me at [phone]. Thank you for the referral of thispatient. Sincerely, Marti Mae PT, Cert MDT Balance/Gait/Functional tests - Balance/Special Test Scores Oswestry Low Back Score: 12 <Electronically signed by Marti Mae PT, Cert. MDT> 11/27/22 [id number] CC: ANDREW Corey; Dr. Luz Elena Mariano MD ~ CINDY Signed [facility] Work Phone: 1(495) 878-339909-21-2022 History of Present illness Narrative* Mayelin Stahl MD - 04/11/2022 1:49 PM EDT Images from the original note were not included. [facility] V[facility] Thor[facility] [place] DEPARTMENT OF VASCULAR SURGERY OUTPATIENT VISIT DATE April 11, 2022 OUTPATIENT VISIT TYPE ESTABLISHED SERVICE DATE: 04/11/2022 SERVICE TIME: 1:49 PM PRIMARY CARE PHYSICIAN: Ira Corey APRN.JAILER/TRAINING OFFICER HISTORY OF PRESENT ILLNESS: Mr. Guillen is a 76 year old male who presents today for a vascular surgery follow-up visit of a splenic artery aneurysm that was repaired in 2018 with [id number] Viabahn stent placement. He currently is doing well. Denies abdominal pain, unintended weight loss, and frequent. Patient returns today with mesenteric ultrasound. It shows patent splenic artery with stent in place, residual sac measuring 1.12x1.16cm from 2.77x2.93cm. PAST MEDICAL HISTORY Diagnosis Date Coronary atherosclerosis of unspecified type of vessel, mi'kmaq or graft Coronary Atherosclerosis Frozen shoulder Right [...] CUFF ACUTE Right 2002 Rotator cuff repair SOCIAL HISTORY Social History [...] needed. 1-2 hours before sexual intercourse Coenzyme C99-Zwlkttp E 100-150 mg-unit cap Take 1 tablet [...] today's visit: Most recent imaging IMPRESSION: Mr. Guillen is a 76 year old male splenic artery aneurysm . PLAN and RECOMMENDATIONS: 3 year follow up US Medical Decision Making: Medical Decision Making Level: 1 - N/A SIGNATURE: Mayelin Stahl MD PATIENT NAME: Jorge Guillen DATE: April 11, 2022 TIME: 1:49 PM [facility] STAFF PHYSICIAN NOTE OF PERSONAL INVOLVEMENT IN [...] OF SERVICE: 2:22 PM documented in this encounterW[facility]05-04-2022 Miscellaneous Notes* Telephone Encounter - Riky Meneses - 11/22/2021 1:28 PM EDT Reason for call: Mr. Jorge Guillen called, and he would like to schedule an appointment with DR. Mayelin Stahl, for a follow up. The patient would like to schedule for any Saturday, Saturday, in December 2021, and also as a mid morning appointment if possible please. Home and cell number: [phone] Diagnosis: Splenic artery aneurysm (HCC) Kind Regards, Riky Meneses. documented in this encounterW[facility]10-05-2005 History of Past illness Narrative* Problem Noted Date Resolved Date CORONARY ATHEROSCLER UNSPEC VESSEL 04/25/2005 08/23/2015 AORTOCORONARY BYPASS STATUS 04/25/200508/2015 HYPERLIPIDEMIA NEC/NOS 04/25/2005 6 documented as of this encounter (statuses as of 11/22/2021) [facility] History of Past illness Narrative* Problem Noted Date Resolved Date CORONARY ATHEROSCLER UNSPEC VESSEL 04/25/2005 08/23/2015 AORTOCORONARY BYPASS STATUS 04/25/200508/2015 HYPERLIPIDEMIA NEC/NOS 04/25/2005 6 documented as of this encounter (statuses as of 04/11/2022) [facility] History of Past illness Narrative* Problem Noted Date Diagnosed Date Resolved Date CORONARY ATHEROSCLER UNSPEC VESSEL 04/25/2005 08/23/2015 AORTOCORONARY BYPASS STATUS 04/25/2005 08/23/2015 HYPERLIPIDEMIA NEC/NOS 04/25/200508/23 documented as of this encounter (statuses as of 04/01/2023) [facility] Evaluation note* Diagnosis Onset Date Resolution Status Atherosclerotic heart diseas e of mi'kmaq coronary artery without angina pectoris chronic History of coronary artery bypass surgery June, chronic Hyperlipidemia chronic Abnormal flushing and sweating acute Bronchitis acute Left otitis media acute Neuropathy of both feet acut e Neuropathy of both feet acut e Right leg DVT acute 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 Hypothyroidism [facility] Work Phone: 1(434) 626-919512-01-2002 Evaluation note* Diagnosis Onset Date Resolution Status Atherosclerotic heart diseas e of mi'kmaq coronary artery without angina pectoris chronic History of coronary artery bypass surgery June, chronic Hyperlipidemia chronic Left otitis media acute Maxillary sinusitis acute Hypothyroidism [facility] Work Phone: 1(231) 605-166712-01-2002 Evaluation note* Diagnosis Onset Date Resolution Status Atherosclerotic heart diseas e of mi'kmaq coronary artery without angina pectoris chronic History of coronary artery bypass surgery June, chronic Hyperlipidemia chronic Left otitis media acute Maxillary sinusitis acute Hypothyroidism chronic Hyperlipidemia chronic Hypothyroidism [facility] Work Phone: Evaluation note* Diagnosis Onset Date Resolution Status Abnormal flushing and sweating acute Bronchitis acute Left otitis media acute Neuropathy of both feet acut e Neuropathy of both feet acut e Right leg DVT acute 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 Hypothyroidism chronic [facility] Work Phone: Evaluation note* Diagnosis Onset Date Resolution Status Abnormal flushing and sweating acute Bronchitis acute Left otitis media acute Neuropathy of both feet acut e Neuropathy of both feet acut e Right leg DVT acute 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 Hypothyroidism chronic Spinal stenosis of lumbar region acute [facility] Work Phone: Evaluation note* Diagnosis PAD (peripheral artery disease) ([facility])- Primary Peripheral vascular disease, unspecified [facility] noteNo assessment information availableWOhioHealth [facility] Work Phone: Evaluation note* Diagnosis Epigastric hernia- Primary Other ventral hernia without mention of obstruction or gangrene Epigastric hernia Other ventral hernia without mention of obstruction or gangrene documented in this encounter [facility] note* Diagnosis Pre-op evaluation- Primary Preoperative examination, [...] of left foot documented in this encounter [facility] note* Diagnosis Onset Date Resolution Status Neuropathy of both feet acut e Spinal stenosis of lumbar region acute Hyperlipidemia chronic Hypothyroidism [facility] Work Phone: Reason for referral (narrative)No reason for referral information availableWOhioHealth [facility] Work Phone: Summary Purpose Family History No Family History Records Found Relationship Condition Age at Onset Recorded Date/T neal father Cardiac disease Unknown Advance Directives No Advanced Directives Records Found Advance Directive Response Recorded Date/ Time Living Will Yes September 01 7:36pm Power of Software Quality Tester Yes September 01, 2021 7:36pm Documents on File Type Date 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 Advance Directive(s) 02/25/2018 12:12 PM Advance Directive(s) 01/21/2018 2:41 PM Advance Directive Response Recorded Date/ Time Name of Medical Power of Software Quality Tester tio guillen- September 01, 2021 7:36pm Living Will Yes November 22, 2021 1: 36pm Power of Software Quality Tester Yes November 22, 2021 1:36pm Advance Directive Response Recorded Date/ Time Living Will Yes November 22, 2021 12 :36pm Power of Software Quality Tester Yes November 22, 2021 12:36pm Advance Directive Response Recorded Date/ Time Living Will Yes November 22, 2021 1: 36pm Power of Software Quality Tester Yes November 22, 2021 1:36pm Advance Directive Response Recorded Date/ Time Living Will Yes February 27, 2023 2:34pm Power of Software Quality Tester Yes February 27 2:34pm Chief Complaint and Reason for Visit Chief Complaint 1 y fu Shortness of breath & cough EDEMA NEUROPATHY LOWER EXTREMITY medication refills Reason for Visit 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 Hyperlipidemia Abnormal flushing and sweating Bronchitis Left otitis media Neuropathy of both feet Neuropathy of both feet Right leg DVT Chronic lower back pain Hypothyroidism Chief Complaint Shortness of breath & cough EDEMA NEUROPATHY LOWER EXTREMITY medication refills Reason for Visit Abnormal flushing an d sweating Bronchitis Left otitis media Neuropathy of both feet Neuropathy of both feet Right leg DVT Chronic lower back pain Hypothyroidism Chief Complaint Shortness of breath & cough EDEMA NEUROPATHY LOWER EXTREMITY medication refills LUMBER SPINE SPINAL STENOSIS Reason for Visit Abnormal flushing an d sweating Bronchitis Left otitis media Neuropathy of both feet Neuropathy of both feet Right leg DVT Chronic lower back pain Hypothyroidism Spinal stenosis of lumbar region Chief Complaint BILAT LOWER LEG PAIN BILAT LOWER LEG PAIN Chief Complaint BILAT LOWER LEG PAIN BILAT LOWER LEG PAIN 1 Y FU Sinus Reason for Visit 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 Hyperlipidemia Left otitis media Maxillary sinusitis Hypothyroidism Chief Complaint 1 Y FU Sinus Peripheral vascular disease, unspecified medication refills/labs BACK PAIN / RX HERE Reason for Visit 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 Hyperlipidemia Left otitis media Maxillary sinusitis Hypothyroidism Hyperlipidemia Hypothyroidism Chief Complaint medication refills Reason for Visit Neuropathy of both f eet Spinal stenosis of lumbar region Hyperlipidemia Hypothyroidism Chief Complaint Admit Date Fatigue/Labs PSA December 29, 2024 3:53 pm Reason for Visit Admit Date Elevated PSA December 29, 2024 3:53 pm Hypothyroidism December 29, 2024 3:53 pm Prostate cancer December 29, 2024 3:53 pm Sweats, sweating, excessive December 29, 2 025 3:53pm Chief Complaint Admit Date Fatigue/Labs PSA December 29, 2024 3:53 pm 6 M FU January 07, 2025 8:52 am Reason for Visit Admit Date Elevated PSA December 29, 2024 3:53 pm Hypothyroidism December 29, 2024 3:53 pm Prostate cancer December 29, 2024 3:53 pm Sweats, sweating, excessive December 29 2 025 3:53pm Bradycardia January 07, 2025 8:52 am History of coronary artery bypass surger y January 07, 2025 8:52am Hyperlipidemia January 07, 2025 8:52 am Additional Source Comments (unrecognized sect ion and content) No Status Records FoundNo Status Records FoundNo Status Records FoundNo Status Records FoundNo Status Records FoundNo Status Records Found INFORMATION SOURCE (unrecogn ized section and content) DATE CREATED AUTHOR 07/29/2019 [employer] DATE CREATED AUTHOR AUTHOR'S ORGANIZ ATION 05/24/2023 [facility] DATE CREATED AUTHOR AUTHOR'S ORGANIZ ATION 06/26/2023 [facility] DATE CREATED AUTHOR AUTHOR'S ORGANIZ ATION 06/29/2023 [facility] DATE CREATED AUTHOR AUTHOR'S ORGANIZ ATION 01/12/2025 [facility] DATE CREATED AUTHOR AUTHOR'S ORGANIZ ATION 01/31/2025 [facility] Goals (unrecognized section and content) Goals may be documented in a n alternate sectionGoals may be documented in an alternate sectionGoals may be documented in an alternate sectionGoals may be documented in an alternate sectionGoals may be documented in an alternate sectionGoals may be documented in an alternate sectionGoals may be documented in an alternate sectionGoals may be documented in an alternate sectionGoals may be documented in an alternate sectionGoals may be documented in an alternate section Source Comments (unrecognize d section and content) In the event this informatio n is protected by the Federal Confidentiality of Alcohol and Drug Abuse Patient Records regulations: The Federal rules restrict any use of the information to criminally investigate or prosecute any alcohol or drug abuse patient.[facility] HospitalIn the event this information is protected by the Federal Confidentiality of Alcohol and Drug Abuse Patient Records regulations: The Federal rules restrict any use of the information to criminally investigate or prosecute any alcohol or drug abuse patient.[facility] HospitalIn the event this information is protected by the Federal Confidentiality of Alcohol and Drug Abuse Patient Records regulations: The Federal rules restrict any use of the information to criminally investigate or prosecute any alcohol or drug abuse patient.[facility] HospitalIn the event this information is protected by the Federal Confidentiality of Alcohol and Drug Abuse Patient Records regulations: The Federal rules restrict any use of the information to criminally investigate or prosecute any alcohol or drug abuse patient.[facility] Reason for Visit (unrecogniz ed section and content) Reason Comments Appointment Reason Comments Established Patient Reason Comments Anesthesia Consult Care Teams (unrecognized sec tion and content) Furniture Crater Relationship Specialty Start Date End Date Ira Corey APRN.[facility] [address] [place], [place] [id number] PCP - General Family Practice 01/21/18 Justo Ariza MD [address] [place], [place] [id number] Primary Staff Physician Cardiology 10/07/18 Furniture Crater Relationship Specialty Start Date End Date Ira Corey APRN.[facility] [address] [place], [place] [id number] PCP - General Family Medicine 01/21/18 Justo Ariza MD [address] [place] [address] Primary Staff Physician Cardiology 10/07/18 Chandana Garcia [address] [id number] Cardiology 04/11/22 Team Status: Active Member Role Status Dates Ira Corey MARINE WATER TENDER, MARINE WATER TENDER-C Primary Care Provider Active Team Status: Inactive Member Role Status Dates Ira Corey NP, MARINE WATER TENDER-C Primary Care Provider, Referr ing Provider Active Dr. Chandana Garcia MD Attending Provider Active Team Status: Active Member Role Status Dates Ira Corey NP, MARINE WATER TENDER-C Primary Care Provider Active Dr. Luz Elena Mariano MD Referring Provider, Other Provid er Active Dr. Deonte Benitez DO Attending Provider Active Team Status: Inactive Member Role Status Dates Ira Corey MARINE WATER TENDER, MARINE WATER TENDER-C Primary Care Pr ovider, Attending Provider, Referring Provider Active Team Status: Inactive Member Role Status Dates Ira Corey MARINE WATER TENDER, MARINE WATER TENDER-C Primary Care Provider Active Dr. Luz Elena Mariano MD Attending Provider Active Team Status: Inactive Member Role Status Dates Ira Corey MARINE WATER TENDER, MARINE WATER TENDER-C Primary Care Provider, Attend ing Provider Active Team Status: Inactive Member Role Status Dates Ira Vinod MARINE WATER TENDER, MARINE WATER TENDER-C Primary Care Provider Active SHARI MARMOLEJO Attending Provider Active Team Status: Active Member Role Status Dates Ira Corey MARINE WATER TENDER, MARINE WATER TENDER-C Primary Care Provider Active Dr. Luz Elena Mariano MD Attending Provider, Referring Pr ovider Active Team Status: Inactive Member Role Status Dates Ira Corey MARINE WATER TENDER, MARINE WATER TENDER-C Primary Care Provider Active Dr. Luz Elena Mariano MD Attending Provider, Referring Pr ovider Active Furniture Crater Relationship Specialty Start Date End Date Vinod Ira Donahue, GRAIN SACKER.JAILER/TRAINING OFFICER [address] [place] [address] PCP - General Family Medicine 01/21/18 Justo Ariza MD [address] [place] [address] Primary Staff Physician Cardiology 10/07/18 Chandana Garcia [address] [phone] Cardiology 04/11/22 Furniture Crater Relationship Specialty Start Date End Date VinodIra, GRAIN SACKER.JAILER/TRAINING OFFICER [address] [place] [address] PCP - General Family Medicine 01/21/18 Justo Ariza MD [address] [place] [address] Primary Staff Physician Cardiology 10/07/18 Chandana Garcia MD [address] [address] Cardiology 04/11/22 Team Status: Inactive Member Role Status Dates Ira Corey NP, MARINE WATER TENDER-C Primary Care Provider Active Start: December 29, 2024 End: December 29, 2024 Ira Corey MARINE WATER TENDER, MARINE WATER TENDER-C Attending Provider Active Start: December 29, 2024 End: December 29, 2024 Ira Corey NP, MARINE WATER TENDER-C Referring Provider Active Start: December 29, 2024 End: December 29, 2024 Team Status: Inactive Member Role Status Dates Ira Corey NP, MARINE WATER TENDER-C Primary Care Provider Active Start: December 29, 2024 End: December 29, 2024 Ira Corey NP, MARINE WATER TENDER-C Attending Provider Active Start: December 29, 2024 End: December 29, 2024 Team Status: Inactive Member Role Status Dates Ira Corey NP, MARINE WATER TENDER-C Primary Care Provider Active Start: January 07, 2025 End: January 07, 2025 Ira Corey NP, MARINE WATER TENDER-C Referring Provider Active Start: January 07, 2025 End: January 07, 2025 Kristofer Mcgee MARINE WATER TENDER, MARINE WATER TENDER-C Attending Provider Active S tart: January 07, 2025 End: January 07, 2025 FOR RECORDS PERTAINING TO PATIENTS WHO ARE [...] BE BASED ON THE PRIMARY CLINICAL RECORDS. [facility] [employer] provides no warranty or guarantee of the accuracy or completeness of information in this document.
--- OUTSIDE RECORDS SUMMARY | 2025-02-04 06:30 | XMS RPT_ITS | CCD ---
Author Organization [facility] Care Team Providers Care [place] Management Specialist Name Role Phone Dr. Chandana Garcia Attending Provider Vinod [facility] Ira Primary Care Provider Vinod [facility] Ira Referring Provider [phone] Vinod PUMP SERVICER SUPERVISOR.[facility], Ira L Primary Care Provide r Justo Ariza MD Unavailable Vinod [facility] Ira Primary Care Provider Vinod [facility] Ira Referring Provider Dr. Justin Pereira Attending Provider [phone] Vinod PUMP SERVICER SUPERVISOR.RIDES ATTENDANT, Ira L Primary Care Provide r Justo Ariza MD Unavailable Chandana Garcia Unavailable Vinod [facility] Ira Primary Care Provider Dr. Luz Elena Mariano Referring Provider Dr. Luz Elena Mariano Other Provider Dr. Deonte Benitez Attending Provider Vinod RODRIGUEZ, [facility] Ira Referring Provider Dr. Chandana Garcia Attending Provider [phone] Vinod [facility] Ira Primary Care Provider Corey [facility], [facility] Ira Referring Provider [phone] Dr. Chandana Garcia Attending Provider Corey PUMP SERVICER SUPERVISOR.RIDES ATTENDANT, Ira L Primary Care Provide r To VU, Justo Jain Unavailable Chandana Garcia Unavailable To VU, Justo Jain Unavailable Chandana Garcia MD Unavailable COREY, IRA L [...] Attending Unavailable GRANDINETTI, JALEEL Admitting Unavailable Corey [facility], Ira Primary Care Provider Corey [facility], Ira Attending Provider Corey [facility], Ira Referring Provider Arely [facility] Attending Provider RICARDO OCHOA MD Referring Unavailable Brian Doran Attending Unavailable Corey [facility], Ira Primary Care Unavailable Corey [facility] Ira Primary Care Unavailable Ovidio Oneil Attending Unavailable Corey [facility] Ira Referring Unavailable Corey [facility], Ira Primary Care Unavailable Corey [facility] Ira Referring Unavailable Geraldo Chowdhury Attending Unavailable Kristofer Mcgee NP Attending Unavailable Corey [facility] Ira Referring Unavailable Corey [facility], Ira Primary Care Unavailable Geraldo Chowdhury Attending Unavailable Geraldo Chowdhury Referring Unavailable Corey [facility], Ira Primary Care Unavailable Corey [facility] Ira Attending Unavailable Corey [facility], Ira Primary Care Unavailable Corey [facility], Ira Attending Unavailable Corey [facility], Ira Primary Care Unavailable Corey [facility], Ira Primary Care Unavailable Ira Corey NP Attending Unavailable Kristofer Mcgee NP Attending Unavailable Arely [facility], Kristofer Barboza Referring Unavailable Vinod RODRIGUEZ, Ira Primary Care Unavailable Allergies Allergy Classification Reported Allergen(s) Allergy Type Date of Onset Reaction(s) Facility (5 sources) Contrast media Allergy to substance 09-01-19 Unknown [facility] (10 sources) Iodine Drug Allergy 09-01-19 Rash [facility] Comment on above: OK with premedicatio n (4 sources) Contrast Dye [Other] Propensity to adverse reactions 06-14-20 03 Anaphylaxis [facility] Work Phone: (5 sources) Triiodobenzoic Acids Allergy to substance 11-07-19 23 NEEDS FOLLOW-UP, PT UNSURE OF REACTION [facility] Comment on above: Has used contract dy e without reaction (2 sources) OTHER; Translations: [OTHER] Propensity to adverse reactions (disorder) 06-14-20 [facility] Repository (1 source) Iodine Drug Allergy 01-08-20 [facility] Repository (1 source) Iodinated Contrast Media Drug allergy (disorder) 01-08-20 [facility] Repository Medications Current Medications Medication Drug [...] once daily Biotin 5,000 mcg tablet,disintegrating Discontinued 82736 ug PO DAILY July 08, 2019 1:00am July 06, 2020 5:26pm Start: 07-08-2019 End: 07-06-2020 take 67105 ug by mouth once daily Biotin Discontinued 94495 MCG PO DAILY July 08, 2019 12:00am [...] {tbl} PO DAILY June 13, 2014 1:00am [place]-3 Fatty Acids (Fish Oil Concentrate) 1,000 mg capsule (20 sources) Start: 07-05-2021 take 1 capsule by mouth once daily [place]-3 Fatty Acids (Fish Oil Concentrate) 1,000 mg capsule Active 1000 MG PO DAILY July 05, 2021 4:19pm Start: 07-05-2021 End: 09-03-2022 take 1 capsule by mouth once daily [place]-3 Fatty Acids (Fish Oil Concentrate) 1,000 mg capsule Discontinued 1000 mg PO DAILY July 05, 2021 1:00am September 03, 2022 6:54pm Start: 07-05-2021 End: 09-03-2022 take 1 capsule by mouth once daily [place]-3 Fatty Acids (Fish Oil Concentrate) 1,000 mg capsule Discontinued 1000 MG PO DAILY July 05, 2021 1:00am September 03, 2022 6:54pm Start: 07-05-2021 End: 09-03-2022 take 1 capsule by mouth once daily [place]-3 Fatty Acids (Fish Oil Concentrate) 1,000 mg capsule Discontinued 1000 MG PO DAILY July 05, 2021 12:00am September 03, 2022 5:54pm Start: 07-05-2021 take 1 capsule by mo uth once daily [place]-3 Fatty Acids (Fish Oil Concentrate) 1,000 mg capsule Active 1000 MG PO DAILY July 05, 2021 12:00am Start: 07-02-2018 End: 07-08-2019 take 1 capsule by mouth twice daily [place]-3 Fatty Acids (Fish Oil Concentrate) 1,000 mg capsule Discontinued 1000 mg PO TWICE A DAY July 02, 2018 12:11pm July 08, 2019 5:17pm Start: 07-02-2018 End: 07-08-2019 take 1 capsule by mouth twice daily [place]-3 Fatty Acids (Fish Oil Concentrate) 1,000 mg capsule Discontinued 1000 MG PO TWICE A DAY July 02, 2018 11:11am July 08, 2019 4:17pm Start: 07-02-2018 End: 07-08-2019 take 1 capsule by mouth twice daily [place]-3 Fatty Acids (Fish Oil Concentrate) 1,000 mg capsule Discontinued 1000 MG PO TWICE A DAY July 02, 2018 12:11pm July 08, 2019 5:17pm Start: 09-11-2017 End: 07-02-2018 take 1 capsule by mouth once daily [place]-3 Fatty Acids (Fish Oil Concentrate) 1,000 mg capsule Discontinued 1000 MG PO daily September 11, 2017 2:09pm July 02, 2018 12:12pm Start: 09-11-2017 End: 07-02-2018 take 1 capsule by mouth once daily [place]-3 Fatty Acids (Fish Oil Concentrate) 1,000 mg capsule Discontinued 1000 mg PO daily September 11, 2017 1:00am July 02, 2018 12:12pm Start: 09-11-2017 End: 07-02-2018 take 1 capsule by mouth once daily [place]-3 Fatty Acids (Fish Oil Concentrate) 1,000 mg capsule Discontinued 1000 MG PO daily September 11, 2017 1:00am July 02, 2018 12:12pm Start: 09-11-2017 End: 07-02-2018 take 1 capsule by mouth once daily [place]-3 Fatty Acids (Fish Oil Concentrate) 1,000 mg [...] 1 tablet by mouth once daily Coenzyme W14-Snkzber E 100-150 mg-unit cap Take 1 tablet [...] Coronary atherosclerosis; Translations: [Atherosclerotic heart disease of still[place] coronary artery without angina pectoris] Onset: 6 [...] SURGICAL PATH REPORTon 01-11 SURGICAL PATH REPORT [facility] Department of Pathology [address] [place] [address] Name: JORGE GUILLEN : 1945 [facility] [id number] Number: Gender Male Locatio ASC : n: Admit 79 years Attending RICARDO OCHOA MD Age: Provider: Ordering RICARDO OCHOA MD Provider: Alexandriai Surgical Pathology Report ng: ACCESSION: COLLECTED DATE/TIME: RECEIVED DATE/TIME: PATHOLOGIST: [id number] 01/05/2025 12:36 EDT 01/05/2025 13:22 EDT ANGELI [...] ____ Print 01/11/2025 09:46 EDT Number: Date/Time: [facility] Department of Pathology [address] [place] [address] Name: JORGE GUILLEN : 1945 [facility] [id number] Number: Gender Male Locatio SW ASC : n: Admit 79 years Attending RICARDO OCHOA MD Age: Provider: Ordering RICARDO OCHOA MD Provider: Consulti Surgical Pathology Report ng: ACCESSION: COLLECTED DATE/TIME: RECEIVED DATE/TIME: PATHOLOGIST: [id number] 01/05/2025 12:36 EDT 01/05/2025 13:22 EDT ANGELI [...] ____ Print 01/11/2025 09:46 EDT Number: Date/Time: [facility] Department of Pathology [address] [place] [id number] Name: JORGE GUILLEN : 1945 [facility] [id number] Number: Gender Male Locatio ASC : n: Admit 79 years Attending RICARDO OCHOA MD Age: Provider: RICARDO Machado MD Provider: Willem Surgical Pathology Report ng: ACCESSION: COLLECTED DATE/TIME: RECEIVED DATE/TIME: PATHOLOGIST: [id number] 01/05/2025 12:36 EDT 01/05/2025 13:22 EDT ANGELI [...] one casset (more content not included)... Normal [facility] Comment on above: Performed By: #### [id number] #### [facility] [address] [place] [address] Material Carrier: Deepak Chavez MD Cardiology Visit Reporton Cardiology Visit Report [facility] [address] [place], [place] [address] OFFICE VISIT Date of Service: 01/07/25 MR#: [id number] Acct: [id number] Name: JORGE GUILLEN Rep #: [id number] : 1945 Provider: ANDREW martell Age/Sex: 79/M Location: [facility] [place] Status: Signed HPI HPI History of Present Illness Details: This is a 79-year-old white male who presents today for outpatient cardiovascular follow-up for newly identified bradycardia. The patient's prior anginal equivalent prior to his bypass graft surgery in 2001 at [facility] was upper back discomfort that occurred with [...] NIBP Intake Visit Reasons: 6 M FU Foreign Collection Clerk Required: No Is patient in pain?: No [...] fall) Nurse's Note: Needs refill on atenolol. [facility] Medical History Prostate cancer Bronchitis Right leg DVT Left otitis media Flushing reaction Abnormal flushing and sweating Pneumonia Right flank pain Muscular abdominal pain in right flank Hypothyroidism BPH (benign prostatic hyperplasia) Lymphadenopathy of head and neck Kidney stone Muscle ache of extremity Shoulder pain, left Neck pain Hypothyroidism Abnormal stress test Angina pectoris Peptic ulcer disease Mononeuritis Hyperlipidemia Atherosclerotic heart disease of [place] coronary artery without angina pectoris Surgical History [...] with walking: (more content not included)... Normal [facility] Discharge Educationon 2024 Discharge Education Patient Education Material Normal [facility] Inpatient Patient Summaryon 01-05-2025 Inpatient Patient Summary [facility] Discharge Instructions [address] [place] [address] (Patient Copy) Name: JORGE GUILLEN : 1945 Diagnosis: Allergies: contrast media (iodine-based) Registration Date: 01/05/25 Current Date Time: 01/05/2025 13:03:34 Address: [address] [place] [address] Phone: [phone] Primary Care Provider: Name: Phone: Thank you for choosing [facility] for your care. You are very important to us. Our goal is to demonstrate our high quality medical care and provide you with a very good patient experience. You may receive a survey about our service. Please take the time to complete the survey and return it so we can continue to enhance our service. Thank you again for allowing [facility] to care for your medical needs. If [...] With: Address: When: RICARDO OCHOA, Urology [address] [facility] [place] [address] Business (1) Within 1 to [...] in more information on smoking cessation, contact [facility] [phone] DIET Eat a variety of nutritious foods [...] an outpati (more content not included)... Normal [facility] Operative Reporton Operative Report JORGE GUILLEN :1945 Registration Date:01/05/2025 Date of Operation 01/05/2025 13:00 Indication for Surgery PSA of 5.98 MRI shows 1 lesion of interest PI-RADS 4 *Preoperative Diagnosis Elevated PSA 5.98 MRI reveals 1 lesion of interest PI-RADS 4 *Postoperative Diagnosis Same Operative Procedure Uronavigated fusion biopsy of prostate Surgeon(s) RICARDO OCHOA MD (Surgeon Primary) Indication for Bath Mix Operator Given the inherent complexity of this surgery, a second surgeon or a surgically skilled Physician Spindle Plumber was necessary for the successful completion of this entire operative procedure. The assistant food service manager was essential for safe and proper positioning of the patient, initial tissue dissection, complex manipulation and retraction of soft tissue, achieving hemostasis, maintaining exposure, and complex multilayer wound closure. Anesthesia MAC JOSIE VILCHIS MD (Cigar Bander Hand) LILA GEIGER CRNA (Provider) *Specimen(s) Prostate tissue [...] the operating room in good condition. Normal [facility] L509.3001on 12-31-2024 Testosterone [Mass/Vol] 318.00 ng/dL Normal 300-720 [facility] Comment on above: Performed By: #### L 509.3001 #### [facility] [address] [place], [address] Laboratory - Chemistry and C hemistry - challengeOrdered By: Ira Corey on 12-30-2024 Testosterone [Mass/Vol] 318.00 ng/dL 300-720 [facility] L509.6002on 12-29-2024 CORTISOL 5.22 ug/dL Normal 2.68-10.50 [facility] Comment on above: Performed By: #### L 501.9520, L509.6002, L501.9940 ####[facility] [address] [place], [address] PSA,Total- Diagnosticon 12-20 PSA, DIAGNOSTIC 4.50 ng/mL High 0.00-4.00 [facility] Comment on above: Result Comment: This [...] Performed By: #### L 501.9520, L509.6002, L501.9940 ####[facility] [address] [place], [address] Serum or plasma cortisol jose m surement (mass/volume)Ordered By: Ira Corey on 12-29-2024 Cortisol [Mass/Vol] 5.22 ug/dL 2.68-10.50 [facility] TSH DL <= 0.005 mIU/L QnOrde red By: Ira Corey on 12-29-2024 TSH Qn 2.260 uIU/mL 0.300-4.200 [facility] Thyroid Stim Hormone (TSH)on 12-29-2024 TSH 2.260 uIU/mL Normal 0.300-4.200 [facility] Comment on above: Performed By: #### L 501.9520, L509.6002, L501.9940 ####[facility] [address] [place], [address] UAon 12-29-2024 U MICRO Indicated Normal [facility] Comment on above: Performed By: #### 1 [id number] #### [facility] [address] [place] [address] Material Carrier: Deepak Chavez MD Appearance, U Clear Normal Clear [facility] Comment on above: Performed By: #### 1 05506 #### [facility] [address] [place] [address] Material Carrier: Deepak Chavez MD Bilirubin, U Negative Normal Negative [facility] Comment on above: Result Comment: Bili hernandez, U: Initial positive urine bilirubin results are not confirmed. Interfering substances may include elevated urobilinogen. Trace = 0.5-1.0 mg/dL Small = 2.0-4.0 mg/dL Moderate = 6.0-8.0 mg/dL Large = 10 mg/dl and greater Performed By: #### 1 [id number] #### [facility] [address] [place] [address] [id number] Material Carrier: Deepak Chavez MD Blood, U Negative Normal Negative [facility] Comment on above: Result Comment: Bloo d, U: Trace = 0.03-0.05 mg/dL Small = 0.06-0.1 mg/dL Moderate = 0.2-0.5 mg/dL Large = 1.0 mg/dL and greater Performed By: #### 1 [id number] #### [facility] [address] [place] [address] Material Carrier: Deepak Chavez MD Color, U Yellow Normal Yellow [facility] Comment on above: Performed By: #### 1 [id number] #### [facility] [address] [place] [address] Material Carrier: Deepak Chavez MD Glucose Qual, U Negative Normal Negative [facility] Comment on above: Performed By: #### 1 09706 #### [facility] [address] [place] [address] Material Carrier: Deepak Chavez MD Ketones, U Negative Normal Negative [facility] Comment on above: Performed By: #### 1 87504 #### [facility] [address] [place] [address] Material Carrier: Deepak Chavez MD Leukocyte Esterase, U Negative Normal Negative [facility] Comment on above: Result Comment: Leuk ocyte Esterase, U: Trace = 25 Davon/uL Small = 75 Davon/uL Moderate = 250 Davon/uL Large = 500 Davon/uL and greater Performed By: #### 1 89777 #### [facility] [address] [place] [address] Material Carrier: Deepak Chavez MD Nitrite, U Negative Normal Negative [facility] Comment on above: Performed By: #### 1 36038 #### [facility] [address] [place] [address] Material Carrier: Deepak Chavez MD pH, U 6.5 Normal 4.5-8.0 [facility] Comment on above: Performed By: #### 1 81502 #### [facility] [address] [place] [address] Material Carrier: Deepak Chavez MD Protein, U 20 mg/dl Abnormal Negative [facility] Comment on above: Performed By: #### 1 72679 #### [facility] [address] [place] [address] Material Carrier: Deepak Chavez MD RBC/HPF, U 2 #/HPF Normal 0-3 [facility] Comment on above: Performed By: #### 1 43899 #### [facility] [address] [place] [address] Material Carrier: Deepak Chavez MD Specific [place], U 1.023 Normal 1.001-1.035 [facility] Comment on above: Performed By: #### 1 39621 #### [facility] [address] [place] [address] Material Carrier: Deepak Chavez MD Urobilinogen Qual, U 2 mg/dl Abnormal < 2 mg/dl [facility] Comment on above: Result Comment: Urob ilinogen, U: EU/dl and mg/dl are equivalent units. Performed By: #### 1 41686 #### [facility] [address] [place] [address] Material Carrier: Deepak Chavez MD WBC/HPF, U <1 Normal 0-5 [facility] Comment on above: Performed By: #### 1 09789 #### [facility] [place] [id number] Material Carrier: Deepak Chavez MD MR PROSTATE W and [...] contrast including 3-D postprocessing on an independent Phase Eight workstation with active physician supervision and interpretation. Precontrast T1 and T2 weighted images were obtained from the superior iliac crest to the inferior pubic ramus. Subsequently, 3 planes of high resolution T2 weighted imaging, diffusion weighted imaging, and dynamic contrast enhanced imaging was performed. This test is designed to evaluate for clinically significant prostate cancer defined as [place] 7 or greater including either [place] 4 + 3, or [place] 3 + 4 with a significant [place] 4 component. Patients with [place]ores 7 (3 + 4) cancer without significant [place] 4 component, and Delores 6 or less [...] OLMOS MD Signed Out: 12/15/24 09:46:50 Normal [facility] Comprehensive Metabolic Prof ilon 09-01-2024 Albumin [Mass/Vol] 3.9 g/dL Normal 3.2-5.0 [facility] Comment on above: Performed By: #### L 500.4100, L500.4050, L501.9520, L501.9940, L100.0100 #### [facility] [address] [place], [address] Albumin/Globulin [Mass ratio] 1.1 {ratio} Normal 0.9-2.4 [facility] Comment on above: Performed By: #### L 500.4100, L500.4050, L501.9520, L501.9940, L100.0100 #### [facility] [address] [place], [address] ALK P 68 U/L Normal 45-117 [facility] Comment on above: Performed By: #### L 500.4100, L500.4050, L501.9520, L501.9940, L100.0100 #### [facility] [address] [place], [address] ALT [Catalytic activity/Vol] 40 U/L Normal 16-61 [facility] Comment on above: Performed By: #### L 500.4100, L500.4050, L501.9520, L501.9940, L100.0100 #### [facility] [address] [place], [address] AST [Catalytic activity/Vol] 32 U/L Normal 15-37 [facility] Comment on above: Performed By: #### L 500.4100, L500.4050, L501.9520, L501.9940, L100.0100 #### [facility] [address] [place], [address] Bilirubin [Mass/Vol] 0.50 mg/dL Normal 0.20-1.00 [facility] Comment on above: Result Comment: For patients on eltrombopag therapy, use of Dimension Bentley TBIL is not recommended. Performed By: #### L 500.4100, L500.4050, L501.9520, L501.9940, L100.0100 #### [facility] [address] [place], [address] BUN/CRE 18.8 RATIO Normal 10-20 [facility] Comment on above: Performed By: #### L 500.4100, L500.4050, L501.9520, L501.9940, L100.0100 #### [facility] [address] [place], [address] CA,Total 9.1 mg/dL Normal 8.5-10.1 [facility] Comment on above: Performed By: #### L 500.4100, L500.4050, L501.9520, L501.9940, L100.0100 #### [facility] [address] [place], [address] Chloride [Moles/Vol] 104 mmol/L Normal 98-107 [facility] Comment on above: Performed By: #### L 500.4100, L500.4050, L501.9520, L501.9940, L100.0100 #### [facility] [address] [place], [address] CO2 [Moles/Vol] 27.0 mmol/L Normal 21.0-32.0 [facility] Comment on above: Performed By: #### L 500.4100, L500.4050, L501.9520, L501.9940, L100.0100 #### [facility] [address] [place], [address] Creatinine [Mass/Vol] 0.90 mg/dL Normal 0.70-1.30 [facility] Comment on above: Result Comment: The validity of the calculated GFR GFRAA in patients over 70 years has not been determined. Clinical correlation is essential. Performed By: #### L 500.4100, L500.4050, L501.9520, L501.9940, L100.0100 #### [facility] [address] [place], [address] EST GFR - AA 105 mL/min Normal >60 [facility] Comment on above: Result Comment: Afri can Ivorian GFR Calc Performed By: #### L 500.4100, L500.4050, L501.9520, L501.9940, L100.0100 #### [facility] [address] [place], [address] GAP 7 Normal 5-15 [facility] Comment on above: Performed By: #### L 500.4100, L500.4050, L501.9520, L501.9940, L100.0100 #### [facility] [address] [place], [address] GFR/1.73 sq M.predicted among non-blacks MDRD (S/P/Bld) [Vol rate/Area] 87 mL/min/{1.73_m2} Normal >60 [facility] Comment on above: Result Comment: Non- GFR Calc Performed By: #### L 500.4100, L500.4050, L501.9520, L501.9940, L100.0100 #### [facility] [address] [place], [address] Globulin (S) [Mass/Vol] 3.4 g/dL Normal 2.2-4.2 [facility] Comment on above: Performed By: #### L 500.4100, L500.4050, L501.9520, L501.9940, L100.0100 #### [facility] [address] [place], [address] Glucose [Mass/Vol] 113 mg/dL High 74-106 [facility] Comment on above: Result Comment: Fast ing Glucose result from 100 to 125 mg/dL suggests IMPAIRED HOMEOSTASIS per A.D.A. criteria. Performed By: #### L 500.4100, L500.4050, L501.9520, L501.9940, L100.0100 #### [facility] [address] [place], [address] Potassium [Moles/Vol] 4.3 mmol/L Normal 3.5-5.1 [facility] Comment on above: Performed By: #### L 500.4100, L500.4050, L501.9520, L501.9940, L100.0100 #### [facility] [address] [place], [address] Sodium [Moles/Vol] 138 mmol/L Normal 136-145 [facility] Comment on above: Performed By: #### L 500.4100, L500.4050, L501.9520, L501.9940, L100.0100 #### [facility] [address] [place], [address] T PROT 7.3 g/dL Normal 6.4-8.2 [facility] Comment on above: Performed By: #### L 500.4100, L500.4050, L501.9520, L501.9940, L100.0100 #### [facility] [facility] [address] [place], [address] Urea nitrogen [Mass/Vol] 17 mg/dL Normal 7-18 [facility] Comment on above: Performed By: #### L 500.4100, L500.4050, L501.9520, L501.9940, L100.0100 #### [facility] [address] [place], [address] Lipid Profileon 09-01-2024 Cholesterol [Mass/Vol] 126 mg/dL Normal 200 [facility] Comment on above: Result Comment: <200 mg/dL Desirable 200-240 mg/dL Borderline >240 mg/dL High Risk Performed By: #### L 500.4100, L500.4050, L501.9520, L501.9940, L100.0100 #### [facility] [address] [place], [address] Cholesterol in HDL [Mass/Vol] 31 mg/dL Low [facility] Comment on above: Result Comment: The drugs N-Acetylcysteine and Metamizole may falsely depress this assay. Reference Range HDL <40 mg/dL Low HDL Cholesterol HDL >or= 60 mg/dL High HDL Cholesterol Performed By: #### L 500.4100, L500.4050, L501.9520, L501.9940, L100.0100 #### [facility] [address] [place], [address] Cholesterol in LDL [Mass/Vol] 37 mg/dL Normal 0-130 [facility] Comment on above: Performed By: #### L 500.4100, L500.4050, L501.9520, L501.9940, L100.0100 #### [facility] [address] [place], [address] Cholesterol in VLDL [Mass/Vol] 58 mg/dL High 5-40 [facility] Comment on above: Performed By: #### L 500.4100, L500.4050, L501.9520, L501.9940, L100.0100 #### [facility] [address] [place], [address] Triglyceride [Mass/Vol] 290 mg/dL High [facility] Comment on above: Result Comment: The drugs N-Acetylcysteine and Metamizole may falsely depress this assay. Serum Triglycerides Reference Interval Normal <150 mg/dL Borderline high 150 - 199 mg/dL High 200 - 499 mg/dL Very High > or = 500 mg/dL Performed By: #### L 500.4100, L500.4050, L501.9520, L501.9940, L100.0100 #### [facility] [address] [place], [address] PSA,Total- Diagnosticon 08-22 PSA, DIAGNOSTIC 5.98 ng/mL High 0.0-4.0 [facility] Comment on above: Result Comment: This test was performed using the TPSA assay method for the [employer] chemistry system. Values obtained with different assay methods cannot be used interchangably. When changing PSA assays in the course of monitoring a patient, additional sequential testing should be carried out to confirm baseline values. Performed By: #### L 500.4100, L500.4050, L501.9520, L501.9940, L100.0100 #### [facility] [address] [place], [address] Thyroid Stim Hormone (TSH)on 09-01-2024 TSH 2.450 uIU/mL Normal 0.358-3.740 [facility] Comment on above: Performed By: #### L 500.4100, L500.4050, L501.9520, L501.9940, L100.0100 #### [facility] [address] [place], [address] CBC W/Diff, Automatedon 08-22 Absolute Lymph 2.39 X10 3/uL Normal 0.83-4.51 [facility] Comment on above: Performed By: #### L 500.4100, L500.4050, L501.9520, L501.9940, L100.0100 #### [facility] [address] [place], [address] Absolute Neut 5.2 X10 3/uL Normal 2.0-7.7 [facility] Comment on above: Performed By: #### L 500.4100, L500.4050, L501.9520, L501.9940, L100.0100 #### [facility] [address] [place], [address] Basophils/100 WBC (Bld) 0.9 % Normal 0-1 [facility] Comment on above: Performed By: #### L 500.4100, L500.4050, L501.9520, L501.9940, L100.0100 #### [facility] [address] [place], [address] Eosinophils/100 WBC (Bld) 2.3 % Normal 0-5 [facility] Comment on above: Performed By: #### L 500.4100, L500.4050, L501.9520, L501.9940, L100.0100 #### [facility] [address] [place], [address] Erythrocyte distribution width (RBC) [Ratio] 13.4 % Normal 11.6-14.6 [facility] Comment on above: Performed By: #### L 500.4100, L500.4050, L501.9520, L501.9940, L100.0100 #### [facility] [address] [place], [address] Hematocrit (Bld) [Volume fraction] 45.5 % Normal 40-54 [facility] Comment on above: Performed By: #### L 500.4100, L500.4050, L501.9520, L501.9940, L100.0100 #### [facility] [address] [place], [address] Hemoglobin (Bld) [Mass/Vol] 15.6 g/dL Normal 13.0-16.5 [facility] Comment on above: Performed By: #### L 500.4100, L500.4050, L501.9520, L501.9940, L100.0100 #### [facility] [address] [place], [address] IG% 0.900 Normal 0.0-0.9 [facility] Comment on above: Result Comment: IG% - Immature Granulocytes (promyelocytes, myelocytes and metamyelocytes) > 1% indicates that a LEFT SHIFT is Present. Performed By: #### L 500.4100, L500.4050, L501.9520, L501.9940, L100.0100 #### [facility] [address] [place], [address] Lymphocytes/100 WBC (Bld) 27.5 % Normal 19-41 [facility] Comment on above: Performed By: #### L 500.4100, L500.4050, L501.9520, L501.9940, L100.0100 #### [facility] [address] [place], [address] MCH (RBC) [Entitic mass] 29.5 pg Normal 27.0-32.0 [facility] Comment on above: Performed By: #### L 500.4100, L500.4050, L501.9520, L501.9940, L100.0100 #### [facility] [address] [place], [address] MCHC (RBC) [Mass/Vol] 34.3 g/dL Normal 32-36 [facility] Comment on above: Performed By: #### L 500.4100, L500.4050, L501.9520, L501.9940, L100.0100 #### [facility] [address] [place], [address] MCV (RBC) [Entitic vol] 86.2 fL Normal 80-94 [facility] Comment on above: Performed By: #### L 500.4100, L500.4050, L501.9520, L501.9940, L100.0100 #### [facility] [address], [address] Monocytes/100 WBC (Bld) 8.3 % Normal 0-10 [facility] Comment on above: Performed By: #### L 500.4100, L500.4050, L501.9520, L501.9940, L100.0100 #### [facility] [address] [place], [address] Neutrophils/100 WBC (Bld) 60.1 % Normal 47-70 [facility] Comment on above: Performed By: #### L 500.4100, L500.4050, L501.9520, L501.9940, L100.0100 #### [facility] [address] [place], [address] Nucleated RBC (Bld) [#/Vol] 0 10*3/uL Normal 0-5 [facility] Comment on above: Performed By: #### L 500.4100, L500.4050, L501.9520, L501.9940, L100.0100 #### [facility] [address] [place], [address] Platelet mean volume (Bld) [Entitic vol] 10.4 fL Normal 6.2-12.0 [facility] Comment on above: Performed By: #### L 500.4100, L500.4050, L501.9520, L501.9940, L100.0100 #### [facility] [address] [place], [address] Platelets (Bld) [#/Vol] 242 10*3/uL Normal 150-450 [facility] Comment on above: Performed By: #### L 500.4100, L500.4050, L501.9520, L501.9940, L100.0100 #### [facility] [address] [place], [address] RBC (Bld) [#/Vol] 5.28 10*6/uL Normal 4.6-6.2 [facility] Comment on above: Performed By: #### L 500.4100, L500.4050, L501.9520, L501.9940, L100.0100 #### [facility] [address] [place], [address] RDW SD 41.8 fl Normal 35.1-43.9 [facility] Comment on above: Performed By: #### L 500.4100, L500.4050, L501.9520, L501.9940, L100.0100 #### [facility] [address] [place], [address] WBC (Bld) [#/Vol] 8.7 10*3/uL Normal 4.4-11.0 [facility] Comment on above: Performed By: #### L 500.4100, L500.4050, L501.9520, L501.9940, L100.0100 #### [facility] [address] [place], [address] Inital Evaluation (1) - PTon 07-28-2024 Inital Evaluation (1) - PT [facility] [address] [place] [address] / REHABILITATION SERVICES INITIAL EVALUATION MR#: [id number] Acct: [id number] Name: JORGE GUILLEN Rep #: [id number] : 1945 79 From: Diego Mata DPT [...] painful. Pt. goes back and forth to [place]. Progress HEP daily/weekly to increase carry over. [...] motor function, (more content not included)... Normal [facility] Cardiology Visit Reporton Cardiology Visit Report [facility] [address] [place] [address] OFFICE VISIT Date of Service: 05/07/24 MR#: [id number] Acct: [id number] Name: JORGE GUILLEN Rep #: [id number] : 1945 Provider: Dr. Ovidio dexter MD Age/Sex: 78/M [place] [facility] [place] Status: Signed HPI [facility] History of Present Illness Details: This is [...] They go to an exercise facility in [place]. The patient's prior anginal equivalent prior to his bypass graft surgery in 2001 at [facility] was upper back discomfort that occurred with [...] Method room air Intake Visit Reasons: Bradycardia Foreign Collection Clerk Required: No Accompanied by: Is patient in [...] disease Mononeuritis Hyperlipidemia Atherosclerotic heart disease of [place] coronary artery without angina pectoris Surgical History History of foot surgery History of coronary artery bypass surgery ( 07/01/02) Splenic artery aneurysm History of hernia repair H/O repair of rotator (more content not included)... Normal [facility] Orthopedic Visit Reporton Orthopedic Visit Report [facility] [address] [place] [address] OFFICE VISIT Date of Service: 03/06/24 MR#: [id number] Acct: [id number] Name: JORGE GUILLEN Rep #: [id number] : 1945 Provider: Dr. Geraldo Chowdhury MD Age/Sex: 78/M [place] [facility] [place] Status: Signed Intake Vital Signs 01/30/24 10:17 [...] disease Mononeuritis Hyperlipidemia Atherosclerotic heart disease of still[place] coronary artery without angina pectoris Surgical History [...] states his back has bothered him since [id number]. Patient had a injury to his back. [...] didn't help him. Patient has also seen [facility] and they did injection and they didn't help either. Patient has had a nerve conductin test done. Patient takes Ibuprofen. Patient has done 6 weeks at [facility] point and 5-6 weeks at [facility]. Patient states Physical therapy didn't help. [...] has tri (more content not included)... Normal [facility] Spine Lumbar (Routine)on Spine Lumbar (Routine) [facility] Services [address] [place], [place] [address] Spine Lumbar (Routine) MR#: [id number] Acct: [id number] Name: JORGE GUILLEN Rep #: [id number] : 1945 M 78 From: Jonh Henson MD PCP: Ira Corey, [facility] Status: REG CLI Study: Spine Lumbar (Routine) Date of Exam: 03/03/24 Exam# [id number] Ordering Dr: Geraldo Chowdhury MD [id number] STUDY: MRI LUMBAR SPINE WITHOUT CONTRAST REASON [...] CC: ANDREW Corey; Dr. Geraldo Chowdhury MD An Employee Sponsor Or Advocate And: Signed Normal [facility] Absolute lymphocyte countOrd ered By: Ira Corey on 09-12-2023 Lymphocytes Auto (Unsp spec) [#/Vol] 2.22 10*3/uL 0.83-4.51 [facility] Automated lymphocyte count a s percentage of total leukocytesOrdered By: Ira Corey on 09-12-2023 Lymphocytes/100 WBC Auto (Unsp spec) 24.3 % 19-41 [facility] Basophil percentageOrdered B y: Ira Corey on 09-12-2023 Basophils/100 WBC (Bld) 0.9 % 0-1 [facility] Bilirubin [Mass/Vol] 0.40 mg/dL 0.20-1.00 [facility] Comment on above: For patients on eltr ombopag therapy, use of Dimension Bentley TBIL is not recommended. Chloride [Moles/Vol] 104 mmol/L 98-107 [facility] Cholesterol [Mass/Vol] 114 mg/dL <200 [facility] Comment on above: <200 mg/dL Desirable 200-240 mg/dL Borderline >240 mg/dL High Risk Eosinophils/100 WBC (Bld) 2.0 % 0-5 [facility] Glucose [Mass/Vol] 105 mg/dL 74-106 [facility] Comment on above: Fasting Glucose resu lt from 100 to 125 mg/dL suggests IMPAIRED HOMEOSTASIS per A.D.A. criteria. Hemoglobin (Bld) [Mass/Vol] 15.9 g/dL 13.0-16.5 [facility] Monocytes/100 WBC (Bld) 9.6 % 0-10 [facility] Neutrophils (Bld) [#/Vol] 5.7 10*3/uL 2.0-7.7 [facility] Neutrophils/100 WBC (Bld) 62.7 % 47-70 [facility] Potassium [Moles/Vol] 4.3 mmol/L 3.5-5.1 [facility] Protein [Mass/Vol] 7.3 g/dL 6.4-8.2 [facility] Sodium [Moles/Vol] 139 mmol/L 136-145 [facility] Triglyceride [Mass/Vol] 256 mg/dL <199 [facility] Comment on above: The drugs N-Acetylcy steine and Metamizole may falsely depress this assay.Serum Triglycerides Reference Interval Normal <150 mg/dL Borderline high 150 - 199 mg/dL High 200 - 499 mg/dL Very High > or = 500 mg/dL WBC (Bld) [#/Vol] 9.1 10*3/uL 4.4-11.0 [facility] Determination of erythrocyte mean corpuscular volume (MCV)Ordered By: Ira Corey on 09-12-2023 MCV (RBC) [Entitic vol] 89.3 fL 80-94 [facility] Erythrocyte distribution wid th ratioOrdered By: Irasusy Corey on 09-12-2023 Erythrocyte distribution width (RBC) [Ratio] 13.2 % 11.6-14.6 [facility] Erythrocyte distribution wid th standard deviationOrdered By: Ira Corey on 09-12-2023 Erythrocyte distribution width (RBC) [Entitic vol] 42.8 fL 35.1-43.9 [facility] Hematocrit Auto (Bld) [Volum e fraction]Ordered By: Ira Corey on 09-12-2023 Hematocrit (Bld) [Volume fraction] 48.2 % 40-54 [facility] Immature granulocytes/100 WB C Auto (Bld)Ordered By: Ira Corey on 09-12-2023 Immature granulocytes/100 WBC (Bld) 0.500 % 0.0-0.9 [facility] Comment on above: IG% - Immature Granu locytes (promyelocytes, myelocytes and metamyelocytes) > 1% indicates that a LEFT SHIFT is Present. Laboratory - Chemistry and C hemistry - challengeOrdered By: Ira Corey on 09-12-2023 Albumin/Globulin [Mass ratio] 1.2 {ratio} 0.9-2.4 [facility] ALP [Catalytic activity/Vol] 61 U/L 45-117 [facility] ALT [Catalytic activity/Vol] 48 U/L 16-61 [facility] Cholesterol in HDL [Mass/Vol] 29 mg/dL >40 [facility] Comment on above: The drugs N-Acetylcy steine and Metamizole may falsely depress this assay. Reference Range HDL <40 mg/dL Low HDL Cholesterol HDL >or= 60 mg/dL High HDL Cholesterol Cholesterol in LDL [Mass/Vol] 34 mg/dL 0-130 [facility] CO2 [Moles/Vol] 30.0 mmol/L 21.0-32.0 [facility] Globulin (S) [Mass/Vol] 3.3 g/dL 2.2-4.2 [facility] Urea nitrogen/Creatinine [Mass ratio] 18.8 mg/mg 10-20 [facility] - Hematology and Cell countsOrdered By: Ira Corey on 09-12-2023 MCH (RBC) [Entitic mass] 29.4 pg 27.0-32.0 [facility] MCHC (RBC) [Mass/Vol] 33.0 g/dL 32-36 [facility] Nucleated RBC/100 WBC (Bld) [Ratio] 0 % 0-5 [facility] Platelet mean volume (Bld) [Entitic vol] 10.6 fL 6.2-12.0 [facility] Platelets (Bld) [#/Vol] 189 10*3/uL 150-450 [facility] No Panel InformationOrdered By: Ira Corey on 09-12-2023 Estimated GFR (MDRD) Amer 98 mL/min >60 [facility] Comment on above: GFR Calc Estimated GFR (MDRD) Non-Af Amer 81 mL/min >60 [facility] Comment on above: Non- GFR Calc Prostate Specific Antigen Screen 4.85 ng/mL 0.00-4.00 [facility] Comment on above: This test was perfor med using the TPSA assay method for [employer] chemistry system. Values obtained with differentassay methods cannot be used interchangably.When changing PSA assays in the course of monitoring apatient, additional sequential testing should be carriedout to confirm baseline values. VLDL Cholesterol 51 mg/dL 5-40 [facility] RBC Auto (Bld) [#/Vol]Ordere d By: Ira Corey on 09-12-2023 RBC (Bld) [#/Vol] 5.40 10*6/uL 4.6-6.2 [facility] Serum or plasma calcium anaya urement (mass/volume)Ordered By: Ira Corey on 09-12-2023 Calcium [Mass/Vol] 9.0 mg/dL 8.5-10.1 [facility] Serum or plasma creatinine m easurement (mass/volume)Ordered By: Ira Corey on 09-12-2023 Creatinine [Mass/Vol] 0.96 mg/dL 0.70-1.30 [facility] Comment on above: The validity of the calculated GFR & GFRAA in patients over 70 years has not been determined. Clinical correlation is essential. Serum or plasma thyroid stim ulating hormone (TSH) measurement (units/volume)Ordered By: Ira Corey on 09-12-2023 TSH Qn 1.24 uIU/mL 0.358-3.74 [facility] Serum or plasma urea nitroge n measurement (mass/volume)Ordered By: Ira Corey on 09-12-2023 Urea nitrogen [Mass/Vol] 18 mg/dL 7-18 [facility] Thin prep Papanicolaou smear with manual screeningOrdered By: Ira Corey on 09-12-2023 Thin prep Papanicolaou smear with manual screening 4.0 g/dL 3.2-5.0 [facility] Thin prep Papanicolaou smear with manual screening 31 U/L 15-37 [facility] Thin prep Papanicolaou smear with manual screening 5 5-15 [facility] ANES POSTPROC EVALon 023 ANES POSTPROC EVAL HNO ID: [id number] Author: Tessa Connor MD Service: Anesthesiology Author Type: Anesthesiologist Type: Anesthesia Postprocedure Evaluation Filed: 06/27/2023 4:42 PM Note Text: POST ANESTHESIA EVALUATION NOTE : 1945 Procedure Summary Date: 06/27/23 Room / Location: [facility] OR01 / [place] Anesthesia Start: 1241 [...] June 27, 2023 TIME: 4:42 PM CSN: [id number] [facility] ANES PRE-OPon 06-27-2023 ANES PRE-OP HNO ID: [id number] Author: Pk Foley MD Service: ? Author Type: Anesthesiologist Type: Anesthesia Preprocedure Evaluation Filed: 06/27/2023 12:00 PM Note Text: ANESTHESIOLOGY DAY OF SURGERY NOTE : 1945 Procedure Information Date/Time: 06/27/23 1200 Procedure: RECONSTRUCTION TOE HAMMER (Left) Location: [facility] [facility]01 / [place] Surgeons: Jaleel Barragan [...] effort (Resolved) (+) Coronary artery disease involving still[place] coronary artery of [place] heart without angina pectoris (+) HTN (hypertension) [...] and consent discussed: yes. Patient / Responsible Democrat agrees to proceed: yes Patient / Surrogate [...] 1-2 hours before sexual intercourse - Coenzyme I05-Coqjuce E 100-150 mg-unit cap Take 1 tablet [...] June 27, 2023 TIME: 11:59 AM CSN: [id number] [facility] BRIEF OP NOTon 06-27-2023 BRIEF OP NOT HNO ID: [id number] Author: Jaleel Barragan DPM Service: Podiatry Author Type: Physician Type: Brief Op Note Filed: 06/27/2023 1:29 PM Note Text: BRIEF OPERATIVE / PROCEDURE NOTE LOG ID: [id number] SURGERY/PROCEDURE DATE: 06/27/2023 INCISION/PROCEDURE START TIME: 1:02 PM INCISION CLOSE/PROCEDURE END TIME: 1:13 PM SURGEON(S)/PROCEDURALIST (S) AND MANAGER ASSET MANAGEMENT(S): Surgeon(s) and Role: * Jaleel Barragan DPM - Primary Registered Nurse Wool Grader: Laverne Nicole RN SURGERY/PROCEDURE(S): Derotational arthroplasty LEFT 5th toe, flexor tenotomy LEFT 5th toe ANESTHESIA: General FINDINGS: NA ESTIMATED BLOOD LOSS: 0 ml SPECIMENS: None COMPLICATIONS: None CLOSURE TECHNIQUE: Primary PRE-OP/PRE-PROCEDURE DIAGNOSIS: Hammertoe LEFT foot, pain in LET foot POST-OP/POST-PROCEDURE DIAGNOSIS: Same as Preop SIGNATURE: Jaleel Barragan DPM PATIENT NAME: Jorge Guillen DATE: June 27, 2023 TIME: 1:28 PM Normal [facility] OPERATIVE NOon 06-27-2023 OPERATIVE NO HNO ID: [id number] Author: Jaleel Barragan DPM Service: Podiatry Author Type: Physician Type: Operative Report Filed: 06/28/2023 10:59 AM Note Text: [facility] - Operative Report JORGE GUILLEN : 1945 AGE: 78. SEX: M PATIENT TYPE: A HOSP TRIPP: MICHAELLE LOCATION: [facility] ATTENDING PHYSICIAN: RAMOS NUMBER: [id number] DATE OF SURGERY/PROCEDURE: 06/27/2023 INCISION/PROCEDURE START TIME: 1:02 p.m. INCISION CLOSE/PROCEDURE END TIME: 1:13 p.m. PREOPERATIVE DIAGNOSIS: Hammertoe of the left foot, pain in the left foot. POSTOPERATIVE DIAGNOSIS: Hammertoe of the left foot, pain in the left foot. SURGEON: Jaleel Barragan DPM MANAGER ASSET MANAGEMENT: Matthew Ann SURGERY/PROCEDURE: Derotational arthroplasty left 5th toe, flexor tenotomy left 5th toe. ANESTHESIA: MAC with local, 10 mL of 0.25% Marcaine plain. FINDINGS: None. ESTIMATED BLOOD LOSS: 0. SPECIMENS: None. COMPLICATIONS: None. CLOSURE TECHNIQUE: Primary. INDICATIONS FOR PROCEDURE: This patient was seen in the clinical setting of [facility] [place] with pain and deformity of the left [...] office in 1 week. Jaleel Barragan DPM [id number] /[id number] [facility] XR FLUOROSCOPYon 06-27-2023 XR FLUOROSCOPY * * [...] Intraoperative examination for surgical planning and documentation. 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 Author Type: Nurse Practitioner Type: [...] visit. Either the patient or their legal quality control representative has been informed of the risks [...] ACTIVE PROBLEM LIST Coronary Artery Disease Involving [place] Coronary Artery of [place] Heart Without Angina Pectoris S/P CABG x 3 (L-LAD, R-diag, S-OM) 2001 Pure Hypercholesterolemia Erectile Dysfunction Diaphoresis Angina Effort Splenic Artery Aneurysm (Hcc) Preop Cardiovascular Exam Preop Testing Gastroesophageal Reflux Disease Without Esophagitis Htn (Hypertension) Other Specified Hypothyroidism Acute Deep Vein Thrombosis (Dvt) of Proximal Vein of Lower Extremity (Hcc) PAST MEDICAL HISTORY Diagnosis Date Coronary atherosclerosis of unspecified type of vessel, still[place] or graft Coronary Atherosclerosis Frozen shoulder Right [...] Aneurysm Father age 86 from CHF. Had NM at age 52 Diabetes Father Heart Attack [...] needed. 1-2 hours before sexual intercourse Coenzyme G74-Qfbtkdb E 100-150 mg-unit cap Take 1 tablet by mouth once daily. multivitamin ORAL Tab Take one(1) tablet daily. No current facility-administered medications for this visit. COVID VACCINATION STATUS: Fully vaccinated REVIEW OF SYSTEMS: Pain Assessment: General: No weight loss, malaise or fevers. Neuro: No history of TIA's, s (more content not included)... Normal [facility] CNOVon 05-27-2023 [facility] Office Visit (GENTODD ) -------- JORGE GUILLEN ([id number]) 1945 M Date Time Provider Department 05/27/23 [...] needed. 1-2 hours before sexual intercourse Coenzyme O44-Kmeejjc E 100-150 mg-unit cap Take 1 tablet [...] 1-2 hours before sexual intercourse - Coenzyme Y74-Qfniast E 100-150 mg-unit cap Take 1 tablet by mouth once daily. - multivitamin ORAL Tab Take one(1) tablet daily. - ASPIRIN 81 MG TAB Take one (1) tablet daily . Problem List As Of Date 05/27/2023 Noted Resolved CORONARY ATHEROSCLER UNSPEC VESSEL [I25.10] 04/25/2005 08/23/2015 AORTOCORONARY BYPASS STATUS [Z95.1] 04/25/2005 08/23/2015 HYPERLIPIDEMIA NEC/NOS [E78.5] 04/25/2005 08/23/2015 Coronary artery disease involving stillagu[place]*08/23/2015 S/P CABG x 3 (L-LAD, R-diag, [...] for Encounter Date Provider Department Center 05/27/2023 [id number] ALARCON [facility] Encou (more content not included)... Normal [facility] Ben 05-23-2023 MARIE Telephone (AVPANE) -------- JORGE GUILLEN ([id number]) 1945 M Date Time Provider Department 05/23/23 [...] left voicemail. I did provide our [employer] food and nutrition professor phone number to assist in rescheduling this apt. ([phone]) I waited till 8:15 am to allow [...] 1-2 hours before sexual intercourse - Coenzyme Q43-Wgdmotb E 100-150 mg-unit cap Take 1 tablet by mouth once daily. - multivitamin ORAL Tab Take one(1) tablet daily. - ASPIRIN 81 MG TAB Take one (1) tablet daily . Problem List As Of Date 05/23/2023 Noted Resolved CORONARY ATHEROSCLER UNSPEC VESSEL [I25.10] 04/25/2005 08/23/2015 AORTOCORONARY BYPASS STATUS [Z95.1] 04/25/2005 08/23/2015 HYPERLIPIDEMIA NEC/NOS [E78.5] 04/25/2005 08/23/2015 Coronary artery disease involving [place]*08/23/2015 S/P CABG x 3 (L-LAD, R-diag, [...] Encounter Status:Closed by SHANTA ARMAS on 05/23/23 [facility] HISTORY PHYSICALon HISTORY PHYSICAL HNO ID: [id number] Author: Tamy Flowers APRN.RIDES ATTENDANT Service: ? Author Type: Nurse Practitioner Type: HANDP Filed: 05/23/2023 1:58 PM Note Text: PREANESTHESIA CONSULT CLINIC TELEHEALTH VISIT Patient has been identified by name and date of : Yes This is a virtual visit using [employer] Video Visit. It require patient-provider interaction for [...] visit. Either the patient or their legal quality control representative has been informed of the risks [...] ACTIVE PROBLEM LIST Coronary Artery Disease Involving [place] Coronary Artery of [place] Heart Without Angina Pectoris S/P CABG x [...] Coronary atherosclerosis of unspecified type of vessel, [place] or graft Coronary Atherosclerosis Frozen shoulder Right [...] Aneurysm Father age 86 from CHF. Had NM at age 52 Diabetes Father Heart Attack [...] needed. 1-2 hours before sexual intercourse Coenzyme I34-Pxhobqn E 100-150 mg-unit cap Take 1 tablet by mouth once daily. multivitamin ORAL Tab Take one(1) tablet daily. ASPIRIN 81 MG TAB Take one (1) tablet daily . No current facility-administered medications for this visit. COVID VACCINATION STATUS: Fully vaccinated REVIEW OF SYSTEMS: Pain Assessment: General: No weight loss, malaise or fevers. Neuro: No history of TIA's, stroke, CLIENT APPLICATION SUPPORT ENGINEER tumor, impaired sensorium, hemiplegia, paraplegia or quadraplegi (more content not included)... Normal [facility] ANES POSTPROC EVALon 023 ANES POSTPROC EVAL HNO ID: [id number] Author: Jorge Rodgers DO Service: Anesthesiology Author Type: Physician Type: Anesthesia Postprocedure Evaluation Filed: 04/18/2023 2:10 PM Note Text: POST ANESTHESIA EVALUATION NOTE : 1945 Procedure Summary Date: 04/18/23 Room / Location: [facility] OR03 / [place] OR Anesthesia Start: 1244 [...] April 18, 2023 TIME: 2:10 PM CSN: [id number] [facility] ANES PRE-OPon 04-18-2023 ANES PRE-OP HNO ID: [id number] Author: Jorge Rodgers DO Service: Anesthesiology Author Type: Physician Type: Anesthesia Preprocedure Evaluation Filed: 04/18/2023 12:06 PM Note Text: ANESTHESIOLOGY DAY OF SURGERY NOTE : 1945 Procedure Information Date/Time: 04/18/23 1046 Procedure: HERNIORRHAPHY EPIGASTRIC REDUCIBLE INITIAL 3cm-10cm (Abdomen) - Epigastric hernia Location: [facility]03 [facility] Surgeons: Laverne Alarcon MD Estimated body mass index is 26.99 kg/m? as calculated from the following: Height as of this encounter: 182.9 cm (6'). Weight as of this encounter: 90.3 kg (199 lb). Most recent hematocrit and potassium results: Hematocrit 49.5 02/25/2018 Potassium 4.7 02/25/2018 Relevant Problems CARDIO (+) Angina effort (+) Coronary artery disease involving [place] coronary artery of [place] heart without angina pectoris (+) HTN (hypertension) [...] and consent discussed: yes. Patient / Responsible Democrat agrees to proceed: yes Patient / Surrogate [...] both eyes daily at bedtime. - Coenzyme X26-Zfrephe E 100-150 mg-unit cap Take 1 tablet [...] April 18, 2023 TIME: 12:05 PM CSN: [id number] [facility] OPERATIVE NOon 04-18-2023 OPERATIVE NO HNO ID: [id number] Author: Reynaldo Rivas DO Service: General Surgery Author Type: Resident Type: Operative Report Filed: 04/18/2023 1:15 PM Note Text: -------- Attestation signed by Laverne Alarcon MD at 04/18/2023 4:24 PM PARTICIPATION IN SURGERY/PROCEDURE: Resident performed the procedure, under direct supervision and the remainder of the procedure was performed by the primary surgeon/proceduralist with assistance. -------- OPERATIVE NOTE LOG ID: [id number] Surgery/Procedure Date: 04/18/2023 Incision/Procedure Start Time: 12:58 PM Incision Close/Procedure End Time: 1:08 PM Surgeon(s)/Proceduralist (s) and Spindle Plumber(s): Surgeon(s) and Role: * Laverne Alarcon MD [...] 18, 2023 TIME: 1:11 PM PAGER/CONTACT #: [phone] [facility] HISTORY PHYSICALon 3 HISTORY PHYSICAL HNO ID: [id number] Author: Keisha King APRN.RIDES ATTENDANT Service: ? Author Type: Nurse Practitioner Type: HANDP Filed: 04/18/2023 9:35 AM Note Text: PREANESTHESIA CONSULT CLINIC TELEHEALTH VISIT Patient has been identified by name and date of : Yes This is a virtual visit using [employer] Video Visit. It require patient-provider interaction for the medical decision making as documented below. Reason for contact: PACC visit Accompanied by: Self Scheduled Surgery: HERNIORRHAPHY EPIGASTRIC REDUCIBLE INITIAL 3cm-10cm Subjective CHIEF COMPLAINT: No chief complaint on file. HPI: This is a 77 year old male who presents with h/o epigastric hernia. ACTIVE PROBLEM LIST Coronary Artery Disease Involving [place] Coronary Artery of [place] Heart Without Angina Pectoris S/P CABG x 3 (L-LAD, R-diag, S-OM) 2001 Pure Hypercholesterolemia Erectile Dysfunction Diaphoresis Angina Effort Splenic Artery Aneurysm (Hcc) Preop Cardiovascular Exam Preop Testing Gastroesophageal Reflux Disease Without Esophagitis Htn (Hypertension) Other Specified Hypothyroidism PAST MEDICAL HISTORY Diagnosis Date Coronary atherosclerosis of unspecified type of vessel, [place] or graft Coronary Atherosclerosis Frozen shoulder Right [...] Aneurysm Father age 86 from CHF. Had NM at age 52 Diabetes Father Heart Attack [...] fevers. Neuro: No history of TIA's, stroke, CLIENT APPLICATION SUPPORT ENGINEER tumor, impaired sensorium, hemiplegia, paraplegia or quadraplegia. [...] results withi (more content not included)... Normal [facility] CNOVon 04-01-2023 CNOV Office Visit (JUANJO ) -------- DARLENEJORGE BEAVER ([id number]) 1945 M Date Time Provider Department 04/01/23 [...] Coronary atherosclerosis of unspecified type of vessel, [place] or graft Coronary Atherosclerosis Frozen shoulder Right [...] Aneurysm Father age 86 from CHF. Had NM at age 52 Diabetes Father Heart Attack [...] needed. 1-2 hours before sexual intercourse Coenzyme K16-Lhkxkvr E 100-150 mg-unit cap Take 1 tablet [...] by mouth. (more content not included)... Normal [facility] [place] Basophil percentageOrdered B y: Ira Corey on 11-08-2022 Cholesterol [Mass/Vol] 111 mg/dL <200 [facility] Comment on above: <200 mg/dL Desirable 200-240 mg/dL Borderline >240 mg/dL High Risk Triglyceride [Mass/Vol] 273 mg/dL <199 [facility] Comment on above: The drugs N-Acetylcy steine and Metamizole may falsely depress this assay.Serum Triglycerides Reference Interval Normal <150 mg/dL Borderline high 150 - 199 mg/dL High 200 - 499 mg/dL Very High > or = 500 mg/dL No Panel InformationOrdered By: Ira Corey on 11-08-2022 Thyroid Stimulating Hormone (TSH) 0.48 uIU/mL 0.358-3.74 [facility] Serum or plasma cholesterol in HDL measurement (mass/volume)Ordered By: Ira Corey on 11-08-2022 Cholesterol in HDL [Mass/Vol] 30 mg/dL >40 [facility] Comment on above: The drugs N-Acetylcy steine and Metamizole may falsely depress this assay. Reference Range HDL <40 mg/dL Low HDL Cholesterol HDL >or= 60 mg/dL High HDL Cholesterol Serum or plasma cholesterol in VLDL measurement (mass/volume)Ordered By: Ira Corey on 11-08-2022 Cholesterol in VLDL [Mass/Vol] 55 mg/dL 5-40 [facility] Serum or plasma low density lipoprotein (LDL) cholesterol measurement (mass/volume)Ordered By: Ira Corey on 11-08-2022 Cholesterol in LDL [Mass/Vol] 26 mg/dL 0-130 [facility] No Panel InformationOrdered By: Ira Corey on 09-03-2022 Thyroid Stimulating Hormone (TSH) 2.73 uIU/mL 0.358-3.74 [facility] Basophil percentageon 2021 Basophil percentage < 0.2 [facility] Work Phone: No Panel Informationon 10-20 Centromere B Antibody <0.2 [facility] Work Phone: CLINICAL GENETICIST Antibody <0.2 [facility] Work Phone: Serum DNA double strand anti body assay (units/volume)on 10-20-2021 DNA double strand Ab Qn (S) [IU]/mL [facility] Work Phone: Comment on above: Negative <5 Equivoca l 5 - 9 Positive >9 Serum Fabi-1 antibody assay (u nits/volume)on 10-20-2021 Fabi-1 extractable nuclear Ab Qn (S) <0.2 [facility] Work Phone: Serum Scl-70 extractable nuc lear antibody assay (units/volume)on 10-20-2021 SCL-70 extractable nuclear Ab Qn (S) <0.2 [facility] Work Phone: Serum Bauer extractable nucl ear antibody detectionon 10-20-2021 Bauer extractable nuclear Ab Ql (S) <0.2 AI [facility] Work Phone: Vital Signs Date Time Vital Sign Value Performing Clinician Faci lity 01-07-2025 08:58-0400 Body height 182.88 cm Ira Corey [facility] Work Phone: [facility] 01-07-2025 08:58-0400 Body mass index (BMI) [Ratio] 27.8 kg/m2 Irasusy BorjaCorey [facility] Work Phone: [facility] 01-07-2025 08:58-0400 Body weight 92.98 kg Ira Corey [facility] Work Phone: [facility] 01-07-2025 08:58-0400 Diastolic blood pressure 77 mm[Hg] Irasusy Corey [facility] Work Phone: [facility] 01-07-2025 08:58-0400 Heart rate 57 /min Irasusy BorjaCorey [facility] Work Phone: [facility] 01-07-2025 08:58-0400 Respiratory rate 16 /min Irasusy Corey [facility] Work Phone: [facility] 01-07-2025 08:58-0400 Systolic blood pressure 117 mm[Hg] Ira Corey [facility] Work Phone: [facility] 12-29-2024 16:03-0400 Body height 182.88 cm Ira Corey [facility] Work Phone: [facility] 12-29-2024 16:03-0400 Body mass index (BMI) [Ratio] 28.5 kg/m2 Ira Corey [facility] Work Phone: [facility] 12-29-2024 16:03-0400 Body temperature 97 [degF] Ira Corey [facility] Work Phone: [facility] 12-29-2024 16:03-0400 Body weight 95.25 kg Irasusy BorjaCorey [facility] Work Phone: [facility] 12-29-2024 16:03-0400 Diastolic blood pressure 70 mm[Hg] Ira Corey [facility] Work Phone: [facility] 12-29-2024 16:03-0400 Heart rate 50 /min Ira Corey [facility] Work Phone: [facility] 12-29-2024 16:03-0400 Respiratory rate 18 /min Ira Corey [facility] Work Phone: [facility] 12-29-2024 16:03-0400 SaO2% (BldA) [Mass fraction] 98 % Ira Corey [facility] Work Phone: [facility] 12-29-2024 16:03-0400 Systolic blood pressure 143 mm[Hg] Ira Corey [facility] Work Phone: [facility] 09-12-2023 18:05-0500 Body height 182.88 cm [facility] 09-12-2023 18:05-0500 Body mass index (BMI) [Ratio] 28.3 kg/m2 [facility] 09-12-2023 18:05-0500 Body temperature 97.5 [degF] [facility] 09-12-2023 18:05-0500 Body weight 94.8 kg [facility] 09-12-2023 18:05-0500 Diastolic blood pressure 70 mm[Hg] [facility] 09-12-2023 18:05-0500 Heart rate 82 /min [facility] 09-12-2023 18:05-0500 Respiratory rate 18 /min [facility] 09-12-2023 18:05-0500 SaO2% (BldA) [Mass fraction] 97 % [facility] 09-12-2023 18:05-0500 Systolic blood pressure 138 mm[Hg] [facility] 06-24-2023 14:40-0500 Body height 182.9 cm [facility] 06-24-2023 14:40-0500 Body weight 90.72 kg [facility] 06-24-2023 14:40-0500 Heart rate 67 /min [facility] 11-08-2022 19:23-0400 Body height 182.88 cm [facility] Work Phone: [facility] 11-08-2022 19:23-0400 Body mass index (BMI) [Ratio] 28.2 kg/m2 [facility] Ira Corey [facility] Work Phone: [facility] 11-08-2022 19:23-0400 Body temperature 97.9 [degF] [facility] Ira Corey [facility] Work Phone: [facility] 11-08-2022 19:23-0400 Body weight 94.34 kg [facility] Ira Corey [facility] Work Phone: [facility] 11-08-2022 19:23-0400 Diastolic blood pressure 60 mm[Hg] [facility] Ira Corey [facility] Work Phone: [facility] 11-08-2022 19:23-0400 Heart rate 64 /min [facility] Ira Corey [facility] Work Phone: [facility] 11-08-2022 19:23-0400 Respiratory rate 18 /min [facility] Ira Croey [facility] Work Phone: [facility] 11-08-2022 19:23-0400 SaO2% (BldA) [Mass fraction] 94 % [facility] Work Phone: [facility] 11-08-2022 19:23-0400 Systolic blood pressure 142 mm[Hg] [facility] Ira Corey [facility] Work Phone: [facility] 09-03-2022 17:45-0500 Body height 182.88 cm [facility] Work Phone: [facility] 09-03-2022 17:45-0500 Body mass index (BMI) [Ratio] 27.2 kg/m2 [facility] Ira Corey [facility] Work Phone: [facility] 09-03-2022 17:45-0500 Body temperature 97.3 [degF] [facility] Ira Corey [facility] Work Phone: [facility] 09-03-2022 17:45-0500 Body weight 91.17 kg [facility] Ira Corey [facility] Work Phone: [facility] 09-03-2022 17:45-0500 Diastolic blood pressure 60 mm[Hg] [facility] Ira Corey [facility] Work Phone: [facility] 09-03-2022 17:45-0500 Heart rate 57 /min [facility] Ira Corey [facility] Work Phone: [facility] 09-03-2022 17:45-0500 Respiratory rate 18 /min [facility] Ira Corey [facility] Work Phone: [facility] 09-03-2022 17:45-0500 SaO2% (BldA) [Mass fraction] 96 % [facility] Ira Corey [facility] Work Phone: [facility] 09-03-2022 17:45-0500 Systolic blood pressure 128 mm[Hg] [facility] Ira oCrey [facility] Work Phone: [phone] [place] [address] 08-08-2022 14:25-0500 Body mass index (BMI) [Ratio] 28 kg/m2 [facility] Ira Corey [facility] Work Phone: [phone] [place] [address] 08-08-2022 14:25-0500 Body weight 93.66 kg [facility] Ira Corey [facility] Work Phone: [facility] 08-08-2022 14:25-0500 Diastolic blood pressure 70 mm[Hg] [facility] Ira Corey [facility] Work Phone: [phone])774-258775 [place] [address] 08-08-2022 14:25-0500 Heart rate 56 /min [facility] Work Phone: [facility] 08-08-2022 14:25-0500 Respiratory rate 16 /min [facility] Work Phone: [facility] 08-08-2022 14:25-0500 Systolic blood pressure 128 mm[Hg] [facility] Work Phone: [facility] 04-11-2022 13:37-0400 Diastolic blood pressure 84 mm[Hg] Mayelin Stahl MD Work Phone: [facility] 04-11-2022 13:37-0400 Heart rate 63 /min Mayelin Stahl MD Work Phone: [facility] 04-11-2022 13:37-0400 Systolic blood pressure 142 mm[Hg] Mayelin Stahl MD Work Phone: [facility] 11-15-2021 10:04-0400 Body weight 97.97 kg [facility] Work Phone: [facility] Work Phone: 10-20-2021 15:42-0400 Body height 182.[address] Chandana Garcia Work Phone: [facility] Work Phone: 10-20-2021 15:42-0400 Body mass index (BMI) [Ratio] 28.6 kg/m2 Dr. Chandana Garcia Work Phone: [facility] Work Phone: 10-20-2021 15:42-0400 Body temperature 97.3 [degF] Dr. Chandana Garcia Work Phone: [facility] Work Phone: 10-20-2021 15:42-0400 Body weight 95.[address] Chandana Garcia Work Phone: [facility] Work Phone: 10-20-2021 15:42-0400 Diastolic blood pressure 70 mm[Hg] Dr. Chandana Garcia Work Phone: [facility] Work Phone: 10-20-2021 15:42-0400 Heart rate 66 /min Dr. Chandana Garcia Work Phone: [facility] Work Phone: 10-20-2021 15:42-0400 Respiratory rate 18 /min Dr. Chandana Garcia Work Phone: [facility] Work Phone: 10-20-2021 15:42-0400 SaO2% (BldA) [Mass fraction] 97 % Dr. Chandana Garcia Work Phone: [facility] Work Phone: 10-20-2021 15:42-0400 Systolic blood pressure 122 mm[Hg] Dr. Chandana Garcia Work Phone: [facility] Work Phone: 09-01-2021 18:27-0500 Diastolic blood pressure 74 mm[Hg] Dr. Chandana Garcia Work Phone: [facility] Work Phone: 09-01-2021 18:27-0500 Respiratory rate 17 /min Dr. Chandana Garcia Work Phone: [facility] Work Phone: 09-01-2021 18:27-0500 Systolic blood pressure 122 mm[Hg] Dr. Chandana Garcia Work Phone: [facility] Work Phone: 09-01-2021 18:18-0500 SaO2% (BldA) [Mass fraction] 98 % Dr. Chandana Garcia Work Phone: [facility] Work Phone: 09-01-2021 14:45-0500 Body mass index (BMI) [Ratio] 28 kg/m2 Dr. Chandana Garcia Work Phone: [facility] Work Phone: 09-01-2021 14:45-0500 Body temperature 97.5 [degF] Dr. Chandana Garcia Work Phone: [facility] Work Phone: 09-01-2021 14:45-0500 Body weight 93.[address] Chandana Garcia Work Phone: [facility] Work Phone: 09-01-2021 14:45-0500 Heart rate 64 /min Dr. Chandana Garcia Work Phone: [facility] Work Phone: 08-11-2021 17:15-0500 Body mass index (BMI) [Ratio] 29.2 kg/m2 Dr. Chandana Garcia Work Phone: [facility] Work Phone: 08-11-2021 17:15-0500 Body temperature 97.9 [degF] Dr. Chadnana Garcia Work Phone: [facility] Work Phone: 08-11-2021 17:15-0500 Body weight 97.[address] Chandana Garcia Work Phone: [facility] Work Phone: 08-11-2021 17:15-0500 Diastolic blood pressure 70 mm[Hg] Dr. Chandana Garcia Work Phone: [facility] Work Phone: 08-11-2021 17:15-0500 Heart rate 70 /min Dr. Chandana Garcia Work Phone: [facility] Work Phone: 08-11-2021 17:15-0500 Respiratory rate 18 /min Dr. Chandana Garcia Work Phone: [facility] Work Phone: 08-11-2021 17:15-0500 SaO2% (BldA) [Mass fraction] 98 % Dr. Chandana Garcia Work Phone: [facility] Work Phone: 08-11-2021 17:15-0500 Systolic blood pressure 128 mm[Hg] Dr. Chandana Garcia Work Phone: [facility] Work Phone: 07-05-2021 14:14-0500 Body weight 97.[address] Chandana Garcia Work Phone: [facility] Work Phone: 07-05-2021 14:14-0500 Diastolic blood pressure 64 mm[Hg] Dr. Chandana Garcia Work Phone: [facility] Work Phone: 07-05-2021 14:14-0500 Heart rate 68 /min Dr. Chandana Garcia Work Phone: [facility] Work Phone: 07-05-2021 14:14-0500 Respiratory rate 16 /min Dr. Chandana Garcia Work Phone: [facility] Work Phone: 07-05-2021 14:14-0500 Systolic blood pressure 114 mm[Hg] Dr. Chandana Garcia Work Phone: [facility] Work Phone: 07-06-2020 15:25-0500 Body mass index (BMI) [Ratio] 28 kg/m2 Dr. Chandana Garcia Work Phone: [facility] Work Phone: Encounters Encounter Date Encounter Type Care Provider Facility Start: 02-04-2025 ambulatory Kristofer Mcgee NP Facility :[facility] Start: 01-07-2025 End: 01-07-2025 Patient encounter procedure Kristofer Mcgee [facility] Work Phone: Start: 01-07-2025 End: 01-07-2025 ambulatory Ira Corey [facility] Work Phone: [facility] Work Phone: Start: 01-05-2025 End: 01-05-2025 ambulatory RICARDO OCHOA MD Facility:[id number] Start: 12-29-2024 End: 12-29-2024 ambulatory Ira Corey [facility] Work Phone: [facility] Work Phone: Start: 12-29-2024 End: 12-29-2024 Patient encounter procedure Ira Corey [facility] -Laboratory Specimen Work Phone: Start: 12-29-2024 End: 12-29-2024 ambulatory RICARDO OCHOA MD Facility:[id number] Start: 12-29-2024 End: 12-29-2024 ambulatory Ira Corey NP Facility:[facility] Start: 12-04-2024 End: 12-04-2024 ambulatory RICARDO OCHOA MD Facility:[id number] Start: 08-31-2024 End: 08-31-2024 ambulatory Ira Corey [facility] Facility:[facility] Start: 08-05-2024 ambulatory Brian Doran Facility :[facility] Start: 05-07-2024 End: 05-07-2024 ambulatory Ira Corey [facility] Facility:[facility] Start: 05-07-2024 ambulatory Ira Corey [facility] Faci lity:[facility] Start: 03-06-2024 End: 03-06-2024 ambulatory Ira Corey [facility] Facility:[facility] Start: 03-03-2024 End: 03-03-2024 ambulatory Geraldo Chowdhury Facility:[facility] Start: 09-12-2023 End: 09-12-2023 ambulatory [facility] Work Phone: Start: 09-12-2023 End: 09-12-2023 Patient encounter procedure [facility]-Laboratory, Specimen Work Phone: Start: 06-27-2023 End: 06-27-2023 ambulatory IRA COREY Facility:[facility] Start: 06-24-2023 End: 06-24-2023 ambulatory IRASusy COREY Facility:[facility] Start: 06-24-2023 End: 06-24-2023 Office outpatient visit 15 minutes [facility] Pre Anesthesia Comment on above: Pre-op evaluation (P rimary Dx); S/P CABG x 3 (L-LAD, R-diag, S-OM) 2001; Hypertension, unspecified type; Pure hypercholesterolemia; Acute deep vein thrombosis (DVT) of proximal vein of lower extremity, unspecified laterality (HCC); Splenic artery aneurysm (HCC); Gastroesophageal reflux disease without esophagitis; Other specified hypothyroidism Start: 06-24-2023 End: 06-24-2023 Preprocedural examination done [facility] Work Phone: Start: 05-27-2023 End: 05-27-2023 ambulatory IRA L COREY Facility:[facility] Start: 05-23-2023 End: 05-23-2023 ambulatory IRA Godfrey COREY Facility:[facility] Start: 05-23-2023 Encounter for other preprocedural examination IRA COREY [facility] Start: 04-18-2023 End: 04-18-2023 ambulatory LAVERNE ALARCON Facility:[facility] Start: 04-16-2023 End: 04-16-2023 Evaluation and management of inpatient LAVERNE ALARCON Facility:[facility] Start: 04-12-2023 End: 04-12-2023 ambulatory IRA COREY Facility:[facility] Start: 04-01-2023 End: 04-01-2023 Orders Only Laverne Alarcon MD Work Phone: General Surgery Comment on above: Epigastric hernia (P rimary Dx) Start: 11-27-2022 End: 11-27-2022 ambulatory [facility] Work Phone: [facility] Work Phone: Start: 11-27-2022 End: 11-27-2022 Discharged Recurring [facility] Work Phone: [facility] Therapy Start: 11-13-2022 Registered Recurring [facility] Work Phone: [facility] Start: 11-08-2022 End: 11-08-2022 ambulatory [facility] Work Phone: [facility] Work Phone: Start: 11-08-2022 End: 11-08-2022 Patient encounter procedure [facility] Work Phone: [facility]-Laboratory, Specimen Start: 10-02-2022 End: 10-02-2022 Patient encounter procedure [facility] Work Phone: [facility]-Cardiovascul ar Services Start: 09-03-2022 End: 09-03-2022 ambulatory [facility] Work Phone: [facility] Work Phone: Start: 09-03-2022 End: 09-03-2022 Patient encounter procedure [facility] Work Phone: [facility]-Laboratory, Specimen Start: 08-08-2022 End: 08-08-2022 Patient encounter procedure [facility] Work Phone: [facility] Start: 06-11-2022 Non-patient / Non-visit [facility] Lisa Corey [facility] Work Phone: [facility] Start: 06-11-2022 End: 06-11-2022 ambulatory [facility] Work Phone: [facility] Work Phone: Start: 06-11-2022 End: 06-11-2022 Patient encounter procedure [facility] Work Phone: [facility]-Pulmonary Services/Neurology Start: 04-11-2022 End: 04-11-2022 Patient encounter procedure Mayelin Stahl MD Work Phone: Vascular Surg Dept Comment on above: PAD (peripheral mari ry disease) (HCC) (Primary Dx) Start: 11-28-2021 End: 11-28-2021 Patient encounter procedure [facility] Ira Core[facility] Start: 11-22-2021 Telephone encounter Ira mariano PUMP SERVICER SUPERVISOR.RIDES ATTENDANT Work Phone: NOC Comment on above: Appointment Start: 11-15-2021 End: 11-15-2021 Patient encounter procedure [facility] Work Phone: [facility] Start: 10-27-2021 End: 10-27-[address] Chandana Garcia Work Phone: [facility]-Radiology, [facility] Start: 10-20-2021 End: 10-20-[address] Chandana Garcia Work Phone: [facility]-Laboratory, Specimen Start: 09-01-2021 End: 09-01-2021 Emergency department patient visit Dr. Chandana Garcia Work Phone: [facility]-Emergency Department Start: 09-01-2021 End: 09-01-[address] Chandana Garcia Work Phone: [facility]-Cardiovascul [facility] Services Start: 07-05-2021 End: 07-05-[address] Chandana Garcia Work Phone: [facility] Start: 02-05-2018 Patient encounter status Ira Corey PUMP SERVICER SUPERVISOR.RIDES ATTENDANT Work Phone: [facility] Work Phone: Procedures Date Procedure Procedure Detail [...] values. Start: 11-28-2021 MRI of lumbar spine [facility] Ira Corey [facility] Work Phone: Start: 10-27-2021 Radiologic examinati on of lumbosacral spine, complete, with bending views Start: 07-28-2019 Follow-up visit Start: 08-23-2015 History of coronary artery bypass grafting S/P CABG x 3 (L-LAD, R-diag, S-OM) 2001 Ira Corey PUMP SERVICER SUPERVISOR.RIDES ATTENDANT Work Phone: Start: 06-21-2002 History of coronary artery bypass grafting History of coronary artery bypass surgery Kristofer Mcgee [facility] Comment on above: CABG x3- WEISS to LAD , NELSON to 1st diagonal, and SVG to posterolateral CX 07/01/02 History of coronary artery bypass grafting S/P CABG x 3 (L-LAD, R-diag, S-OM) 2001 [facility] Virtual Plan of Treatment Date Care Activity Detail Author Start: 06-13-2024 Urine microalbumin profile DTaP,Tdap,Td Vaccine (5 - Td or Tdap) [facility] Start: 04-01-2024 BP Controlled (<130/80) BP Controlled (<130/80) [facility] inic Start: 03-22-2023 Covid-19 Vaccine ( season) Covid-19 Vaccine ( season) [facility] Start: 03-22-2023 Influenza vaccination INFLUENZA (#1) [facility] Start: 07-22-2022 ADVANCE DIRECTIVE DISCUSSION ADVANCE DIRECTIVE DISCUSSION [facility] Start: 07-22-2022 DEPRESSION ASSESSMENT DEPRESSION ASSESSMENT [facility] Start: 03-22-2022 Influenza vaccination [facility] Start: 01-10-2022 COVID-19 VACCINE (5 - Pfizer series) COVID-19 VACCINE (5 - Pfizer series) [facility] Start: 10-27-2021 Radiologic examination of lumbosacral spine, complete, with bending views L/S Spine Comp/w Bending Views [facility] Work Phone: Start: 07-22-2021 ADVANCE DIRECTIVE DISCUSSION ADVANCE DIRECTIVE DISCUSSION [facility] Start: 02-25-2021 DIABETES SCREEN DIABETES SCREEN [facility] Start: 02-25-2021 Diabetes Screening Diabetes Screening [facility] Start: 11-09-2014 LIPID SCREEN LIPID SCREEN [facility] Start: 2011 PNEUMOCOCCAL: 65+ (1 - PCV) PNEUMOCOCCAL: 65+ (1 - PCV) [facility] Start: 2011 PNEUMOVAX AGE 65 AND OVER WITH 5YR LOOKBACK (#1) PNEUMOVAX AGE 65 AND OVER WITH 5YR LOOKBACK (#1) [facility] Start: 11-09-2010 Hepatitis B surface antibody level LDL CHOLESTEROL [facility] Start: 2006 RSV Vaccine (1 - 1-dose 60+ series) RSV Vaccine (1 - 1-dose 60+ series) [facility] Start: 1996 SHINGRIX VACCINE (1 of 2) SHINGRIX VACCINE (1 of 2) [facility] Start: 1991 COLOGUARD (FIT-DNA) COLOGUARD (FIT-DNA) [facility] Start: 1991 Colonoscopy COLONOSCOPY [facility] Start: 1991 COLORECTAL CANCER SCREENING COLORECTAL CANCER SCREENING [facility] Start: [address] COLONOGRAPHY [facility] Start: 1991 FECAL OCCULT BLOOD FECAL OCCULT BLOOD [facility] Start: 1991 SIGMOIDOSCOPY SIGMOIDOSCOPY [facility] Start: 1965 Urine microalbumin profile DTAP,TDAP,TD (1 - Tdap) [facility] Start: 1964 ANNUAL PCP TEAM CHRONIC DISEASE VISIT ANNUAL PCP TEAM CHRONIC DISEASE VISIT [facility] Start: 1964 HEPATITIS C SCREENING HEPATITIS C SCREENING [facility] Start: 1958 Adult depression screening assessment DEPRESSION SCREENING [facility] Start: 1951 COVID-19 VACCINE (1) COVID-19 VACCINE (1) [facility] NM Heart Views W str ess and W radionuclide IV [facility] Patient Education ED Deep Vein T hrombosis (DVT) [facility] Work Phone: Patient referral [facility] Work Phone: [facility] Immunizations Immunization Date Immunization Notes Care Provider Amina malagon 06-13-2014 tetanus and diphther ia toxoids, adsorbed, preservative free, for adult use (2 Lf of tetanus toxoid and 2 Lf of diphtheria toxoid) Dr. Chandana Garcia Work Phone: [facility] 05-05-2008 influenza virus vaccine, unspecified formulation Ira Corey APRN.CNP Work Phone: [facility] Payers Date Payer Category Payer Self-pay [id number] 2023 Private Health Insurance [id number] 2020 Private Health Insurance [id number] 2011 Private Health Insurance [id number] 2011 Private Health Insurance AETNA A ETNA CHOICE POS II [id number] 2011-Present [phone] [address] [place] [address] POS [id number] 1945 Unknown [id number] 1945 Unknown [id number] 1945 Unknown [id number] Private Health Insurance [id number] Private Health Insurance CIGNA [id number] Unknown [id number] Unknown [id number] Unknown [id number] Unknown [id number] Unknown [id number] Unknown [id number] Unknown [id number] Unknown [id number] Unknown [id number] Social History Date Type Detail Facility Start: 09-01-2021 End: 02-27-2023 Tobacco smoking status [facility] Unknown if ever smoked [facility] Start: 1945 Sex Assigned At Male W [facility] Start: 02-04-2013 End: 01-07-2025 Tobacco smoking status NMIS Never smoked tobacco [facility] Start: 02-04-2013 End: 04-11-2022 Tobacco use and exposure Smokeless tobacco non-user [facility] Start: 04-14-2019 End: 05-27-2023 Alcohol intake Current drinker of alcohol (finding) [facility] Start: 04-14-2019 End: 04-01-2023 Alcohol intake [facility] Start: 01-21-2018 History SDOH Alcohol Comment socially [facility] Start: 1945 Sex Assigned At Not on file [facility] Start: 04-01-2022 End: 04-11-2022 Exposure to SARS-CoV-2 (event) Not sure [facility] Start: 01-21-2018 End: 04-01-2023 Tobacco use panel [facility] Retired 08/20/2019 P HQ Score 0 [facility] Start: 05-23-2023 Alcohol Comment one glass of w ine per week [facility] Medical Equipment Procedure Code Equipment Code Equipment Origin al Text Equipment Identifier Dates Stent Viabahn 8m m 7fr Heparin 10cm 120cm Endoprosthesis Delivery System - [id number] Start: 03-03-2018 Comment on above: Description: splenic artery [place] Viabahn Endoprosthesis FDA Start: 07-22-2018 [place] Viabahn Endoprosthesis FDA Start: 07-22-2018 [place] Viabahn Endoprosthesis FDA Start: 07-22-2018 [place] Viabahn Endoprosthesis FDA Start: 07-22-2018 [place] Viabahn Endoprosthesis FDA Start: 07-22-2018 [place] Viabahn Endoprosthesis FDA Start: 07-22-2018 [place] Viabahn Endoprosthesis FDA Start: 07-22-2018 [place] Viabahn Endoprosthesis FDA Start: 07-22-2018 Clinical Notes 06-21-2002 to 12-29-2024 Note Date & Type Note Facility 12-29-2024 Evaluation note Diagnosis Onset Date Resolution Elevated PSA acute December 29 025 3:53pm Hypothyroidism acute December 29, 2024 3:53pm Prostate cancer acute December 3:53pm Sweats, sweating, excessive acute December 29, 2024 3:53pm [facility] Work Phone: 1(880) 802-539006-10-2025 Evaluation note* Diagnosis Onset Date Resolution Status Admit Date Elevated PSA acute December 29 025 3:53pm Hypothyroidism acute December 29, 2024 3:53pm Prostate cancer acute December 3:53pm Sweats, sweating, excessive acute December 29, 2024 3:53pm Bradycardia acute January 07 8:52am History of coronary artery bypass surgery June, chronic January 07, 2025 8:52am Hyperlipidemia chronic January 07, 2025 8:52am [facility] Work Phone: 1(458) 142-987306-10-2025 JORGE Benjamin :1945 [facility]:[id number] Registration Date:12/29/2024 Chief Complaint Elevated PSA History [...] x3 [address] Ovidio Oneil through [facility] 5. History of DVT (deep vein thrombosis) Z86.718 Right lower leg 2020 6. Splenic artery aneurysm I72.8 Stent placed [facility] 2020(?) 7. PTSD (post-traumatic stress disorder) [...] etc.) 7 days befor (more content not included)...[facility]12-04-2023 Instructions* Patient Instructions* Regina Humphreys APRN.RIDES ATTENDANT - 06/24/2023 2:47 PM EST PATIENT PREOPERATIVE INSTRUCTIONS Jaleel Barragan DPM has scheduled you for your procedure at this surgery center: [facility]: [phone] -- [address] [address]. Please read below carefully for your personalized [...] or other anticoagulants without consulting with your cat operator or prescribing physician. - Stop Vitamin E, [...] Procedures: - YOU MUST HAVE A RESPONSIBLE EMPLOYEE WELFARE MANAGER TAKE YOU HOME. A CORRECTIONAL CASE RECORDS SUPERVISOR OR MANAGER BOOKS CANNOT BE MADE A RESPONSIBLE EMPLOYEE WELFARE MANAGER. - We recommend that a responsible person [...] Advance Directive, please fax a copy to [phone] or email to for it to be [...] day. Regina Humphreys APRN.CNP documented in this encounterSumma Health [facility]12-[facility] History and physical note * Regina Humphreys [...] visit. Either the patient or their legal quality control representative has been informed of the risks and benefits of and alternatives to treatment through a remote evaluation and consents to proceed with the evaluation remotely. Patient has been identified by name and date of : Yes This is a virtual visit using [employer] Zoom Video Visit. It require patient- provider [...] ACTIVE PROBLEM LIST Coronary Artery Disease Involving [place] Coronary Artery of [place] Heart Without Angina Pectoris S/P CABG x 3 (L-LAD, R-diag, S-OM) 2001 Pure Hypercholesterolemia Erectile Dysfunction Diaphoresis Angina Effort Splenic Artery Aneurysm (Hcc) Preop Cardiovascular Exam Preop Testing Gastroesophageal Reflux Disease Without Esophagitis Htn (Hypertension) Other Specified Hypothyroidism Acute Deep Vein Thrombosis (Dvt) of Proximal Vein of Lower Extremity (Hcc) PAST MEDICAL HISTORY Diagnosis Date Coronary atherosclerosis of unspecified type of vessel, stillaguamish or graft Coronary Atherosclerosis Frozen shoulder Right [...] Aneurysm Father age 86 from CHF. Had [place] at age 52 Diabetes Father Heart Attack [...] needed. 1-2 hours before sexual intercourse Coenzyme Y19-Jxmmjat E 100-150 mg-unit cap Take 1 tablet by mouth once daily. multivitamin ORAL Tab Take one(1) tablet daily. No current facility-administered medications for this visit. COVID VACCINATION STATUS: Fully vaccinated REVIEW OF SYSTEMS: Pain Assessment: General: No weight loss, malaise or fevers. Neuro: No history of TIA's, stroke, CLIENT APPLICATION SUPPORT ENGINEER tumor, impaired sensorium, hemiplegia, paraplegia or quadraplegia. [...] stress test above. Managed and monitored by cat operator. Stable on daily ASA 81mg. Splenic artery [...] 2:49 PM PAGER/CONTACT #: documented in this encounterSumma Health [facility]11-06-2023 NoteHNO ID: [id number] Author: Laverne Alarcon MD Service: ? Author [...] needed. 1-2 hours before sexual intercourse Coenzyme V08-Qebcgfi E 100-150 mg-unit cap Take 1 tablet [...] Follow up: seamus Alarcon MD 05/27/2023 1:12 [facility]09-28-2023 History of Past illness Narrative* Problem Noted Date Diagnosed Date Resolved Date Epigastric hernia 04/18/2023 05/27/2023 CORONARY ATHEROSCLER UNSPEC VESSEL 04/25/2005 08/23/2015 AORTOCORONARY BYPASS STATUS 04/25/2005 08/23/2015 HYPERLIPIDEMIA NEC/NOS 04/25/200508/23 documented as of this encounter (statuses as of 06/25/2023) [facility]09-14-2023 NoteHNO ID: [id number] Author: Laverne Alarcon MD Service: ? Author [...] Coronary atherosclerosis of unspecified type of vessel, stillaguamish or graft Coronary Atherosclerosis Frozen shoulder Right [...] Aneurysm Father age 86 from CHF. Had [place] at age 52 Diabetes Father Heart Attack [...] needed. 1-2 hours before sexual intercourse Coenzyme C83-Liisfis E 100-150 mg-unit cap Take 1 tablet [...] RADIOLOGY: none Laverne Alarcon MD 04/04/2023 1:42 [facility]05-09-2023 Discharge summary Author Marti Mae [facility] November 27, 2022 12:18pm Note Date/Time November 27, 2022 12:18p [facility] Physical Therapy [facility] [address] [place] [address] / REHABILITATION SERVICES DISCHARGE SUMMARY MR#: [id number] Acct: [id number] Name: JORGE GUILLEN Rep #: [id number] : 1945 77 From: Marti Mae PT, [...] please feel free to call me at [phone]. Thank you for the referral of thispatient. Sincerely, Marti Mae PT, Cert MDT Balance/Gait/Functional tests - Balance/Special Test Scores Oswestry Low Back Score: 12 <Electronically signed by Marti Mae PT, Cert. MDT> 11/27/22 0105 CC: ANDREW Corey; Dr. Luz Elena Mariano MD ~ CINDY Signed [facility] Work Phone: 1(638) 984-987209-21-2022 History of Present illness Narrative* Mayelin Stahl MD - 04/11/2022 1:49 PM EDT Images from the original note were not included. Heart , Vascular and Thoracic [place] DEPARTMENT OF VASCULAR SURGERY OUTPATIENT VISIT DATE April 11, 2022 OUTPATIENT VISIT TYPE ESTABLISHED SERVICE DATE: 04/11/2022 SERVICE TIME: 1:49 PM PRIMARY CARE PHYSICIAN: Ira Corey APRN.RIDES ATTENDANT HISTORY OF PRESENT ILLNESS: Mr. Guillen is a 76 year old male who presents today for a vascular surgery follow-up visit of a splenic artery aneurysm that was repaired in 2018 with 6opw12pm Viabahn stent placement. He currently is doing well. Denies abdominal pain, unintended weight loss, and frequent. Patient returns today with mesenteric ultrasound. It shows patent splenic artery with stent in place, residual sac measuring 1.12x1.16cm from 2.77x2.93cm. PAST MEDICAL HISTORY Diagnosis Date Coronary atherosclerosis of unspecified type of vessel, stillaguamish or graft Coronary Atherosclerosis Frozen shoulder Right [...] needed. 1-2 hours before sexual intercourse Coenzyme Q29-Tftaavc E 100-150 mg-unit cap Take 1 tablet [...] DATE: April 11, 2022 TIME: 1:49 PM [facility] STAFF PHYSICIAN NOTE OF PERSONAL INVOLVEMENT IN [...] OF SERVICE: 2:22 PM documented in this encounterSumma Health W[facility]05-04-2022 Miscellaneous Notes* Telephone Encounter - Riky Meneses - 11/22/2021 1:28 PM EDT Reason for call: Mr. Jorge Guillen called, and he would like to schedule an appointment with DR. Mayelin Stahl, for a follow up. The patient would like to schedule for any Saturday, Saturday, in December 2021, and also as a mid morning appointment if possible please. Home and cell number: [phone] Diagnosis: Splenic artery aneurysm (HCC) Kind Regards, Riky Meneses. documented in this encounterSumma Health W[facility]10-05-2005 History of Past illness Narrative* Problem Noted Date Resolved Date CORONARY ATHEROSCLER UNSPEC VESSEL 04/25/2005 08/23/2015 AORTOCORONARY BYPASS STATUS 04/25/200508/2015 HYPERLIPIDEMIA NEC/NOS 04/25/2005 6 documented as of this encounter (statuses as of 11/22/2021) [facility]10-[facility] History of Past illness Narrative* Problem Noted Date Resolved Date CORONARY ATHEROSCLER UNSPEC VESSEL 04/25/2005 08/23/2015 AORTOCORONARY BYPASS STATUS 04/25/200508/2015 HYPERLIPIDEMIA NEC/NOS 04/25/2005 6 documented as of this encounter (statuses as of 04/11/2022) [facility] History of Past illness Narrative* Problem Noted Date Diagnosed Date Resolved Date CORONARY ATHEROSCLER UNSPEC VESSEL 04/25/2005 08/23/2015 AORTOCORONARY BYPASS STATUS 04/25/2005 08/23/2015 HYPERLIPIDEMIA NEC/NOS 04/25/200508/23 documented as of this encounter (statuses as of 04/01/2023) [facility]12-01-2002 Evaluation note* Diagnosis Onset Date Resolution Status Atherosclerotic heart diseas e of stillaguam[place] coronary artery without angina pectoris chronic History of coronary artery bypass surgery June, chronic Hyperlipidemia chronic Abnormal flushing and sweating acute Bronchitis acute Left otitis media acute Neuropathy of both feet acut e Neuropathy of both feet acut e Right leg DVT acute Chronic lower back pain 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 Hypothyroidism [facility] Work Phone: 1(908) 346-193312-01-2002 Evaluation note* Diagnosis Onset Date Resolution Status Atherosclerotic heart diseas e of [place] coronary artery without angina pectoris chronic History of coronary artery bypass surgery June, chronic Hyperlipidemia chronic Left otitis media acute Maxillary sinusitis acute Hypothyroidism [facility] Work Phone: 1(140) 485-390112-01-2002 Evaluation note* Diagnosis Onset Date Resolution Status Atherosclerotic heart diseas e of [place] coronary artery without angina pectoris chronic History of coronary artery bypass surgery June, chronic Hyperlipidemia chronic Left otitis media acute Maxillary sinusitis acute Hypothyroidism chronic Hyperlipidemia chronic Hypothyroidism [facility] Work Phone: Evaluation note* Diagnosis Onset Date Resolution Status Abnormal flushing and sweating acute Bronchitis acute Left otitis media acute Neuropathy of both feet acut e Neuropathy of both feet acut e Right leg DVT acute Chronic lower back pain 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 Hypothyroidism chronic [facility] Work Phone: Evaluation note* Diagnosis Onset Date Resolution Status Abnormal flushing and sweating acute Bronchitis acute Left otitis media acute Neuropathy of both feet acut e Neuropathy of both feet acut e Right leg DVT acute Chronic lower back pain 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 Hypothyroidism chronic Spinal stenosis of lumbar region acute [facility] Work Phone: Evaluation note* Diagnosis PAD (peripheral artery disease) ([facility])- Primary Peripheral vascular disease, unspecified [facility] noteNo assessment information availableWKettering [facility] Work Phone: Evaluation note* Diagnosis Epigastric hernia- Primary Other ventral hernia without mention of obstruction or gangrene Epigastric hernia Other ventral hernia without mention of obstruction or gangrene documented in this encounter [facility] note* Diagnosis Pre-op evaluation- Primary Preoperative examination, [...] of left foot documented in this encounter [facility] note* Diagnosis Onset Date Resolution Status Neuropathy of both feet acut e Spinal stenosis of lumbar region acute Hyperlipidemia chronic Hypothyroidism [facility] Work Phone: Reason for referral (narrative)No reason for referral information availableWKettering Health [facility] Work Phone: Summary Purpose Family History No Family History Records Found Relationship Condition Age at Onset Recorded Date/T neal father Cardiac disease Unknown Advance Directives No Advanced Directives Records Found Advance Directive Response Recorded Date/ Time Living Will Yes September 01 7:36pm Power of Orthoptist Yes September 01, 2021 7:36pm Documents on File Type Date Recorded Patient Plane Runner Expl anation Advance Directive(s) 02/25/2018 12:12 PM Advance Directive(s) 01/21/2018 2:41 PM Advance Directive Response Recorded Date/ Time Name of Medical Power of Orthoptist tio guillen- September 01, 2021 7:36pm Living Will Yes November 22, 2021 1: 36pm Power of Orthoptist Yes November 22, 2021 1:36pm Advance Directive Response Recorded Date/ Time Living Will Yes November 22, 2021 12 :36pm Power of Orthoptist Yes November 22, 2021 12:36pm Advance Directive Response Recorded Date/ Time Living Will Yes November 22, 2021 1: 36pm Power of Orthoptist Yes November 22, 2021 1:36pm Advance Directive Response Recorded Date/ Time Living Will Yes February 27, 2023 2:34pm Power of Orthoptist Yes February 27 2:34pm Chief Complaint and Reason for Visit Chief Complaint 1 y fu Shortness of breath & cough EDEMA NEUROPATHY LOWER EXTREMITY medication refills Reason for Visit Atherosclerotic hear t disease of [place] coronary artery without angina pectoris History of [...] for Visit Atherosclerotic hear t disease of [place] coronary artery without angina pectoris History of coronary artery bypass surgery Hyperlipidemia Left otitis media Maxillary sinusitis Hypothyroidism Chief Complaint 1 Y FU Sinus Peripheral vascular disease, unspecified medication refills/labs BACK PAIN / RX HERE Reason for Visit Atherosclerotic hear t disease of [place] coronary artery without angina pectoris History of [...] section and content) DATE CREATED AUTHOR 07/29/2019 BYOM! DATE CREATED AUTHOR AUTHOR'S ORGANIZ ATION 05/24/2023 [facility] DATE CREATED AUTHOR AUTHOR'S ORGANIZ ATION 06/26/2023 [facility] DATE CREATED AUTHOR AUTHOR'S ORGANIZ ATION 06/29/2023 [facility] DATE CREATED AUTHOR AUTHOR'S ORGANIZ ATION 01/12/2025 [facility] DATE CREATED AUTHOR AUTHOR'S ORGANIZ ATION 01/31/2025 [facility] Goals (unrecognized section and content) Goals may [...] or prosecute any alcohol or drug abuse patient.[facility] the event this information is protected by the Federal Confidentiality of Alcohol and Drug Abuse Patient Records regulations: The Federal rules restrict any use of the information to criminally investigate or prosecute any alcohol or drug abuse patient.[facility] the event this information is protected by the Federal Confidentiality of Alcohol and Drug Abuse Patient Records regulations: The Federal rules restrict any use of the information to criminally investigate or prosecute any alcohol or drug abuse patient.[facility] Center[facility] the event this information is protected by the Federal Confidentiality of Alcohol and Drug Abuse Patient Records regulations: The Federal rules restrict any use of the information to criminally investigate or prosecute any alcohol or drug abuse patient.[facility] Reason for Visit (unrecogniz ed section and content) Reason Comments Appointment Reason Comments Established Patient Reason Comments Anesthesia Consult Care Teams (unrecognized sec tion and content) [employer] Management Specialist Relationship Specialty Start Date End Date Ira Corey APRN.[facility] [address] [facility] [address] [place], [place] [id number] PCP - General Family Practice 01/21/18 Justo Ariza MD [address] [place], [place] [id number] Primary Staff Physician Cardiology 10/07/18 [employer]angel[employer] Management Specialist Relationship Specialty Start Date End Date Ira Corey APRN.[facility] [address] [facility] [address] [place], [place] [id number] PCP - General Family Medicine 01/21/18 Justo Ariza MD [address] [place] [address] Primary Staff Physician Cardiology 10/07/18 Chandana Garcia [address] [phone] Cardiology 04/11/22 Team Status: Active Member Role Status Dates Ira Corey [facility] Primary Care Provider Active Team Status: Inactive Member Role Status Dates Ira Corey NP, [facility] Primary Care Provider, Referr ing Provider Active Dr. Chandana Garcia MD Attending Provider Active Team Status: Active Member Role Status Dates Ira Corey NP, [facility] Primary Care Provider Active Dr. Luz Elena Mariano MD Referring Provider, Other Provid er Active Dr. Deonte Benitez DO Attending Provider Active Team Status: Inactive Member Role Status Dates Ira Corey [facility] Primary Care Pr ovider, Attending Provider, Referring Provider Active Team Status: Inactive Member Role Status Dates Ira Corey [facility] Primary Care Provider Active Dr. Luz Elena Mariano MD Attending Provider Active Team Status: Inactive Member Role Status Dates Ira Corey [facility] Primary Care Provider, Attend ing Provider Active Team Status: Inactive Member Role Status Dates Ira Vinod [facility] Primary Care Provider Active SHARI MARMOLEJO Attending Provider Active Team Status: Active Member Role Status Dates Ira Corey [facility] Primary Care Provider Active Dr. Luz Elena Mariano MD Attending Provider, Referring Pr ovider Active Team Status: Inactive Member Role Status Dates Ira Corey [facility] Primary Care Provider Active Dr. Luz Elena Mariano MD Attending Provider, Referring Pr ovider Active [employer] Management Specialist Relationship Specialty Start Date End Date Vinod Ira Donahue, PUMP SERVICER SUPERVISOR.RIDES ATTENDANT [address] [place] [address] PCP - General Family Medicine 01/21/18 Justo Ariza MD [address] [place] [address] Primary Staff Physician Cardiology 10/07/18 Chandana Garcia [address] [phone] Cardiology 04/11/22 [employer] Management Specialist Relationship Specialty Start Date End Date VinodIra, PUMP SERVICER SUPERVISOR.RIDES ATTENDANT [address] [place] [address] PCP - General Family Medicine 01/21/18 Justo Ariza MD [address] [place] [address] Primary Staff Physician Cardiology 10/07/18 Chandana Gracia MD [address] [address] Cardiology 04/11/22 Team Status: Inactive Member Role Status Dates Ira Corey NP, [facility] Primary Care Provider Active Start: December 29, 2024 End: December 29, 2024 Ira Corey [facility] Attending Provider Active Start: December 29, 2024 End: December 29, 2024 Ira Corey NP, [facility] Referring Provider Active Start: December 29, 2024 End: December 29, 2024 Team Status: Inactive Member Role Status Dates Ira Corey NP, [facility] Primary Care Provider Active Start: December 29, 2024 End: December 29, 2024 Ira Corey NP, [facility] Attending Provider Active Start: December 29, 2024 End: December 29, 2024 Team Status: Inactive Member Role Status Dates Ira Corey NP, [facility] Primary Care Provider Active Start: January 07, 2025 End: January 07, 2025 Ira Corey NP, [facility] Referring Provider Active Start: January 07, 2025 End: January 07, 2025 Kristofer Mcgee [facility] Attending Provider Active S tart: January 07, [...] BE BASED ON THE PRIMARY CLINICAL RECORDS. [facility] [employer] provides no warranty or guarantee of the accuracy or completeness of information in this document.
--- NOTE | 2025-02-04 10:42 | STRESSREP ---
Stress Test Report Date: 02/04/2025 Procedure: Pharmacologic stress nuclear imaging study Indications: Dyspnea, CAD Consent: Per the patient Procedure: The patient underwent pharmacologic (Regadenoson 0.4mg ) evaluation with a peak heart rate of 71 beats per minute (50%predicted maximal heart rate) and a peak blood pressure of 124/72 mmHg. The baseline ECG demonstrated sinus rhythm. The peak pharmacologic ECG did not show any ischemic changes. There were no cardiac dysrhythmias pretest, during pharmacologic infusion, or recovery. There was no complaint of chest discomfort during pharmacologic infusion or recovery. The patient was injected with 14.5 millicuries of technetium 99m Cardiolite and subsequently rest SPECT Cardiolite nuclear imaging was obtained in the horizontal long, vertical long, and short axis views. The patient underwent pharmacologic (Regadenoson) evaluation. The patient was injected with 44.6 millicuries of technetium 99m Cardiolite and subsequently stress SPECT Cardiolite nuclear imaging was obtained in the horizontal long, vertical long, and short axis views. A gated Cardiolite study at peak stress was obtained. The examination was stopped secondary to completion of protocol. Rest and stress SPECT Cardiolite nuclear imaging status post realignment, normalization, and attenuation correction demonstrate mild reversible perfusion defect of the basal inferior wall suggestive of ischemia. There is end systolic thickening and brightening. The gated Cardiolite study demonstrates myocardial thickening and inward wall motion. The reported LVEF is 60%. Impression: 1. Pharmacologic (Regadenoson) evaluation 2. Peak pharmacologic ECG with no ischemic changes. 3. There were no cardiac dysrhythmias pretest, during pharmacologic infusion, or recovery. 5. Mildly reversible perfusion defect of the basal inferior wall, suggestive of mild ischemia. 6. The gated Cardiolite study reports an LVEF of 60%. This note was generated with [employer] software. It may contain incorrect words, spelling, and punctuation that were not noted in checking the note before signing.
== END | disposition home or self-care (01) ==
LOC: CVS 06:27
PROVIDERS: PCP Nurse Practitioner; Referring Provider Nurse Practitioner Family; Visit Provider Nurse Practitioner Family
DX: R06.02 Shortness of breath (principal); R00.1 Bradycardia, unspecified; E78.5 Hyperlipidemia, unspecified; Z95.1 Presence of aortocoronary bypass graft
CPT/HCPCS: 78452; 93017; A9500; A4216; J2785

== ENCOUNTER 2025-03-15 08:55 | Day surgery (SDC) | payer OTHER, SELFPAY ==
--- NOTE | 2025-03-04 10:45 | RAD_ITS ---
PROCEDURE: CHEST PA AND LATERAL 03/04/2025 REASON FOR EXAM: FOR HEART CATH TECHNIQUE: CHEST PA AND LATERAL COMPARISON: None FINDINGS: There is elevation of the right hemidiaphragm, which appears chronic. There is compressive atelectasis of the adjacent portion of the right lung. The lungs are otherwise clear. There are no pleural effusions. The heart size is normal. Status post CABG surgery. Status post median sternotomy. The upper abdominal bowel gas pattern is unremarkable. RAD/Chest PA and Lateral IMPRESSION: 1. Elevation of the right hemidiaphragm, which appears chronic. 2. Status post CABG surgery. Reading Location: [place] [address]
[2025-03-04 11:05] LABS: Hematocrit 47.5 % (40-54); Hemoglobin 16.2 g/dL (13.0-16.5); Immature Granulocytes Count 0.030 X10^3/uL (0.0-0.0); Mean Corp Hgb Conc 34.1 g/dL (32-36); Mean Corpuscular Volume 86.5 fL (80-94); Mean Platelet Vol. 10.2 fl (6.2-12.0); NRBC Flagged by Analyzer 0 % (0-5); Platelet Count 167 K/mm3 (150-450); RBC Distribution Width CV 13.0 % (11.6-14.6); RBC Distribution Width SD 41.0 fl (35.1-43.9); Red Blood Count 5.49 M/mm3 (4.6-6.2); White Blood Count 6.7 K/mm3 (4.4-11.0)
[2025-03-04 11:08] LABS: Prothrombin Time (Protime)PT. 13.8 SECONDS (11.7-14.9)
[2025-03-04 11:09] LABS: Partial Thromboplast Time 30.6 Seconds (24.1-36.2)
[2025-03-04 11:38] LABS: Anion Gap 11 (5-15); BUN 19 mg/dL (4-19); BUN/Creat Ratio 21.9 RATIO (10-20); Calcium,Total 9.5 mg/dL (7.6-11.0); Carbon Dioxide 25.7 mmol/L (21.0-32.0); Chloride 105 mmol/L (98-108); Glucose 123 mg/dL (70-99); Potassium 4.6 mmol/L (3.3-5.1)
--- NOTE | 2025-03-07 10:03 | PCM.HP.BLA ---
History and Physical Date of Admission: 03/15/25 This is a 79-year-old white male who presents today for a left heart catheterization. He established with us for bradycardia evaluation. He has a history of CABG in June 2002. The patient's prior anginal equivalent prior to his bypass graft surgery in 2001 at [facility] was upper back discomfort that occurred with activity and resolves with rest. He denies chest, arm, jaw, or neck discomfort. He denies upper back pain between shoulder blades. He denies palpitations. He denies bilateral lower extremity edema. He denies claudication. He states shortness of breath with activity such as walking more than 100 feet. He denies shortness of breath walking to our office. He denies shortness of breath at rest, orthopnea, or PND. He denies chronic cough. He denies significant, sudden weight gain. He denies lightheadedness, dizziness, near-syncope, or syncope. He denies blood in urine, blood in stool, or epistaxis. He denies fever with chills. He denies myalgia. He denies fatigue. His exercise level has remained stable, but limited due to back pain. Intake Vital Signs: See EMR Intake Visit Reasons: 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 [facility] Medical History Prostate cancer Bronchitis Right leg DVT Left otitis media Flushing reaction Abnormal flushing and sweating Pneumonia Right flank pain Muscular abdominal pain in right flank Hypothyroidism BPH (benign prostatic hyperplasia) Lymphadenopathy of head and neck Kidney stone Muscle ache of extremity Shoulder pain, left Neck pain Hypothyroidism Abnormal stress test Angina pectoris Peptic ulcer disease Mononeuritis Hyperlipidemia Atherosclerotic heart disease of [place] coronary artery without angina pectoris Surgical History History of foot surgery History of coronary artery bypass surgery (~07/01/02) Splenic artery aneurysm History of hernia repair H/O repair of rotator cuff H/O arthroscopy of left knee Family History Father Heart disease Social History Smoking Status: Never smoker alcohol intake: current alcohol intake frequency: a few times a week Alcohol type: wine substance use type: does not use caffeine: Yes Type: coffee Number of servings: 1 ROS Const Const: Positive for other (Cold sweats easily ); Negative for fatigue or weakness Eyes Eyes: Negative for change in vision ENT ENT: Negative for dizziness or balance problems Cardio Chest Pain: No Palpitations: No Edema: None Muscle aches with walking: None Resp Respiratory: Positive for SOB with activity; Negative for SOB at rest or SOB orthopnea\SOB lying down GI GI: Negative nausea or heartburn : Negative for hematuria or frequent nighttime urination/ nocturia Musc Musc: Negative for balance problems Skin Skin: Negative non-healing lesions or rash Neuro Neuro: Positive for lightheadedness; Negative for dizziness, near syncope, syncope or weakness Endo Endo: Negative for fatigue Allergy Allergy/Immunology: Negative for rash Cardiology Exam Const Appearance: cooperative, healthy appearing, comfortable and no acute distress Nutritional Appearance: well nourished and overweight Orientation: alert, awake and oriented x3 Head Head: normal to inspection Ears: hearing grossly normal bilaterally Nose: external nose normal Face and Sinus: face symmetric Mouth: moist mucous membranes Eyes General: appearance normal, both eyes and all related structures Eyelids: eyelids normal EOM: EOM intact bilaterally Neck Neck: normal visual inspection and no JVD Carotids: normal carotid upstroke Chest Chest inspection: normal inspection of the chest, symmetric chest movement and normal respiratory effort; Negative cough Auscultation: Bilateral: Clear to Auscultation Cardio Rate: regular rate Rhythm: regular rhythm Heart sounds: S1 normal and S2 normal; Negative rub, gallop or murmur GI GI: normal to inspection Neuro General: patient alert, patient awake, patient oriented x3 and CN's II-XI intact bilaterally Skin Skin: no rashes or lesions noted Extremities Pulses: Normal: Right Posterior Tibial Pulse, Left Posterior Tibial Pulse, Right Radial Pulse and Left Radial Pulse Lower Extremity Edema: None: Bilateral Psych Psychological: normal affect Supplemental Info Supplemental Information Stress test from 02/04/2025: Impression: 1. Pharmacologic (Regadenoson) evaluation 2. Peak pharmacologic ECG with no ischemic changes. 3. There were no cardiac dysrhythmias pretest, during pharmacologic infusion, or recovery. 5. Mildly reversible perfusion defect of the basal inferior wall, suggestive of mild ischemia. 6. The gated Cardiolite study reports an LVEF of 60%. Holter Monitor 04/25/2016 Interpretation The rhythm was sinus. The maximum heart rate was 95 BPM, minimum 47 BPM. The average heart rate was 63 BPM. Rare VEs present in singles and bigeminy cycles. Rare SVEs present in singles, couplets ane 1 SVT run, 6 beats in length, 121 BPM. No pauses present. No symptoms noted in the patient diary. Echocardiogram 07/09/2005 Conclusions 1. Negative stress echo for ischemia at 78% MPHR, 9.5 Mets. Nondiagnostic study secondary to the patient's failure to achieve at least 85% of the predicted maximum heart rate. CABG 07/01/2002 Coronary artery bypass grafting times 3 Left internal mammary artery to left anterior descending Right internal mammary artery to first diagonal Saphenous vein bypass to lateral posterolateral circumflex Assessment and Plan Assessment and Plan (1) Bradycardia: Status: Acute Plan: His heart rate appears well-controlled today. He denies any worsening symptoms related to bradycardia since last office visit. For now, he will continue atenolol and we will continue to monitor. If concerns arise, we will consider event monitor or Holter monitor to correlate symptoms and medication adjustment as indicated. (2) Hyperlipidemia: Status: Chronic Qualifiers: Hyperlipidemia type: unspecified Qualified Code(s): E78.5 - Hyperlipidemia, unspecified Plan: Lipid panel on 08/31/2024 showed total cholesterol: 126, HDL: 31, LDL: 37, and triglycerides: 290. He was reminded of LDL goal of 70 and below for secondary prevention. He will continue risk factor and lifestyle modification along with Crestor 10 mg p.o. daily. He was encouraged continue with lifestyle modifications and primary care follow-up regarding elevated triglycerides. (3) History of coronary artery bypass surgery: Status: Chronic Comment: CABG x3- WEISS to LAD, NELSON to 1st diagonal, and SVG to posterolateral CX 07/01/02 Plan: He underwent a stress test on 02/04/2025 that was suggestive of mild ischemia on account of shortness of breath. He is expecting possible back surgery that will require cardiovascular clearance as well. He also acknowledges ongoing shortness of breath with activity. With his symptoms and abnormal stress test, we will proceed with heart catheterization to assess further. Depending results, further recommendation be made. Plan Details Additional Comments: Thank you for allowing us to participate in the patients plan of care, if you have any questions please do not hesitate to call. Plan was reviewed with patient/family member along with red flag symptoms. Understanding was acknowledged. Questions were answered to apparent satisfaction. This note was generated using a voice recognition system and there may be incorrect words, spelling or punctuation that were not noted when reviewing the office note prior to saving. Portions of this documentation were copied and pasted from previous office visit notes to provide a cohesive continuity of the history. The note has been reviewed, edited, and updated, as
[2025-03-12 08:33] VITALS: BMI 27.8
--- NOTE | 2025-03-15 11:27 | CL.D_ITS ---
Patient Name: ERIC GUILLEN Study Date: 03/15/2025 Performing: Brandon Rogel MD Ht: 72 inches 182.88 cm : 1945 Wt: 205.01 lbs 92.99 kg Age: 79 Gender: male BSA: 2.15 PROCEDURE(S) PERFORMED [id number])LHC/COR/LV/CABG CLINICAL PROFILE AND INDICATIONS Indications: Other Heart Failure: None Stress/Imaging Date: 01/31/25 CAD Presentations: Symptom unlikely to be ischemic. CONCLUSIONS Coronary disease status post coronary bypass surgery with WEISS to the LAD patent, NELSON to the diagonal vessel is atretic, saphenous vein graft to the obtuse marginal branch is patent. Moderate right coronary artery disease. Preserved ejection fraction. RECOMMENDATIONS Medical therapy DESCRIPTION OF PROCEDURE The patient arrived to the procedure lab. The risks and benefits of the procedure as well as a full description of our services here and current unavailability of surgical backup were fully explained to the patient and/or their significant other prior to the catheterization. The Timeout was completed, verifying the correct patient and procedure. The patient's procedural site was prepped and draped in the usual fashion. Local anesthetic was given subcutaneously to right radial region with Lidocaine 2%. Local anesthetic was given subcutaneously to right groin region with Lidocaine 2%. Using a modified Seldinger technique, arterial access was obtained via the right radial artery, a 6Fr sheath was inserted., arterial access was obtained via the right femoral artery, a 5Fr sheath was inserted. Right internal mammary artery graft to the Diag selective angiography was performed in multiple views using a 5 Fr. IM catheter. Left Coronary Artery selective angiography was performed in multiple views using a 5 Fr. JL4 catheter. Right Coronary Artery selective angiography was then performed in multiple views using a 5 Fr. 3DRC (Chris) catheter. Saphenous Vein graft to the PL Circumflex selective angiography was performed in multiple views using a 5 Fr. 3DRC (Chris) catheter. Left internal mammary artery graft to the LAD selective angiography was performed in multiple views using a 5 Fr. IM catheter. Left Ventriculography was performed in CARY projection using a 5 Fr. Pigtail catheter. LV to AO pullback pressures were then recorded.The arterial sheath was pulled and a TR Band was applied for hemostasis CORONARY ANGIOGRAPHY DOMINANCE: Right Dominant LEFT HEART ASSESSMENT Left Ventricular Ejection Fraction: by LV Gram 60 % Normal LV wall motion Normal Left Ventricular systolic function LEFT MAIN: 80% ostial left main LEFT ANTERIOR DESCENDING ARTERY: is occluded CIRCUMFLEX ARTERY: Nondominant vessel with moderate proximal disease and a first obtuse marginal branch with diffuse disease in the vessel continuing with a moderate marginal branch RIGHT CORONARY ARTERY: Dominant vessel with moderate 50% proximal disease and 60 to 70% mid to distal stenosis prior to the bifurcation of the posterior descending artery and posterolateral vessel. GRAFTS: WEISS graft to the Mid LAD is patent NELSON graft to the Diagonal vessel is noted to be atretic Saphenous Vein graft to the 2nd OM is patent COMPLICATIONS No Complications PROCEDURE MEDICATIONS Fentanyl 50 mcg IV Versed 1 mg IV Fentanyl 50 mcg IV Versed 1 mg IV Versed 1 mg IV Oxygen: 2 L/min via nasal cannula Benadryl 50 mg IV 03/15/2025 10:27:00 Baby Aspirin (81mg) 1 Tabs PO @ 03/15/2025 10:30:47 Heparin given IA 03/15/2025 10:41:46 Solu-medrol 125 mg IV 03/15/2025 10:26:53 SUMMARY OF HEMODYNAMIC DATA Time AIR REST ECG 09:17:56 AO 139/69 (99) SA 10:43:36 AO 141/60 (94) 10:54:30 LV 145/11, 27 11:10:01 LV 138/12, 24 11:10:09 LV 120/12, 24 11:10:50 LVp 119/10, 24 11:10:52 AOp 121/50 (81) 11:11:00 Signed By Brandon Rogel MD On 03/15/2025 11:26:42 Brandon Rogel MD
== END 2025-03-15 16:21 | disposition home or self-care (01) ==
PROVIDERS: PCP Nurse Practitioner; Referring Provider Internal Medicine Cardiovascular Disease; Visit Provider Internal Medicine Cardiovascular Disease
DX: R00.1 Bradycardia, unspecified (principal); I25.10 Atherosclerotic heart disease of native coronary artery without angina pectoris; Z86.718 Personal history of other venous thrombosis and embolism; E78.5 Hyperlipidemia, unspecified; Z95.1 Presence of aortocoronary bypass graft; R06.02 Shortness of breath; R42 Dizziness and giddiness
CPT/HCPCS: 36415; 71046; 80048; 85025; 85610; 85730; 93459; 93461; 99152; 99153; C1894; Q9967; C1769

== ENCOUNTER → 2025-06-29 | Outpatient (CLI) | payer OTHER, SELFPAY ==
--- NOTE | 2025-06-29 09:42 | ECHOCS_ITS ---
Reason For Study Reason For Study: ATHEROSCLEROTIC HEART DISEASE OF [place] CORONARY ARTERY Procedure This was a 2D Doppler, Color Flow transthoracic echocardiogram. The study was technically difficult. Contrast injection was performed. Exam performed in department. Left Ventricle Normal-sized left ventricle. Left ventricular EF by Moffett's biplane: 55%. Normal diastolic function. No regional wall motion abnormalities noted. Right Ventricle Borderline dilated RV. Normal systolic function. RVSP estimated at: 25 mmHg. Atria The left and right atria are normal. Right atrial pressure estimated at: 3 mmHg. Normal atrial septum. Mitral Valve Normal mitral valve. No mitral stenosis. Trace mitral regurgitation. Tricuspid Valve Normal tricuspid valve. Trace tricuspid regurgitation. No tricuspid stenosis. Aortic Valve Tricuspid aortic valve. No hemodynamically significant aortic stenosis. No aortic regurgitation. Pulmonic Valve Normal pulmonic valve. Mild pulmonic regurgitation. No pulmonic stenosis. Great Vessels Normal sized aortic root. Normal ascending aorta. Pericardium/Pleural No pericardial effusion. Medication 22 gauge I.V. with prn adaptor inserted into right arm. Diluted definity 3ml given slow IV push to enhance endocardial definition. MMode/2D Measurements & Calculations LVIDd: 4.8 cm IVSd: 0.88 cm Ao root diam: 3.7 cm LVIDs: 3.2 cm LVPWd: 0.75 cm RVDd: 4.7 cm FS: 34.5 % LAV(MOD-bp): 58.3 ml LVAd ap4: 31.9 cm2 LVAd ap2: 29.9 cm2 LAV(MOD-bp) Indexed: 27.4 ml/m2 LVLd ap4: 7.6 cm LVLd ap2: 7.5 cm LAV(MOD-sp2): 55.3 ml EDV(MOD-sp4): 110.9 ml EDV(MOD-sp2): 101.7 ml LAV(MOD-sp4): 55.6 ml EDV(sp4-el): 113.6 ml EDV(sp2-el): 101.4 ml LVAs ap4: 18.9 cm2 LVAs ap2: 16.9 cm2 LVLs ap4: 6.1 cm LVLs ap2: 5.4 cm ESV(MOD-sp4): 49.9 ml ESV(MOD-sp2): 44.2 ml ESV(sp4-el): 49.4 ml ESV(sp2-el): 44.5 ml EF(MOD-sp4): 55.0 % EF(MOD-sp2): 56.5 % EF(sp4-el): 56.5 % SV(MOD-sp4): 61.0 ml SV(MOD-sp2): 57.4 ml EDV(MOD-bp): 109.7 ml SI(MOD-sp4): 28.6 ml/m2 SI(MOD-sp2): 27.0 ml/m2 ESV(MOD-bp): 50.5 ml EF(MOD-bp): 54.0 % SV(sp4-el): 64.2 ml LA A4 area: 19.9 cm2 LA dimension(2D): 4.1 cm RA A4 area: 23.7 cm2 TAPSE: 1.5 cm Time Measurements MV dec time: 0.35 sec Doppler Measurements & Calculations MV E max rafiq: 45.3 cm/sec Lat Peak E' Rafiq: 8.8 cm/sec Med Peak E' Rafiq: 5.4 cm/sec MV A max rafiq: 54.6 cm/sec E/E' lat: 5.2 E/E' med: 8.5 MV E/A: 0.83 MV dec slope: 128.8 cm/sec2 Ao V2 max: 95.9 cm/sec LV V1 max: 87.7 cm/sec Ao max P.7 mmHg LV V1 max P.1 mmHg Ao V2 mean: 60.8 cm/sec LV V1 mean P.5 mmHg Ao mean P.8 mmHg LV V1 mean: 54.8 cm/sec Ao V2 VTI: 22.3 cm LV V1 VTI: 19.4 cm AV (velocity ratio): 0.87 PA V2 max: 84.7 cm/sec PI end-d rafiq: 108.6 cm/sec TR max rafiq: 233.3 cm/sec TR max P.8 mmHg ECHO/Echo Complete W/ Contrast Interpretation Summary Normal left ventricular systolic function with EF: 55% by Moffett's biplane Normal left ventricular diastolic function Normal right ventricular systolic function No hemodynamically significant valvular disease Ordering Physician: Mac Aquino Referring Physician: Beckie Brock Performed By: Ryan Finley RDCS
== END | disposition home or self-care (01) ==
LOC: CVS 09:41
PROVIDERS: PCP Nurse Practitioner; Referring Provider Chiropractor; Visit Provider Chiropractor
DX: I25.10 Atherosclerotic heart disease of native coronary artery without angina pectoris (principal)
CPT/HCPCS: 93306; Q9957; A4216; C8929